=== PATIENT | male | born 1965 | race Caucasian/White ===

== ENCOUNTER 2020-01-26 19:21 | Inpatient (IN) ==
[2020-01-26] MEDS ORDERED: IOPAMIDOL 100 ML BOTTLE IV ONE (19:22)
[2020-01-26] MEDS ORDERED: 0.9 % SODIUM CHLORIDE 1,000 ML IV ONE ×2 (19:29→22:50)
[2020-01-26] MEDS ORDERED: ONDANSETRON 4 MG/2 ML VIAL IV ONE (20:06)
[2020-01-26 21:39] LABS: Basophils # (Auto) 0.06 K/mcL (0.00-0.20); Basophils % (Auto) 0.2 % (0.0-2.0); Eosinophils # (Auto) 0.01 K/mcL (0.00-0.70); Eosinophils % (Auto) 0 % (0.0-7.0); Hematocrit 55.4 % (41.0-55.0); Hemoglobin 18.8 g/dL (13.5-16.5); Lymphocytes # (Auto) 1.18 K/mcL (1.50-4.80); Lymphocytes % (Auto) 4.1 % (15.0-49.0); Mean Cell Volume 97.7 fL (80.0-100.0); Mean Corpuscular HGB Conc 33.9 g/dL (31.0-36.0); Mean Platelet Volume 11.2 fL (7.4-10.4); Monocytes # (Auto) 1.75 K/mcL (0.10-0.90); Monocytes % (Auto) 6.1 % (1.0-12.0); Neutrophils % (Auto) 89.6 % (38.0-78.0); Platelet Count 197 K/mcL (140-440); RBC 5.67 M/mcL (4.50-5.90); Red Cell Distribution Width 13.2 % (11.5-14.5); WBC 28.8 K/mcL (4.5-11.0)
[2020-01-26 21:40] LABS: ALT/SGPT 21 U/L (<40); AST/SGOT 37 U/L (<40); Albumin 4.6 gm/dL (3.2-5.2); Albumin/Globulin Ratio 1.7 (1.0-2.3); Alkaline Phosphatase 98 U/L (39-117); Bilirubin,Total 1.1 mg/dL (0.1-1.0); Blood Urea Nitrogen 22 mg/dL (6-20); Calcium 10.9 mg/dL (8.6-10.4); Carbon Dioxide 20 mmol/L (22-30); Chloride 97 mmol/L (96-108); Globulin 2.7 gm/dL (2.2-3.7); Glomerular Filtration Rate 67; Glucose 280 mg/dL (70-105)
[2020-01-26 21:44] LABS: Appearance,Urine Cloudy (Clear); Bacteria,Urine MOD /hpf (0); Bilirubin,Urine Negative (Negative); Color,Urine Brown; Culture Indicated,Urine yes; Glucose,Urine (UA) Negative (Negative); Ketones,Urine 15 mg/dL mg/dL (Negative); Leukocyte Esterase,Urine Trace /ug (Negative); Nitrate,Urine Positive (Negative); PH,Urine 6.5 (5.0-9.0); Specific Gravity,Urine >= 1.030 (1.000-1.035); Urine Blood Small ery/mcL (Negative); Urine Hyaline Cast 27 /lph (0-2); Urine RBC 32 /hpf (0-1); Urine Squamous Epithelial Cell 1 /hpf (0-4); Urine WBC 53 /hpf (0-4); Urobilinogen,Urine >=8.0 E.U./dL mg/dL
[2020-01-26] MEDS ORDERED: cefTRIAXone 1 GM VIAL IV ONE (21:57)
--- NOTE | 2020-01-26 22:05 | Emergency Department Note ---
Nausea/Vomiting/Diarrhea HPI General Chief complaint: Nausea/Vomiting/Diarrhea Stated complaint: diarrhea Time Seen by Provider: 01/26/20 19:25 Source: patient Mode of arrival: ambulatory Limitations: physical limitation (developmental delay and physical) History of Present Illness HPI Narrative: Narrative: 54-year-old male presents with diarrhea and some abdominal discomfort. He has 24-hour a day caregivers. They state that he did have a bowel movement for 5 days and they are supposed to start a bowel regimen after 3 days but they did not do it until today. Rather they started about 24 hours ago. They gave him several laxatives and's for the last couple hours he has had nonstop diarrhea that is like water. They state he is going every 20 minutes. They also was report that he is very weak and shaky. They state he never complains of pain and he is complaining of right lower quadrant abdominal pain. Also has had some nausea but no vomiting. No fever or chills. No cough or cold symptoms. They also state he has a suprapubic catheter and does get UTIs fairly frequently. No treatments prior to arrival other than the laxatives Related Data Home Medications Medication Instructions Recorded Confirmed bupropion HCl 150 mg tablet,12 hr 150 mg PO BID tab 01/05/15 01/01/20 sustained-release divalproex 500 mg tablet,delayed 1,000 mg PO QHS tab 01/05/15 01/01/20 release fluvoxamine 100 mg tablet 100 mg PO TID tab 01/05/15 01/01/20 melatonin 5 mg capsule 5 mg PO .Daily at bedtime cap 01/05/15 01/01/20 teriflunomide 14 mg tablet 14 mg PO QDAY 11/27/19 01/01/20 Previous Rx's Medication Instructions Recorded trazodone 100 mg tablet 100 mg PO QHS #90 tab 08/18/15 GAIT BELT #1 ea 08/14/18 bisacodyl 10 mg rectal suppository 10 mg IN QDAY PRN #12 supp 02/24/19 acetaminophen 500 mg tablet 1,000 mg PO TID PRN #60 tab 05/15/19 levothyroxine 75 mcg capsule 75 mcg PO QDAY #31 cap 07/28/19 multivit,Ca,min-iron 8 mg-folic See Rx Instructions .ROUTE 07/28/19 acid 200 mcg-lycopene 600 mcg .COMPLEX #30 tablet tablet magnesium citrate 118 ml PO ONCE #296 ml 09/15/19 aspirin 81 mg tablet,delayed See Rx Instructions .ROUTE 09/24/19 release .COMPLEX #30 tablet chromium picolinate 200 mcg tablet See Rx Instructions .ROUTE 10/22/19 .COMPLEX #60 tablet magnesium 250 mg tablet 250 mg PO BID 31 Days #62 tab 10/22/19 metformin 500 mg tablet,extended 500 mg PO QDAY #31 tab 11/25/19 release 24 hr fluticasone propionate 50 2 spray INTRANASAL QDAY #16 g 12/01/19 mcg/actuation nasal spray,suspension zinc oxide 13 % topical cream See Rx Instructions TOPICAL 5XD 12/24/19 #454 g [id number], wh See Rx Instructions .ROUTE 01/05/20 .COMPLEX #207 g D-Mannose 1 cap PO BID 31 Days #62 cap 01/15/20 Allergies Allergy/AdvReac Type Severity Reaction Status Date / Time No Known Intolerances Allergy Unknown N/A Verified 01/26/20 19:30 Review of Systems ROS ROS Narrative: Narrative: All systems ED: reviewed and negative except as stated. [facility] Narrative Patient History Narrative: Narrative: Medical/Surgical/Family History All Active Problems Acute URI (Acute) Suprapubic catheter dysfunction (Acute) Vasovagal syncope (Acute) Laceration of scrotum (Acute) Microalbuminuria (Chronic) Catheter (urine) change required (Chronic) History of malignant melanoma (Chronic) History of urinary incontinence (Chronic) History of tonsillectomy (Chronic) History of suprapubic catheter (Chronic) Conroy catheter in place (Chronic) History of cystoscopy (Chronic 02/04/14) Urinary tract infection (Chronic) Urinary retention (Chronic 09/09/13) Urinary incontinence (Chronic) 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) Urethral catheter mechanical complication (Chronic) Rhinitis, allergic (Chronic) Obsessive-compulsive disorder (Chronic) Obesity (Chronic) Neurogenic bladder (Chronic 09/09/13) Myocardial infarction, old (Chronic) Multiple sclerosis (Chronic) Mild cognitive impairment (Chronic) Leukocytopenia (Chronic) Insomnia (Chronic) Hypothyroidism (acquired) (Chronic) Orthostatic hypotension (Chronic) Hypoglycemia (Chronic) Hypertension, essential (Chronic) Hyperlipidemia (Chronic) Esophageal reflux (Chronic) Diabetes mellitus, type II (Chronic) Developmental delay (Chronic) Depressive disorder (Chronic) Dementia (Chronic) Degeneration of lumbar or lumbosacral intervertebral disc (Chronic) Constipation (Chronic) Chronic pain (Chronic) CAD (coronary artery disease) (Chronic) Asthma (Chronic) Anxiety disorder (Chronic) Anoxic brain damage (Chronic) Medical History Anoxic brain damage (Chronic) since child (12/26/2013 Dr Vazquez) Anxiety disorder (Chronic) Asthma (Chronic) CAD (coronary artery disease) (Chronic) 1996 Catheter (urine) change required (Chronic) Chronic pain (Chronic) Constipation (Chronic) Contusion of right leg (Resolved) Degeneration of lumbar or lumbosacral intervertebral disc (Chronic) Dementia (Chronic) provisional diagnosis of early stage Depressive disorder (Chronic) Developmental delay (Chronic) Diabetes mellitus, type II (Chronic) Esophageal reflux (Chronic) History of malignant melanoma (Chronic) melanoma, right shoulder, Dr. 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 Vazquez) History of cystoscopy (Chronic 02/04/14) History of suprapubic catheter (Chronic) 12/26/2013 Dr Vazquez //// 01/08/2014 History of tonsillectomy (Chronic) (12/26/2013 Dr Vazquez) History of urinary incontinence (Chronic) Urinary incontinence procedure December 2006 Hx of cataract surgery (Chronic) Right 04/12/17 Family History Unknown Diabetes mellitus Family history of malignant neoplasm Social History Smoking Status: Never smoker Alcohol Intake Frequency: does not drink Substance Use: does not use Exam Narrative Narrative: Narrative: General Limitations: physical limitation (developmental delay and physical) General appearance: Present alert Head Head: Present atraumatic and normocephalic Eye Eye: Present normal appearance; Absent conjunctival injection ENT ENT: Present normal exam, normal oropharynx, mucous membranes moist, TM's normal bilaterally and normal external ear exam Chest Chest: Present symmetric chest wall rise Respiratory Respiratory: Present normal lung sounds bilaterally; Absent respiratory distre ss, rales/crackles, wheezes, stridor and accessory muscle use Cardiovascular Cardiovascular: Present regular rate and normal heart sounds Adbominal Abdominal: Present tenderness (mild RLQ) and normal bowel sounds; Absent distention, guarding, rebound and rigidity Extremities Extremities: Present normal inspection Back Back: Absent CVA tenderness (R) and CVA tenderness (L) Neurological Neurological: Present alert Psychiatric Psychiatric: Present normal affect and flat affect Skin Skin: Present warm (WNL), dry and normal color; Absent rash Course Course Course Narrative: @ [address] daugherty to assume care due to shift change Vital Signs Vital signs: Vital Signs Temperature 96.1 F L 01/26/20 19:22 Pulse Rate 117 H 01/26/20 19:22 Respiratory Rate 17 01/26/20 19:22 Blood Pressure 127/84 01/26/20 19:22 Pulse Oximetry (%) 94 01/26/20 19:22 Temperature 96.1 F L 01/26/20 19:22 Pulse Rate 125 H 01/26/20 21:46 Respiratory Rate 17 01/26/20 19:22 Blood Pressure 136/97 01/26/20 21:46 Pulse Oximetry (%) 95 01/26/20 21:46 MDM MDM Narrative Medical decision making narrative: Narrative: Lab Data Lab results reviewed: Yes I reviewed the patient's lab results. Result diagrams: 01/26/20 19:45 01/26/20 19:45 Labs: Lab Results 01/26/20 01/26/20 01/26/20 Range/Units 19:45 19:45 20:14 WBC 28.8 H (4.5-11.0) K/mcL RBC 5.67 (4.50-5.90) M/mcL Hgb 18.8 H (13.5-16.5) g/dL Hct 55.4 H (41.0-55.0) % MCV 97.7 (80.0-100.0) fL MCH 33.2 (26.0-34.0) pg MCHC 33.9 (31.0-36.0) g/dL RDW 13.2 (11.5-14.5) % Plt Count 197 (140-440) K/mcL MPV 11.2 H (7.4-10.4) fL Neut % (Auto) 89.6 H (38.0-78.0) % Lymph % (Auto) 4.1 L (15.0-49.0) % [place] % (Auto) 6.1 (1.0-12.0) % Eos % (Auto) 0 (0.0-7.0) % Baso % (Auto) 0.2 (0.0-2.0) % Lymph # (Auto) 1.18 L (1.50-4.80) K/mcL [place] # (Auto) 1.75 H (0.10-0.90) K/mcL Eos # (Auto) 0.01 (0.00-0.70) K/mcL Baso # (Auto) 0.06 (0.00-0.20) K/mcL Absolute Neutrophils 25.81 H (1.80-8.00) K/mcL Sodium 136 (133-145) mmol/L Potassium 4.7 (3.3-5.1) mmol/L Chloride 97 (96-108) mmol/L Carbon Dioxide 20 L (22-30) mmol/L Anion Gap 19.0 H (8.0-16.0) BUN 22 H (6-20) mg/dL Creatinine 1.2 (0.7-1.2) mg/dL GFR Calculation 67 Glucose 280 H (70-105) mg/dL Calcium 10.9 H (8.6-10.4) mg/dL Total Bilirubin 1.1 H (0.1-1.0) mg/dL AST 37 (<40) U/L ALT 21 (<40) U/L Alkaline Phosphatase 98 (39-117) U/L Total Protein 7.3 (5.9-8.4) gm/dL Albumin 4.6 (3.2-5.2) gm/dL Globulin 2.7 (2.2-3.7) gm/dL Albumin/Globulin Ratio 1.7 (1.0-2.3) Urine Color Brown Urine Appearance Cloudy A (Clear) Urine pH 6.5 (5.0-9.0) Ur Specific [place] >= 1.030 (1.000-1.035) Urine Protein 30 mg/dl A (Negative) mg/dL Urine Glucose (UA) Negative (Negative) mg/dL Urine Ketones 15 mg/dl A (Negative) mg/dL Urine Occult Blood Small A (Negative) gilson/mcL Urine Nitrate Positive A (Negative) Urine Bilirubin Negative (Negative) mg/dL Urine Urobilinogen >=8.0 e.u./dl A mg/dL Ur Leukocyte Esterase Trace A (Negative) /ug Urine RBC 32 H (0-1) /hpf Urine WBC 53 H (0-4) /hpf Ur Squamous Epith Cells 1 (0-4) /hpf Urine Bacteria Mod A (0) /hpf Hyaline Casts 27 H (0-2) /lph Ur Culture Indicated? yes Radiology Data Radiology results reviewed: Yes I reviewed the patient's radiology results. Discharge Plan Patient/Caregiver Discharge Instructions Pt seen by ACREAGE REPORTER/PA only: No Patient Disposition: Still a Patient Follow up with: Lon Stinson PA-C [Primary Care Provider] - Prescriptions: No Action trazodone 100 mg tablet 100 mg PO QHS Qty: 90 RF: 1 bisacodyl 10 mg suppository 10 mg IN QDAY PRN (Reason: constipation) Qty: 12 RF: 11 acetaminophen 500 mg tablet 1,000 mg PO TID PRN (Reason: headache) Qty: 60 RF: 2 levothyroxine 75 mcg capsule 75 mcg PO QDAY Qty: 31 RF: 5 Centrum Men 8 mg iron- 200 mcg-600 mcg tablet See Rx Instructions .ROUTE .COMPLEX Qty: 30 RF: 5 magnesium citrate Solution 118 ml PO ONCE Qty: 296 RF: 0 aspirin 81 mg tablet,delayed release (DR/EC) See Rx Instructions .ROUTE .COMPLEX Qty: 30 RF: 5 magnesium 250 mg tablet 250 mg PO BID 31 Days Qty: 62 RF: 5 chromium picolinate 200 mcg tablet See Rx Instructions .ROUTE .COMPLEX Qty: 60 RF: 5 metformin 500 mg tablet extended release 24 hr 500 mg PO QDAY Qty: 31 RF: 11 fluticasone propionate 50 mcg/actuation spray,suspension 2 spray INTRANASAL QDAY Qty: 16 RF: 5 Desitin Rapid Relief 13 % cream See Rx Instructions TOPICAL 5XD Qty: 454 RF: 1 Cetaphil Moisturizing Cream See Rx Instructions .ROUTE .COMPLEX Qty: 207 RF: 1 D-Mannose 500 mg capsule 1 cap PO BID 31 Days Qty: 62 RF: 5 bupropion HCl 150 mg tablet extended release 150 mg PO BID RF: 0 divalproex 500 mg tablet,delayed release (DR/EC) 1,000 mg PO QHS RF: 0 fluvoxamine 100 mg tablet 100 mg PO TID RF: 0 melatonin 5 mg capsule 5 mg PO .Daily at bedtime RF: 0 (DME) GAIT BELT Qty: 1 RF: 0 Aubagio 14 mg tablet 14 mg PO QDAY RF: 0
[2020-01-26] MEDS ORDERED: cefTRIAXone 1 GM VIAL ONE (22:48)
[2020-01-26] MEDS ORDERED: cefTRIAXone 2 GM VIAL IV ONE (23:36)
[2020-01-26] MEDS ORDERED: ONDANSETRON 4 MG/2 ML VIAL IV PRN (23:37)
--- NOTE | 2020-01-26 23:50 | Emergency Department Note ---
HPI General Chief complaint: Nausea/Vomiting/Diarrhea Stated complaint: diarrhea Time Seen by Provider: 01/26/20 19:25 Source: patient Mode of arrival: ambulatory Limitations: physical limitation (developmental delay and physical) History of Present Illness HPI Narrative: Narrative: Assumed care from Radha Metcalf at time of shift change. I was to follow-up on CT scan results and dispo the patient. Patient had been noted to be tachycardic as well as with significant elevation of the white blood cell count and abnormal urinalysis. Patient has had fluid resuscitation 2 L. Patient did not have lactic acid performed to the best that I can find in the chart. This test was ordered at time of disposition. Related Data Home Medications Medication Instructions Recorded Confirmed bupropion HCl 150 mg tablet,12 hr 150 mg PO BID tab 01/05/15 01/26/20 sustained-release divalproex 500 mg tablet,delayed 1,000 mg PO QHS tab 01/05/15 01/01/20 release fluvoxamine 100 mg tablet 100 mg PO TID tab 01/05/15 01/01/20 melatonin 5 mg capsule 5 mg PO .Daily at bedtime cap 01/05/15 01/26/20 teriflunomide 14 mg tablet 14 mg PO QDAY 11/27/19 01/26/20 Previous Rx's Medication Instructions Recorded trazodone 100 mg tablet 100 mg PO QHS #90 tab 08/18/15 GAIT BELT #1 ea 08/14/18 bisacodyl 10 mg rectal suppository 10 mg MS QDAY PRN #12 supp 02/24/19 acetaminophen 500 mg tablet 1,000 mg PO TID PRN #60 tab 05/15/19 levothyroxine 75 mcg capsule 75 mcg PO QDAY #31 cap 07/28/19 multivit,Ca,min-iron 8 mg-folic See Rx Instructions .ROUTE 07/28/19 acid 200 mcg-lycopene 600 mcg .COMPLEX #30 tablet tablet magnesium citrate 118 ml PO ONCE #296 ml 09/15/19 aspirin 81 mg tablet,delayed See Rx Instructions .ROUTE 09/24/19 release .COMPLEX #30 tablet chromium picolinate 200 mcg tablet See Rx Instructions .ROUTE 10/22/19 .COMPLEX #60 tablet magnesium 250 mg tablet 250 mg PO BID 31 Days #62 tab 10/22/19 metformin 500 mg tablet,extended 500 mg PO QDAY #31 tab 11/25/19 release 24 hr fluticasone propionate 50 2 spray INTRANASAL QDAY #16 g 12/01/19 mcg/actuation nasal spray,suspension zinc oxide 13 % topical cream See Rx Instructions TOPICAL 5XD 12/24/19 #454 g fozdmusz-bmycbureqzv-npqsq, wh See Rx Instructions .ROUTE 01/05/20 .COMPLEX #207 g D-Mannose 1 cap PO BID 31 Days #62 cap 01/15/20 Allergies Allergy/AdvReac Type Severity Reaction Status Date / Time No Known Intolerances Allergy Unknown N/A Verified 01/26/20 19:30 Review of Systems ROS ROS Narrative: Narrative: All systems ED: reviewed and negative except as stated. [facility] Narrative Patient History Narrative: Narrative: Medical/Surgical/Family History All Active Problems (Updated 01/26/20 @ 23:49 by Heri Littlejohn MD) Sepsis (Acute) Acute UTI (Acute) Acute URI (Acute) Suprapubic catheter dysfunction (Acute) Vasovagal syncope (Acute) Laceration of scrotum (Acute) Microalbuminuria (Chronic) Catheter (urine) change required (Chronic) History of malignant melanoma (Chronic) History of urinary incontinence (Chronic) History of tonsillectomy (Chronic) History of suprapubic catheter (Chronic) Conroy catheter in place (Chronic) History of cystoscopy (Chronic 02/04/14) Urinary tract infection (Chronic) Urinary retention (Chronic 09/09/13) Urinary incontinence (Chronic) 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) Urethral catheter mechanical complication (Chronic) Rhinitis, allergic (Chronic) Obsessive-compulsive disorder (Chronic) Obesity (Chronic) Neurogenic bladder (Chronic 09/09/13) Myocardial infarction, old (Chronic) Multiple sclerosis (Chronic) Mild cognitive impairment (Chronic) Leukocytopenia (Chronic) Insomnia (Chronic) Hypothyroidism (acquired) (Chronic) Orthostatic hypotension (Chronic) Hypoglycemia (Chronic) Hypertension, essential (Chronic) Hyperlipidemia (Chronic) Esophageal reflux (Chronic) Diabetes mellitus, type II (Chronic) Developmental delay (Chronic) Depressive disorder (Chronic) Dementia (Chronic) Degeneration of lumbar or lumbosacral intervertebral disc (Chronic) Constipation (Chronic) Chronic pain (Chronic) CAD (coronary artery disease) (Chronic) Asthma (Chronic) Anxiety disorder (Chronic) Anoxic brain damage (Chronic) Medical History Anoxic brain damage (Chronic) since child (12/26/2013 Dr Vazquez) Anxiety disorder (Chronic) Asthma (Chronic) CAD (coronary artery disease) (Chronic) 1996 Catheter (urine) change required (Chronic) Chronic pain (Chronic) Constipation (Chronic) Contusion of right leg (Resolved) Degeneration of lumbar or lumbosacral intervertebral disc (Chronic) Dementia (Chronic) provisional diagnosis of early stage Depressive disorder (Chronic) Developmental delay (Chronic) Diabetes mellitus, type II (Chronic) Esophageal reflux (Chronic) History of malignant melanoma (Chronic) melanoma, right shoulder, Dr. 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 Vazquez) History of cystoscopy (Chronic 02/04/14) History of suprapubic catheter (Chronic) 12/26/2013 Dr Vazquez //// 01/08/2014 History of tonsillectomy (Chronic) (12/26/2013 Dr Vazquez) History of urinary incontinence (Chronic) Urinary incontinence procedure December 2006 Hx of cataract surgery (Chronic) Right 04/12/17 Family History Unknown Diabetes mellitus Family history of malignant neoplasm Social History Smoking Status: Never smoker Alcohol Intake Frequency: does not drink Substance Use: does not use Exam Narrative Narrative: Narrative: General: Alert, interactive, appropriate Head: Atraumatic, normocephalic Eyes: Extraocular movements intact, sclera anicteric, no conjunctival injection Ears: Pinnae normal, no discharge Mouth: Oral mucosa moist, no acute swelling or evidence of infection Nares: No nasal discharge, patent bilaterally Neck: Trachea midline, full range of motion Chest: Symmetrical chest wall rise, breathing normally; nonlabored respirations Cardiovascular: Patient with excellent perfusion to the extremities; with tachycardia Skin: Patient without area of erythema, patient is without rash, no ascending lymphangitis or lymphadenopathy Extremities: Full range of motion joints, no obvious deformities Neuro: Alert, oriented x3, cranial nerves II through XII grossly intact, patient without lateralizing findings such as weakness, or abnormal reflexes Psychiatric: Normal affect, normal mood General Limitations: physical limitation (developmental delay and physical) Course Vital Signs Vital signs: Vital Signs Temperature 96.1 F L 01/26/20 19:22 Pulse Rate 117 H 01/26/20 19:22 Respiratory Rate 17 01/26/20 19:22 Blood Pressure 127/84 01/26/20 19:22 Pulse Oximetry (%) 94 01/26/20 19:22 Temperature 96.1 F L 01/26/20 19:22 Pulse Rate 103 H 01/26/20 23:17 Respiratory Rate 17 01/26/20 19:22 Blood Pressure 140/84 01/26/20 23:17 Pulse Oximetry (%) 92 01/26/20 23:17 MDM MDM Narrative Medical decision making narrative: Narrative: 54-year-old male noted to have elevated white blood cell count, abnormal urinalysis, tachycardia and one blood pressure in the systolic of 98. Patient's was appropriately fluid resuscitated with normal saline 2 L also given Rocephin [address] scan did not specifically identify pathology aside from findings consistent with having recently had severe constipation and having been treated aggressively with bowel regimen. Findings in this case most consistent with sepsis and urinary source. Patient did not have lactate or blood cultures drawn at time of my assuming care and patient had already received fluid resuscitation as well as antibiotics. Discussed the case with Dr. Franco and the consensus medical opinion is to admit the patient to the hospital. Lab Data Result diagrams: 01/26/20 19:45 01/26/20 19:45 Labs: Lab Results 01/26/20 01/26/20 01/26/20 Range/Units 19:45 19:45 20:14 WBC 28.8 H (4.5-11.0) K/mcL RBC 5.67 (4.50-5.90) M/mcL Hgb 18.8 H (13.5-16.5) g/dL Hct 55.4 H (41.0-55.0) % MCV 97.7 (80.0-100.0) fL MCH 33.2 (26.0-34.0) pg MCHC 33.9 (31.0-36.0) g/dL RDW 13.2 (11.5-14.5) % Plt Count 197 (140-440) K/mcL MPV 11.2 H (7.4-10.4) fL Neut % (Auto) 89.6 H (38.0-78.0) % Lymph % (Auto) 4.1 L (15.0-49.0) % [place] % (Auto) 6.1 (1.0-12.0) % Eos % (Auto) 0 (0.0-7.0) % Baso % (Auto) 0.2 (0.0-2.0) % Lymph # (Auto) 1.18 L (1.50-4.80) K/mcL [place] # (Auto) 1.75 H (0.10-0.90) K/mcL Eos # (Auto) 0.01 (0.00-0.70) K/mcL Baso # (Auto) 0.06 (0.00-0.20) K/mcL Absolute Neutrophils 25.81 H (1.80-8.00) K/mcL Sodium 136 (133-145) mmol/L Potassium 4.7 (3.3-5.1) mmol/L Chloride 97 (96-108) mmol/L Carbon Dioxide 20 L (22-30) mmol/L Anion Gap 19.0 H (8.0-16.0) BUN 22 H (6-20) mg/dL Creatinine 1.2 (0.7-1.2) mg/dL GFR Calculation 67 Glucose 280 H (70-105) mg/dL Calcium 10.9 H (8.6-10.4) mg/dL Total Bilirubin 1.1 H (0.1-1.0) mg/dL AST 37 (<40) U/L ALT 21 (<40) U/L Alkaline Phosphatase 98 (39-117) U/L Total Protein 7.3 (5.9-8.4) gm/dL Albumin 4.6 (3.2-5.2) gm/dL Globulin 2.7 (2.2-3.7) gm/dL Albumin/Globulin Ratio 1.7 (1.0-2.3) Urine Color Brown Urine Appearance Cloudy A (Clear) Urine pH 6.5 (5.0-9.0) Ur Specific [place] >= 1.030 (1.000-1.035) Urine Protein 30 mg/dl A (Negative) mg/dL Urine Glucose (UA) Negative (Negative) mg/dL Urine Ketones 15 mg/dl A (Negative) mg/dL Urine Occult Blood Small A (Negative) gilson/mcL Urine Nitrate Positive A (Negative) Urine Bilirubin Negative (Negative) mg/dL Urine Urobilinogen >=8.0 e.u./dl A mg/dL Ur Leukocyte Esterase Trace A (Negative) /ug Urine RBC 32 H (0-1) /hpf Urine WBC 53 H (0-4) /hpf Ur Squamous Epith Cells 1 (0-4) /hpf Urine Bacteria Mod A (0) /hpf Hyaline Casts 27 H (0-2) /lph Ur Culture Indicated? yes Discharge Plan Patient/Caregiver Discharge Instructions Pt seen by PERMIT TECHNICIAN/PA only: No Clinical Impression: Acute UTI Sepsis Qualifiers: Sepsis type: sepsis due to unspecified organism Sepsis acute organ dysfunction status: without acute organ dysfunction Qualified Code(s): A41.9 - Sepsis, unspecified organism Patient Disposition: Xfer As Inpt ([facility]) Follow up with: Lon Stinson PA-C [Primary Care Provider] - Prescriptions: No Action trazodone 100 mg tablet 100 mg PO QHS Qty: 90 RF: 1 bisacodyl 10 mg suppository 10 mg MS QDAY PRN (Reason: constipation) Qty: 12 RF: 11 acetaminophen 500 mg tablet 1,000 mg PO TID PRN (Reason: headache) Qty: 60 RF: 2 levothyroxine 75 mcg capsule 75 mcg PO QDAY Qty: 31 RF: 5 Centrum Men 8 mg iron- 200 mcg-600 mcg tablet See Rx Instructions .ROUTE .COMPLEX Qty: 30 RF: 5 magnesium citrate Solution 118 ml PO ONCE Qty: 296 RF: 0 aspirin 81 mg tablet,delayed release (DR/EC) See Rx Instructions .ROUTE .COMPLEX Qty: 30 RF: 5 magnesium 250 mg tablet 250 mg PO BID 31 Days Qty: 62 RF: 5 chromium picolinate 200 mcg tablet See Rx Instructions .ROUTE .COMPLEX Qty: 60 RF: 5 metformin 500 mg tablet extended release 24 hr 500 mg PO QDAY Qty: 31 RF: 11 fluticasone propionate 50 mcg/actuation spray,suspension 2 spray INTRANASAL QDAY Qty: 16 RF: 5 Desitin Rapid Relief 13 % cream See Rx Instructions TOPICAL 5XD Qty: 454 RF: 1 Cetaphil Moisturizing Cream See Rx Instructions .ROUTE .COMPLEX Qty: 207 RF: 1 D-Mannose 500 mg capsule 1 cap PO BID 31 Days Qty: 62 RF: 5 bupropion HCl 150 mg tablet extended release 150 mg PO BID RF: 0 divalproex 500 mg tablet,delayed release (DR/EC) 1,000 mg PO QHS RF: 0 fluvoxamine 100 mg tablet 100 mg PO TID RF: 0 melatonin 5 mg capsule 5 mg PO .Daily at bedtime RF: 0 (DME) GAIT BELT Qty: 1 RF: 0 Aubagio 14 mg tablet 14 mg PO QDAY RF: 0
--- NOTE | 2020-01-27 05:09 | Cat Scan Report ---
CLINICAL INFORMATION: Abdominal pain and distention COMPARISON: Noncontrast abdomen and pelvic CT 06/05/2009 TECHNIQUE: Following enteric contrast, 80 cc of Isovue-370 were injected intravenously, and 60 seconds later, 0.625 mm helical slices were obtained from the mid heart through the subtrochanteric regions. Following reconstruction, 2.5 mm sagittal, coronal and axial reformatted images were processed and reviewed at bone, lung and soft tissue windows. Five minutes later, 0.625 mm helical slices were obtained from the mid heart through the kidneys and viewed at soft tissue windows.The exam was performed using radiation dose optimization techniques including, but not limited to, automated exposure control, adjustment of the mA and/or kV according to patient size and use of iterative reconstruction technique. FINDINGS: Lung bases show subsegmental atelectasis in both posterior lower lobes. No effusions. The visualized heart is grossly normal. Abdominal images show the gallbladder and bile ducts are normal: CBD is 5 mm. There is a 2 mm punctate nonobstructing stone inferior calyx of the right kidney. The remaining right knee, left kidney, both adrenal glands, spleen, pancreas, liver and aorta, including aortic branches, are normal in size, configuration and attenuation without focal lesion. Pelvic images show suprapubic catheter satisfactorily positioned. A decompressed urinary bladder. The prostate and seminal vesicles are grossly normal. There is no free air, free fluid or adenopathy. The visualized distal thoracic esophagus, stomach, duodenum and jejunum are moderately dilated to a transition point in the left upper quadrant (best seen on sagittal image 124). Presumably, there is a stricture or adhesion in this region. The distal small bowel and most of the colon are decompressed. The mid distal sigmoid and rectum demonstrate mild concentric wall thickening and marked dilatation excess stool. Findings are suggestive of colitis / proctitis. No definite CT evidence for volvulus. A 6.5 cm diverticulum off the small bowel seen in the right lower quadrant extends into the right prevesical space. The appendix is unremarkable. A 4 cm right inguinal hernia, containing only mesenteric fat, is stable. Bone windows show no focal osseous lesions. IMPRESSION: 1. Partial small bowel obstruction in the mid jejunum due to adhesions or stricture. Consider: standard radiographic small bowel follow-through to confirm. Delayed films of the large bowel will also concomitantly exclude or confirm sigmoid volvulus 2. Marked dilatation and mild wall thickening of the mid/ distal sigmoid colon and rectum which contains a large amount of stool. Suspect this is merely atypical ileus, but mild colitis/proctitis are also possible. Patient will likely require colonic cleansing. 3. Small right inguinal hernia containing mesenteric fat - stable 4. 6 cm diverticulum off the distal ileum in the right lower quadrant which contains two fecaliths and is located in the right perivesical space. Significance unknown. Interpreted and Authenticated by: Miguel Cade 01/27/20
--- NOTE | 2020-01-27 05:10 | XRay Report ---
CLINICAL INFORMATION: constipation, now diarrhea, abd pain COMPARISON: 08/11/2009 FINDINGS: Moderate gastric dilatation appreciated. Small bowel poorly visualized. Moderate colonic dilatation appreciated particularly the rectosigmoid region which is stool-filled. No free air soft tissue mass. IMPRESSION: Nonspecific stool gas pattern compatible either severe ileus or distal colonic obstruction. Follow-up abdomen and pelvic CT will be performed Interpreted and Authenticated by: Miguel Cade 01/27/20
[2020-01-27] MEDS ORDERED: 0.9 % SODIUM CHLORIDE 10 ML SYRINGE IV SCH (06:00)
[2020-01-27 07:19] LABS: Total Hemoglobin 17.5 gm/Dl (13.5-16.5); VBG HCO3 21.7 mmol/L (24.0-28.0); VBG Oxygen Saturation 91.7 % (40.0-70.0); VBG PCO2 34.3 mmHg (41.0-51.0); VBG PH 7.42 U (7.32-7.42); VBG Total CO2 22.8 mmol/L (25.0-29.0)
[2020-01-27] MEDS: DOCUSATE SODIUM 100 MG CAPSULE PO SCH ×2 (07:28→20:00)
[2020-01-27] MEDS ORDERED: MAGNESIUM SULFATE 2 GM/50 ML BAG IV PRN (07:37)
[2020-01-27] MEDS ORDERED: POTASSIUM CHLORIDE 20 MEQ PACKET PO PRN (07:37)
[2020-01-27] MEDS ORDERED: ACETAMINOPHEN 650 MG/65 ML BOTTLE IV PRN (07:37)
[2020-01-27] MEDS ORDERED: BISACODYL 10 MG SUPP.RECT PR PRN (07:37)
[2020-01-27] MEDS ORDERED: POLYETHYLENE GLYCOL 3350 17 GM PACKET PO PRN (07:37)
[2020-01-27] MEDS ORDERED: METOPROLOL TARTRATE 5 MG/5 ML VIAL IV PRN (07:37)
[2020-01-27] MEDS ORDERED: ONDANSETRON 4 MG/2 ML VIAL IV PRN (07:37)
[2020-01-27] MEDS ORDERED: MELATONIN 3 MG TABLET PO PRN (07:37)
[2020-01-27] MEDS ORDERED: ACETAMINOPHEN 325 MG TABLET PO PRN (07:37)
[2020-01-27] MEDS ORDERED: POTASSIUM CHLORIDE 40 MEQ in DEXTROSE 5% IN WATER 500 ML IV PRN (07:37)
[2020-01-27] MEDS ORDERED: guaiFENesin/CODEINE 10 ML UDC PO PRN (07:37)
[2020-01-27] MEDS ORDERED: ONDANSETRON 4 MG ODT TABLET SL PRN (07:37)
--- NOTE | 2020-01-27 07:43 | Internal Med History&Physical ---
HPI History of Present Illness Patient information: Note initiated : 01/26/20 at 11:53 pm Service Date, if different from initiated Date: [] Patient: Buck Diamond 54 y/o M admitted on 01/26/20 for diarrhea. Chief Complaint: [id number] a history of developmental delay who presented to the ER following multiple episodes of diarrhea. Patient suffers from abnormal bowel with alternating constipation following diarrhea at this time he has not had a bowel movement in 5 days. He was subsequently given multiple laxatives/stool softeners with resultant diarrhea. He normally receives help from caregivers. Staff expressed concern about dehydration and him not feeling his normal self. He was subsequently brought to the ER. Initial work-up was consistent with severe sepsis with white count 28,000, ileus pattern on CT abdomen. Pyuria Patient carries a suprapubic Conroy's catheter that was changed 2 weeks prior to presentation. No evidence of fever. However patient remained tachycardic. Subsequently hospitalist service was consulted for admission in light of severe sepsis likely from UTI At the time of my evaluation patient is very restless unable to provide answers to most the questions. POA/daughter Brinda available and was able to provide answers to most of the questions. Patient has been started on antibiotic coverage, Conroy's catheter will be changed. Rectal tube was placed. Continuing crystalloids Review of systems 10 point review system was attempted but could not be obtained other than patient is able to endorse that he does not feel abdominal pain PFSH PFSH All Active Problems (Updated 01/26/20 @ 23:49 by Heri Littlejohn MD) Sepsis (Acute) Acute UTI (Acute) Acute URI (Acute) Suprapubic catheter dysfunction (Acute) Vasovagal syncope (Acute) Laceration of scrotum (Acute) Microalbuminuria (Chronic) Catheter (urine) change required (Chronic) History of malignant melanoma (Chronic) History of urinary incontinence (Chronic) History of tonsillectomy (Chronic) History of suprapubic catheter (Chronic) Conroy catheter in place (Chronic) History of cystoscopy (Chronic 02/04/14) Urinary tract infection (Chronic) Urinary retention (Chronic 09/09/13) Urinary incontinence (Chronic) 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) Urethral catheter mechanical complication (Chronic) Rhinitis, allergic (Chronic) Obsessive-compulsive disorder (Chronic) Obesity (Chronic) Neurogenic bladder (Chronic 09/09/13) Myocardial infarction, old (Chronic) Multiple sclerosis (Chronic) Mild cognitive impairment (Chronic) Leukocytopenia (Chronic) Insomnia (Chronic) Hypothyroidism (acquired) (Chronic) Orthostatic hypotension (Chronic) Hypoglycemia (Chronic) Hypertension, essential (Chronic) Hyperlipidemia (Chronic) Esophageal reflux (Chronic) Diabetes mellitus, type II (Chronic) Developmental delay (Chronic) Depressive disorder (Chronic) Dementia (Chronic) Degeneration of lumbar or lumbosacral intervertebral disc (Chronic) Constipation (Chronic) Chronic pain (Chronic) CAD (coronary artery disease) (Chronic) Asthma (Chronic) Anxiety disorder (Chronic) Anoxic brain damage (Chronic) Medical History Anoxic brain damage (Chronic) since child (12/26/2013 Dr Vazquez) Anxiety disorder (Chronic) Asthma (Chronic) CAD (coronary artery disease) (Chronic) 1996 Catheter (urine) change required (Chronic) Chronic pain (Chronic) Constipation (Chronic) Contusion of right leg (Resolved) Degeneration of lumbar or lumbosacral intervertebral disc (Chronic) Dementia (Chronic) provisional diagnosis of early stage Depressive disorder (Chronic) Developmental delay (Chronic) Diabetes mellitus, type II (Chronic) Esophageal reflux (Chronic) History of malignant melanoma (Chronic) melanoma, right shoulder, Dr. 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 Vazquez) History of cystoscopy (Chronic 02/04/14) History of suprapubic catheter (Chronic) 12/26/2013 Dr Vazquez //// 01/08/2014 History of tonsillectomy (Chronic) (12/26/2013 Dr Vazquez) History of urinary incontinence (Chronic) Urinary incontinence procedure December 2006 Hx of cataract surgery (Chronic) Right 04/12/17 Family History Unknown Diabetes mellitus Family history of malignant neoplasm Social History household members: friend(s) housing: apartment lives independently: No marital status: single occupational status: disabled physical activity: walking smoking status: Never smoker alcohol intake frequency: does not drink substance use type: does not use MEDS/ALLERGIES Home Medications and Allergies Home Medications Medication Instructions Recorded Confirmed Type bupropion HCl 150 mg tablet,12 hr 300 mg PO DAILY tab 01/05/15 01/27/20 History sustained-release divalproex 500 mg tablet,delayed 1,000 mg PO DAILY tab 01/05/15 01/27/20 History release fluvoxamine 100 mg tablet 100 mg PO TID tab 01/05/15 01/27/20 History melatonin 5 mg capsule 5 mg PO HS cap 01/05/15 01/27/20 History trazodone 100 mg tablet 100 mg PO QHS #90 tab 08/18/15 01/26/20 Rx GAIT BELT #1 ea 08/14/18 01/01/20 Rx bisacodyl 10 mg rectal suppository 10 mg NH QDAY PRN #12 supp 02/24/19 01/26/20 Rx acetaminophen 500 mg tablet 1,000 mg PO TID PRN #60 tab 05/15/19 01/26/20 Rx levothyroxine 75 mcg capsule 75 mcg PO QDAY #31 cap 07/28/19 01/26/20 Rx magnesium 250 mg tablet 250 mg PO BID 31 Days #62 tab 10/22/19 01/26/20 Rx teriflunomide 14 mg tablet 14 mg PO QDAY 11/27/19 01/26/20 History fluticasone propionate 50 2 spray INTRANASAL QDAY #16 g 12/01/19 01/26/20 Rx mcg/actuation nasal spray,suspension zinc oxide 13 % topical cream See Rx Instructions TOPICAL 5XD 12/24/19 01/01/20 Rx #454 g tjhecsoh-exsdvqprapl-mzmih, wh See Rx Instructions .ROUTE 01/05/20 01/27/20 Rx .COMPLEX #207 g D-[place] 1 cap PO BID 31 Days #62 cap 01/15/20 01/26/20 Rx aspirin 81 mg PO DAILY 01/27/20 01/27/20 History bupropion HCl 150 mg PO QNOON 01/27/20 01/27/20 History cholecalciferol (vitamin D3) 5,000 unit PO DAILY 01/27/20 01/27/20 History [Vitamin D3] chromium picolinate 200 mcg PO BID 01/27/20 01/27/20 History magnesium citrate 118 ml PO PRN PRN 01/27/20 01/27/20 History metformin 500 mg PO 1700 01/27/20 01/27/20 History mv,Ca,jye-yath-LO-lycopene 1 tab PO DAILY 01/27/20 01/27/20 History [Centrum Men] potassium citrate meq PO 01/27/20 History Allergies Allergy/AdvReac Type Severity Reaction Status Date / Time No Known Intolerances Allergy Unknown N/A Verified 01/26/20 19:30 EXAM Constitutional Vitals: Temp Pulse Resp BP Pulse Ox 97.1 F 119 H 30 H 112/85 91 01/27/20 04:01 01/27/20 06:10 01/27/20 06:10 01/27/20 06:01 01/27/20 06:10 Developmentally delayed Head normocephalic Oral cavity moist No ear nose discharge Eye movement symmetrical Neck supple no lymphadenopathy S1-S2 occasionally irregular Nonlabored breathing Nondistended nontender abdomen, suprapubic catheter no surrounding erythema Rectal tube Lower extremity no cyanosis clubbing or joint swelling Skin no suspicious lesion Psych anxious but alert cooperative Neuro able to respond to commands DATA Data Completed and Pending Labs: Labs from last 24 hours 01/27/20 01/27/20 01/27/20 06:51 06:51 06:26 WBC Pending RBC Pending Hgb Pending Hct Pending MCV Pending MCH Pending MCHC Pending RDW Pending Plt Count Pending MPV Pending Neut % (Auto) Pending Lymph % (Auto) [place] % (Auto) Eos % (Auto) Baso % (Auto) Lymph # (Auto) [place] # (Auto) Eos # (Auto) Baso # (Auto) Absolute Neutrophils ABG Methemoglobin 0 L VBG pH 7.42 VBG pCO2 34.3 L VBG pO2 101 H VBG HCO3 21.7 L VBG Total CO2 22.8 L VBG O2 Saturation 91.7 H VBG Base Excess -2 VBG Lactic Acid Carboxyhemoglobin 5.4 H Total Hemoglobin 17.5 H O2 Delivery Level Pending Sodium Pending Potassium Pending Chloride Pending Carbon Dioxide Pending Anion Gap Pending BUN Pending Creatinine Pending GFR Calculation Pending Glucose Pending Uric Acid Pending Calcium Pending Phosphorus Pending Magnesium Pending Total Bilirubin Pending Direct Bilirubin Pending GGT Pending AST Pending ALT Pending Alkaline Phosphatase Pending Lactate Dehydrogenase Pending Total Protein Pending Albumin Pending Globulin Pending Albumin/Globulin Ratio Pending Triglycerides Pending Urine Color Urine Appearance Urine pH Ur Specific [place] Urine Protein Urine Glucose (UA) Urine Ketones Urine Occult Blood Urine Nitrate Urine Bilirubin Urine Urobilinogen Ur Leukocyte Esterase Urine RBC Urine WBC Ur Squamous Epith Cells Urine Bacteria Hyaline Casts Ur Culture Indicated? 01/26/20 01/26/20 01/26/20 23:45 20:14 19:45 WBC RBC Hgb Hct MCV MCH MCHC RDW Plt Count MPV Neut % (Auto) Lymph % (Auto) [place] % (Auto) Eos % (Auto) Baso % (Auto) Lymph # (Auto) [place] # (Auto) Eos # (Auto) Baso # (Auto) Absolute Neutrophils ABG Methemoglobin VBG pH VBG pCO2 VBG pO2 VBG HCO3 VBG Total CO2 VBG O2 Saturation VBG Base Excess VBG Lactic Acid 3.8 H Carboxyhemoglobin Total Hemoglobin O2 Delivery Level Sodium 136 Potassium 4.7 Chloride 97 Carbon Dioxide 20 L Anion Gap 19.0 H BUN 22 H Creatinine 1.2 GFR Calculation 67 Glucose 280 H Uric Acid Calcium 10.9 H Phosphorus Magnesium Total Bilirubin 1.1 H Direct Bilirubin GGT AST 37 ALT 21 Alkaline Phosphatase 98 Lactate Dehydrogenase Total Protein 7.3 Albumin 4.6 Globulin 2.7 Albumin/Globulin Ratio 1.7 Triglycerides Urine Color Brown Urine Appearance Cloudy A Urine pH 6.5 Ur Specific [place] >= 1.030 Urine Protein 30 mg/dl A Urine Glucose (UA) Negative Urine Ketones 15 mg/dl A Urine Occult Blood Small A Urine Nitrate Positive A Urine Bilirubin Negative Urine Urobilinogen >=8.0 e.u./dl A Ur Leukocyte Esterase Trace A Urine RBC 32 H Urine WBC 53 H Ur Squamous Epith Cells 1 Urine Bacteria Mod A Hyaline Casts 27 H Ur Culture Indicated? yes 01/26/20 19:45 WBC 28.8 H RBC 5.67 Hgb 18.8 H Hct 55.4 H MCV 97.7 MCH 33.2 MCHC 33.9 RDW 13.2 Plt Count 197 MPV 11.2 H Neut % (Auto) 89.6 H Lymph % (Auto) 4.1 L [place] % (Auto) 6.1 Eos % (Auto) 0 Baso % (Auto) 0.2 Lymph # (Auto) 1.18 L [place] # (Auto) 1.75 H Eos # (Auto) 0.01 Baso # (Auto) 0.06 Absolute Neutrophils 25.81 H ABG Methemoglobin VBG pH VBG pCO2 VBG pO2 VBG HCO3 VBG Total CO2 VBG O2 Saturation VBG Base Excess VBG Lactic Acid Carboxyhemoglobin Total Hemoglobin O2 Delivery Level Sodium Potassium Chloride Carbon Dioxide Anion Gap BUN Creatinine GFR Calculation Glucose Uric Acid Calcium Phosphorus Magnesium Total Bilirubin Direct Bilirubin GGT AST ALT Alkaline Phosphatase Lactate Dehydrogenase Total Protein Albumin Globulin Albumin/Globulin Ratio Triglycerides Urine Color Urine Appearance Urine pH Ur Specific [place] Urine Protein Urine Glucose (UA) Urine Ketones Urine Occult Blood Urine Nitrate Urine Bilirubin Urine Urobilinogen Ur Leukocyte Esterase Urine RBC Urine WBC Ur Squamous Epith Cells Urine Bacteria Hyaline Casts Ur Culture Indicated? A/P Narrative A/P Narrative: * Severe sepsis secondary to complicated UTI-white count over 28,000. Broad antibiotic coverage, lactic acid, blood cultures. * Complicated UTI-broad antibiotic coverage and de-escalate based on sensitivities * Ileus/obstipation with alternating diarrhea. Neurogenic bowels. Currently rectal tube. * Hypothermic and toxin * Intermittent agitation continue Depakote/bupropion/fluvoxamine * DM type II-prandial insulin/sitagliptin/CCD * Full code-family will discuss on goals of care and will provide an update on CODE STATUS * Prophylax Heparin Plan * Inpatient PCU admission in light of severe sepsis * Antibiotic coverage * Pre-existing medical condition management as above * Nutrition support/therapies * Discharge planning Time Spent With Patient Time: Total time spent is greater than 50% in coordination of care (as documented) at patient's floor/unit and/or counseling patient: QUALITY VTE Deep Vein Thrombosis/Pulmonary Embolism Present on Admission: No
[2020-01-27] MEDS ORDERED: 0.9 % SODIUM CHLORIDE 1,000 ML IV SCH (07:45)
[2020-01-27] MEDS ORDERED: NOREPINEPHRINE BITARTRATE 8 MG in 0.9 % SODIUM CHLORIDE 242 ML IV PRN (07:45)
[2020-01-27 08:09] LABS: Basophils # (Auto) 0.07 K/mcL (0.00-0.20); Basophils % (Auto) 0.3 % (0.0-2.0); Eosinophils # (Auto) 0.12 K/mcL (0.00-0.70); Eosinophils % (Auto) 0.4 % (0.0-7.0); Hematocrit 52.7 % (41.0-55.0); Hemoglobin 18.1 g/dL (13.5-16.5); Lymphocytes # (Auto) 0.75 K/mcL (1.50-4.80); Lymphocytes % (Auto) 2.8 % (15.0-49.0); Mean Cell Volume 95.5 fL (80.0-100.0); Mean Corpuscular HGB Conc 34.3 g/dL (31.0-36.0); Mean Platelet Volume 10.5 fL (7.4-10.4); Monocytes # (Auto) 2.72 K/mcL (0.10-0.90); Monocytes % (Auto) 10.2 % (1.0-12.0); Neutrophils % (Auto) 86.3 % (38.0-78.0); Platelet Count 173 K/mcL (140-440); RBC 5.52 M/mcL (4.50-5.90); Red Cell Distribution Width 13.4 % (11.5-14.5); WBC 26.7 K/mcL (4.5-11.0)
[2020-01-27 08:11] LABS: ALT/SGPT 14 U/L (<40); AST/SGOT 17 U/L (<40); Albumin 3.8 gm/dL (3.2-5.2); Albumin/Globulin Ratio 1.5 (1.0-2.3); Alkaline Phosphatase 76 U/L (39-117); Bilirubin,Direct < 0.2 mg/dL (<0.3); Bilirubin,Total 0.6 mg/dL (0.1-1.0); Blood Urea Nitrogen 29 mg/dL (6-20); Calcium 9.4 mg/dL (8.6-10.4); Carbon Dioxide 22 mmol/L (22-30); Chloride 96 mmol/L (96-108); Globulin 2.5 gm/dL (2.2-3.7); Glomerular Filtration Rate 84; Glucose 284 mg/dL (70-105); Lactate Dehydrogenase 192 U/L (135-225); Phosphorous 4.8 mg/dL (2.5-4.5); Triglycerides 63 mg/dL (<150); Uric Acid 3.2 mg/dL (2.5-8.0)
[2020-01-27] MEDS: PIPERACILLIN SODIUM/TAZOBACTAM 3.375 GM in DEXTROSE 5% IN WATER 50 ML IV SCH ×3 (08:37→17:56)
[2020-01-27] MEDS: LEVOTHYROXINE 75 MCG TABLET PO SCH (08:41)
[2020-01-27] MEDS: 0.9 % SODIUM CHLORIDE 250 ML IV SCH ×2 (09:09→20:00)
[2020-01-27] MEDS: buPROPion 150 MG TAB.SR.12H PO SCH ×2 (09:17→11:41)
[2020-01-27] MEDS: ASPIRIN 81 MG TAB.CHEW PO SCH (09:17)
[2020-01-27] MEDS: HEPARIN 5,000 UNIT/ML VIAL SQ SCH ×2 (09:17→19:48)
[2020-01-27] MEDS: DIVALPROEX SODIUM 250 MG TABLET PO SCH (09:17)
[2020-01-27] MEDS: MULTIVIT,THER IRON,CA,FA & MIN 1 TABLET PO SCH (09:17)
--- NOTE | 2020-01-27 10:05 | Internal Med Progress Note ---
SUBJECTIVE Subjective Patient information: Note initiated : 01/27/20 at 9:58 am Service Date, if different from initiated Date: [] Patient: Buck Diamond 54 y/o M admitted on 01/27/20 for diarrhea. Chief Complaint: [] [id number] a history of developmental delay who presented to the ER following multiple episodes of diarrhea. Patient suffers from abnormal bowel with alternating constipation following diarrhea at this time he has not had a bowel movement in 5 days. He was subsequently given multiple laxatives/stool softeners with resultant diarrhea. He normally receives help from caregivers. Staff expressed concern about dehydration and him not feeling his normal self. He was subsequently brought to the ER. Initial work-up was consistent with severe sepsis with white count 28,000, ileus pattern on CT abdomen. Pyuria Patient carries a suprapubic Conroy's catheter that was changed 2 weeks prior to presentation. No evidence of fever. However patient remained tachycardic. [facility] for [facility] in light of severe sepsis likely from UTI At the time of my evaluation patient is very restless unable to provide answers to most the questions. POA/daughter Brinda available and was able to provide answers to most of the questions. Patient has been started on antibiotic coverage, Conroy's catheter will be changed. Rectal tube was placed. Continuing crystalloids 01/26 persistent diarrhea, no abdominal distention or pain. White count down to 26.7. Continue crystalloids. Antibiotic coverage. Lactic acid down from 3.8- >3.2. K 5.4. Creatinine down from 1.2-1. Continue crystalloid bolus/oral fluids Constitutional Vitals: Vital Signs Temp Pulse Resp BP Pulse Ox 97.9 F 115 H 23 H 116/77 90 01/27/20 08:02 01/27/20 08:02 01/27/20 08:02 01/27/20 08:02 01/27/20 08:02 Period Temp Pulse Resp BP Sys/Ayala Pulse Ox Last 24 Hr 96.1 F-98.9 F 97-125 17-34 98-153/69-134 89-97 Intake and Output 01/26/20 01/27/20 01/27/20 21:59 05:59 13:59 Intake Total 1000 1000 0 Output Total 800 750 Balance 1000 200 -750 Weight 88.178 kg 89.222 kg respond to commands Nondistressed Tachycardic Rectal tube Suprapubic Conroy draining clear urine Nontender nondistended abdomen Intake & Output: Intake & Output 01/26/20 01/27/20 01/27/20 21:59 05:59 13:59 Intake Total 1000 1000 0 Output Total 800 750 Balance 1000 200 -750 Weight 88.178 kg 89.222 kg Intake: IV 1000 1000 Sodium Chloride 0.9% 1,000 ml @ 1000 1000 Wide Open IV BOLUS ONE Rx#: [id number] Tube Feeding 0 0 Output: Urine Catheter Amount 800 Stool 750 Other: Urine Color Brown Urine Odor Strong # of times incontinent of 2 Bowels OBJ DATA Labs CBC & Chem 7: 01/27/20 06:51 01/27/20 06:26 Labs: Abnormal Lab Results 01/27/20 01/27/20 01/27/20 07:51 06:51 06:51 WBC 26.7 H Hgb 18.1 H Hct MPV 10.5 H Neut % (Auto) 86.3 H Lymph % (Auto) 2.8 L Lymph # (Auto) 0.75 L [place] # (Auto) 2.72 H Absolute Neutrophils 23.06 H ABG Methemoglobin 0 L VBG pCO2 34.3 L VBG pO2 101 H VBG HCO3 21.7 L VBG Total CO2 22.8 L VBG O2 Saturation 91.7 H VBG Lactic Acid 3.2 H Carboxyhemoglobin 5.4 H Total Hemoglobin 17.5 H Sodium Potassium Carbon Dioxide Anion Gap BUN Glucose Calcium Phosphorus Magnesium Total Bilirubin Urine Appearance Urine Protein Urine Ketones Urine Occult Blood Urine Nitrate Urine Urobilinogen Ur Leukocyte Esterase Urine RBC Urine WBC Urine Bacteria Hyaline Casts 01/27/20 01/26/20 01/26/20 06:26 23:45 20:14 WBC Hgb Hct MPV Neut % (Auto) Lymph % (Auto) Lymph # (Auto) [place] # (Auto) Absolute Neutrophils ABG Methemoglobin VBG pCO2 VBG pO2 VBG HCO3 VBG Total CO2 VBG O2 Saturation VBG Lactic Acid 3.8 H Carboxyhemoglobin Total Hemoglobin Sodium 130 L Potassium 5.4 H Carbon Dioxide Anion Gap BUN 29 H Glucose 284 H Calcium Phosphorus 4.8 H Magnesium 4.0 H Total Bilirubin Urine Appearance Cloudy A Urine Protein 30 mg/dl A Urine Ketones 15 mg/dl A Urine Occult Blood Small A Urine Nitrate Positive A Urine Urobilinogen >=8.0 e.u./dl A Ur Leukocyte Esterase Trace A Urine RBC 32 H Urine WBC 53 H Urine Bacteria Mod A Hyaline Casts 27 H 01/26/20 01/26/20 19:45 19:45 WBC 28.8 H Hgb 18.8 H Hct 55.4 H MPV 11.2 H Neut % (Auto) 89.6 H Lymph % (Auto) 4.1 L Lymph # (Auto) 1.18 L [place] # (Auto) 1.75 H Absolute Neutrophils 25.81 H ABG Methemoglobin VBG pCO2 VBG pO2 VBG HCO3 VBG Total CO2 VBG O2 Saturation VBG Lactic Acid Carboxyhemoglobin Total Hemoglobin Sodium Potassium Carbon Dioxide 20 L Anion Gap 19.0 H BUN 22 H Glucose 280 H Calcium 10.9 H Phosphorus Magnesium Total Bilirubin 1.1 H Urine Appearance Urine Protein Urine Ketones Urine Occult Blood Urine Nitrate Urine Urobilinogen Ur Leukocyte Esterase Urine RBC Urine WBC Urine Bacteria Hyaline Casts Meds: Medications Acetaminophen (Tylenol) 650 mg PO Q4-6HP PRN; Protocol PRN Reason: Per Pain Protocol/Fever > 101 Aspirin (Aspirin) 81 mg PO DAILY [facility] Last Admin: 01/27/20 09:17 Dose: 81 mg Documented by: Bisacodyl (Dulcolax) 10 mg [place] Q2-3DAYS PRN PRN Reason: Constipation Bupropion HCl (Wellbutrin Sr) 300 mg PO DAILY [facility] Last Admin: 01/27/20 09:17 Dose: 300 mg Documented by: Bupropion HCl (Wellbutrin Sr) 150 mg PO QNOON [facility] Divalproex Sodium (Depakote Er) 1,000 mg PO DAILY [facility] Last Admin: 01/27/20 09:17 Dose: 1,000 mg Documented by: Docusate Sodium (Colace) 100 mg PO BID [facility] Last Admin: 01/27/20 07:28 Dose: Not Given Documented by: Fluticasone Propionate (Flonase) 2 spray NS QDAY [facility] Guaifenesin/Codeine Phosphate (Robitussin Ac) 10 ml PO Q4HP PRN PRN Reason: Cough Heparin Sodium (Porcine) (Heparin) 5,000 unit SQ Q12 [facility] Last Admin: 01/27/20 09:17 Dose: 5,000 unit Documented by: Potassium Chloride 40 meq/ (Dextrose) 520 mls @ 130 mls/hr IV UD PRN PRN Reason: K+ = or < 3.5 Acetaminophen (Ofirmev) 650 mg in 65 mls @ 130 mls/hr IV Q6HP PRN; Protocol PRN Reason: Per Pain Protocol/Fever > 101 Magnesium Sulfate (Magnesium Sulfate) 2 gm in 50 mls @ 50 mls/hr IV UD PRN PRN Reason: MG = or < 1.7 Sodium Chloride (Sodium Chloride 0.9%) 1,000 mls @ 50 mls/hr IV .Q20H [facility] Stop: 01/29/20 19:44 Last Admin: 01/27/20 08:38 Dose: 50 mls/hr Documented by: Piperacillin Sod/Tazobactam (Sod 3.375 gm/ Dextrose) 50 mls @ 100 mls/hr IV Q6H [facility]; Protocol Last Admin: 01/27/20 08:37 Dose: 100 mls/hr Documented by: Norepinephrine Bitartrate 8 mg (/ Sodium Chloride) 250 mls @ 18.75 mls/hr IV Q14H PRN; Protocol PRN Reason: MAP<70 Sodium Chloride (Sodium Chloride 0.9%) 250 mls @ 20 mls/hr IV .[id number] [facility] Last Admin: 01/27/20 09:09 Dose: Not Given Documented by: Iron Carb/Multivit/[place]/Folic Acid (Multivitamin W/Minerals) 1 tab PO DAILY [facility] Last Admin: 01/27/20 09:17 Dose: 1 tab Documented by: Levothyroxine Sodium (Synthroid) 75 mcg PO QAMAC [facility] Last Admin: 01/27/20 08:41 Dose: 75 mcg Documented by: Melatonin (Melatonin 3mg Tablet) 3 mg PO HSP PRN PRN Reason: Insomnia Metoprolol Tartrate (Lopressor) 5 mg IV Q5M PRN PRN Reason: Heart Rate > 140 bpm Ondansetron HCl (Zofran Odt) 4 mg SL Q4-6HP PRN; Protocol PRN Reason: Nausea And Vomiting Ondansetron HCl (Zofran) 4 mg IV Q4-6HP PRN; Protocol PRN Reason: Nausea And Vomiting Fluvoxamine 100 Mg (Cap) 1 dose PO TID [facility] Teriflunomide [ (Aubagio] 14 Mg Tab) 1 dose PO QDAY [facility] Polyethylene Glycol (Miralax) 17 gm PO DAILYP PRN PRN Reason: Constipation Potassium Chloride (Klor-Con) 40 meq PO DAILYP PRN PRN Reason: K+ < 3.5 Senna (Senokot) 2 tab PO HS SUSANA Sodium Chloride (Saline Flush) 10 ml IV Q8 [facility] Last Admin: 01/27/20 06:13 Dose: 10 ml Documented by: Sodium Chloride (Saline Flush) 10 ml IV Q8 [facility] Trazodone HCl (Desyrel) 100 mg PO QHS SUSANA ABG Interpretation ABG results: 01/27/20 06:51 ABG Methemoglobin 0 L VBG pH 7.42 VBG pCO2 34.3 L VBG pO2 101 H VBG HCO3 21.7 L VBG Total CO2 22.8 L VBG O2 Saturation 91.7 H VBG Base Excess -2 A/P Narrative A/P Narrative: * Severe sepsis secondary to complicated UTI-white count downtrending now at 20 6K. Continue broad antibiotic coverage, await blood cultures. Lactic acid downtrending. * Complicated UTI-on broad antibiotic coverage , de-escalate based on sensitivities * HAYDEN clinically improving. Creatinine down from 1.2-1. * Severe diarrhea, ileus/obstipation . Neurogenic bowels. Currently requiring rectal tube. * Intermittent agitation continue Depakote/bupropion/fluvoxamine * DM type II-prandial insulin/sitagliptin/CCD * Currently full code * Prophylax Heparin Plan * Sepsis management per guidelines * Crystalloid bolus * Antibiotic coverage * Pre-existing medical condition management as above * Nutrition support/therapies * Discharge planning Time Spent With Patient Time: Total time spent is greater than 50% in coordination of care (as documented) at patient's floor/unit and/or counseling patient: QUALITY VTE Deep Vein Thrombosis/Pulmonary Embolism Present on Admission: No
[2020-01-27] MEDS: 0.9 % SODIUM CHLORIDE 1,000 ML IV SCH ×3 (10:46→19:14)
[2020-01-27] MEDS: FLUVOXAMINE 100 MG PO SCH ×3 (11:24→20:00)
[2020-01-27] MEDS: TERIFLUNOMIDE 14 MG PO SCH (11:24)
[2020-01-27] MEDS: FLUTICASONE PROPIONATE SPRAY.NAS NS SCH (11:24)
[2020-01-27] MEDS: 0.9 % SODIUM CHLORIDE 10 ML SYRINGE IV SCH ×2 (14:02→20:01)
[2020-01-27] MEDS: traZODone HCL 100 MG TABLET PO SCH (19:49)
[2020-01-27] MEDS: SENNOSIDES 1 TABLET PO SCH (20:00)
[2020-01-28] MEDS: PIPERACILLIN SODIUM/TAZOBACTAM 3.375 GM in DEXTROSE 5% IN WATER 50 ML IV SCH ×5 (00:33→23:49)
[2020-01-28] MEDS: 0.9 % SODIUM CHLORIDE 1,000 ML IV SCH ×2 (03:16→11:45)
[2020-01-28] MEDS: 0.9 % SODIUM CHLORIDE 10 ML SYRINGE IV SCH ×3 (05:37→23:19)
[2020-01-28 06:49] LABS: ALT/SGPT 13 U/L (<40); AST/SGOT 17 U/L (<40); Albumin/Globulin Ratio 1.4 (1.0-2.3); Alkaline Phosphatase 59 U/L (39-117); Bilirubin,Direct < 0.2 mg/dL (<0.3); Bilirubin,Total 0.5 mg/dL (0.1-1.0); Blood Urea Nitrogen 19 mg/dL (6-20); Carbon Dioxide 25 mmol/L (22-30); Chloride 103 mmol/L (96-108); Globulin 2.2 gm/dL (2.2-3.7); Glomerular Filtration Rate 106; Glucose 210 mg/dL (70-105); Lactate Dehydrogenase 167 U/L (135-225); Phosphorous 2.3 mg/dL (2.5-4.5); Triglycerides 80 mg/dL (<150); Uric Acid 2.1 mg/dL (2.5-8.0)
[2020-01-28] MEDS: LEVOTHYROXINE 75 MCG TABLET PO SCH (08:26)
[2020-01-28 08:29] LABS: Hematocrit 46.9 % (41.0-55.0); Hemoglobin 15.7 g/dL (13.5-16.5); Lymphocytes % 10 % (15-49); Mean Cell Volume 97.5 fL (80.0-100.0); Mean Corpuscular HGB Conc 33.5 g/dL (31.0-36.0); Mean Platelet Volume 10.8 fL (7.4-10.4); Monocytes % (Manual) 13 % (1-12); Platelet Count 118 K/mcL (140-440); Platelet Estimate DECREASED (Normal); RBC 4.81 M/mcL (4.50-5.90); RBC Morphology NORMAL (Normal); Red Cell Distribution Width 13.7 % (11.5-14.5); Segmented Neutrophils % 77 % (38-78); WBC 15.1 K/mcL (4.5-11.0)
[2020-01-28] MEDS: HEPARIN 5,000 UNIT/ML VIAL SQ SCH ×2 (10:05→21:38)
[2020-01-28] MEDS: ASPIRIN 81 MG TAB.CHEW PO SCH (10:06)
[2020-01-28] MEDS: MULTIVIT,THER IRON,CA,FA & MIN 1 TABLET PO SCH (10:06)
[2020-01-28] MEDS: DIVALPROEX SODIUM 250 MG TABLET PO SCH (10:06)
[2020-01-28] MEDS: buPROPion 150 MG TAB.SR.12H PO SCH ×2 (10:06→12:18)
[2020-01-28] MEDS: DOCUSATE SODIUM 100 MG CAPSULE PO SCH ×2 (10:07→21:02)
[2020-01-28] MEDS: 0.9 % SODIUM CHLORIDE 250 ML IV SCH ×2 (10:07→23:21)
[2020-01-28] MEDS: FLUVOXAMINE 100 MG PO SCH ×3 (10:09→21:39)
[2020-01-28] MEDS: TERIFLUNOMIDE 14 MG PO SCH (10:09)
[2020-01-28] MEDS: FLUTICASONE PROPIONATE SPRAY.NAS NS SCH (10:09)
--- NOTE | 2020-01-28 10:43 | Internal Med Progress Note ---
SUBJECTIVE Subjective Patient information: Note initiated : 01/28/20 at 10:40 am Service Date, if different from initiated Date: [] Patient: Buck Diamond 54 y/o M admitted on 01/27/20 for diarrhea. Chief Complaint: [id number] a history of developmental delay who presented to the ER following multiple episodes of diarrhea. Patient suffers from abnormal bowel with alternating constipation following diarrhea at this time he has not had a bowel movement in 5 days. He was subsequently given multiple laxatives/stool softeners with resultant diarrhea. He normally receives help from caregivers. Staff expressed concern about dehydration and him not feeling his normal self. He was subsequently brought to the ER. Initial work-up was consistent with severe sepsis with white count 28,000, ileus pattern on CT abdomen. Pyuria Patient carries a suprapubic Conroy's catheter that was changed 2 weeks prior to presentation. No evidence of fever. However patient remained tachycardic. [facility] for [facility] in light of severe sepsis likely from UTI At the time of my evaluation patient is very restless unable to provide answers to most the questions. POA/daughter Brinda available and was able to provide answers to most of the questions. Patient has been started on antibiotic coverage, Conroy's catheter will be changed. Rectal tube was placed. Continuing crystalloids 01/26 persistent diarrhea, no abdominal distention or pain. White count down to 26.7. Continue crystalloids. Antibiotic coverage. Lactic acid down from 3.8- >3.2. K 5.4. Creatinine down from 1.2-1. Continue crystalloid bolus/oral fluids 01/27-patient doing remarkably well. White count down to 15,000. Creatinine improved 2.7. Stable hemodynamics except for intermittent tachycardia. Stooling much improved. C. difficile negative. on antibiotic coverage. U pdated patient's POA. No concerns expressed by nursing staff Constitutional Vitals: Vital Signs Temp Pulse Resp BP Pulse Ox 98.7 F 110 H 20 117/85 91 01/28/20 08:01 01/28/20 08:01 01/28/20 08:01 01/28/20 08:01 01/28/20 08:01 Period Temp Pulse Resp BP Sys/Ayala Pulse Ox Last 24 Hr 98.0 F-99.9 F 105-123 16-29 80-148/66-91 87-94 Intake and Output 01/27/20 01/28/20 01/28/20 21:59 05:59 13:59 Intake Total 1115 1050 50 Output Total 750 900 Balance 365 150 50 Weight 85.094 kg No telemetry events Conroy draining clear urine alert and respond to commands No anxiety agitation Intake & Output: Intake & Output 01/27/20 01/28/20 01/28/20 21:59 05:59 13:59 Intake Total 1115 1050 50 Output Total 750 900 Balance 365 150 50 Weight 85.094 kg Intake: IV 1115 1050 50 Sodium Chloride 0.9% 1,000 ml @ 1000 1000 125 mls/hr IV .Q8H SUSANA Rx#: [id number] Zosyn 3.375 gm In Dextrose 5% 50 50 50 in Water 50 ml @ 100 mls/hr IV Q6H SUSANA Rx#:[id number] Output: Urine Catheter Amount 750 900 Other: Urine Appearance Clear Suprapubic Clear Urine Color Red Brown Dark Serena Suprapubic Dark Serena Urine Odor Strong Suprapubic Strong Stool Size Moderate Large Moderate Stool Color Brown Brown Brown Stool Consistency Liquid Liquid Liquid Watery # Bowel Movements 1 # of times incontinent of 3 3 Bowels OBJ DATA Labs CBC & Chem 7: 01/28/20 05:25 01/28/20 05:25 Labs: Abnormal Lab Results 01/28/20 01/28/20 01/27/20 05:25 05:25 07:51 WBC 15.1 H Hgb Hct Plt Count 118 L MPV 10.8 H Neut % (Auto) Lymph % (Auto) Lymph # (Auto) [place] # (Auto) Lymphocytes % 10 L Monocytes % (Manual) 13 H Absolute Neutrophils Platelet Estimate Decreased A ABG Methemoglobin VBG pCO2 VBG pO2 VBG HCO3 VBG Total CO2 VBG O2 Saturation VBG Lactic Acid 3.2 H Carboxyhemoglobin Total Hemoglobin Sodium Potassium Carbon Dioxide Anion Gap BUN Glucose 210 H Uric Acid 2.1 L Calcium Phosphorus 2.3 L Magnesium Total Bilirubin Total Protein 5.2 L Albumin 3.0 L Urine Appearance Urine Protein Urine Ketones Urine Occult Blood Urine Nitrate Urine Urobilinogen Ur Leukocyte Esterase Urine RBC Urine WBC Urine Bacteria Hyaline Casts 01/27/20 01/27/20 01/27/20 06:51 06:51 06:26 WBC 26.7 H Hgb 18.1 H Hct Plt Count MPV 10.5 H Neut % (Auto) 86.3 H Lymph % (Auto) 2.8 L Lymph # (Auto) 0.75 L [place] # (Auto) 2.72 H Lymphocytes % Monocytes % (Manual) Absolute Neutrophils 23.06 H Platelet Estimate ABG Methemoglobin 0 L VBG pCO2 34.3 L VBG pO2 101 H VBG HCO3 21.7 L VBG Total CO2 22.8 L VBG O2 Saturation 91.7 H VBG Lactic Acid Carboxyhemoglobin 5.4 H Total Hemoglobin 17.5 H Sodium 130 L Potassium 5.4 H Carbon Dioxide Anion Gap BUN 29 H Glucose 284 H Uric Acid Calcium Phosphorus 4.8 H Magnesium 4.0 H Total Bilirubin Total Protein Albumin Urine Appearance Urine Protein Urine Ketones Urine Occult Blood Urine Nitrate Urine Urobilinogen Ur Leukocyte Esterase Urine RBC Urine WBC Urine Bacteria Hyaline Casts 01/26/20 01/26/20 01/26/20 23:45 20:14 19:45 WBC Hgb Hct Plt Count MPV Neut % (Auto) Lymph % (Auto) Lymph # (Auto) [place] # (Auto) Lymphocytes % Monocytes % (Manual) Absolute Neutrophils Platelet Estimate ABG Methemoglobin VBG pCO2 VBG pO2 VBG HCO3 VBG Total CO2 VBG O2 Saturation VBG Lactic Acid 3.8 H Carboxyhemoglobin Total Hemoglobin Sodium Potassium Carbon Dioxide 20 L Anion Gap 19.0 H BUN 22 H Glucose 280 H Uric Acid Calcium 10.9 H Phosphorus Magnesium Total Bilirubin 1.1 H Total Protein Albumin Urine Appearance Cloudy A Urine Protein 30 mg/dl A Urine Ketones 15 mg/dl A Urine Occult Blood Small A Urine Nitrate Positive A Urine Urobilinogen >=8.0 e.u./dl A Ur Leukocyte Esterase Trace A Urine RBC 32 H Urine WBC 53 H Urine Bacteria Mod A Hyaline Casts 27 H 01/26/20 19:45 WBC 28.8 H Hgb 18.8 H Hct 55.4 H Plt Count MPV 11.2 H Neut % (Auto) 89.6 H Lymph % (Auto) 4.1 L Lymph # (Auto) 1.18 L [place] # (Auto) 1.75 H Lymphocytes % Monocytes % (Manual) Absolute Neutrophils 25.81 H Platelet Estimate ABG Methemoglobin VBG pCO2 VBG pO2 VBG HCO3 VBG Total CO2 VBG O2 Saturation VBG Lactic Acid Carboxyhemoglobin Total Hemoglobin Sodium Potassium Carbon Dioxide Anion Gap BUN Glucose Uric Acid Calcium Phosphorus Magnesium Total Bilirubin Total Protein Albumin Urine Appearance Urine Protein Urine Ketones Urine Occult Blood Urine Nitrate Urine Urobilinogen Ur Leukocyte Esterase Urine RBC Urine WBC Urine Bacteria Hyaline Casts Meds: Medications Acetaminophen (Tylenol) 650 mg PO Q4-6HP PRN; Protocol PRN Reason: Per Pain Protocol/Fever > 101 Aspirin (Aspirin) 81 mg PO DAILY [facility] Last Admin: 01/28/20 10:06 Dose: 81 mg Documented by: Bisacodyl (Dulcolax) 10 mg [place] Q2-3DAYS PRN PRN Reason: Constipation Bupropion HCl (Wellbutrin Sr) 300 mg PO DAILY [facility] Last Admin: 01/28/20 10:06 Dose: 300 mg Documented by: Bupropion HCl (Wellbutrin Sr) 150 mg PO QNOON [facility] Last Admin: 01/27/20 11:41 Dose: 150 mg Documented by: Divalproex Sodium (Depakote Er) 1,000 mg PO DAILY [facility] Last Admin: 01/28/20 10:06 Dose: 1,000 mg Documented by: Docusate Sodium (Colace) 100 mg PO BID [facility] Last Admin: 01/28/20 10:07 Dose: Not Given Documented by: Fluticasone Propionate (Flonase) 2 spray NS QDAY [facility] Last Admin: 01/28/20 10:09 Dose: 2 spray Documented by: Guaifenesin/Codeine Phosphate (Robitussin Ac) 10 ml PO Q4HP PRN PRN Reason: Cough Heparin Sodium (Porcine) (Heparin) 5,000 unit SQ Q12 [facility] Last Admin: 01/28/20 10:05 Dose: 5,000 unit Documented by: Potassium Chloride 40 meq/ (Dextrose) 520 mls @ 130 mls/hr IV UD PRN PRN Reason: K+ = or < 3.5 Acetaminophen (Ofirmev) 650 mg in 65 mls @ 130 mls/hr IV Q6HP PRN; Protocol PRN Reason: Per Pain Protocol/Fever > 101 Last Infusion: 01/27/20 20:57 Dose: Infused Documented by: Magnesium Sulfate (Magnesium Sulfate) 2 gm in 50 mls @ 50 mls/hr IV UD PRN PRN Reason: MG = or < 1.7 Piperacillin Sod/Tazobactam (Sod 3.375 gm/ Dextrose) 50 mls @ 100 mls/hr IV Q6H [facility]; Protocol Last Infusion: 01/28/20 06:06 Dose: Infused Documented by: Norepinephrine Bitartrate 8 mg (/ Sodium Chloride) 250 mls @ 18.75 mls/hr IV Q14H PRN; Protocol PRN Reason: MAP<70 Sodium Chloride (Sodium Chloride 0.9%) 250 mls @ 20 mls/hr IV .[id number] [facility] Last Admin: 01/28/20 10:07 Dose: Not Given Documented by: Sodium Chloride (Sodium Chloride 0.9%) 1,000 mls @ 0 mls/hr IV BOLUS [facility] Last Admin: 01/27/20 10:46 Dose: 999 mls/hr Documented by: Iron Carb/Multivit/[employer]/Folic Acid (Multivitamin W/Minerals) 1 tab PO DAILY [facility] Last Admin: 01/28/20 10:06 Dose: 1 tab Documented by: Levothyroxine Sodium (Synthroid) 75 mcg PO QAMAC [facility] Last Admin: 01/28/20 08:26 Dose: 75 mcg Documented by: Melatonin (Melatonin 3mg Tablet) 3 mg PO HSP PRN PRN Reason: Insomnia Last Admin: 01/27/20 19:49 Dose: 3 mg Documented by: Metoprolol Tartrate (Lopressor) 5 mg IV Q5M PRN PRN Reason: Heart Rate > 140 bpm Ondansetron HCl (Zofran Odt) 4 mg SL Q4-6HP PRN; Protocol PRN Reason: Nausea And Vomiting Ondansetron HCl (Zofran) 4 mg IV Q4-6HP PRN; Protocol PRN Reason: Nausea And Vomiting Fluvoxamine 100 Mg (Cap) 1 dose PO TID [facility] Last Admin: 01/28/20 10:09 Dose: 1 dose Documented by: Teriflunomide [ (Aubagio] 14 Mg Tab) 1 dose PO QDAY [facility] Last Admin: 01/28/20 10:09 Dose: 1 dose Documented by: Polyethylene Glycol (Miralax) 17 gm PO DAILYP PRN PRN Reason: Constipation Potassium Chloride (Klor-Con) 40 meq PO DAILYP PRN PRN Reason: K+ < 3.5 Senna (Senokot) 2 tab PO HS [facility] Last Admin: 01/27/20 20:00 Dose: Not Given Documented by: Sodium Chloride (Saline Flush) 10 ml IV Q8 [facility] Last Admin: 01/28/20 05:37 Dose: 10 ml Documented by: Trazodone HCl (Desyrel) 100 mg PO QHS [facility] Last Admin: 01/27/20 19:49 Dose: 100 mg Documented by: ABG Interpretation ABG results: 01/27/20 06:51 ABG Methemoglobin 0 L VBG pH 7.42 VBG pCO2 34.3 L VBG pO2 101 H VBG HCO3 21.7 L VBG Total CO2 22.8 L VBG O2 Saturation 91.7 H VBG Base Excess -2 A/P Narrative A/P Narrative: * Severe sepsis with endorgan dysfunction- secondary to complicated UTI-white count downtrending now at 15 K. Continue broad antibiotic coverage, cultures negative so far. Improving endorgan dysfunction * Complicated UTI-on broad antibiotic coverage , de-escalate based on sensitivities * HAYDEN clinically improving. Creatinine down from 1.2-0.7 * Severe diarrhea, ileus/obstipation . Neurogenic bowels. Improving * History of developmental delay/intermittent agitation continue Depakote/bupropion/fluvoxamine * DM type II-prandial insulin/sitagliptin/CCD * Currently full code * Prophylax Heparin Plan * Sepsis management per guidelines * Encourage p.o. fluids as tolerated. * Continue antibiotic coverage * Pre-existing medical condition management as above * Nutrition support/therapies * Transfer to medical floor in 24 hours Time Spent With Patient Time: Total time spent is greater than 50% in coordination of care (as documented) at patient's floor/unit and/or counseling patient: QUALITY VTE Deep Vein Thrombosis/Pulmonary Embolism Present on Admission: No
[2020-01-28] MEDS ORDERED: DEXTROSE 31 GM ORAL.SUSP PO PRN (13:19)
[2020-01-28] MEDS ORDERED: DEXTROSE 50% 50 ML VIAL IV PRN (13:19)
[2020-01-28] MEDS ORDERED: MAGNESIUM CITRATE 300 ML ORAL.SOL PO PRN (13:19)
[2020-01-28] MEDS ORDERED: ACETAMINOPHEN 500 MG TABLET PO PRN (13:19)
[2020-01-28] MEDS: POTASSIUM CITRATE 10 MEQ TAB.XL.24H PO SCH (17:39)
[2020-01-28] MEDS: metFORMIN 500 MG TAB.XL.24H PO SCH (17:39)
[2020-01-28] MEDS: INSULIN LISPRO 1 UNIT/0.01 ML UNIT SQ SCH ×2 (17:50→21:38)
[2020-01-28] MEDS ORDERED: NON FORMULARY MEDICATION 1 DOSE MISCELL (Melatonin 5 MG) PO SCH (21:00)
[2020-01-28] MEDS ORDERED: CHROMIUM PICOLINATE 200 MCG PO SCH (21:00)
[2020-01-28] MEDS ORDERED: D MANNOSE PO SCH (21:00)
[2020-01-28] MEDS: SENNOSIDES 1 TABLET PO SCH (21:02)
[2020-01-28] MEDS: traZODone HCL 100 MG TABLET PO SCH (21:39)
[2020-01-28] MEDS: MAGNESIUM OXIDE 400 MG TABLET PO SCH (21:39)
[2020-01-29] MEDS: PIPERACILLIN SODIUM/TAZOBACTAM 3.375 GM in DEXTROSE 5% IN WATER 50 ML IV SCH ×4 (05:52→23:54)
[2020-01-29] MEDS: 0.9 % SODIUM CHLORIDE 10 ML SYRINGE IV SCH ×5 (05:53→23:55)
[2020-01-29] MEDS: POTASSIUM CITRATE 10 MEQ TAB.XL.24H PO SCH ×3 (07:57→18:12)
[2020-01-29] MEDS: LEVOTHYROXINE 75 MCG TABLET PO SCH (07:58)
[2020-01-29] MEDS: INSULIN LISPRO 1 UNIT/0.01 ML UNIT SQ SCH ×4 (08:02→21:09)
--- NOTE | 2020-01-29 08:41 | XRay Report ---
CLINICAL INFORMATION: Dyspnea COMPARISON: 03/02/2008 TECHNIQUE: Portable FINDINGS: The heart size, mediastinum and pulmonary vessels are unremarkable. The lungs are clear. There are no effusions. The bones and soft tissues are within normal limits. IMPRESSION: Normal chest. Note: The superior abdomen shows multiple loops moderately dilated small and large bowel which are incompletely imaged. Patient may have a persistent small bowel obstruction. Suggest standard small bowel follow-through Interpreted and Authenticated by: Miguel Cade 01/29/20
[2020-01-29] MEDS: TERIFLUNOMIDE 14 MG PO SCH (09:17)
[2020-01-29] MEDS: FLUTICASONE PROPIONATE SPRAY.NAS NS SCH (09:17)
[2020-01-29] MEDS: FLUVOXAMINE 100 MG PO SCH ×3 (09:18→21:12)
[2020-01-29] MEDS: ASPIRIN 81 MG TAB.CHEW PO SCH (09:18)
[2020-01-29] MEDS: HEPARIN 5,000 UNIT/ML VIAL SQ SCH ×2 (09:19→21:11)
[2020-01-29] MEDS: VITAMIN D3 5,000 UNIT CAPSULE PO SCH (09:19)
[2020-01-29] MEDS: DIVALPROEX SODIUM 250 MG TABLET PO SCH (09:19)
[2020-01-29] MEDS: MAGNESIUM OXIDE 400 MG TABLET PO SCH ×2 (09:20→21:11)
[2020-01-29] MEDS: DOCUSATE SODIUM 100 MG CAPSULE PO SCH ×2 (09:20→21:09)
[2020-01-29] MEDS: MULTIVIT,THER IRON,CA,FA & MIN 1 TABLET PO SCH (09:20)
[2020-01-29] MEDS: buPROPion 150 MG TAB.SR.12H PO SCH ×2 (09:21→11:33)
[2020-01-29 09:31] LABS: ALT/SGPT 12 U/L (<40); AST/SGOT 18 U/L (<40); Albumin 2.7 gm/dL (3.2-5.2); Albumin/Globulin Ratio 1.2 (1.0-2.3); Alkaline Phosphatase 55 U/L (39-117); Band Neutrophils % 6 % (0-10); Bilirubin,Direct < 0.2 mg/dL (<0.3); Bilirubin,Total 0.4 mg/dL (0.1-1.0); Blood Urea Nitrogen 18 mg/dL (6-20); Calcium 8.7 mg/dL (8.6-10.4); Carbon Dioxide 25 mmol/L (22-30); Chloride 104 mmol/L (96-108); Globulin 2.2 gm/dL (2.2-3.7); Glomerular Filtration Rate 106; Glucose 289 mg/dL (70-105); Hemoglobin 14.7 g/dL (13.5-16.5); Lactate Dehydrogenase 187 U/L (135-225); Lymphocytes % 8 % (15-49); Mean Cell Volume 97.5 fL (80.0-100.0); Mean Corpuscular HGB Conc 34.2 g/dL (31.0-36.0); Mean Platelet Volume 10.8 fL (7.4-10.4); Monocytes % (Manual) 14 % (1-12); Phosphorous 1.7 mg/dL (2.5-4.5); Platelet Count 116 K/mcL (140-440); Platelet Estimate DECREASED (Normal); RBC 4.41 M/mcL (4.50-5.90); RBC Morphology NORMAL (Normal); Red Cell Distribution Width 13.5 % (11.5-14.5); Segmented Neutrophils % 72 % (38-78); Triglycerides 98 mg/dL (<150); Uric Acid 2.1 mg/dL (2.5-8.0); WBC 12.8 K/mcL (4.5-11.0)
--- NOTE | 2020-01-29 10:43 | Internal Med Progress Note ---
SUBJECTIVE Subjective Patient information: Note initiated : 01/29/20 at 10:40 am Service Date, if different from initiated Date: [] Patient: Buck Diamond 54 y/o M admitted on 01/27/20 for diarrhea. Chief Complaint: [id number] a history of developmental delay who presented to the ER following multiple episodes of diarrhea. Patient suffers from abnormal bowel with alternating constipation following diarrhea at this time he has not had a bowel movement in 5 days. He was subsequently given multiple laxatives/stool softeners with resultant diarrhea. He normally receives help from caregivers. Staff expressed concern about dehydration and him not feeling his normal self. He was subsequently brought to the ER. Initial work-up was consistent with severe sepsis with white count 28,000, ileus pattern on CT abdomen. Pyuria Patient carries a suprapubic Conroy's catheter that was changed 2 weeks prior to presentation. No evidence of fever. However patient remained tachycardic. Subsequently hospitalist service was consulted for admission in light of severe sepsis likely from UTI At the time of my evaluation patient is very restless unable to provide answers to most the questions. POA/daughter Brinda available and was able to provide answers to most of the questions. Patient has been started on antibiotic coverage, Conroy's catheter will be changed. Rectal tube was placed. Continuing crystalloids 01/26 persistent diarrhea, no abdominal distention or pain. White count down to 26.7. Continue crystalloids. Antibiotic coverage. Lactic acid down from 3.8- >3.2. K 5.4. Creatinine down from 1.2-1. Continue crystalloid bolus/oral fluids 01/27-patient doing remarkably well. White count down to 15,000. Creatinine improved 2.7. Stable hemodynamics except for intermittent tachycardia. Stooling much improved. C. difficile negative. on antibiotic coverage. Upd ated patient's POA. No concerns expressed by nursing staff 01/28-large bowel movement this morning. Rectal tube discontinued. Chest imaging no evidence of acute process except for distended bowels. Persistent tachycardia. Continue on crystalloid. White count downtrending now at 12.8. Phosphorus 1.7 start replacement Constitutional Vitals: Vital Signs Temp Pulse Resp BP Pulse Ox 98.1 F 119 H 23 H 125/87 90 01/29/20 00:01 01/29/20 03:01 01/29/20 04:21 01/29/20 04:01 01/29/20 03:01 Period Temp Pulse Resp BP Sys/Ayala Pulse Ox Last 24 Hr 98.1 F-99.6 F 108-124 18-28 110-157/79-106 90-96 Intake and Output 01/28/20 01/29/20 01/29/20 21:59 05:59 13:59 Intake Total 50 50 50 Output Total 350 500 Balance -300 -450 50 Weight 85.865 kg Alert nonlabored breathing Persistent tachycardia No anxiety Suprapubic cath draining clear urine Intake & Output: Intake & Output 01/28/20 01/29/20 01/29/20 21:59 05:59 13:59 Intake Total 50 50 50 Output Total 350 500 Balance -300 -450 50 Weight 85.865 kg Intake: IV 50 50 50 Zosyn 3.375 gm In Dextrose 5% 50 50 50 in Water 50 ml @ 100 mls/hr IV Q6H [facility] Rx#:[id number] Output: Urine Catheter Amount 350 500 Other: Urine Appearance Clear Cloudy Suprapubic Cloudy Clear Urine Color Dark Serena Light Serena Suprapubic Light Serena Light Serena Urine Odor Suprapubic Normal OBJ DATA Labs CBC & Chem 7: 01/29/20 05:30 01/29/20 05:30 Labs: Abnormal Lab Results 01/29/20 01/29/20 01/28/20 05:30 05:30 05:25 WBC 12.8 H RBC 4.41 L Hgb Hct Plt Count 116 L MPV 10.8 H Neut % (Auto) Lymph % (Auto) Lymph # (Auto) [place] # (Auto) Lymphocytes % 8 L Monocytes % (Manual) 14 H Absolute Neutrophils Platelet Estimate Decreased A ABG Methemoglobin VBG pCO2 VBG pO2 VBG HCO3 VBG Total CO2 VBG O2 Saturation VBG Lactic Acid Carboxyhemoglobin Total Hemoglobin Sodium Potassium Carbon Dioxide Anion Gap 6.0 L BUN Glucose 289 H 210 H Uric Acid 2.1 L 2.1 L Calcium Phosphorus 1.7 L 2.3 L Magnesium Total Bilirubin GGT 7 L Total Protein 4.9 L 5.2 L Albumin 2.7 L 3.0 L Urine Appearance Urine Protein Urine Ketones Urine Occult Blood Urine Nitrate Urine Urobilinogen Ur Leukocyte Esterase Urine RBC Urine WBC Urine Bacteria Hyaline Casts 01/28/20 01/27/20 01/27/20 05:25 07:51 06:51 WBC 15.1 H 26.7 H RBC Hgb 18.1 H Hct Plt Count 118 L MPV 10.8 H 10.5 H Neut % (Auto) 86.3 H Lymph % (Auto) 2.8 L Lymph # (Auto) 0.75 L [place] # (Auto) 2.72 H Lymphocytes % 10 L Monocytes % (Manual) 13 H Absolute Neutrophils 23.06 H Platelet Estimate Decreased A ABG Methemoglobin VBG pCO2 VBG pO2 VBG HCO3 VBG Total CO2 VBG O2 Saturation VBG Lactic Acid 3.2 H Carboxyhemoglobin Total Hemoglobin Sodium Potassium Carbon Dioxide Anion Gap BUN Glucose Uric Acid Calcium Phosphorus Magnesium Total Bilirubin GGT Total Protein Albumin Urine Appearance Urine Protein Urine Ketones Urine Occult Blood Urine Nitrate Urine Urobilinogen Ur Leukocyte Esterase Urine RBC Urine WBC Urine Bacteria Hyaline Casts 01/27/20 01/27/20 01/26/20 06:51 06:26 23:45 WBC RBC Hgb Hct Plt Count MPV Neut % (Auto) Lymph % (Auto) Lymph # (Auto) [place] # (Auto) Lymphocytes % Monocytes % (Manual) Absolute Neutrophils Platelet Estimate ABG Methemoglobin 0 L VBG pCO2 34.3 L VBG pO2 101 H VBG HCO3 21.7 L VBG Total CO2 22.8 L VBG O2 Saturation 91.7 H VBG Lactic Acid 3.8 H Carboxyhemoglobin 5.4 H Total Hemoglobin 17.5 H Sodium 130 L Potassium 5.4 H Carbon Dioxide Anion Gap BUN 29 H Glucose 284 H Uric Acid Calcium Phosphorus 4.8 H Magnesium 4.0 H Total Bilirubin GGT Total Protein Albumin Urine Appearance Urine Protein Urine Ketones Urine Occult Blood Urine Nitrate Urine Urobilinogen Ur Leukocyte Esterase Urine RBC Urine WBC Urine Bacteria Hyaline Casts 01/26/20 01/26/20 01/26/20 20:14 19:45 19:45 WBC 28.8 H RBC Hgb 18.8 H Hct 55.4 H Plt Count MPV 11.2 H Neut % (Auto) 89.6 H Lymph % (Auto) 4.1 L Lymph # (Auto) 1.18 L [place] # (Auto) 1.75 H Lymphocytes % Monocytes % (Manual) Absolute Neutrophils 25.81 H Platelet Estimate ABG Methemoglobin VBG pCO2 VBG pO2 VBG HCO3 VBG Total CO2 VBG O2 Saturation VBG Lactic Acid Carboxyhemoglobin Total Hemoglobin Sodium Potassium Carbon Dioxide 20 L Anion Gap 19.0 H BUN 22 H Glucose 280 H Uric Acid Calcium 10.9 H Phosphorus Magnesium Total Bilirubin 1.1 H GGT Total Protein Albumin Urine Appearance Cloudy A Urine Protein 30 mg/dl A Urine Ketones 15 mg/dl A Urine Occult Blood Small A Urine Nitrate Positive A Urine Urobilinogen >=8.0 e.u./dl A Ur Leukocyte Esterase Trace A Urine RBC 32 H Urine WBC 53 H Urine Bacteria Mod A Hyaline Casts 27 H Meds: Medications Acetaminophen (Tylenol) 650 mg PO Q4-6HP PRN; Protocol PRN Reason: Per Pain Protocol/Fever > 101 Aspirin (Aspirin) 81 mg PO DAILY [facility] Last Admin: 01/29/20 09:18 Dose: 81 mg Documented by: Bisacodyl (Dulcolax) 10 mg NC Q2-3DAYS PRN PRN Reason: Constipation Bupropion HCl (Wellbutrin Sr) 300 mg PO DAILY [facility] Last Admin: 01/29/20 09:21 Dose: 300 mg Documented by: Bupropion HCl (Wellbutrin Sr) 150 mg PO QNOON [facility] Last Admin: 01/28/20 12:18 Dose: 150 mg Documented by: Dextrose (Dextrose 50%) 0 ml IV UD PRN PRN Reason: Hypoglycemia Diagnostic Test (Pha) (Accu-Chek) 1 each FS ACHS [facility] Last Admin: 01/29/20 07:55 Dose: 1 each Documented by: Divalproex Sodium (Depakote Er) 1,000 mg PO DAILY [facility] Last Admin: 01/29/20 09:19 Dose: 1,000 mg Documented by: Docusate Sodium (Colace) 100 mg PO BID [facility] Last Admin: 01/29/20 09:20 Dose: Not Given Documented by: Fluticasone Propionate (Flonase) 2 spray NS QDAY [facility] Last Admin: 01/29/20 09:17 Dose: 2 spray Documented by: Glucose (Insta-Glucose) 15 gm PO PRN PRN PRN Reason: Hypoglycemia Guaifenesin/Codeine Phosphate (Robitussin Ac) 10 ml PO Q4HP PRN PRN Reason: Cough Heparin Sodium (Porcine) (Heparin) 5,000 unit SQ Q12 [facility] Last Admin: 01/29/20 09:19 Dose: 5,000 unit Documented by: Potassium Chloride 40 meq/ (Dextrose) 520 mls @ 130 mls/hr IV UD PRN PRN Reason: K+ = or < 3.5 Acetaminophen (Ofirmev) 650 mg in 65 mls @ 130 mls/hr IV Q6HP PRN; Protocol PRN Reason: Per Pain Protocol/Fever > 101 Last Infusion: 01/27/20 20:57 Dose: Infused Documented by: Magnesium Sulfate (Magnesium Sulfate) 2 gm in 50 mls @ 50 mls/hr IV UD PRN PRN Reason: MG = or < 1.7 Piperacillin Sod/Tazobactam (Sod 3.375 gm/ Dextrose) 50 mls @ 100 mls/hr IV Q6H [facility]; Protocol Last Infusion: 01/29/20 06:25 Dose: Infused Documented by: Norepinephrine Bitartrate 8 mg (/ Sodium Chloride) 250 mls @ 18.75 mls/hr IV Q14H PRN; Protocol PRN Reason: MAP<70 Sodium Chloride (Sodium Chloride 0.9%) 250 mls @ 20 mls/hr IV .[id number] [facility] Last Admin: 01/28/20 23:21 Dose: Not Given Documented by: Insulin Human Lispro (Humalog) 0 unit SQ ACHS [facility]; Protocol Last Admin: 01/29/20 08:02 Dose: 3 units Documented by: Iron Carb/Multivit/Rand/Folic Acid (Multivitamin W/Minerals) 1 tab PO DAILY [facility] Last Admin: 01/29/20 09:20 Dose: 1 tab Documented by: Levothyroxine Sodium (Synthroid) 75 mcg PO QAMAC [facility] Last Admin: 01/29/20 07:58 Dose: 75 mcg Documented by: Magnesium Citrate (Citroma) 118 ml PO PRN PRN PRN Reason: Constipation Magnesium Oxide (Magnesium Oxide) 400 mg PO BID [facility] Last Admin: 01/29/20 09:20 Dose: 400 mg Documented by: Melatonin (Melatonin 3mg Tablet) 3 mg PO HSP PRN PRN Reason: Insomnia Last Admin: 01/27/20 19:49 Dose: 3 mg Documented by: Metformin HCl (Glucophage) 500 mg PO 1700 [facility] Last Admin: 01/28/20 17:39 Dose: 500 mg Documented by: Metoprolol Tartrate (Lopressor) 5 mg IV Q5M PRN PRN Reason: Heart Rate > 140 bpm Ondansetron HCl (Zofran Odt) 4 mg SL Q4-6HP PRN; Protocol PRN Reason: Nausea And Vomiting Ondansetron HCl (Zofran) 4 mg IV Q4-6HP PRN; Protocol PRN Reason: Nausea And Vomiting Fluvoxamine 100 Mg (Cap) 1 dose PO TID [facility] Last Admin: 01/29/20 09:18 Dose: 1 dose Documented by: Teriflunomide [ (Aubagio] 14 Mg Tab) 1 dose PO QDAY [facility] Last Admin: 01/29/20 09:17 Dose: 1 dose Documented by: Polyethylene Glycol (Miralax) 17 gm PO DAILYP PRN PRN Reason: Constipation Potassium Chloride (Klor-Con) 40 meq PO DAILYP PRN PRN Reason: K+ < 3.5 Potassium Citrate (Potassium Citrate) 15 meq PO TIDCC [facility] Last Admin: 01/29/20 07:57 Dose: 15 meq Documented by: Senna (Senokot) 2 tab PO HS [facility] Last Admin: 01/28/20 21:02 Dose: Not Given Documented by: Sodium Chloride (Saline Flush) 10 ml IV Q8 [facility] Last Admin: 01/29/20 09:36 Dose: 10 ml Documented by: Trazodone HCl (Desyrel) 100 mg PO QHS [facility] Last Admin: 01/28/20 21:39 Dose: 100 mg Documented by: Vitamin D (Vitamin D3) 5,000 unit PO DAILY [facility] Last Admin: 01/29/20 09:19 Dose: 5,000 unit Documented by: ABG Interpretation ABG results: 01/27/20 06:51 ABG Methemoglobin 0 L VBG pH 7.42 VBG pCO2 34.3 L VBG pO2 101 H VBG HCO3 21.7 L VBG Total CO2 22.8 L VBG O2 Saturation 91.7 H VBG Base Excess -2 A/P Narrative A/P Narrative: * Severe sepsis with endorgan dysfunction- secondary to complicated UTI-white count downtrending now at 12 K. On broad antibiotic coverage, cultures negative so far. Improving endorgan dysfunction * Complicated UTI-clinically improving on antibiotic coverage. Change suprapubic cath today * Small bowel obstruction clinically resolved * HAYDEN clinically resolved. Creatinine down from 1.2-0.7 * Severe diarrhea, ileus/obstipation . Neurogenic bowels. Improving * History of developmental delay/intermittent agitation continue Depakote/bupropion/fluvoxamine * DM type II-prandial insulin/sitagliptin/CCD * Currently full code * Prophylax Heparin Plan * Encourage p.o. fluids as tolerated. * Continue antibiotic coverage * Pre-existing medical condition management as above * Nutrition support/therapies Time Spent With Patient Time: Total time spent is greater than 50% in coordination of care (as documented) at patient's floor/unit and/or counseling patient: QUALITY VTE Deep Vein Thrombosis/Pulmonary Embolism Present on Admission: No
[2020-01-29] MEDS: 0.9 % SODIUM CHLORIDE 250 ML IV SCH (11:21)
[2020-01-29] MEDS: NEUTRA PHOS 1 PACKET PO SCH ×2 (11:33→21:11)
--- NOTE | 2020-01-29 11:36 | XRay Report ---
CLINICAL INFORMATION: ?sbo COMPARISON: 01/26/2020 FINDINGS: There is moderate dilatation of the stomach and multiple loops of small bowel and colon to the rectosigmoid junction. Moderate stool seen within the rectum. No free air or soft tissue mass. IMPRESSION: Nonspecific stool gas pattern compatible either atypical ileus or distal colonic obstruction. Suggest standard water-soluble contrast small bowel follow-through to terminating 0.0 obstruction and also the bowel transit time Interpreted and Authenticated by: Miguel Cade 01/29/20
[2020-01-29] MEDS ORDERED: DIATRIZOATE MEGLU/DIATRIZO SOD 30 ML BOTTLE PO ONE (17:27)
[2020-01-29] MEDS ORDERED: IOPAMIDOL 100 ML BOTTLE IV ONE (18:10)
[2020-01-29] MEDS: metFORMIN 500 MG TAB.XL.24H PO SCH (18:12)
--- NOTE | 2020-01-29 18:41 | Cat Scan Report ---
CLINICAL INFORMATION: Chest pain COMPARISON: None. TECHNIQUE: 80ml of Isovue-370 were injected intravenously. Using SmartPrep to maximize pulmonary artery opacification, .625mm helical slices were obtained from the lung apices through the lung bases. Following reconstruction, 2.5 mm sagittal, coronal, and axial reformations were processed. The exam was reviewed at mediastinal, lung, and bone windows. The exam was performed using radiation dose optimization techniques including, but not limited to, automated exposure control, adjustment of the mA and/or kV according to patient size and use of iterative reconstruction technique. FINDINGS: The pulmonary arteries are normal in diameter well-opacified no evidence of embolus. The thoracic aorta is normal in diameter as well. There are no abnormally enlarged lymph nodes the mediastinal hilar or axillary region. The heart is normal in size without significant plaque in the coronary arteries. Esophagus is grossly normal. Thyroid is unremarkable. Pulmonary parenchymal windows only mild subsegmental atelectasis in both posterior lower lobes. There are tiny bilateral pleural effusions. Bones and soft tissues the chest wall are normal. IMPRESSION: 1. No evidence of pulmonary embolus. 2. Subsegmental atelectasis in both posterior lower lobes and small bilateral pleural effusions.2 Interpreted and Authenticated by: Miguel Cade 01/29/20
--- NOTE | 2020-01-29 18:58 | Cat Scan Report ---
CLINICAL INFORMATION: Abdominal pain and distention COMPARISON: Abdomen and pelvic CT three days prior 01/26/2020 TECHNIQUE: Following standard radiographic small bowel follow-through fatty, 80 cc of Isovue-370 were injected intravenously, and 60 seconds later, 0.625 mm helical slices were obtained from the mid heart through the subtrochanteric regions. Following reconstruction, 2.5 mm sagittal, coronal and axial reformatted images were processed and reviewed at bone, lung and soft tissue windows. Five minutes later, 0.625 mm helical slices were obtained from the mid heart through the kidneys and viewed at soft tissue windows.The exam was performed using radiation dose optimization techniques including, but not limited to, automated exposure control, adjustment of the mA and/or kV according to patient size and use of iterative reconstruction technique. FINDINGS: The liver, gallbladder and bile ducts, both kidneys, adrenal glands, spleen, pancreas and aorta including aortic branches are normal in size configuration and attenuation without focal lesion. There is no free air, free fluid or adenopathy. Pelvic images show suprapubic catheter properly positioned and urinary bladder which is partially collapsed with mild diffuse wall thickening. A rectal tube was then placed and a retention bulb properly positioned in the rectum. The stomach small and large remains moderately dilated. There is a segment of mid jejunum, approximately 40 cm, which demonstrate moderate thickening of the wall and plicae circulares folds suggesting infiltrative pathology such as ischemia or inflammation. The sigmoid colon is asymmetrically dilated and retains a U-shaped configuration but does not appear to be volvulized. There is mild wall thickening of the mid and distal sigmoid colon which could indicate ischemia or inflammation as well. IMPRESSION: 1. Severe ileus. No evidence of small or large bowel obstruction, however. 2. 30 cm segment of mid jejunum which demonstrate moderate thickening of the wall and plicae circulares folds. This would would imply infiltrative pathology such as inflammation, infection or ischemia. Consider small endoscopic camera visualization. 3. Marked dilatation of a U-shaped segment of sigmoid colon which does not appear to represent a volvulus. There is mild wall thickening which could indicate inflammation or ischemia. Suggest colonoscopy. Interpreted and Authenticated by: Miguel Cade 01/29/20
--- NOTE | 2020-01-29 19:01 | XRay Report ---
CLINICAL INFORMATION: r/o ileus vs obstruction COMPARISON: Abdomen and pelvic CT 01/26/2020 TECHNIQUE: Following metal smelter imaging, water-soluble Gastrografin was administered orally and serial imaging was obtained over 2.5 hours. FINDINGS: The stomach, small large bowel moderate symmetric dilatation most compatible with severe ileus. No evidence of all or large bowel obstruction. IMPRESSION: Severe ileus. Follow-up abdomen and pelvic CT will be performed Interpreted and Authenticated by: Miguel Cade 01/29/20
[2020-01-29] MEDS: SENNOSIDES 1 TABLET PO SCH (21:10)
[2020-01-29] MEDS: traZODone HCL 100 MG TABLET PO SCH (21:11)
[2020-01-30] MEDS: 0.9 % SODIUM CHLORIDE 10 ML SYRINGE IV SCH ×3 (05:31→21:17)
[2020-01-30] MEDS: PIPERACILLIN SODIUM/TAZOBACTAM 3.375 GM in DEXTROSE 5% IN WATER 50 ML IV SCH ×3 (05:31→17:24)
[2020-01-30] MEDS: 0.9 % SODIUM CHLORIDE 250 ML IV SCH ×3 (06:04→11:28)
[2020-01-30] MEDS: POTASSIUM CITRATE 10 MEQ TAB.XL.24H PO SCH ×3 (07:28→17:25)
[2020-01-30] MEDS: LEVOTHYROXINE 75 MCG TABLET PO SCH (07:29)
[2020-01-30] MEDS: INSULIN LISPRO 1 UNIT/0.01 ML UNIT SQ SCH ×4 (07:37→21:15)
[2020-01-30] MEDS: MULTIVIT,THER IRON,CA,FA & MIN 1 TABLET PO SCH (08:52)
[2020-01-30] MEDS: ASPIRIN 81 MG TAB.CHEW PO SCH (08:53)
[2020-01-30] MEDS: VITAMIN D3 5,000 UNIT CAPSULE PO SCH (08:53)
[2020-01-30] MEDS: HEPARIN 5,000 UNIT/ML VIAL SQ SCH ×2 (08:53→21:16)
[2020-01-30] MEDS: NEUTRA PHOS 1 PACKET PO SCH (08:53)
[2020-01-30] MEDS: DIVALPROEX SODIUM 250 MG TABLET PO SCH (08:53)
[2020-01-30] MEDS: MAGNESIUM OXIDE 400 MG TABLET PO SCH ×2 (08:53→21:15)
[2020-01-30] MEDS: TERIFLUNOMIDE 14 MG PO SCH (08:54)
[2020-01-30] MEDS: FLUTICASONE PROPIONATE SPRAY.NAS NS SCH (08:54)
[2020-01-30] MEDS: FLUVOXAMINE 100 MG PO SCH ×3 (08:54→21:17)
[2020-01-30] MEDS: buPROPion 150 MG TAB.SR.12H PO SCH ×2 (08:54→12:12)
[2020-01-30] MEDS: DOCUSATE SODIUM 100 MG CAPSULE PO SCH ×2 (08:55→21:18)
[2020-01-30 09:27] LABS: Eosinophils % (Manual) 1 % (0-7); Hematocrit 38.5 % (41.0-55.0); Lymphocytes % 12 % (15-49); Mean Cell Volume 96.5 fL (80.0-100.0); Mean Corpuscular HGB Conc 33.8 g/dL (31.0-36.0); Mean Platelet Volume 10.4 fL (7.4-10.4); Monocytes % (Manual) 12 % (1-12); Platelet Count 116 K/mcL (140-440); Platelet Estimate DECREASED (Normal); RBC 3.99 M/mcL (4.50-5.90); RBC Morphology NORMAL (Normal); Red Cell Distribution Width 13.5 % (11.5-14.5); Segmented Neutrophils % 75 % (38-78); WBC 11.3 K/mcL (4.5-11.0)
[2020-01-30 10:29] LABS: ALT/SGPT 13 U/L (<40); AST/SGOT 20 U/L (<40); Albumin 2.5 gm/dL (3.2-5.2); Alkaline Phosphatase 58 U/L (39-117); Bilirubin,Direct < 0.2 mg/dL (<0.3); Bilirubin,Total 0.4 mg/dL (0.1-1.0); Blood Urea Nitrogen 11 mg/dL (6-20); Calcium 8.4 mg/dL (8.6-10.4); Carbon Dioxide 27 mmol/L (22-30); Chloride 102 mmol/L (96-108); Globulin 2.4 gm/dL (2.2-3.7); Glomerular Filtration Rate 112; Glucose 157 mg/dL (70-105); Lactate Dehydrogenase 214 U/L (135-225); Phosphorous 2.3 mg/dL (2.5-4.5); Triglycerides 96 mg/dL (<150); Uric Acid 2.2 mg/dL (2.5-8.0)
[2020-01-30] MEDS ORDERED: DEXTROSE 50% 50 ML VIAL IV PRN (11:24)
[2020-01-30] MEDS ORDERED: ONDANSETRON 4 MG/2 ML VIAL IV PRN (11:24)
[2020-01-30] MEDS ORDERED: guaiFENesin/CODEINE 10 ML UDC PO PRN (11:24)
[2020-01-30] MEDS ORDERED: IOPAMIDOL 100 ML BOTTLE IV ONE ×2 (11:24)
[2020-01-30] MEDS ORDERED: POTASSIUM CHLORIDE 20 MEQ PACKET PO PRN (11:24)
[2020-01-30] MEDS ORDERED: ACETAMINOPHEN 650 MG/65 ML BOTTLE IV PRN (11:24)
[2020-01-30] MEDS ORDERED: DEXTROSE 31 GM ORAL.SUSP PO PRN (11:24)
[2020-01-30] MEDS ORDERED: POTASSIUM CHLORIDE 40 MEQ in DEXTROSE 5% IN WATER 500 ML IV PRN (11:24)
[2020-01-30] MEDS ORDERED: ONDANSETRON 4 MG ODT TABLET SL PRN (11:24)
[2020-01-30] MEDS ORDERED: MAGNESIUM CITRATE 300 ML ORAL.SOL PO PRN (11:24)
[2020-01-30] MEDS ORDERED: BISACODYL 10 MG SUPP.RECT PR PRN (11:24)
[2020-01-30] MEDS ORDERED: METOPROLOL TARTRATE 5 MG/5 ML VIAL IV PRN (11:24)
[2020-01-30] MEDS ORDERED: 0.9 % SODIUM CHLORIDE 250 ML IV SCH (11:24)
[2020-01-30] MEDS ORDERED: MELATONIN 3 MG TABLET PO PRN (11:24)
[2020-01-30] MEDS ORDERED: POLYETHYLENE GLYCOL 3350 17 GM PACKET PO PRN (11:24)
[2020-01-30] MEDS ORDERED: MAGNESIUM SULFATE 2 GM/50 ML BAG IV PRN (11:24)
[2020-01-30] MEDS ORDERED: NOREPINEPHRINE BITARTRATE 8 MG in 0.9 % SODIUM CHLORIDE 242 ML IV PRN (11:24)
[2020-01-30] MEDS ORDERED: DIATRIZOATE MEGLU/DIATRIZO SOD 30 ML BOTTLE PO ONE (11:24)
[2020-01-30] MEDS ORDERED: ACETAMINOPHEN 325 MG TABLET PO PRN (11:24)
--- NOTE | 2020-01-30 11:25 | Internal Med Progress Note ---
SUBJECTIVE Subjective Patient information: Note initiated : 01/30/20 at 11:21 am Service Date, if different from initiated Date: [] Patient: Buck Diamond a 54 y/o M admitted on 01/27/20 for diarrhea. Chief Complaint: [id number] a history of developmental delay who presented to the ER following multiple episodes of diarrhea. Patient suffers from abnormal bowel with alternating constipation following diarrhea at this time he has not had a bowel movement in 5 days. He was subsequently given multiple laxatives/stool softeners with resultant diarrhea. He normally receives help from caregivers. Staff expressed concern about dehydration and him not feeling his normal self. He was subsequently brought to the ER. Initial work-up was consistent with severe sepsis with white count 28,000, ileus pattern on CT abdomen. Pyuria Patient carries a suprapubic Conroy's catheter that was changed 2 weeks prior to presentation. No evidence of fever. However patient remained tachycardic. Subsequently hospitalist service was consulted for admission in light of severe sepsis likely from UTI At the time of my evaluation patient is very restless unable to provide answers to most the questions. POA/daughter Brinda available and was able to provide answers to most of the questions. Patient has been started on antibiotic coverage, Conroy's catheter will be changed. Rectal tube was placed. Continuing crystalloids 01/26 persistent diarrhea, no abdominal distention or pain. White count down to 26.7. Continue crystalloids. Antibiotic coverage. Lactic acid down from 3.8- >3.2. K 5.4. Creatinine down from 1.2-1. Continue crystalloid bolus/oral fluids 01/27-patient doing remarkably well. White count down to 15,000. Creatinine improved 2.7. Stable hemodynamics except for intermittent tachycardia. Stooling much improved. C. difficile negative. on antibiotic coverage. Upd ated patient's POA. No concerns expressed by nursing staff 01/28-large bowel movement this morning. Rectal tube discontinued. Chest imaging no evidence of acute process except for distended bowels. Persistent tachycardia. Continue on crystalloid. White count downtrending now at 12.8. Phosphorus 1.7 start replacement 01/29-patient doing remarkably better. Stable urodynamics. White count 11.3. Creatinine 0.6. Electrolytes normalized. Phosphorus improving 2.3. Transition to medical floor. CT chest no evidence of PE or infiltrate, CT abdomen severe ileus moderate thickening wall mid jejunum/colon. Recommend outpatient upper and lower endoscopy for further evaluation. Will possibly discharge 24 hours Constitutional Vitals: Vital Signs Temp Pulse Resp BP Pulse Ox 97.5 F 104 H 17 127/82 94 01/30/20 08:01 01/30/20 10:56 01/30/20 10:56 01/30/20 10:42 01/30/20 10:56 Period Temp Pulse Resp BP Sys/Ayala Pulse Ox Last 24 Hr 97.5 F-98.7 F 88-130 13-29 99-148/49-111 91-95 Intake and Output 01/29/20 01/30/20 01/30/20 21:59 05:59 13:59 Intake Total 1650 850 650 Output Total 3275 900 700 Balance -1625 -50 -50 Weight 87.18 kg alert responding commands Rectal tube in place Suprapubic catheter draining clear urine Tachycardia resolved In good spirits Intake & Output: Intake & Output 01/29/20 01/30/20 01/30/20 21:59 05:59 13:59 Intake Total 1650 850 650 Output Total 3275 900 700 Balance -1625 -50 -50 Weight 87.18 kg Intake: Nourishment/Supplement quantity 240 (ml) IV 50 50 50 Zosyn 3.375 gm In Dextrose 5% 50 50 50 in Water 50 ml @ 100 mls/hr IV Q6H [facility] Rx#:[id number] Oral 1360 800 600 Output: Gastric Drainage 0 Rectal 0 Urine Catheter Amount 200 500 100 Void Amount 150 Stool 2925 400 600 Other: Nourishment/Supplement name Glucerna Urine Appearance Clear Clear Clear Suprapubic Clear Clear Urine Color Dark Yellow Dark Serena Bright Yellow Suprapubic Dark Yellow Dark Yellow Urine Odor Normal Normal Normal Suprapubic Normal Stool Size Copious Large Small Stool Color Brown Brown Brown Stool Consistency Watery Watery Watery # of times incontinent of 1 1 1 Bowels OBJ DATA Labs CBC & Chem 7: 01/30/20 05:15 01/30/20 05:15 Labs: Abnormal Lab Results 01/30/20 01/30/20 01/29/20 05:15 05:15 05:30 WBC 11.3 H RBC 3.99 L Hgb 13.0 L Hct 38.5 L Plt Count 116 L MPV Lymphocytes % 12 L Monocytes % (Manual) Platelet Estimate Decreased A Anion Gap 6.0 L Creatinine 0.6 L Glucose 157 H 289 H Uric Acid 2.2 L 2.1 L Calcium 8.4 L Phosphorus 2.3 L 1.7 L GGT 7 L 7 L Total Protein 4.9 L 4.9 L Albumin 2.5 L 2.7 L 01/29/20 01/28/20 01/28/20 05:30 05:25 05:25 WBC 12.8 H 15.1 H RBC 4.41 L Hgb Hct Plt Count 116 L 118 L MPV 10.8 H 10.8 H Lymphocytes % 8 L 10 L Monocytes % (Manual) 14 H 13 H Platelet Estimate Decreased A Decreased A Anion Gap Creatinine Glucose 210 H Uric Acid 2.1 L Calcium Phosphorus 2.3 L GGT Total Protein 5.2 L Albumin 3.0 L Meds: Medications Acetaminophen (Tylenol) 650 mg PO Q4-6HP PRN; Protocol PRN Reason: Per Pain Protocol/Fever > 101 Aspirin (Aspirin) 81 mg PO DAILY [facility] Last Admin: 01/30/20 08:53 Dose: 81 mg Documented by: Bisacodyl (Dulcolax) 10 mg [place] Q2-3DAYS PRN PRN Reason: Constipation Bupropion HCl (Wellbutrin Sr) 300 mg PO DAILY [facility] Last Admin: 01/30/20 08:54 Dose: 300 mg Documented by: Bupropion HCl (Wellbutrin Sr) 150 mg PO QNOON [facility] Last Admin: 01/29/20 11:33 Dose: 150 mg Documented by: Dextrose (Dextrose 50%) 0 ml IV UD PRN PRN Reason: Hypoglycemia Diagnostic Test (Pha) (Accu-Chek) 1 each FS ACHS [facility] Last Admin: 01/30/20 07:30 Dose: 1 each Documented by: Divalproex Sodium (Depakote Er) 1,000 mg PO DAILY [facility] Last Admin: 01/30/20 08:53 Dose: 1,000 mg Documented by: Docusate Sodium (Colace) 100 mg PO BID [facility] Last Admin: 01/30/20 08:55 Dose: Not Given Documented by: Fluticasone Propionate (Flonase) 2 spray NS QDAY [facility] Last Admin: 01/30/20 08:54 Dose: 2 spray Documented by: Glucose (Insta-Glucose) 15 gm PO PRN PRN PRN Reason: Hypoglycemia Guaifenesin/Codeine Phosphate (Robitussin Ac) 10 ml PO Q4HP PRN PRN Reason: Cough Heparin Sodium (Porcine) (Heparin) 5,000 unit SQ Q12 [facility] Last Admin: 01/30/20 08:53 Dose: 5,000 unit Documented by: Potassium Chloride 40 meq/ (Dextrose) 520 mls @ 130 mls/hr IV UD PRN PRN Reason: K+ = or < 3.5 Acetaminophen (Ofirmev) 650 mg in 65 mls @ 130 mls/hr IV Q6HP PRN; Protocol PRN Reason: Per Pain Protocol/Fever > 101 Last Infusion: 01/27/20 20:57 Dose: Infused Documented by: Magnesium Sulfate (Magnesium Sulfate) 2 gm in 50 mls @ 50 mls/hr IV UD PRN PRN Reason: MG = or < 1.7 Piperacillin Sod/Tazobactam (Sod 3.375 gm/ Dextrose) 50 mls @ 100 mls/hr IV Q6H [facility]; Protocol Last Infusion: 01/30/20 06:01 Dose: Infused Documented by: Norepinephrine Bitartrate 8 mg (/ Sodium Chloride) 250 mls @ 18.75 mls/hr IV Q14H PRN; Protocol PRN Reason: MAP<70 Sodium Chloride (Sodium Chloride 0.9%) 250 mls @ 20 mls/hr IV .[id number] [facility] Last Admin: 01/30/20 08:55 Dose: Not Given Documented by: Insulin Human Lispro (Humalog) 0 unit SQ ACHS [facility]; Protocol Last Admin: 01/30/20 07:37 Dose: 2 units Documented by: Iron Carb/Multivit/Carbon/Folic Acid (Multivitamin W/Minerals) 1 tab PO DAILY [facility] Last Admin: 01/30/20 08:52 Dose: 1 tab Documented by: Levothyroxine Sodium (Synthroid) 75 mcg PO QAMAC [facility] Last Admin: 01/30/20 07:29 Dose: 75 mcg Documented by: Magnesium Citrate (Citroma) 118 ml PO PRN PRN PRN Reason: Constipation Magnesium Oxide (Magnesium Oxide) 400 mg PO BID [facility] Last Admin: 01/30/20 08:53 Dose: 400 mg Documented by: Melatonin (Melatonin 3mg Tablet) 3 mg PO HSP PRN PRN Reason: Insomnia Last Admin: 01/27/20 19:49 Dose: 3 mg Documented by: Metformin HCl (Glucophage) 500 mg PO 1700 [facility] Last Admin: 01/29/20 18:12 Dose: 500 mg Documented by: Metoprolol Tartrate (Lopressor) 5 mg IV Q5M PRN PRN Reason: Heart Rate > 140 bpm Ondansetron HCl (Zofran Odt) 4 mg SL Q4-6HP PRN; Protocol PRN Reason: Nausea And Vomiting Ondansetron HCl (Zofran) 4 mg IV Q4-6HP PRN; Protocol PRN Reason: Nausea And Vomiting Fluvoxamine 100 Mg (Cap) 1 dose PO TID [facility] Last Admin: 01/30/20 08:54 Dose: 1 dose Documented by: Teriflunomide [ (Aubagio] 14 Mg Tab) 1 dose PO QDAY [facility] Last Admin: 01/30/20 08:54 Dose: 1 dose Documented by: Polyethylene Glycol (Miralax) 17 gm PO DAILYP PRN PRN Reason: Constipation Potassium Chloride (Klor-Con) 40 meq PO DAILYP PRN PRN Reason: K+ < 3.5 Potassium Citrate (Potassium Citrate) 15 meq PO TIDCC [facility] Last Admin: 01/30/20 07:28 Dose: 15 meq Documented by: Senna (Senokot) 2 tab PO HS [facility] Last Admin: 01/29/20 21:10 Dose: Not Given Documented by: Sodium Chloride (Saline Flush) 10 ml IV Q8 [facility] Last Admin: 01/30/20 05:31 Dose: 10 ml Documented by: Trazodone HCl (Desyrel) 100 mg PO QHS [facility] Last Admin: 01/29/20 21:11 Dose: 100 mg Documented by: Vitamin D (Vitamin D3) 5,000 unit PO DAILY [facility] Last Admin: 01/30/20 08:53 Dose: 5,000 unit Documented by: ABG Interpretation ABG results: 01/27/20 06:51 ABG Methemoglobin 0 L VBG pH 7.42 VBG pCO2 34.3 L VBG pO2 101 H VBG HCO3 21.7 L VBG Total CO2 22.8 L VBG O2 Saturation 91.7 H VBG Base Excess -2 A/P Narrative A/P Narrative: * Severe sepsis with endorgan dysfunction- secondary to complicated UTI-cli nically resolved with white count 11,000. On antibiotic coverage. * Hardware related complicated UTI-clinically resolved on antibiotic coverage. * Severe ileus secondary to neurogenic bowel. Patient will need routine bowel regimen to prevent alternating constipation * Mild small and large intestinal inflammation on CT. Recommend outpatient upper and lower endoscopy * HAYDEN clinically resolved. Creatinine down from 1.2-0.6 * History of developmental delay/intermittent agitation continue Depakote/bu propion/fluvoxamine * DM type II-prandial insulin/sitagliptin/CCD * Currently full code * Prophylax Heparin Plan * Transition to medical floor * De-escalate antibiotics * Recommend outpatient upper and lower endoscopy * Possible discharge in 24 hours * Pre-existing medical condition management as above * Nutrition support/therapies Time Spent With Patient Time: Total time spent is greater than 50% in coordination of care (as doc umented) at patient's floor/unit and/or counseling patient: QUALITY VTE Deep Vein Thrombosis/Pulmonary Embolism Present on Admission: No
[2020-01-30] MEDS: metFORMIN 500 MG TAB.XL.24H PO SCH (17:25)
[2020-01-30] MEDS: traZODone HCL 100 MG TABLET PO SCH (21:15)
[2020-01-30] MEDS: SENNOSIDES 1 TABLET PO SCH (21:18)
[2020-01-31] MEDS: PIPERACILLIN SODIUM/TAZOBACTAM 3.375 GM in DEXTROSE 5% IN WATER 50 ML IV SCH ×4 (00:10→17:14)
[2020-01-31] MEDS: 0.9 % SODIUM CHLORIDE 10 ML SYRINGE IV SCH ×5 (00:10→21:33)
[2020-01-31] MEDS: 0.9 % SODIUM CHLORIDE 250 ML IV SCH ×3 (00:22→23:24)
[2020-01-31] MEDS: POTASSIUM CITRATE 10 MEQ TAB.XL.24H PO SCH ×3 (07:13→17:15)
[2020-01-31] MEDS: LEVOTHYROXINE 75 MCG TABLET PO SCH (07:13)
[2020-01-31] MEDS: INSULIN LISPRO 1 UNIT/0.01 ML UNIT SQ SCH ×4 (07:21→21:34)
[2020-01-31 07:40] LABS: ALT/SGPT 11 U/L (<40); AST/SGOT 13 U/L (<40); Albumin 2.2 gm/dL (3.2-5.2); Alkaline Phosphatase 45 U/L (39-117); Bilirubin,Direct < 0.2 mg/dL (<0.3); Bilirubin,Total 0.2 mg/dL (0.1-1.0); Blood Urea Nitrogen 8 mg/dL (6-20); Calcium 8.6 mg/dL (8.6-10.4); Carbon Dioxide 30 mmol/L (22-30); Chloride 102 mmol/L (96-108); Globulin 2.1 gm/dL (2.2-3.7); Glomerular Filtration Rate 112; Glucose 265 mg/dL (70-105); Lactate Dehydrogenase 136 U/L (135-225); Phosphorous 2.3 mg/dL (2.5-4.5); Triglycerides 96 mg/dL (<150); Uric Acid 1.8 mg/dL (2.5-8.0)
[2020-01-31 08:22] LABS: Band Neutrophils % 6 % (0-10); Eosinophils % (Manual) 4 % (0-7); Hematocrit 34.3 % (41.0-55.0); Hemoglobin 11.5 g/dL (13.5-16.5); Lymphocytes % 20 % (15-49); Mean Corpuscular HGB Conc 33.5 g/dL (31.0-36.0); Mean Platelet Volume 10.2 fL (7.4-10.4); Monocytes % (Manual) 12 % (1-12); Myelocytes % 1 %; Platelet Count 113 K/mcL (140-440); Platelet Estimate DECREASED (Normal); RBC Morphology NORMAL (Normal); Reactive Lymphocytes 2 % (0-2); Red Cell Distribution Width 13.3 % (11.5-14.5); Segmented Neutrophils % 55 % (38-78); WBC 4.9 K/mcL (4.5-11.0)
[2020-01-31] MEDS: MULTIVIT,THER IRON,CA,FA & MIN 1 TABLET PO SCH (09:07)
[2020-01-31] MEDS: ASPIRIN 81 MG TAB.CHEW PO SCH (09:07)
[2020-01-31] MEDS: VITAMIN D3 5,000 UNIT CAPSULE PO SCH (09:07)
[2020-01-31] MEDS: DIVALPROEX SODIUM 250 MG TABLET PO SCH (09:07)
[2020-01-31] MEDS: DOCUSATE SODIUM 100 MG CAPSULE PO SCH ×2 (09:07→21:33)
[2020-01-31] MEDS: buPROPion 150 MG TAB.SR.12H PO SCH ×2 (09:08→12:45)
[2020-01-31] MEDS: HEPARIN 5,000 UNIT/ML VIAL SQ SCH ×2 (09:08→21:33)
[2020-01-31] MEDS: TERIFLUNOMIDE 14 MG PO SCH (09:09)
[2020-01-31] MEDS: FLUVOXAMINE 100 MG PO SCH ×3 (09:09→21:34)
[2020-01-31] MEDS: FLUTICASONE PROPIONATE SPRAY.NAS NS SCH (09:10)
[2020-01-31] MEDS: MAGNESIUM OXIDE 400 MG TABLET PO SCH ×2 (09:10→21:34)
--- NOTE | 2020-01-31 11:05 | Internal Med Progress Note ---
SUBJECTIVE Subjective Patient information: Note initiated : 01/31/20 at 11:03 am Service Date, if different from initiated Date: [] Patient: Buck Diamond 54 y/o M admitted on 01/27/20 for diarrhea. Chief Complaint: [id number] a history of developmental delay who presented to the ER following multiple episodes of diarrhea. Patient suffers from abnormal bowel with alternating constipation following diarrhea at this time he has not had a bowel movement in 5 days. He was subsequently given multiple laxatives/stool softeners with resultant diarrhea. He normally receives help from caregivers. Staff expressed concern about dehydration and him not feeling his normal self. He was subsequently brought to the ER. Initial work-up was consistent with severe sepsis with white count 28,000, ileus pattern on CT abdomen. Pyuria Patient carries a suprapubic Conroy's catheter that was changed 2 weeks prior to presentation. No evidence of fever. However patient remained tachycardic. Subsequently hospitalist service was consulted for admission in light of severe sepsis likely from UTI At the time of my evaluation patient is very restless unable to provide answers to most the questions. POA/daughter Brinda available and was able to provide answers to most of the questions. Patient has been started on antibiotic coverage, Conroy's catheter will be changed. Rectal tube was placed. Continuing crystalloids 01/26 persistent diarrhea, no abdominal distention or pain. White count down to 26.7. Continue crystalloids. Antibiotic coverage. Lactic acid down from 3.8- >3.2. K 5.4. Creatinine down from 1.2-1. Continue crystalloid bolus/oral fluids 01/27-patient doing remarkably well. White count down to 15,000. Creatinine improved 2.7. Stable hemodynamics except for intermittent tachycardia. Stooling much improved. C. difficile negative. on antibiotic coverage. Upd ated patient's POA. No concerns expressed by nursing staff 01/28-large bowel movement this morning. Rectal tube discontinued. Chest imaging no evidence of acute process except for distended bowels. Persistent tachycardia. Continue on crystalloid. White count downtrending now at 12.8. Phosphorus 1.7 start replacement 01/29-patient doing remarkably better. Stable urodynamics. White count 11.3. Creatinine 0.6. Electrolytes normalized. Phosphorus improving 2.3. Transition to medical floor. CT chest no evidence of PE or infiltrate, CT abdomen severe ileus moderate thickening wall mid jejunum/colon. Recommend outpatient upper and lower endoscopy for further evaluation. Will possibly discharge 24 hours 01/30-patient doing markedly better. White count 4.9. De-escalate antibiotics. Vitals stable. Minimal bloodstained output Flexi-Seal. Discontinue Flexi- Seal. Continue adequate oral hydration. No overnight fever chills. Family at bedside. Constitutional Vitals: Vital Signs Temp Pulse Resp BP Pulse Ox 98.4 F 77 16 113/73 92 01/31/20 08:00 01/31/20 04:45 01/31/20 08:00 01/31/20 08:00 01/31/20 08:00 Period Temp Pulse Resp BP Sys/Ayala Pulse Ox Last 24 Hr 96.8 F-98.7 F 76-91 16-18 111-126/70-79 2-96 Intake and Output 01/30/20 01/31/20 01/31/20 21:59 05:59 13:59 Intake Total 470 170 550 Output Total 1025 950 225 Balance -555 -780 325 Weight 89.448 kg In good spirits Nonlabored breathing Flexi-Seal minimal blood-tinged fluid Suprapubic cath draining clear urine Intake & Output: Intake & Output 01/30/20 01/31/20 01/31/20 21:59 05:59 13:59 Intake Total 470 170 550 Output Total 1025 950 225 Balance -555 -780 325 Weight 89.448 kg Intake: IV 50 50 50 Zosyn 3.375 gm In Dextrose 5% 50 50 50 in Water 50 ml @ 100 mls/hr IV Q6H [facility] Rx#:[id number] Oral 420 120 500 Tube Feeding 0 Output: Urine Catheter Amount 975 750 150 Stool 50 200 75 Other: Meal Dinner Breakfast Percent of Meal Consumed 100% 100% Feeding Ability Assist with Tray Set Up Assist with Tray Set Up Urine Appearance Clear Clear Clear Suprapubic Clear Urine Color Bright Yellow Bright Yellow Pale Suprapubic Bright Yellow Urine Odor Normal Normal Normal Suprapubic Normal Stool Size Moderate Stool Color Brown Brown Blood Tinged Stool Consistency Watery Liquid Liquid Watery OBJ DATA Labs CBC & Chem 7: 01/31/20 06:15 01/31/20 06:15 Labs: Abnormal Lab Results 10/01/31/20 01/30/20 06:15 06:15 05:15 WBC RBC 3.50 L Hgb 11.5 L Hct 34.3 L Plt Count 113 L MPV Lymphocytes % Monocytes % (Manual) Platelet Estimate Decreased A Anion Gap 7.0 L Creatinine 0.6 L 0.6 L Glucose 265 H 157 H Uric Acid 1.8 L 2.2 L Calcium 8.4 L Phosphorus 2.3 L 2.3 L GGT 7 L 7 L Total Protein 4.3 L 4.9 L Albumin 2.2 L 2.5 L Globulin 2.1 L 01/30/20 01/29/20 01/29/20 05:15 05:30 05:30 WBC 11.3 H 12.8 H RBC 3.99 L 4.41 L Hgb 13.0 L Hct 38.5 L Plt Count 116 L 116 L MPV 10.8 H Lymphocytes % 12 L 8 L Monocytes % (Manual) 14 H Platelet Estimate Decreased A Decreased A Anion Gap 6.0 L Creatinine Glucose 289 H Uric Acid 2.1 L Calcium Phosphorus 1.7 L GGT 7 L Total Protein 4.9 L Albumin 2.7 L Globulin Meds: Medications Acetaminophen (Tylenol) 650 mg PO Q4-6HP PRN; Protocol PRN Reason: Per Pain Protocol/Fever > 101 Aspirin (Aspirin) 81 mg PO DAILY [facility] Last Admin: 01/31/20 09:07 Dose: 81 mg Documented by: Bisacodyl (Dulcolax) 10 mg [place] Q2-3DAYS PRN PRN Reason: Constipation Bupropion HCl (Wellbutrin Sr) 150 mg PO QNOON [facility] Last Admin: 01/30/20 12:12 Dose: 150 mg Documented by: Bupropion HCl (Wellbutrin Sr) 300 mg PO DAILY [facility] Last Admin: 01/31/20 09:08 Dose: 300 mg Documented by: Dextrose (Dextrose 50%) 0 ml IV UD PRN PRN Reason: Hypoglycemia Diagnostic Test (Pha) (Accu-Chek) 1 each FS ACHS [facility] Last Admin: 01/31/20 07:14 Dose: 1 each Documented by: Divalproex Sodium (Depakote Er) 1,000 mg PO DAILY [facility] Last Admin: 01/31/20 09:07 Dose: 1,000 mg Documented by: Docusate Sodium (Colace) 100 mg PO BID [facility] Last Admin: 01/31/20 09:07 Dose: Not Given Documented by: Fluticasone Propionate (Flonase) 2 spray NS QDAY [facility] Last Admin: 01/31/20 09:10 Dose: 2 unit Documented by: Glucose (Insta-Glucose) 15 gm PO PRN PRN PRN Reason: Hypoglycemia Guaifenesin/Codeine Phosphate (Robitussin Ac) 10 ml PO Q4HP PRN PRN Reason: Cough Heparin Sodium (Porcine) (Heparin) 5,000 unit SQ Q12 [facility] Last Admin: 01/31/20 09:08 Dose: 5,000 unit Documented by: Acetaminophen (Ofirmev) 650 mg in 65 mls @ 130 mls/hr IV Q6HP PRN; Protocol PRN Reason: Per Pain Protocol/Fever > 101 Magnesium Sulfate (Magnesium Sulfate) 2 gm in 50 mls @ 50 mls/hr IV UD PRN PRN Reason: MG = or < 1.7 Piperacillin Sod/Tazobactam (Sod 3.375 gm/ Dextrose) 50 mls @ 100 mls/hr IV Q6H [facility]; Protocol Last Infusion: 01/31/20 06:07 Dose: Infused Documented by: Norepinephrine Bitartrate 8 mg (/ Sodium Chloride) 250 mls @ 18.75 mls/hr IV Q14H PRN; Protocol PRN Reason: MAP<70 Potassium Chloride 40 meq/ (Dextrose) 520 mls @ 130 mls/hr IV UD PRN PRN Reason: K+ = or < 3.5 Sodium Chloride (Sodium Chloride 0.9%) 250 mls @ 20 mls/hr IV .[id number] [facility] Last Admin: 01/31/20 00:22 Dose: Not Given Documented by: Insulin Human Lispro (Humalog) 0 unit SQ ACHS [facility]; Protocol Last Admin: 01/31/20 07:21 Dose: 3 unit Documented by: Iron Carb/Multivit/Machine Gun Mechanic/Folic Acid (Multivitamin W/Minerals) 1 tab PO DAILY [facility] Last Admin: 01/31/20 09:07 Dose: 1 tab Documented by: Levothyroxine Sodium (Synthroid) 75 mcg PO QAMAC [facility] Last Admin: 01/31/20 07:13 Dose: 75 mcg Documented by: Magnesium Citrate (Citroma) 118 ml PO PRN PRN PRN Reason: Constipation Magnesium Oxide (Magnesium Oxide) 400 mg PO BID [facility] Last Admin: 01/31/20 09:10 Dose: 400 mg Documented by: Melatonin (Melatonin 3mg Tablet) 3 mg PO HSP PRN PRN Reason: Insomnia Metformin HCl (Glucophage) 500 mg PO DAILY@1700 [facility] Last Admin: 01/30/20 17:25 Dose: 500 mg Documented by: Metoprolol Tartrate (Lopressor) 5 mg IV Q5M PRN PRN Reason: Heart Rate > 140 bpm Ondansetron HCl (Zofran Odt) 4 mg SL Q4-6HP PRN; Protocol PRN Reason: Nausea And Vomiting Ondansetron HCl (Zofran) 4 mg IV Q4-6HP PRN; Protocol PRN Reason: Nausea And Vomiting Teriflunomide [ (Aubagio] 14 Mg Tab) 1 dose PO QDAY [facility] Last Admin: 01/31/20 09:09 Dose: 1 dose Documented by: Fluvoxamine 100 Mg (Cap) 1 dose PO TID [facility] Last Admin: 01/31/20 09:09 Dose: 1 dose Documented by: Polyethylene Glycol (Miralax) 17 gm PO DAILYP PRN PRN Reason: Constipation Potassium Chloride (Klor-Con) 40 meq PO DAILYP PRN PRN Reason: K+ < 3.5 Last Admin: 01/30/20 21:14 Dose: 40 meq Documented by: Potassium Citrate (Potassium Citrate) 15 meq PO TIDCC [facility] Last Admin: 01/31/20 07:13 Dose: 15 meq Documented by: Senna (Senokot) 2 tab PO HS [facility] Last Admin: 01/30/20 21:18 Dose: Not Given Documented by: Sodium Chloride (Saline Flush) 10 ml IV Q8 [facility] Last Admin: 01/31/20 05:38 Dose: 10 ml Documented by: Trazodone HCl (Desyrel) 100 mg PO QHS [facility] Last Admin: 01/30/20 21:15 Dose: 100 mg Documented by: Vitamin D (Vitamin D3) 5,000 unit PO DAILY [facility] Last Admin: 01/31/20 09:07 Dose: 5,000 unit Documented by: ABG Interpretation ABG results: 01/27/20 06:51 ABG Methemoglobin 0 L VBG pH 7.42 VBG pCO2 34.3 L VBG pO2 101 H VBG HCO3 21.7 L VBG Total CO2 22.8 L VBG O2 Saturation 91.7 H VBG Base Excess -2 A/P Narrative A/P Narrative: * Severe sepsis with endorgan dysfunction- secondary to complicated UTI- clinically resolved , white count 4.9 * Hardware related complicated UTI-clinically resolved on antibiotic coverage. De-escalate antibiotics * Severe ileus secondary to neurogenic bowel. Patient will need routine bowel regimen to prevent alternating constipation * Mild small and large intestinal inflammation on CT. Recommend outpatient upper and lower endoscopy * HAYDEN clinically resolved. Creatinine down from 1.2-0.6 * History of developmental delay/intermittent agitation continue Depakote/bupropion/fluvoxamine * DM type II-prandial insulin/sitagliptin/CCD * Currently full code * Prophylax Heparin Plan * DC Flexi-Seal * De-escalate antibiotics to oral Augmentin * Recommend outpatient upper and lower endoscopy * Possible discharge Sunday * Pre-existing medical condition management as above * Nutrition support/therapies Time Spent With Patient Time: Total time spent is greater than 50% in coordination of care (as documented) at patient's floor/unit and/or counseling patient: QUALITY VTE Deep Vein Thrombosis/Pulmonary Embolism Present on Admission: No
[2020-01-31] MEDS: metFORMIN 500 MG TAB.XL.24H PO SCH (16:18)
[2020-01-31] MEDS: SENNOSIDES 1 TABLET PO SCH (21:33)
[2020-01-31] MEDS: traZODone HCL 100 MG TABLET PO SCH (21:34)
[2020-01-31] MEDS: metroNIDAZOLE 500 MG TABLET PO SCH (22:56)
[2020-01-31] MEDS: CIPROFLOXACIN 500 MG TABLET PO SCH (22:56)
[2020-02-01] MEDS: 0.9 % SODIUM CHLORIDE 10 ML SYRINGE IV SCH ×3 (05:46→20:35)
[2020-02-01] MEDS: metroNIDAZOLE 500 MG TABLET PO SCH ×3 (05:46→20:36)
[2020-02-01] MEDS: DOCUSATE SODIUM 100 MG CAPSULE PO SCH ×2 (07:12→20:36)
[2020-02-01] MEDS: HEPARIN 5,000 UNIT/ML VIAL SQ SCH ×2 (07:13→20:37)
[2020-02-01] MEDS: INSULIN LISPRO 1 UNIT/0.01 ML UNIT SQ SCH ×4 (08:06→20:36)
[2020-02-01 08:13] LABS: ALT/SGPT 28 U/L (<40); AST/SGOT 31 U/L (<40); Albumin 2.3 gm/dL (3.2-5.2); Alkaline Phosphatase 47 U/L (39-117); Bilirubin,Direct < 0.2 mg/dL (<0.3); Bilirubin,Total 0.3 mg/dL (0.1-1.0); Blood Urea Nitrogen 6 mg/dL (6-20); Calcium 8.4 mg/dL (8.6-10.4); Carbon Dioxide 27 mmol/L (22-30); Chloride 101 mmol/L (96-108); Globulin 2.3 gm/dL (2.2-3.7); Glomerular Filtration Rate 112; Glucose 120 mg/dL (70-105); Lactate Dehydrogenase 163 U/L (135-225); Phosphorous 2.6 mg/dL (2.5-4.5); Triglycerides 81 mg/dL (<150); Uric Acid 1.8 mg/dL (2.5-8.0)
[2020-02-01] MEDS: MULTIVIT,THER IRON,CA,FA & MIN 1 TABLET PO SCH (08:22)
[2020-02-01] MEDS: ASPIRIN 81 MG TAB.CHEW PO SCH (08:22)
[2020-02-01] MEDS: CIPROFLOXACIN 500 MG TABLET PO SCH ×2 (08:22→20:36)
[2020-02-01] MEDS: DIVALPROEX SODIUM 250 MG TABLET PO SCH (08:23)
[2020-02-01] MEDS: POTASSIUM CITRATE 10 MEQ TAB.XL.24H PO SCH ×3 (08:23→19:43)
[2020-02-01] MEDS: LEVOTHYROXINE 75 MCG TABLET PO SCH (08:23)
[2020-02-01] MEDS: MAGNESIUM OXIDE 400 MG TABLET PO SCH ×2 (08:23→20:36)
[2020-02-01] MEDS: buPROPion 150 MG TAB.SR.12H PO SCH ×2 (08:25→11:26)
[2020-02-01] MEDS: FLUTICASONE PROPIONATE SPRAY.NAS NS SCH (08:25)
[2020-02-01] MEDS: VITAMIN D3 5,000 UNIT CAPSULE PO SCH (08:25)
[2020-02-01] MEDS: TERIFLUNOMIDE 14 MG PO SCH (08:26)
[2020-02-01] MEDS: FLUVOXAMINE 100 MG PO SCH ×3 (08:26→20:35)
[2020-02-01 09:06] LABS: Band Neutrophils % 9 % (0-10); Eosinophils % (Manual) 2 % (0-7); Lymphocytes % 18 % (15-49); Mean Cell Volume 98.1 fL (80.0-100.0); Mean Corpuscular HGB Conc 33.3 g/dL (31.0-36.0); Mean Platelet Volume 9.8 fL (7.4-10.4); Monocytes % (Manual) 12 % (1-12); Platelet Count 142 K/mcL (140-440); Platelet Estimate NORMAL (Normal); RBC 3.67 M/mcL (4.50-5.90); RBC Morphology NORMAL (Normal); Reactive Lymphocytes 2 % (0-2); Segmented Neutrophils % 57 % (38-78)
--- NOTE | 2020-02-01 11:39 | Internal Med Progress Note ---
SUBJECTIVE Subjective Patient information: Note initiated : 02/01/20 at 11:34 am Service Date, if different from initiated Date: [] Patient: Buck Diamond 55 y/o M admitted on 01/27/20 for diarrhea. Chief Complaint: Chief Complaint: [id number] a history of developmental delay who presented to the ER following multiple episodes of diarrhea. Patient suffers from abnormal bowel with alternating constipation following diarrhea at this time he has not had a bowel movement in 5 days. He was subsequently given multiple laxatives/stool softeners with resultant diarrhea. He normally receives help from caregivers. Staff expressed concern about dehydration and him not feeling his normal self. He was subsequently brought to the ER. Initial work-up was consistent with severe sepsis with white count 28,000, ileus pattern on CT abdomen. Pyuria Patient carries a suprapubic Conroy's catheter that was changed 2 weeks prior to presentation. No evidence of fever. However patient remained tachycardic. Subsequently hospitalist service was consulted for admission in light of severe sepsis likely from UTI At the time of my evaluation patient is very restless unable to provide answers to most the questions. POA/daughter Brinda available and was able to provide answers to most of the questions. Patient has been started on antibiotic coverage, Conroy's catheter will be changed. Rectal tube was placed. Continuing crystalloids 01/26 persistent diarrhea, no abdominal distention or pain. White count down to 26.7. Continue crystalloids. Antibiotic coverage. Lactic acid down from 3.8- >3.2. K 5.4. Creatinine down from 1.2-1. Continue crystalloid bolus/oral fluids 01/27-patient doing remarkably well. White count down to 15,000. Creatinine improved 2.7. Stable hemodynamics except for intermittent tachycardia. Stooling much improved. C. difficile negative. on antibiotic coverage. Updated patient's POA. No concerns expressed by nursing staff 01/28-large bowel movement this morning. Rectal tube discontinued. Chest imaging no evidence of acute process except for distended bowels. Persistent tachycardia. Continue on crystalloid. White count downtrending now at 12.8. Phosphorus 1.7 start replacement 01/29-patient doing remarkably better. Stable urodynamics. White count 11.3. Creatinine 0.6. Electrolytes normalized. Phosphorus improving 2.3. Transition to medical floor. CT chest no evidence of PE or infiltrate, CT abdomen severe ileus moderate thickening wall mid jejunum/colon. Recommend outpatient upper and lower endoscopy for further evaluation. Will possibly discharge 24 hours 01/30-patient doing markedly better. White count 4.9. De-escalate antibiotics. Vitals stable. Minimal bloodstained output Flexi-Seal. Discontinue Flexi- Seal. Continue adequate oral hydration. No overnight fever chills. Family at bedside. 01/31-patient doing well. No overnight events. Minimal bloodstained stool. Minimal abdominal discomfort. But no fever white count normal. Antibiotics de- escalate to oral Cipro and Flagyl. Recommend outpatient colonoscopy for evaluation of segmental colon inflammation on abdominal imaging. Anticipate di scharge in 24 hours with outpatient GI follow-up. Continue bowel regime including stimulants to minimize risk of alternating constipation and persistent ileus Constitutional Vitals: Vital Signs Temp Pulse Resp BP Pulse Ox 98.4 F 79 16 132/82 93 02/01/20 08:00 02/01/20 08:00 02/01/20 08:00 02/01/20 08:00 02/01/20 08:00 Period Temp Pulse Resp BP Sys/Ayala Pulse Ox Last 24 Hr 98 F-98.4 F 69-94 14-17 111-132/69-84 90-94 Intake and Output 01/31/20 02/01/20 02/01/20 21:59 05:59 13:59 Intake Total 1150 1400 480 Output Total 1250 1600 Balance -100 -200 480 Weight 88.536 kg Intake & Output: Intake & Output 01/31/20 02/01/20 02/01/20 21:59 05:59 13:59 Intake Total 1150 1400 480 Output Total 1250 1600 Balance -100 -200 480 Weight 88.536 kg Intake: IV 100 Zosyn 3.375 gm In Dextrose 5% 50 in Water 50 ml @ 100 mls/hr IV Q6H [facility] Rx#:[id number] Oral 1050 1400 480 Output: Urine Catheter Amount 350 1600 Void Amount 900 Other: Meal Dinner Breakfast Percent of Meal Consumed 100% 100% Feeding Ability Independent Urine Appearance Clear Clear Clear Suprapubic Clear Clear Urine Color Bright Yellow Bright Yellow Bright Yellow Suprapubic Bright Yellow Bright Yellow Urine Odor Normal Normal Normal Stool Size Large Moderate Moderate Stool Color Blood Tinged Blood Tinged Blood Tinged Stool Consistency Liquid Liquid Watery Watery Watery # of times incontinent of 1 1 1 Bowels Alert oriented Nonlabored breathing No anxiety No lymphedema Minimally tender abdomen infraumbilical area. Suprapubic catheter draining clear urine. OBJ DATA Labs CBC & Chem 7: 02/01/20 05:42 02/01/20 05:42 Labs: Abnormal Lab Results 02/01/20 02/01/20 01/31/20 05:42 05:42 06:15 WBC RBC 3.67 L Hgb 12.0 L Hct 36.0 L Plt Count Lymphocytes % Platelet Estimate Anion Gap 7.0 L Creatinine 0.6 L 0.6 L Glucose 120 H 265 H Uric Acid 1.8 L 1.8 L Calcium 8.4 L Phosphorus 2.3 L GGT 7 L Total Protein 4.6 L 4.3 L Albumin 2.3 L 2.2 L Globulin 2.1 L 01/31/20 01/30/20 01/30/20 06:15 05:15 05:15 WBC 11.3 H RBC 3.50 L 3.99 L Hgb 11.5 L 13.0 L Hct 34.3 L 38.5 L Plt Count 113 L 116 L Lymphocytes % 12 L Platelet Estimate Decreased A Decreased A Anion Gap Creatinine 0.6 L Glucose 157 H Uric Acid 2.2 L Calcium 8.4 L Phosphorus 2.3 L GGT 7 L Total Protein 4.9 L Albumin 2.5 L Globulin Meds: Medications Acetaminophen (Tylenol) 650 mg PO Q4-6HP PRN; Protocol PRN Reason: Per Pain Protocol/Fever > 101 Aspirin (Aspirin) 81 mg PO DAILY [facility] Last Admin: 02/01/20 08:22 Dose: 81 mg Documented by: Bisacodyl (Dulcolax) 10 mg MT Q2-3DAYS PRN PRN Reason: Constipation Bupropion HCl (Wellbutrin Sr) 150 mg PO QNOON [facility] Last Admin: 02/01/20 11:26 Dose: 150 mg Documented by: Bupropion HCl (Wellbutrin Sr) 300 mg PO DAILY [facility] Last Admin: 02/01/20 08:25 Dose: 300 mg Documented by: Ciprofloxacin (Cipro) 500 mg PO BID [facility]; Protocol Last Admin: 02/01/20 08:22 Dose: 500 mg Documented by: Dextrose (Dextrose 50%) 0 ml IV UD PRN PRN Reason: Hypoglycemia Diagnostic Test (Pha) (Accu-Chek) 1 each FS ACHS [facility] Last Admin: 02/01/20 11:24 Dose: 1 each Documented by: Divalproex Sodium (Depakote Er) 1,000 mg PO DAILY [facility] Last Admin: 02/01/20 08:23 Dose: 1,000 mg Documented by: Docusate Sodium (Colace) 100 mg PO BID [facility] Last Admin: 02/01/20 07:12 Dose: Not Given Documented by: Fluticasone Propionate (Flonase) 2 spray NS QDAY [facility] Last Admin: 02/01/20 08:25 Dose: Not Given Documented by: Glucose (Insta-Glucose) 15 gm PO PRN PRN PRN Reason: Hypoglycemia Guaifenesin/Codeine Phosphate (Robitussin Ac) 10 ml PO Q4HP PRN PRN Reason: Cough Heparin Sodium (Porcine) (Heparin) 5,000 unit SQ Q12 [facility] Last Admin: 02/01/20 07:13 Dose: Not Given Documented by: Acetaminophen (Ofirmev) 650 mg in 65 mls @ 130 mls/hr IV Q6HP PRN; Protocol PRN Reason: Per Pain Protocol/Fever > 101 Magnesium Sulfate (Magnesium Sulfate) 2 gm in 50 mls @ 50 mls/hr IV UD PRN PRN Reason: MG = or < 1.7 Last Infusion: 01/31/20 14:30 Dose: Infused Documented by: Norepinephrine Bitartrate 8 mg (/ Sodium Chloride) 250 mls @ 18.75 mls/hr IV Q14H PRN; Protocol PRN Reason: MAP<70 Potassium Chloride 40 meq/ (Dextrose) 520 mls @ 130 mls/hr IV UD PRN PRN Reason: K+ = or < 3.5 Insulin Human Lispro (Humalog) 0 unit SQ ACHS [facility]; Protocol Last Admin: 02/01/20 08:06 Dose: Not Given Documented by: Iron Carb/Multivit/[place]/Folic Acid (Multivitamin W/Minerals) 1 tab PO DAILY [facility] Last Admin: 02/01/20 08:22 Dose: 1 tab Documented by: Levothyroxine Sodium (Synthroid) 75 mcg PO QAMAC [facility] Last Admin: 02/01/20 08:23 Dose: 75 mcg Documented by: Magnesium Citrate (Citroma) 118 ml PO PRN PRN PRN Reason: Constipation Magnesium Oxide (Magnesium Oxide) 400 mg PO BID [facility] Last Admin: 02/01/20 08:23 Dose: 400 mg Documented by: Melatonin (Melatonin 3mg Tablet) 3 mg PO HSP PRN PRN Reason: Insomnia Metformin HCl (Glucophage) 500 mg PO DAILY@1700 [facility] Last Admin: 01/31/20 16:18 Dose: 500 mg Documented by: Metoprolol Tartrate (Lopressor) 5 mg IV Q5M PRN PRN Reason: Heart Rate > 140 bpm Metronidazole (Flagyl) 500 mg PO Q8 [facility]; Protocol Last Admin: 02/01/20 05:46 Dose: 500 mg Documented by: Ondansetron HCl (Zofran Odt) 4 mg SL Q4-6HP PRN; Protocol PRN Reason: Nausea And Vomiting Ondansetron HCl (Zofran) 4 mg IV Q4-6HP PRN; Protocol PRN Reason: Nausea And Vomiting Teriflunomide [ (Aubagio] 14 Mg Tab) 1 dose PO QDAY [facility] Last Admin: 02/01/20 08:26 Dose: 1 dose Documented by: Fluvoxamine 100 Mg (Cap) 1 dose PO TID [facility] Last Admin: 02/01/20 08:26 Dose: 1 dose Documented by: Polyethylene Glycol (Miralax) 17 gm PO DAILYP PRN PRN Reason: Constipation Potassium Chloride (Klor-Con) 40 meq PO DAILYP PRN PRN Reason: K+ < 3.5 Last Admin: 01/30/20 21:14 Dose: 40 meq Documented by: Potassium Citrate (Potassium Citrate) 15 meq PO TIDCC [facility] Last Admin: 02/01/20 11:26 Dose: 15 meq Documented by: Senna (Senokot) 2 tab PO HS [facility] Last Admin: 01/31/20 21:33 Dose: Not Given Documented by: Sodium Chloride (Saline Flush) 10 ml IV Q8 [facility] Last Admin: 02/01/20 05:46 Dose: 10 ml Documented by: Trazodone HCl (Desyrel) 100 mg PO QHS [facility] Last Admin: 01/31/20 21:34 Dose: 100 mg Documented by: Vitamin D (Vitamin D3) 5,000 unit PO DAILY [facility] Last Admin: 02/01/20 08:25 Dose: 5,000 unit Documented by: ABG Interpretation ABG results: 01/27/20 06:51 ABG Methemoglobin 0 L VBG pH 7.42 VBG pCO2 34.3 L VBG pO2 101 H VBG HCO3 21.7 L VBG Total CO2 22.8 L VBG O2 Saturation 91.7 H VBG Base Excess -2 A/P Narrative A/P Narrative: * Severe sepsis with endorgan dysfunction- secondary to complicated UTI- clinically resolved, white count normalized * Hardware related complicated UTI-clinically resolved on antibiotic coverage. De-escalate antibiotics * Severe ileus secondary to neurogenic bowel. Patient will need routine bowel regimen to prevent alternating constipation * Mild small and large intestinal inflammation on CT. Recommend outpatient upper and lower endoscopy on discharge * HAYDEN clinically resolved. Creatinine down from 1.2-0.6 * History of developmental delay/intermittent agitation continue Depakote/bupropion/fluvoxamine * DM type II-prandial insulin/sitagliptin/CCD * Currently full code * Prophylax Heparin Plan * Continue Cipro and Flagyl for additional 5 days * Recommend outpatient upper and lower endoscopy * Anticipate discharge in 24 hours * Outpatient GI follow-up for upper and lower endoscopy on discharge * Pre-existing medical condition management as above * Nutrition support/therapies * Start senna/Colace on discharge Time Spent With Patient Time: Total time spent is greater than 50% in coordination of care (as documented) at patient's floor/unit and/or counseling patient: QUALITY VTE Deep Vein Thrombosis/Pulmonary Embolism Present on Admission: No
[2020-02-01] MEDS: metFORMIN 500 MG TAB.XL.24H PO SCH (17:00)
[2020-02-01] MEDS: traZODone HCL 100 MG TABLET PO SCH (20:36)
[2020-02-01] MEDS: SENNOSIDES 1 TABLET PO SCH (20:37)
[2020-02-02] MEDS: 0.9 % SODIUM CHLORIDE 10 ML SYRINGE IV SCH ×3 (05:59→22:09)
[2020-02-02] MEDS: metroNIDAZOLE 500 MG TABLET PO SCH ×3 (06:00→21:27)
[2020-02-02] MEDS: INSULIN LISPRO 1 UNIT/0.01 ML UNIT SQ SCH ×4 (08:17→21:26)
[2020-02-02] MEDS: CIPROFLOXACIN 500 MG TABLET PO SCH ×2 (08:18→21:26)
[2020-02-02] MEDS: MAGNESIUM OXIDE 400 MG TABLET PO SCH ×2 (08:18→21:27)
[2020-02-02] MEDS: DIVALPROEX SODIUM 250 MG TABLET PO SCH (08:18)
[2020-02-02] MEDS: VITAMIN D3 5,000 UNIT CAPSULE PO SCH (08:19)
[2020-02-02] MEDS: buPROPion 150 MG TAB.SR.12H PO SCH ×2 (08:19→13:59)
[2020-02-02] MEDS: MULTIVIT,THER IRON,CA,FA & MIN 1 TABLET PO SCH (08:19)
[2020-02-02] MEDS: ASPIRIN 81 MG TAB.CHEW PO SCH (08:19)
[2020-02-02] MEDS: FLUTICASONE PROPIONATE SPRAY.NAS NS SCH (08:20)
[2020-02-02] MEDS: DOCUSATE SODIUM 100 MG CAPSULE PO SCH ×2 (08:20→21:31)
[2020-02-02] MEDS: LEVOTHYROXINE 75 MCG TABLET PO SCH (08:20)
[2020-02-02] MEDS: FLUVOXAMINE 100 MG PO SCH ×3 (08:22→21:26)
[2020-02-02] MEDS: TERIFLUNOMIDE 14 MG PO SCH (08:22)
--- NOTE | 2020-02-02 09:19 | Internal Med Progress Note ---
SUBJECTIVE Subjective Patient information: Note initiated : 02/02/20 at 9:15 am Service Date, if different from initiated Date: [] Patient: Buck Diamond 55 y/o M admitted on 01/27/20 for diarrhea. Chief Complaint: [id number] a history of developmental delay who presented to the ER following multiple episodes of diarrhea. Patient suffers from abnormal bowel with alternating constipation following diarrhea at this time he has not had a bowel movement in 5 days. He was subsequently given multiple laxatives/stool softeners with resultant diarrhea. He normally receives help from caregivers. Staff expressed concern about dehydration and him not feeling his normal self. He was subsequently brought to the ER. Initial work-up was consistent with severe sepsis with white count 28,000, ileus pattern on CT abdomen. Pyuria Patient carries a suprapubic Conroy's catheter that was changed 2 weeks prior to presentation. No evidence of fever. However patient remained tachycardic. Subsequently hospitalist service was consulted for admission in light of severe sepsis likely from UTI At the time of my evaluation patient is very restless unable to provide answers to most the questions. POA/daughter Brinda available and was able to provide answers to most of the questions. Patient has been started on antibiotic coverage, Conroy's catheter will be changed. Rectal tube was placed. Continuing crystalloids 01/26 persistent diarrhea, no abdominal distention or pain. White count down to 26.7. Continue crystalloids. Antibiotic coverage. Lactic acid down from 3.8- >3.2. K 5.4. Creatinine down from 1.2-1. Continue crystalloid bolus/oral fluids 01/27-patient doing remarkably well. White count down to 15,000. Creatinine improved 2.7. Stable hemodynamics except for intermittent tachycardia. Stooling much improved. C. difficile negative. on antibiotic coverage. Upda alison patient's POA. No concerns expressed by nursing staff 01/28-large bowel movement this morning. Rectal tube discontinued. Chest imaging no evidence of acute process except for distended bowels. Persistent tachycardia. Continue on crystalloid. White count downtrending now at 12.8. Phosphorus 1.7 start replacement 01/29-patient doing remarkably better. Stable urodynamics. White count 11.3. Creatinine 0.6. Electrolytes normalized. Phosphorus improving 2.3. Transition to medical floor. CT chest no evidence of PE or infiltrate, CT abdomen severe ileus moderate thickening wall mid jejunum/colon. Recommend outpatient upper and lower endoscopy for further evaluation. Will possibly discharge 24 hours 01/30-patient doing markedly better. White count 4.9. De-escalate antibiotics. Vitals stable. Minimal bloodstained output Flexi-Seal. Discontinue Flexi- Seal. Continue adequate oral hydration. No overnight fever chills. Family at bedside. 01/31-patient doing well. No overnight events. Minimal bloodstained stool. Minimal abdominal discomfort. But no fever white count normal. Antibiotics de- escalate to oral Cipro and Flagyl. Recommend outpatient colonoscopy for evaluation of segmental colon inflammation on abdominal imaging. Anticipate discharge in 24 hours with outpatient GI follow-up. Continue bowel regime including stimulants to minimize risk of alternating constipation and persistent ileus 02/01-persistent liquid pain jelly stool noted by nursing staff. CT evidence of thickening inflammation of the differential. GI consulted. WBC 8K. No overn ight fever chills. Keep n.p.o. Constitutional Vitals: Vital Signs Temp Pulse Resp BP Pulse Ox 97.9 F 75 20 118/76 91 02/02/20 08:00 02/02/20 08:00 02/02/20 08:00 02/02/20 08:00 02/02/20 08:00 Period Temp Pulse Resp BP Sys/Ayala Pulse Ox Last 24 Hr 97.9 F-98.7 F 75-89 14-20 105-130/63-84 91-96 Intake and Output 02/01/20 02/02/20 02/02/20 21:59 05:59 13:59 Intake Total 620 1950 Output Total 750 2300 Balance -130 -350 Weight 90.917 kg Alert nonlabored breathing Minimal infraumbilical tenderness Sluggish bowel sounds No anxiety suprapubic cath Intake & Output: Intake & Output 02/01/20 02/02/20 02/02/20 21:59 05:59 13:59 Intake Total 620 1950 Output Total 750 2300 Balance -130 -350 Weight 90.917 kg Intake: Oral 620 1950 Output: Urine Catheter Amount 750 2300 Other: Meal Lunch Percent of Meal Consumed 100% Urine Appearance Clear Clear Suprapubic Clear Urine Color Bright Yellow Bright Yellow Suprapubic Bright Yellow Urine Odor Normal Stool Size Moderate Stool Color Blood Tinged Stool Consistency Watery # of times incontinent of 1 Bowels OBJ DATA Labs CBC & Chem 7: 02/01/20 05:42 02/01/20 05:42 Labs: Abnormal Lab Results 02/01/20 02/01/20 01/31/20 05:42 05:42 06:15 WBC RBC 3.67 L Hgb 12.0 L Hct 36.0 L Plt Count Lymphocytes % Platelet Estimate Anion Gap 7.0 L Creatinine 0.6 L 0.6 L Glucose 120 H 265 H Uric Acid 1.8 L 1.8 L Calcium 8.4 L Phosphorus 2.3 L GGT 7 L Total Protein 4.6 L 4.3 L Albumin 2.3 L 2.2 L Globulin 2.1 L 01/31/20 01/30/20 01/30/20 06:15 05:15 05:15 WBC 11.3 H RBC 3.50 L 3.99 L Hgb 11.5 L 13.0 L Hct 34.3 L 38.5 L Plt Count 113 L 116 L Lymphocytes % 12 L Platelet Estimate Decreased A Decreased A Anion Gap Creatinine 0.6 L Glucose 157 H Uric Acid 2.2 L Calcium 8.4 L Phosphorus 2.3 L GGT 7 L Total Protein 4.9 L Albumin 2.5 L Globulin Meds: Medications Acetaminophen (Tylenol) 650 mg PO Q4-6HP PRN; Protocol PRN Reason: Per Pain Protocol/Fever > 101 Aspirin (Aspirin) 81 mg PO DAILY [facility] Last Admin: 02/02/20 08:19 Dose: 81 mg Documented by: Bisacodyl (Dulcolax) 10 mg LA Q2-3DAYS PRN PRN Reason: Constipation Bupropion HCl (Wellbutrin Sr) 150 mg PO QNOON [facility] Last Admin: 02/01/20 11:26 Dose: 150 mg Documented by: Bupropion HCl (Wellbutrin Sr) 300 mg PO DAILY [facility] Last Admin: 02/02/20 08:19 Dose: 300 mg Documented by: Ciprofloxacin (Cipro) 500 mg PO BID [facility]; Protocol Last Admin: 02/02/20 08:18 Dose: 500 mg Documented by: Dextrose (Dextrose 50%) 0 ml IV UD PRN PRN Reason: Hypoglycemia Diagnostic Test (Pha) (Accu-Chek) 1 each FS ACHS [facility] Last Admin: 10/19/20 08:17 Dose: 1 each Documented by: Divalproex Sodium (Depakote Er) 1,000 mg PO DAILY [facility] Last Admin: 02/02/20 08:18 Dose: 1,000 mg Documented by: Docusate Sodium (Colace) 100 mg PO BID [facility] Last Admin: 02/02/20 08:20 Dose: Not Given Documented by: Fluticasone Propionate (Flonase) 2 spray NS QDAY [facility] Last Admin: 02/02/20 08:20 Dose: 2 spray Documented by: Glucose (Insta-Glucose) 15 gm PO PRN PRN PRN Reason: Hypoglycemia Guaifenesin/Codeine Phosphate (Robitussin Ac) 10 ml PO Q4HP PRN PRN Reason: Cough Acetaminophen (Ofirmev) 650 mg in 65 mls @ 130 mls/hr IV Q6HP PRN; Protocol PRN Reason: Per Pain Protocol/Fever > 101 Magnesium Sulfate (Magnesium Sulfate) 2 gm in 50 mls @ 50 mls/hr IV UD PRN PRN Reason: MG = or < 1.7 Last Infusion: 01/31/20 14:30 Dose: Infused Documented by: Norepinephrine Bitartrate 8 mg (/ Sodium Chloride) 250 mls @ 18.75 mls/hr IV Q14H PRN; Protocol PRN Reason: MAP<70 Potassium Chloride 40 meq/ (Dextrose) 520 mls @ 130 mls/hr IV UD PRN PRN Reason: K+ = or < 3.5 Insulin Human Lispro (Humalog) 0 unit SQ ACHS [facility]; Protocol Last Admin: 02/02/20 08:17 Dose: 1 unit Documented by: Iron Carb/Multivit/[place]/Folic Acid (Multivitamin W/Minerals) 1 tab PO DAILY [facility] Last Admin: 02/02/20 08:19 Dose: 1 tab Documented by: Levothyroxine Sodium (Synthroid) 75 mcg PO QAMAC [facility] Last Admin: 02/02/20 08:20 Dose: 75 mcg Documented by: Magnesium Citrate (Citroma) 118 ml PO PRN PRN PRN Reason: Constipation Magnesium Oxide (Magnesium Oxide) 400 mg PO BID [facility] Last Admin: 02/02/20 08:18 Dose: 400 mg Documented by: Melatonin (Melatonin 3mg Tablet) 3 mg PO HSP PRN PRN Reason: Insomnia Metformin HCl (Glucophage) 500 mg PO DAILY@1700 [facility] Last Admin: 02/01/20 17:00 Dose: 500 mg Documented by: Metoprolol Tartrate (Lopressor) 5 mg IV Q5M PRN PRN Reason: Heart Rate > 140 bpm Metronidazole (Flagyl) 500 mg PO Q8 [facility]; Protocol Last Admin: 02/02/20 06:00 Dose: 500 mg Documented by: Ondansetron HCl (Zofran Odt) 4 mg SL Q4-6HP PRN; Protocol PRN Reason: Nausea And Vomiting Ondansetron HCl (Zofran) 4 mg IV Q4-6HP PRN; Protocol PRN Reason: Nausea And Vomiting Teriflunomide [ (Aubagio] 14 Mg Tab) 1 dose PO QDAY [facility] Last Admin: 02/02/20 08:22 Dose: 1 dose Documented by: Fluvoxamine 100 Mg (Cap) 1 dose PO TID [facility] Last Admin: 02/02/20 08:22 Dose: 1 dose Documented by: Polyethylene Glycol (Miralax) 17 gm PO DAILYP PRN PRN Reason: Constipation Potassium Chloride (Klor-Con) 40 meq PO DAILYP PRN PRN Reason: K+ < 3.5 Last Admin: 01/30/20 21:14 Dose: 40 meq Documented by: Potassium Citrate (Potassium Citrate) 15 meq PO TIDCC [facility] Last Admin: 02/01/20 19:43 Dose: 15 meq Documented by: Senna (Senokot) 2 tab PO HS [facility] Last Admin: 02/01/20 20:37 Dose: Not Given Documented by: Sodium Chloride (Saline Flush) 10 ml IV Q8 [facility] Last Admin: 02/02/20 05:59 Dose: 10 ml Documented by: Trazodone HCl (Desyrel) 100 mg PO QHS [facility] Last Admin: 02/01/20 20:36 Dose: 100 mg Documented by: Vitamin D (Vitamin D3) 5,000 unit PO DAILY [facility] Last Admin: 02/02/20 08:19 Dose: 5,000 unit Documented by: ABG Interpretation ABG results: 01/27/20 06:51 ABG Methemoglobin 0 L VBG pH 7.42 VBG pCO2 34.3 L VBG pO2 101 H VBG HCO3 21.7 L VBG Total CO2 22.8 L VBG O2 Saturation 91.7 H VBG Base Excess -2 A/P Narrative A/P Narrative: * Severe sepsis with endorgan dysfunction- secondary to complicated UTI- clinically resolved, white count normalized * Hardware related complicated UTI-clinically resolved on antibiotic coverage. De-escalate antibiotics * GI bleed-CT evidence of bowel inflammation/thickening, GI consulted. Keep n.p.o. No significant drop in hematocrit over the last 24 hours. pink jelly stool * Severe ileus secondary to neurogenic bowel. Patient will need routine bowel regimen to prevent alternating constipation * Mild small and large intestinal inflammation on CT. Recommend outpatient upper and lower endoscopy on discharge * HAYDEN clinically resolved. Creatinine down from 1.2-0.6 * History of developmental delay/intermittent agitation continue Depakote/bupropion/fluvoxamine * DM type II-prandial insulin/sitagliptin/CCD * Currently full code * Prophylax Heparin Plan * Continue Cipro and Flagyl * GI consult * Pre-existing medical condition management and home meds Time Spent With Patient Time: Total time spent is greater than 50% in coordination of care (as documented) at patient's floor/unit and/or counseling patient: QUALITY VTE Deep Vein Thrombosis/Pulmonary Embolism Present on Admission: No
[2020-02-02] MEDS ORDERED: PEG 3350/NA SULF,BICARB,CL/KCL 4,000 ML ORAL.SOL PO ONE (09:24)
[2020-02-02] MEDS: POTASSIUM CITRATE 10 MEQ TAB.XL.24H PO SCH ×3 (10:06→17:56)
[2020-02-02] MEDS: metFORMIN 500 MG TAB.XL.24H PO SCH (17:56)
[2020-02-02] MEDS: traZODone HCL 100 MG TABLET PO SCH (21:27)
[2020-02-02] MEDS: SENNOSIDES 1 TABLET PO SCH (21:31)
[2020-02-03] MEDS ORDERED: PEG 3350/NA SULF,BICARB,CL/KCL 4,000 ML ORAL.SOL PO ONE (05:03)
[2020-02-03] MEDS ORDERED: PEG 3350/NA SULF,BICARB,CL/KCL 4,000 ML ORAL.SOL ONE (05:12)
[2020-02-03] MEDS: metroNIDAZOLE 500 MG TABLET PO SCH ×3 (05:37→22:30)
[2020-02-03] MEDS: 0.9 % SODIUM CHLORIDE 10 ML SYRINGE IV SCH ×3 (05:39→21:48)
[2020-02-03] MEDS: INSULIN LISPRO 1 UNIT/0.01 ML UNIT SQ SCH ×4 (07:37→21:46)
[2020-02-03] MEDS: LEVOTHYROXINE 75 MCG TABLET PO SCH (07:39)
[2020-02-03] MEDS: POTASSIUM CITRATE 10 MEQ TAB.XL.24H PO SCH ×3 (07:40→16:53)
[2020-02-03] MEDS ORDERED: KETAMINE HCL 50 MG/ML ML IV PRN (08:47)
[2020-02-03] MEDS ORDERED: MIDAZOLAM 2 MG/2 ML VIAL IV SCH (09:00)
[2020-02-03] MEDS ORDERED: PROPOFOL 200 MG/20 ML VIAL IV SCH (09:00)
[2020-02-03] MEDS: TERIFLUNOMIDE 14 MG PO SCH (09:45)
[2020-02-03] MEDS: FLUVOXAMINE 100 MG PO SCH ×3 (09:46→21:43)
[2020-02-03] MEDS: FLUTICASONE PROPIONATE SPRAY.NAS NS SCH (09:46)
[2020-02-03] MEDS: buPROPion 150 MG TAB.SR.12H PO SCH ×2 (09:47→11:46)
[2020-02-03] MEDS: DIVALPROEX SODIUM 250 MG TABLET PO SCH (09:48)
[2020-02-03] MEDS: MULTIVIT,THER IRON,CA,FA & MIN 1 TABLET PO SCH (09:49)
[2020-02-03] MEDS: VITAMIN D3 5,000 UNIT CAPSULE PO SCH (09:50)
[2020-02-03] MEDS: DOCUSATE SODIUM 100 MG CAPSULE PO SCH ×2 (09:50→21:42)
[2020-02-03] MEDS: CIPROFLOXACIN 500 MG TABLET PO SCH ×2 (09:50→21:43)
[2020-02-03] MEDS: ASPIRIN 81 MG TAB.CHEW PO SCH (09:50)
[2020-02-03] MEDS: MAGNESIUM OXIDE 400 MG TABLET PO SCH ×2 (09:50→21:43)
[2020-02-03] MEDS ORDERED: FLEETS ADULT ENEMA PR ONE (11:48)
[2020-02-03] MEDS ORDERED: MIDAZOLAM 2 MG/2 ML VIAL ONE (13:09)
[2020-02-03] MEDS: metFORMIN 500 MG TAB.XL.24H PO SCH (16:53)
[2020-02-03] MEDS: SENNOSIDES 1 TABLET PO SCH (21:42)
[2020-02-03] MEDS: traZODone HCL 100 MG TABLET PO SCH (21:42)
[2020-02-03] MEDS: SENNOSIDES/DOCUSATE SODIUM 1 TAB TABLET PO SCH (22:29)
[2020-02-04] MEDS: metroNIDAZOLE 500 MG TABLET PO SCH (06:44)
[2020-02-04] MEDS: 0.9 % SODIUM CHLORIDE 10 ML SYRINGE IV SCH (06:44)
[2020-02-04] MEDS: INSULIN LISPRO 1 UNIT/0.01 ML UNIT SQ SCH ×2 (07:41→11:51)
[2020-02-04] MEDS: POTASSIUM CITRATE 10 MEQ TAB.XL.24H PO SCH ×2 (07:41→11:59)
[2020-02-04] MEDS: LEVOTHYROXINE 75 MCG TABLET PO SCH (07:41)
--- NOTE | 2020-02-04 08:22 | Internal Med Progress Note ---
SUBJECTIVE Subjective Patient information: Note initiated : 02/03/20 at 11:19 am Service Date, if different from initiated Date: [] Patient: Buck Diamond a 55 y/o M admitted on 01/27/20 for diarrhea. Chief Complaint: [id number] a history of developmental delay who presented to the ER following multiple episodes of diarrhea. Patient suffers from abnormal bowel with alternating constipation following diarrhea at this time he has not had a bowel movement in 5 days. He was subsequently given multiple laxatives/stool softeners with resultant diarrhea. He normally receives help from caregivers. Staff expressed concern about dehydration and him not feeling his normal self. He was subsequently brought to the ER. Initial work-up was consistent with severe sepsis with white count 28,000, ileus pattern on CT abdomen. Pyuria Patient carries a suprapubic Conroy's catheter that was changed 2 weeks prior to presentation. No evidence of fever. However patient remained tachycardic. Subsequently hospitalist service was consulted for admission in light of severe sepsis likely from UTI At the time of my evaluation patient is very restless unable to provide answers to most the questions. POA/daughter Brinda available and was able to provide answers to most of the questions. Patient has been started on antibiotic coverage, Conroy's catheter will be changed. Rectal tube was placed. Continuing crystalloids 01/26 persistent diarrhea, no abdominal distention or pain. White count down to 26.7. Continue crystalloids. Antibiotic coverage. Lactic acid down from 3.8- >3.2. K 5.4. Creatinine down from 1.2-1. Continue crystalloid bolus/oral fluids 01/27-patient doing remarkably well. White count down to 15,000. Creatinine improved 2.7. Stable hemodynamics except for intermittent tachycardia. Stooling much improved. C. difficile negative. on antibiotic coverage. Upd ated patient's POA. No concerns expressed by nursing staff 01/28-large bowel movement this morning. Rectal tube discontinued. Chest imaging no evidence of acute process except for distended bowels. Persistent tachycardia. Continue on crystalloid. White count downtrending now at 12.8. Phosphorus 1.7 start replacement 01/29-patient doing remarkably better. Stable urodynamics. White count 11.3. Creatinine 0.6. Electrolytes normalized. Phosphorus improving 2.3. Transition to medical floor. CT chest no evidence of PE or infiltrate, CT abdomen severe ileus moderate thickening wall mid jejunum/colon. Recommend outpatient upper and lower endoscopy for further evaluation. Will possibly discharge 24 hours 01/30-patient doing markedly better. White count 4.9. De-escalate antibiotics. Vitals stable. Minimal bloodstained output Flexi-Seal. Discontinue Flexi- Seal. Continue adequate oral hydration. No overnight fever chills. Family at bedside. 01/31-patient doing well. No overnight events. Minimal bloodstained stool. Minimal abdominal discomfort. But no fever white count normal. Antibiotics de- escalate to oral Cipro and Flagyl. Recommend outpatient colonoscopy for evaluation of segmental colon inflammation on abdominal imaging. Anticipate discharge in 24 hours with outpatient GI follow-up. Continue bowel regime including stimulants to minimize risk of alternating constipation and persistent ileus 02/01-persistent liquid pain jelly stool noted by nursing staff. CT evidence of thickening inflammation of the differential. GI consulted. WBC 8K. No over night fever chills. Keep n.p.o. 02/02-patient underwent colonoscopy. Extensive ulceration due to impacted stool. GI recommends scheduled bowel regimen including MiraLAX/Dulcolax/senna. Patient seen postprocedure. Doing well. Will likely discharge in 24 hours. Discussed with sister plan of care Constitutional Vitals: Vital Signs Temp Pulse Resp BP Pulse Ox 97.9 F 75 20 89/59 93 02/04/20 07:08 02/04/20 07:54 02/04/20 07:54 02/04/20 07:08 02/04/20 07:54 Period Temp Pulse Resp BP Sys/Ayala Pulse Ox Last 24 Hr 97.4 F-98.5 F 70-86 85-117/56-77 92-99 Intake and Output 02/03/20 02/04/20 02/04/20 21:59 05:59 13:59 Intake Total 1520 800 Output Total 1225 2250 Balance 295 -1450 Weight 83.28 kg Doing well Nonlabored breathing No anxiety Intake & Output: Intake & Output 02/03/20 02/04/20 02/04/20 21:59 05:59 13:59 Intake Total 1520 800 Output Total 1225 2250 Balance 295 -1450 Weight 83.28 kg Intake: Nourishment/Supplement quantity 240 (ml) Oral 1280 800 Output: Urine Catheter Amount 1200 2250 Stool 25 Other: Meal Dinner Percent of Meal Consumed 100% Nourishment/Supplement name Ajay Urine Appearance Clear Clear Clear Urine Color Bright Yellow Bright Yellow Bright Yellow Urine Odor Normal Normal Normal Stool Size Small Stool Color White Blood Tinged Stool Consistency Liquid # Bowel Movements 1 OBJ DATA Labs CBC & Chem 7: 02/01/20 05:42 02/01/20 05:42 Labs: Abnormal Lab Results 02/01/20 05:42 RBC 3.67 L Hgb 12.0 L Hct 36.0 L Meds: Medications Acetaminophen (Tylenol) 650 mg PO Q4-6HP PRN; Protocol PRN Reason: Per Pain Protocol/Fever > 101 Aspirin (Aspirin) 81 mg PO DAILY [facility] Last Admin: 02/03/20 09:50 Dose: 81 mg Documented by: Bisacodyl (Dulcolax) 10 mg VT Q2-3DAYS PRN PRN Reason: Constipation Bisacodyl (Dulcolax) 5 mg PO DAILY [facility] Bupropion HCl (Wellbutrin Sr) 150 mg PO QNOON [facility] Last Admin: 02/03/20 11:46 Dose: Not Given Documented by: Bupropion HCl (Wellbutrin Sr) 300 mg PO DAILY [facility] Last Admin: 02/03/20 09:47 Dose: 300 mg Documented by: Ciprofloxacin (Cipro) 500 mg PO BID [facility]; Protocol Last Admin: 02/03/20 21:43 Dose: 500 mg Documented by: Dextrose (Dextrose 50%) 0 ml IV UD PRN PRN Reason: Hypoglycemia Diagnostic Test (Pha) (Accu-Chek) 1 each FS ACHS [facility] Last Admin: 02/04/20 07:41 Dose: 1 each Documented by: Divalproex Sodium (Depakote Er) 1,000 mg PO DAILY [facility] Last Admin: 02/03/20 09:48 Dose: 1,000 mg Documented by: Docusate Sodium (Colace) 100 mg PO BID [facility] Last Admin: 02/03/20 21:42 Dose: 100 mg Documented by: Fluticasone Propionate (Flonase) 2 spray NS QDAY [facility] Last Admin: 02/03/20 09:46 Dose: 2 spray Documented by: Glucose (Insta-Glucose) 15 gm PO PRN PRN PRN Reason: Hypoglycemia Guaifenesin/Codeine Phosphate (Robitussin Ac) 10 ml PO Q4HP PRN PRN Reason: Cough Acetaminophen (Ofirmev) 650 mg in 65 mls @ 130 mls/hr IV Q6HP PRN; Protocol PRN Reason: Per Pain Protocol/Fever > 101 Magnesium Sulfate (Magnesium Sulfate) 2 gm in 50 mls @ 50 mls/hr IV UD PRN PRN Reason: MG = or < 1.7 Last Infusion: 01/31/20 14:30 Dose: Infused Documented by: Norepinephrine Bitartrate 8 mg (/ Sodium Chloride) 250 mls @ 18.75 mls/hr IV Q14H PRN; Protocol PRN Reason: MAP<70 Potassium Chloride 40 meq/ (Dextrose) 520 mls @ 130 mls/hr IV UD PRN PRN Reason: K+ = or < 3.5 Insulin Human Lispro (Humalog) 0 unit SQ ACHS [facility]; Protocol Last Admin: 02/04/20 07:41 Dose: Not Given Documented by: Iron Carb/Multivit/Green/Folic Acid (Multivitamin W/Minerals) 1 tab PO DAILY [facility] Last Admin: 02/03/20 09:49 Dose: 1 tab Documented by: Levothyroxine Sodium (Synthroid) 75 mcg PO QAMAC [facility] Last Admin: 02/04/20 07:41 Dose: 75 mcg Documented by: Magnesium Citrate (Citroma) 118 ml PO PRN PRN PRN Reason: Constipation Magnesium Oxide (Magnesium Oxide) 400 mg PO BID [facility] Last Admin: 02/03/20 21:43 Dose: 400 mg Documented by: Melatonin (Melatonin 3mg Tablet) 3 mg PO HSP PRN PRN Reason: Insomnia Last Admin: 02/04/20 00:18 Dose: 3 mg Documented by: Metformin HCl (Glucophage) 500 mg PO DAILY@1700 [facility] Last Admin: 02/03/20 16:53 Dose: 500 mg Documented by: Metoprolol Tartrate (Lopressor) 5 mg IV Q5M PRN PRN Reason: Heart Rate > 140 bpm Metronidazole (Flagyl) 500 mg PO Q8 [facility]; Protocol Last Admin: 02/04/20 06:44 Dose: 500 mg Documented by: Ondansetron HCl (Zofran Odt) 4 mg SL Q4-6HP PRN; Protocol PRN Reason: Nausea And Vomiting Ondansetron HCl (Zofran) 4 mg IV Q4-6HP PRN; Protocol PRN Reason: Nausea And Vomiting Teriflunomide [ (Aubagio] 14 Mg Tab) 1 dose PO QDAY [facility] Last Admin: 02/03/20 09:45 Dose: 1 dose Documented by: Fluvoxamine 100 Mg (Cap) 1 dose PO TID [facility] Last Admin: 02/03/20 21:43 Dose: 1 dose Documented by: Polyethylene Glycol (Miralax) 17 gm PO DAILYP PRN PRN Reason: Constipation Polyethylene Glycol (Miralax) 17 gm PO DAILY [facility] Potassium Chloride (Klor-Con) 40 meq PO DAILYP PRN PRN Reason: K+ < 3.5 Last Admin: 01/30/20 21:14 Dose: 40 meq Documented by: Potassium Citrate (Potassium Citrate) 15 meq PO TIDCC [facility] Last Admin: 02/04/20 07:41 Dose: 15 meq Documented by: Senna (Senokot) 2 tab PO HS [facility] Last Admin: 02/03/20 21:42 Dose: 2 tab Documented by: Senna/Docusate Sodium (Senna Plus Tablet) 1 tab PO BID [facility] Last Admin: 02/03/20 22:29 Dose: Not Given Documented by: Sodium Chloride (Saline Flush) 10 ml IV Q8 [facility] Last Admin: 02/04/20 06:44 Dose: 10 ml Documented by: Trazodone HCl (Desyrel) 100 mg PO QHS [facility] Last Admin: 02/03/20 21:42 Dose: 100 mg Documented by: Vitamin D (Vitamin D3) 5,000 unit PO DAILY [facility] Last Admin: 02/03/20 09:50 Dose: 5,000 unit Documented by: ABG Interpretation ABG results: 01/27/20 06:51 ABG Methemoglobin 0 L VBG pH 7.42 VBG pCO2 34.3 L VBG pO2 101 H VBG HCO3 21.7 L VBG Total CO2 22.8 L VBG O2 Saturation 91.7 H VBG Base Excess -2 A/P Narrative A/P Narrative: * Severe sepsis with endorgan dysfunction-secondary to complicated UTI/chronic ulceration for impacted stool. Clinically improved. White count normalized * Hardware related complicated UTI-clinically resolved on antibiotic coverage. Continue ciprofloxacin * GI bleed-status post colonoscopy revealing extensive ulcerations secondary to impacted stool. Continue aggressive bowel regimen. * Severe ileus secondary to neurogenic bowel. Patient will need routine bowel regimen to prevent alternating constipation * HAYDEN clinically resolved. Creatinine down from 1.2-0.6 * History of developmental delay/intermittent agitation continue Depakote/bupropion/fluvoxamine * DM type II-prandial insulin/sitagliptin/CCD * Currently full code * Prophylax Heparin Plan * Continue Cipro and Flagyl * Diet advancement per GI * Pre-existing medical condition management and home meds * Likely discharge in 24 hours Time Spent With Patient Time: Total time spent is greater than 50% in coordination of care (as documented) at patient's floor/unit and/or counseling patient: QUALITY VTE Deep Vein Thrombosis/Pulmonary Embolism Present on Admission: No
[2020-02-04] MEDS ORDERED: BISACODYL 5 MG TABLET PO SCH (09:00)
[2020-02-04] MEDS ORDERED: POLYETHYLENE GLYCOL 3350 17 GM PACKET PO SCH (09:00)
--- NOTE | 2020-02-04 09:10 | Colonoscopy Procedure Note ---
Colonoscopy Procedure Notes Procedure Information Patient information: Note initiated : 02/04/20 at 9:08 am Service Date: 02.03.2020 Patient: Buck Diamond 55 y/o M admitted on 01/27/20 for diarrhea. Pre-op diagnosis general: Hematochezia. Post-op diagnosis general: Ischemic ulceration secondary to impaction. Procedure: Colonoscopy with Bx Procedure narrative: The procedure, alternatives and risks were discussed with the patient and the patient's questions were answered. With endoscopist- administered intravenous sedation, the Olympus colonoscope was introduced into the rectum and advanced to the cecum. The colon was long and redundant. Ileocecal valve was identified, intubated, and several centimeters of the terminal ileum were examined and appeared normal. There was extensive ulceration in the sigmoid colon, likely secondary to fecal impaction. This was biopsied. Assessment: Ischemic ulceration secondary to impaction. All attempts to avoid constipation should be made, using Miralax, Senna and Dulcolax suppository.
--- NOTE | 2020-02-04 09:23 | Discharge Summary ---
Discharge Provider Provider Patient information: Note initiated : 02/04/20 at 9:20 am Service Date, if different from initiated Date: [] Patient: Buck Diamond a 55 y/o M admitted on 01/27/20 for diarrhea. Discharge diagnosis * Hardware related complicated UTI resolved with antibiotics. Continue additional 2 days ciprofloxacin * Sepsis secondary above clinically resolved * Ischemic bowel ulceration secondary to fecal impaction. Continue aggressive bowel regimen * GI bleed secondary to bowel ulceration. Resolved * Neurogenic bowel/intermittent ileus * Acute kidney injury clinically resolved creatinine down from 1.2-0.6 * History developmental delay stable continue home dose Depakote/bupropion/clovoxamine * DM type II continue home regime/CCD- Brief hospital course [id number] a history of developmental delay who presented to the ER fol lowing multiple episodes of diarrhea. Patient suffers from abnormal bowel with alternating constipation following diarrhea at this time he has not had a bowel movement in 5 days. He was subsequently given multiple laxatives/stool softeners with resultant diarrhea. He normally receives help from caregivers. Staff expressed concern about dehydration and him not feeling his normal self. He was subsequently brought to the ER. Initial work-up was consistent with severe sepsis with white count 28,000, ileus pattern on CT abdomen. Pyuria Patient carries a suprapubic Conroy's catheter that was changed 2 weeks prior to presentation. No evidence of fever. However patient remained tachycardic. Subsequently hospitalist service was consulted for admission in light of severe sepsis likely from UTI At the time of my evaluation patient is very restless unable to provide answers to most the questions. POA/daughter Brinda available and was able to provide answers to most of the questions. Patient has been started on antibiotic coverage, Conroy's catheter will be changed. Rectal tube was placed. Continuing crystalloids 01/26 persistent diarrhea, no abdominal distention or pain. White count down to 26.7. Continue crystalloids. Antibiotic coverage. Lactic acid down from 3.8- >3.2. K 5.4. Creatinine down from 1.2-1. Continue crystalloid bolus/oral fluids 01/27-patient doing remarkably well. White count down to 15,000. Creatinine improved 2.7. Stable hemodynamics except for intermittent tachycardia. Stooling much improved. C. difficile negative. on antibiotic coverage. Updated patient's POA. No concerns expressed by nursing staff 01/28-large bowel movement this morning. Rectal tube discontinued. Chest imaging no evidence of acute process except for distended bowels. Persistent tachycardia. Continue on crystalloid. White count downtrending now at 12.8. Phosphorus 1.7 start replacement 01/29-patient doing remarkably better. Stable urodynamics. White count 11.3. Creatinine 0.6. Electrolytes normalized. Phosphorus improving 2.3. Transition to medical floor. CT chest no evidence of PE or infiltrate, CT abdomen severe ileus moderate thickening wall mid jejunum/colon. Recommend outpatient upper and lower endoscopy for further evaluation. Will possibly discharge 24 hours 01/30-patient doing markedly better. White count 4.9. De-escalate antibiotics. Vitals stable. Minimal bloodstained output Flexi-Seal. Discontinue Flexi- Seal. Continue adequate oral hydration. No overnight fever chills. Family at bedside. 01/31-patient doing well. No overnight events. Minimal bloodstained stool. Minimal abdominal discomfort. But no fever white count normal. Antibiotics de- escalate to oral Cipro and Flagyl. Recommend outpatient colonoscopy for evaluation of segmental colon inflammation on abdominal imaging. Anticipate discharge in 24 hours with outpatient GI follow-up. Continue bowel regime including stimulants to minimize risk of alternating constipation and persistent ileus 02/01-persistent liquid pain jelly stool noted by nursing staff. CT evidence of thickening inflammation of the differential. GI consulted. WBC 8K. No overnight fever chills. Keep n.p.o. 02/02-patient underwent colonoscopy. Extensive ulceration due to impacted stool. GI recommends scheduled bowel regimen including MiraLAX/Dulcolax/senna. Patient seen postprocedure. Doing well. Will likely discharge in 24 hours. Discussed with sister plan of care 02/03-patient discharging advised to continue aggressive bowel regime to avoid constipation/fecal impaction. Continue antibiotic for additional 48 hours. Date of admission: 01/27/20 00:20 Discharge date: 02/04/20 Primary care physician: Lon Stinson PA-C Consults: 01/26/20 Consult to Physician [CONS] Stat Comment: Consulting Provider: Cory Quiles Reason For Exam: Physician to Consult 02/02/20 09:15 Consult to Physician [CONS] Routine Comment: Consulting Provider: Nic Keller Reason For Exam: Physician to Consult Discharge Meds Discharge Medications Home Medications bupropion HCl 150 mg tablet,12 hr sustained-release 300 mg PO DAILY tab 01/05/15 [History Confirmed 01/27/20 Last Taken 01/26/20 08:00] divalproex 500 mg tablet,delayed release 1,000 mg PO DAILY tab 01/05/15 [Histor y Confirmed 01/27/20 Last Taken 01/25/20 20:00] fluvoxamine 100 mg tablet 100 mg PO TID tab 01/05/15 [History Confirmed 01/27/20 Last Taken 01/26/20 12:00] melatonin 5 mg capsule 5 mg PO HS cap 01/05/15 [History Confirmed 01/27/20 Last Taken 01/25/20 20:00] trazodone 100 mg tablet 100 mg PO QHS #90 tab 08/18/15 [Rx Confirmed 01/27/20 Last Taken 01/25/20 20:00] GAIT BELT #1 ea 08/14/18 [Rx Confirmed 01/27/20 Last Taken Unknown] bisacodyl 10 mg rectal suppository 10 mg [place] QDAY PRN #12 supp 02/24/19 [Rx Confirmed 01/26/20 Last Taken 01/26/20] acetaminophen 500 mg tablet 1,000 mg PO TID PRN #60 tab 05/15/19 [Rx Confirmed 01/26/20 Last Taken Unknown] magnesium 250 mg tablet 250 mg PO BID 31 Days #62 tab 10/22/19 [Rx Confirmed 01/27/20 Last Taken 01/26/20 17:00] teriflunomide 14 mg tablet 14 mg PO QDAY 11/27/19 [History Confirmed 01/26/20 Last Taken Unknown] fluticasone propionate 50 mcg/actuation nasal spray,suspension 2 spray INTRANASAL QDAY #16 g 12/01/19 [Rx Confirmed 01/27/20 Last Taken 01/26/20 08:00] zinc oxide 13 % topical cream See Rx Instructions TOPICAL 5XD #454 g 12/24/19 [Rx Confirmed 01/27/20 Last Taken Unknown] [id number], wh See Rx Instructions .ROUTE .COMPLEX #207 g 01/05/20 [Rx Confirmed 01/27/20 Last Taken Unknown] D-Mannose 1 cap PO BID 31 Days #62 cap 01/15/20 [Rx Confirmed 01/27/20 Last Taken 10/12/20 08:00] aspirin 81 mg PO DAILY 01/27/20 [History Confirmed 01/27/20 Last Taken 01/26/20 08:00] bupropion HCl 150 mg PO QNOON 01/27/20 [History Confirmed 01/27/20 Last Taken 01/26/20 12:00] cholecalciferol (vitamin D3) [Vitamin D3] 5,000 unit PO DAILY 01/27/20 [History Confirmed 01/27/20 Last Taken 01/26/20 08:00] chromium picolinate 200 mcg PO BID 01/27/20 [History Confirmed 01/27/20 Last Taken 01/26/20 17:00] magnesium citrate 118 ml PO PRN PRN 01/27/20 [History Confirmed 01/27/20 Last Taken Unknown] metformin 500 mg PO 1700 01/27/20 [History Confirmed 01/27/20 Last Taken 01/26/20 17:00] levothyroxine 75 mcg capsule 75 mcg PO QDAY #31 cap 02/02/20 [Rx Last Taken Unknown] multivit,Ca,min-iron 8 mg-folic acid 200 mcg-lycopene 600 mcg tablet 1 tab PO QDAY 31 Days #31 tab 02/02/20 [Rx Last Taken Unknown] potassium citrate 15 mEq (1,620 mg) tablet,extended release 15 meq PO TID 31 Days #93 tab 02/02/20 [Rx Last Taken Unknown] bisacodyl 5 mg PO DAILY #30 tab 02/04/20 [Rx Last Taken Unknown] bisacodyl 10 mg [place] Q2-3DAYS PRN #10 ea 02/04/20 [Rx Last Taken Unknown] ciprofloxacin HCl 500 mg PO BID #4 tab 02/04/20 [Rx Last Taken Unknown] docusate sodium 100 mg PO BID #60 cap 02/04/20 [Rx Last Taken Unknown] metronidazole 500 mg PO Q8 #6 tab 02/04/20 [Rx Last Taken Unknown] polyethylene glycol 3350 [Miralax] 17 gm PO DAILY #60 ea 02/04/20 [Rx Last Taken Unknown] sennosides-docusate sodium 1 tab PO BID #60 tab 02/04/20 [Rx Last Taken Unknown] COURSE Hospital Course Hospital course: . Discharge diagnosis: . Time Spent with Patient Time attestation: Total time spent providing and/or coordinating discharge services: EXAM Constitutional Vitals: Temp Pulse Resp BP Pulse Ox 97.9 F 75 20 89/59 93 02/04/20 07:08 02/04/20 07:54 02/04/20 07:54 02/04/20 07:08 02/04/20 07:54 Discharge Data Data Completed and Pending Labs on day of discharge: Labs from last 24 hours 02/04/20 02/04/20 02/02/20 08:32 08:32 15:43 WBC Pending RBC Pending Hgb Pending Hct Pending MCV Pending MCH Pending MCHC Pending RDW Pending Plt Count Pending MPV Pending Neut % (Auto) Pending Sodium Pending Potassium Pending Chloride Pending Carbon Dioxide Pending Anion Gap Pending BUN Pending Creatinine Pending GFR Calculation Pending Glucose Pending Uric Acid Pending Calcium Pending Phosphorus Pending Magnesium Pending Total Bilirubin Pending Direct Bilirubin Pending GGT Pending AST Pending ALT Pending Alkaline Phosphatase Pending Lactate Dehydrogenase Pending Total Protein Pending Albumin Pending Globulin Pending Albumin/Globulin Ratio Pending Triglycerides Pending SARS-CoV-2 (PCR) Negative Discharge Plan Patient/Caregiver Discharge Instructions Activity: increase activity as tolerated Diet: Consistent Carbohydrate Activity Restrictions/Additional Instructions: Continue aggressive bowel protocol follow-up PCP in 5 to 7 days Antibiotic for additional 48 hours Suprapubic catheter care Return to ER if worsening abdominal pain nausea vomiting Prescriptions: New polyethylene glycol 3350 [Miralax] 17 gram Powder In Packet 17 gm PO DAILY Qty: 60 RF: 0 sennosides-docusate sodium 8.6-50 mg Tablet 1 tab PO BID Qty: 60 RF: 0 metronidazole 500 mg Tablet 500 mg PO Q8 Qty: 6 RF: 0 ciprofloxacin HCl 500 mg Tablet 500 mg PO BID Qty: 4 RF: 0 bisacodyl 10 mg Suppository 10 mg [place] Q2-3DAYS PRN (Reason: Constipation) Qty: 10 RF: 0 docusate sodium 100 mg Capsule 100 mg PO BID Qty: 60 RF: 0 bisacodyl 5 mg Tablet,Delayed Release (Dr/Ec) 5 mg PO DAILY Qty: 30 RF: 0 Continued trazodone 100 mg tablet 100 mg PO QHS Qty: 90 RF: 1 bisacodyl 10 mg suppository 10 mg [place] QDAY PRN (Reason: constipation) Qty: 12 RF: 11 acetaminophen 500 mg tablet 1,000 mg PO TID PRN (Reason: headache) Qty: 60 RF: 2 magnesium 250 mg tablet 250 mg PO BID 31 Days Qty: 62 RF: 5 fluticasone propionate 50 mcg/actuation spray,suspension 2 spray INTRANASAL QDAY Qty: 16 RF: 5 Desitin Rapid Relief 13 % cream See Rx Instructions TOPICAL 5XD Qty: 454 RF: 1 Cetaphil Moisturizing Cream See Rx Instructions .ROUTE .COMPLEX Qty: 207 RF: 1 D-Mannose 500 mg capsule 1 cap PO BID 31 Days Qty: 62 RF: 5 levothyroxine 75 mcg capsule 75 mcg PO QDAY Qty: 31 RF: 0 potassium citrate 15 mEq tablet extended release 15 meq PO TID 31 Days Qty: 93 RF: 0 Centrum Men 8 mg iron- 200 mcg-600 mcg tablet 1 tab PO QDAY 31 Days Qty: 31 RF: 0 bupropion HCl 150 mg tablet extended release 300 mg PO DAILY RF: 0 divalproex 500 mg tablet,delayed release (DR/EC) 1,000 mg PO DAILY RF: 0 fluvoxamine 100 mg tablet 100 mg PO TID RF: 0 melatonin 5 mg capsule 5 mg PO HS RF: 0 (DME) GAIT BELT Qty: 1 RF: 0 Aubagio 14 mg tablet 14 mg PO QDAY RF: 0 aspirin 81 mg tablet,delayed release (DR/EC) 81 mg PO DAILY RF: 0 bupropion HCl 150 mg tablet sustained-release 12 hr 150 mg PO QNOON RF: 0 chromium picolinate 200 mcg tablet 200 mcg PO BID RF: 0 cholecalciferol (vitamin D3) [Vitamin D3] 125 mcg (5,000 unit) Tablet 5,000 unit PO DAILY RF: 0 magnesium citrate Solution 118 ml PO PRN PRN (Reason: Constipation) RF: 0 metformin 500 mg tablet extended release 24 hr 500 mg PO 1700 RF: 0 Follow Up Plan Follow up with: Lon Stinson PA-C [Primary Care Provider] - Patient Disposition: Home, Self-Care Rehab Potential: Fair I certify that the patient requires SNF services: No Overall status at discharge: patient is progressing back to baseline Discharge Orders: Discharge Order (Routine); Ordered 02/04/20 Ordered By: Cory Quiles QUALITY VTE Deep Vein Thrombosis/Pulmonary Embolism Present on Admission: No
[2020-02-04 09:25] LABS: Basophils # (Auto) 0.04 K/mcL (0.00-0.20); Basophils % (Auto) 0.4 % (0.0-2.0); Eosinophils # (Auto) 0.18 K/mcL (0.00-0.70); Hematocrit 36.5 % (41.0-55.0); Hemoglobin 12.3 g/dL (13.5-16.5); Lymphocytes # (Auto) 1.25 K/mcL (1.50-4.80); Lymphocytes % (Auto) 13.6 % (15.0-49.0); Mean Cell Volume 97.1 fL (80.0-100.0); Mean Corpuscular HGB Conc 33.7 g/dL (31.0-36.0); Mean Platelet Volume 9.4 fL (7.4-10.4); Monocytes # (Auto) 0.79 K/mcL (0.10-0.90); Monocytes % (Auto) 8.6 % (1.0-12.0); Neutrophils % (Auto) 75.4 % (38.0-78.0); Platelet Count 281 K/mcL (140-440); RBC 3.76 M/mcL (4.50-5.90); Red Cell Distribution Width 13.5 % (11.5-14.5); WBC 9.2 K/mcL (4.5-11.0)
[2020-02-04 09:45] LABS: ALT/SGPT 135 U/L (<40); AST/SGOT 77 U/L (<40); Albumin 2.7 gm/dL (3.2-5.2); Albumin/Globulin Ratio 1.1 (1.0-2.3); Alkaline Phosphatase 57 U/L (39-117); Bilirubin,Direct < 0.2 mg/dL (<0.3); Bilirubin,Total 0.3 mg/dL (0.1-1.0); Blood Urea Nitrogen 5 mg/dL (6-20); Calcium 8.3 mg/dL (8.6-10.4); Carbon Dioxide 24 mmol/L (22-30); Chloride 104 mmol/L (96-108); Globulin 2.4 gm/dL (2.2-3.7); Glomerular Filtration Rate 105; Glucose 190 mg/dL (70-105); Lactate Dehydrogenase 173 U/L (135-225); Triglycerides 52 mg/dL (<150); Uric Acid 2.4 mg/dL (2.5-8.0)
[2020-02-04] MEDS: DIVALPROEX SODIUM 250 MG TABLET PO SCH (10:20)
[2020-02-04] MEDS: buPROPion 150 MG TAB.SR.12H PO SCH ×3 (10:20→12:01)
[2020-02-04] MEDS: MULTIVIT,THER IRON,CA,FA & MIN 1 TABLET PO SCH (10:21)
[2020-02-04] MEDS: MAGNESIUM OXIDE 400 MG TABLET PO SCH (10:21)
[2020-02-04] MEDS: SENNOSIDES/DOCUSATE SODIUM 1 TAB TABLET PO SCH (10:21)
[2020-02-04] MEDS: VITAMIN D3 5,000 UNIT CAPSULE PO SCH (10:22)
[2020-02-04] MEDS: FLUVOXAMINE 100 MG PO SCH (10:22)
[2020-02-04] MEDS: CIPROFLOXACIN 500 MG TABLET PO SCH (10:22)
[2020-02-04] MEDS: DOCUSATE SODIUM 100 MG CAPSULE PO SCH (10:22)
[2020-02-04] MEDS: ASPIRIN 81 MG TAB.CHEW PO SCH (10:22)
[2020-02-04] MEDS: FLUTICASONE PROPIONATE SPRAY.NAS NS SCH (10:23)
[2020-02-04] MEDS: TERIFLUNOMIDE 14 MG PO SCH (10:23)
--- NOTE | 2020-02-05 15:21 | Surgical Pathology Report ---
Histology Microscopic Diagnosis Specimen A- COLON, SIGMOID, BIOPSY: -- FRAGMENTS OF FIBRINOPURULENT EXUDATE WITH MARKED ACUTE INFLAMMATION. -- NO INTACT COLONIC MUCOSA IDENTIFIED. -- NO MALIGNANCY IDENTIFIED. (DMT:sln) Clinical History Hematochezia. Procedural Impression Ischemic ulceration secondary to fecal impaction. Gross Description Received in formalin labeled sigmoid colon biopsy, are five fragments of camara-farmer tissue 0.2 to 0.4 cm. Totally submitted - one cassette. (KGW:sln) Electronically Signed John Joyner MD, FCAP Electronically Signed 02/05/2020 3:20 PM
== END 2020-02-04 13:10 | disposition home or self-care (01) | DRG 698 ==
LOC: ED 19:21 → ICU 01-27 00:20 → MEDSUR 01-30 17:38
PROVIDERS: ADMIT Internal Medicine; ATTEND Internal Medicine

== ENCOUNTER 2020-06-26 09:06 | Inpatient (IN) ==
[2020-06-26] MEDS ORDERED: IOPAMIDOL 100 ML BOTTLE IV ONE (09:07)
--- NOTE | 2020-06-26 09:32 | Emergency Department Note ---
Male Urogenital HPI General Chief complaint: Urogenital-Male Stated complaint: Purulent Substance in catheter Time Seen by Provider: 06/26/20 09:13 Source: patient, family, EMS, RN notes reviewed and old records reviewed Mode of arrival: EMS Limitations: no limitations History of Present Illness HPI Narrative: Narrative: 55-year-old male with indwelling suprapubic Conroy catheter. Family noted pustular discharge from suprapubic catheter this morning. No fevers or chills no nausea vomiting no abdominal pain. Urine output is decreased. MD Complaint: other (Family reports patient has pustular discharge from Conroy catheter.) Onset (ago): day(s) Duration: constant (Noted this morning) Location: other (Patient has indwelling suprapubic Conroy catheter) Related Data Home Medications Medication Instructions Recorded Confirmed bupropion HCl 150 mg tablet,12 hr 300 mg PO DAILY tab 01/05/15 05/31/20 sustained-release divalproex 500 mg tablet,delayed 1,000 mg PO DAILY tab 01/05/15 05/31/20 release fluvoxamine 100 mg tablet 100 mg PO TID tab 01/05/15 05/31/20 melatonin 5 mg capsule 5 mg PO HS cap 01/05/15 05/31/20 teriflunomide 14 mg tablet 14 mg PO QDAY 11/27/19 05/31/20 bupropion HCl 150 mg PO QNOON 01/27/20 05/31/20 cholecalciferol (vitamin D3) 5,000 unit PO DAILY 01/27/20 05/31/20 [Vitamin D3] metformin 500 mg PO 1700 01/27/20 05/31/20 Balance B 50 PO 04/05/20 05/31/20 Centrum for Men PO 04/05/20 05/31/20 Remedy Repair cream TOPICAL PRN 04/05/20 05/31/20 bisacodyl 10 mg rectal suppository 10 mg MT QDAY PRN supp 04/05/20 05/31/20 citric ac 1980.6 mg-glucono 59.4 30 ml IRRIGATION BID ml 04/05/20 05/31/20 mg-mag carb 980.4 mg/30 mL irrig.soln dimethicone 1 % topical cream 1 applic TOPICAL TID-QID PRN 04/05/20 05/31/20 sennosides 8.6 mg-docusate sodium 4 tab-cap PO QPM tab 04/05/20 05/31/20 50 mg tablet zinc oxide 13 % topical cream See Rx Instructions TOPICAL TID 04/05/20 05/31/20 PRN g Previous Rx's Medication Instructions Recorded trazodone 100 mg tablet 100 mg PO QHS #90 tab 08/18/15 D-Mannose 1 cap PO BID 31 Days #62 cap 01/15/20 levothyroxine 75 mcg capsule 75 mcg PO QDAY 30 Days #30 cap 02/26/20 multivit,Ca,min-iron 8 mg-folic 1 tab PO QDAY 30 Days #30 tab 02/26/20 acid 200 mcg-lycopene 600 mcg tablet potassium citrate 15 mEq (1,620 15 meq PO TID 30 Days #90 tab 02/26/20 mg) tablet,extended release bisacodyl 5 mg tablet,delayed 5 mg PO DAILY #90 tab 02/29/20 release aspirin 81 mg tablet,delayed 81 mg PO QDAY 30 Days #30 tab 03/18/20 release magnesium citrate 118 ml PO PRN PRN #296 ml 04/07/20 sennosides-docusate sodium 1 tab-cap PO QID #120 tab 04/09/20 [Senna-S] chromium picolinate 200 mcg tablet 200 mcg PO BID 31 Days #62 tab 05/07/20 magnesium 250 mg tablet 250 mg PO BID 31 Days #62 tab 05/07/20 docusate sodium 100 mg capsule 100 mg PO QDAY #180 cap 05/11/20 polyethylene glycol 3350 17 gram 8.5 g PO DAILY #60 each 05/11/20 oral powder packet banana See Rx Instructions PO .COMPLEX 05/12/20 flakes-transgalactooligosaccharide #75 each oral powder packet fluticasone propionate 50 2 spray INTRANASAL QDAY #16 g 05/18/20 mcg/actuation nasal spray,suspension citric ac 1980.6 mg-glucono 59.4 30 ml IRRIGATION BID #900 ml 06/09/20 mg-mag carb 980.4 mg/30 mL irrig.soln acetaminophen 500 mg tablet 1,000 mg PO TID PRN #60 tab 06/15/20 Allergies Allergy/AdvReac Type Severity Reaction Status Date / Time No Known Drug Allergies Allergy Verified 05/31/20 15:53 Review of Systems ROS ROS Narrative: Narrative: All systems ED: reviewed and negative except as stated. [facility] Narrative Patient History Narrative: Narrative: Medical/Surgical/Family History All Active Problems (Updated 06/26/20 @ 15:[address] MD) Colitis (Acute) Acute UTI (urinary tract infection) (Acute) Weakness (Acute) Constipation (Acute) Acute cystitis without hematuria (Acute) Medicare annual wellness visit, subsequent (Acute) Gastroenteritis (Acute) Patient dependent upon caregiver (Chronic) Impaired cognitive ability (Chronic) Decubitus ulcer of sacral region, stage 2 (Acute) Decubitus ulcer of sacral region, stage 2 (Acute) Sepsis (Acute) Acute UTI (Acute) Acute URI (Acute) Suprapubic catheter dysfunction (Acute) Vasovagal syncope (Acute) Laceration of scrotum (Acute) Microalbuminuria (Chronic) Catheter (urine) change required (Chronic) History of malignant melanoma (Chronic) History of urinary incontinence (Chronic) History of tonsillectomy (Chronic) History of suprapubic catheter (Chronic) Conroy catheter in place (Chronic) History of cystoscopy (Chronic 02/04/14) Urinary retention (Chronic 09/09/13) Urinary incontinence (Chronic) Urethral catheter mechanical complication (Chronic) Rhinitis, allergic (Chronic) Obsessive-compulsive disorder (Chronic) Neurogenic bladder (Chronic 09/09/13) Myocardial infarction, old (Chronic) Multiple sclerosis (Chronic) Mild cognitive impairment (Chronic) Leukocytopenia (Chronic) Insomnia (Chronic) Hypothyroidism (acquired) (Chronic) Orthostatic hypotension (Chronic) Hyperlipidemia (Chronic) Esophageal reflux (Chronic) Diabetes mellitus, type II (Chronic) Developmental delay (Chronic) Depressive disorder (Chronic) Dementia (Chronic) Degeneration of lumbar or lumbosacral intervertebral disc (Chronic) Constipation (Chronic) Chronic pain (Chronic) CAD (coronary artery disease) (Chronic) Anxiety disorder (Chronic) Anoxic brain damage (Chronic) Medical History (Updated 06/26/20 @ 15:[address] MD) Anoxic brain damage since child (12/26/2013 Dr Vazquez) Anxiety disorder Asthma CAD (coronary artery disease) 1996 Catheter (urine) change required Constipation Degeneration of lumbar or lumbosacral intervertebral disc Depressive disorder Developmental delay Diabetes mellitus, type II Esophageal reflux History of malignant melanoma melanoma, right shoulder, 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 Vazquez) History of cystoscopy (02/04/14) History of suprapubic catheter 12/26/2013 Dr Vazquez /// 01/08/2014 History of tonsillectomy (12/26/2013 Dr Vazquez) History of urinary incontinence Urinary incontinence procedure December 2006 Hx of cataract surgery Right 04/12/17 Family History Unknown Diabetes mellitus Family history of malignant neoplasm Social History Smoking Status: Never smoker Alcohol Intake Frequency: does not drink Substance Use: does not use Exam Narrative Narrative: Narrative: General Limitations: no limitations General appearance: Present alert and in no apparent distress Head Head: Present atraumatic and normocephalic Eye Eye: Present normal appearance, PERRL and EOMI ENT ENT: Present normal exam and mucous membranes moist Neck Neck: Present normal inspection Chest Chest: Present normal inspection; Absent tenderness Respiratory Respiratory: Present normal lung sounds bilaterally; Absent respiratory distress Cardiovascular Cardiovascular: Present regular rate and normal rhythm; Absent systolic murmur Adbominal Abdominal: Present soft and other (Suprapubic cath site without erythema pustular discharge.); Absent distention, tenderness, guarding and rebound Extremities Extremities: Present normal inspection; Absent tenderness, pedal edema and pretibial edema Back Back: Present normal inspection; Absent CVA tenderness (R) and CVA tenderness (L) Neurological Neurological: Present alert Skin Skin: Present warm (WNL); Absent rash Course Course Course Narrative: Patient's sister who is also his durable medical power of tax associate attorney and medical directive came to the emergency department and stated that she did not request evaluation for his Conroy which was just recently and was worried that he was having bloody diarrhea for the last 3days. Has a history of colitis in the past and required IV antibiotics to address this approximately 1 year ago. Patient is unable to give any additional information. Per sister has been having this bloody mucousy diarrhea and abdominal cramping. This is his presentation for colitis Vital Signs Vital signs: Vital Signs Temperature 98.4 F 06/26/20 09:09 Pulse Rate 65 06/26/20 09:09 Respiratory Rate 18 06/26/20 09:09 Blood Pressure 98/69 06/26/20 09:09 Pulse Oximetry (%) 97 06/26/20 09:09 Temperature 98.4 F 06/26/20 09:09 Pulse Rate 61 06/26/20 14:02 Respiratory Rate 18 06/26/20 09:09 Blood Pressure 149/71 06/26/20 14:02 Pulse Oximetry (%) 100 06/26/20 14:02 [facility] MDM Narrative Medical decision making narrative: Narrative: Patient with heme positive stools on rectal exam. Severe colitis on CT scan. Proctitis on CT scan. UTI on urinalysis. Discussed patient Dr. Franco with hospitalist who graciously agreed to admit patient. Patient be on a clear liqui d diet. Received IV Zosyn and vancomycin. Lab Data Lab results reviewed: Yes I reviewed the patient's lab results. Result diagrams: 06/26/20 11:40 06/26/20 13:09 Labs: Lab Results 06/26/20 06/26/20 06/26/20 Range/Units 09:43 11:39 11:40 WBC 7.5 (4.5-11.0) K/mcL RBC 4.07 L (4.50-5.90) M/mcL Hgb 12.8 L (13.5-16.5) g/dL Hct 39.3 L (41.0-55.0) % MCV 96.6 (80.0-100.0) fL MCH 31.4 (26.0-34.0) pg MCHC 32.6 (31.0-36.0) g/dL RDW 14.3 (11.5-14.5) % Plt Count 193 (140-440) K/mcL MPV 9.7 (7.4-10.4) fL Neut % (Auto) 55.6 (38.0-78.0) % Lymph % (Auto) 30.3 (15.0-49.0) % Vernon % (Auto) 11.3 (1.0-12.0) % Eos % (Auto) 2.3 (0.0-7.0) % Baso % (Auto) 0.5 (0.0-2.0) % Lymph # (Auto) 2.26 (1.50-4.80) K/mcL Vernon # (Auto) 0.84 (0.10-0.90) K/mcL Eos # (Auto) 0.17 (0.00-0.70) K/mcL Baso # (Auto) 0.04 (0.00-0.20) K/mcL Absolute Neutrophils 4.14 (1.80-8.00) K/mcL Sodium TNP Potassium TNP Chloride TNP Carbon Dioxide TNP Anion Gap TNP BUN TNP Creatinine TNP GFR Calculation TNP Glucose TNP Calcium TNP Total Bilirubin TNP AST TNP ALT TNP Alkaline Phosphatase TNP Total Protein TNP Albumin TNP Globulin TNP Albumin/Globulin Ratio TNP Urine Color Yellow Urine Appearance Clear (Clear) Urine pH 8.5 (5.0-9.0) Ur Specific [place] 1.020 (1.000-1.035) Urine Protein Negative (Negative) mg/dL Urine Glucose (UA) Negative (Negative) mg/dL Urine Ketones Negative (Negative) mg/dL Urine Occult Blood Negative (Negative) gilson/mcL Urine Nitrate Negative (Negative) Urine Bilirubin Negative (Negative) mg/dL Urine Urobilinogen Normal mg/dL Ur Leukocyte Esterase Small A (Negative) /ug Urine RBC 4 H (0-3) /hpf Urine WBC 16 H (0-4) /hpf Ur Squamous Epith Cells 0 (0-4) /hpf Urine Bacteria None (0) /hpf Urine Mucus Few A (None) /hpf Ur Culture Indicated? yes 06/26/20 Range/Units 13:09 WBC (4.5-11.0) K/mcL RBC (4.50-5.90) M/mcL Hgb (13.5-16.5) g/dL Hct (41.0-55.0) % MCV (80.0-100.0) fL MCH (26.0-34.0) pg MCHC (31.0-36.0) g/dL RDW (11.5-14.5) % Plt Count (140-440) K/mcL MPV (7.4-10.4) fL Neut % (Auto) (38.0-78.0) % Lymph % (Auto) (15.0-49.0) % Vernon % (Auto) (1.0-12.0) % Eos % (Auto) (0.0-7.0) % Baso % (Auto) (0.0-2.0) % Lymph # (Auto) (1.50-4.80) K/mcL Vernon # (Auto) (0.10-0.90) K/mcL Eos # (Auto) (0.00-0.70) K/mcL Baso # (Auto) (0.00-0.20) K/mcL Absolute Neutrophils (1.80-8.00) K/mcL Sodium 138 Potassium 3.9 Chloride 105 Carbon Dioxide 26 Anion Gap 7.0 L BUN 10 Creatinine 0.8 GFR Calculation 100 Glucose 92 Calcium 8.7 Total Bilirubin 0.4 AST 13 ALT 9 Alkaline Phosphatase 97 Total Protein 6.2 Albumin 3.4 Globulin 2.8 Albumin/Globulin Ratio 1.2 Urine Color Urine Appearance (Clear) Urine pH (5.0-9.0) Ur Specific [place] (1.000-1.035) Urine Protein (Negative) mg/dL Urine Glucose (UA) (Negative) mg/dL Urine Ketones (Negative) mg/dL Urine Occult Blood (Negative) gilson/mcL Urine Nitrate (Negative) Urine Bilirubin (Negative) mg/dL Urine Urobilinogen mg/dL Ur Leukocyte Esterase (Negative) /ug Urine RBC (0-3) /hpf Urine WBC (0-4) /hpf Ur Squamous Epith Cells (0-4) /hpf Urine Bacteria (0) /hpf Urine Mucus (None) /hpf Ur Culture Indicated? Radiology Data Radiology results reviewed: Yes I reviewed the patient's radiology results. Pulse Oximetry Data Pulse Ox %: 96 Interpretation: 96% on room air within normal limits Discharge Plan Patient/Caregiver Discharge Instructions Pt seen by [employer]IC/PA only: No Clinical Impression: Colitis, Acute UTI (urinary tract infection) Patient Disposition: Xfer As Inpt ([facility]) Follow up with: Lon Stinson PA-C [Primary Care Provider] - Prescriptions: No Action trazodone 100 mg tablet 100 mg PO QHS Qty: 90 RF: 1 D-Mannose 500 mg capsule 1 cap PO BID 31 Days Qty: 62 RF: 5 potassium citrate 15 mEq tablet extended release 15 meq PO TID 30 Days Qty: 90 RF: 11 Centrum Men 8 mg iron- 200 mcg-600 mcg tablet 1 tab PO QDAY 30 Days Qty: 30 RF: 11 levothyroxine 75 mcg capsule 75 mcg PO QDAY 30 Days Qty: 30 RF: 11 bisacodyl 5 mg tablet,delayed release (DR/EC) 5 mg PO DAILY Qty: 90 RF: 3 aspirin 81 mg tablet,delayed release (DR/EC) 81 mg PO QDAY 30 Days Qty: 30 RF: 5 magnesium citrate Solution 118 ml PO PRN PRN (Reason: Constipation) Qty: 296 RF: 1 chromium picolinate 200 mcg tablet 200 mcg PO BID 31 Days Qty: 62 RF: 5 magnesium 250 mg tablet 250 mg PO BID 31 Days Qty: 62 RF: 5 docusate sodium 100 mg capsule 100 mg PO QDAY Qty: 180 RF: 3 polyethylene glycol 3350 [Miralax] 17 gram powder in packet 8.5 g PO DAILY Qty: 60 RF: 0 Banatrol Plus Powder In Packet See Rx Instructions PO .COMPLEX Qty: 75 RF: 0 fluticasone propionate 50 mcg/actuation spray,suspension 2 spray INTRANASAL QDAY Qty: 16 RF: 5 Renacidin 1,980.6 mg-59.4 mg-980.4mg/30mL solution 30 ml irrigation BID Qty: 900 RF: 0 acetaminophen 500 mg tablet 1,000 mg PO TID PRN (Reason: Pain/Headache) Qty: 60 RF: 2 bupropion HCl 150 mg tablet extended release 300 mg PO DAILY RF: 0 divalproex 500 mg tablet,delayed release (DR/EC) 1,000 mg PO DAILY RF: 0 fluvoxamine 100 mg tablet 100 mg PO TID RF: 0 melatonin 5 mg capsule 5 mg PO HS RF: 0 Balance B 50 PO RF: 0 Centrum for Men PO RF: 0 sennosides-docusate sodium 8.6-50 mg tablet 4 tab-cap PO QPM RF: 0 bisacodyl 10 mg suppository 10 mg MT QDAY PRN (Reason: constipation) RF: 0 Remedy Repair cream topical PRNRF: 0 Renacidin 1,980.6 mg-59.4 mg-980.4mg/30mL solution 30 ml IRRIGATION BID RF: 0 Desitin Rapid Relief 13 % cream See Rx Instructions TOPICAL TID PRN (Reason: skin irritation) RF: 0 Remedy Nutrashield Skin Protec 1 % cream 1 applic TOPICAL TID-QID PRNRF: 0 Aubagio 14 mg tablet 14 mg PO QDAY RF: 0 bupropion HCl 150 mg tablet sustained-release 12 hr 150 mg PO QNOON RF: 0 cholecalciferol (vitamin D3) [Vitamin D3] 125 mcg (5,000 unit) Tablet 5,000 unit PO DAILY RF: 0 metformin 500 mg tablet extended release 24 hr 500 mg PO 1700 RF: 0 sennosides-docusate sodium [Senna-S] 8.6-50 mg tablet 1 tab-cap PO QID Qty: 120 RF: 0
[2020-06-26 10:20] LABS: Appearance,Urine Clear (Clear); Bilirubin,Urine Negative (Negative); Color,Urine Yellow; Culture Indicated,Urine yes; Glucose,Urine (UA) Negative (Negative); Ketones,Urine Negative (Negative); Leukocyte Esterase,Urine Small /ug (Negative); Mucus,Urine FEW /hpf; Nitrate,Urine Negative (Negative); PH,Urine 8.5 (5.0-9.0); Protein,Urine Negative (Negative); Urine Blood Negative ery/mcL (Negative); Urine RBC 4 /hpf (0-3); Urine Squamous Epithelial Cell 0 /hpf (0-4); Urine WBC 16 /hpf (0-4); Urobilinogen,Urine Normal
[2020-06-26] MEDS ORDERED: ONDANSETRON 4 MG/2 ML VIAL IV ONE (11:22)
[2020-06-26] MEDS ORDERED: morphine 4 MG/ML VIAL IV ONE (11:22)
[2020-06-26] MEDS ORDERED: 0.9 % SODIUM CHLORIDE 1,000 ML IV ONE (11:22)
[2020-06-26 12:15] LABS: Basophils # (Auto) 0.04 K/mcL (0.00-0.20); Basophils % (Auto) 0.5 % (0.0-2.0); Eosinophils # (Auto) 0.17 K/mcL (0.00-0.70); Eosinophils % (Auto) 2.3 % (0.0-7.0); Hematocrit 39.3 % (41.0-55.0); Hemoglobin 12.8 g/dL (13.5-16.5); Lymphocytes # (Auto) 2.26 K/mcL (1.50-4.80); Lymphocytes % (Auto) 30.3 % (15.0-49.0); Mean Cell Volume 96.6 fL (80.0-100.0); Mean Corpuscular HGB Conc 32.6 g/dL (31.0-36.0); Mean Platelet Volume 9.7 fL (7.4-10.4); Monocytes # (Auto) 0.84 K/mcL (0.10-0.90); Monocytes % (Auto) 11.3 % (1.0-12.0); Neutrophils % (Auto) 55.6 % (38.0-78.0); Platelet Count 193 K/mcL (140-440); RBC 4.07 M/mcL (4.50-5.90); Red Cell Distribution Width 14.3 % (11.5-14.5); WBC 7.5 K/mcL (4.5-11.0)
--- NOTE | 2020-06-26 13:29 | Cat Scan Report ---
CLINICAL INFORMATION: Abdominal pain and diarrhea COMPARISON: Abdomen and pelvic CT 01/26/2020 TECHNIQUE: Following enteric contrast, 80 cc of Isovue-370 were injected intravenously, and 60 seconds later, 0.625 mm helical slices were obtained from the mid heart through the subtrochanteric regions. Following reconstruction, 2.5 mm sagittal, coronal and axial reformatted images were processed and reviewed at bone, lung and soft tissue windows. Five minutes later, 0.625 mm helical slices were obtained from the mid heart through the kidneys and viewed at soft tissue windows.The exam was performed using radiation dose optimization techniques including, but not limited to, automated exposure control, adjustment of the mA and/or kV according to patient size and use of iterative reconstruction technique. FINDINGS: Lung bases show subsegmental atelectasis. 14 mm groundglass nodule in the right middle lobe is new since the comparison exam five months and is almost certainly inflammatory. No effusion. The visualized heart is grossly normal in size. There is vague submucosal low-attenuation in the left ventricular cardiac apex which is suggestive of nontransmural infarct. Please correlate with history and EKG findings. There are no effusions. Abdominal images show the gallbladder is contracted and not well-visualized. Hepatic and common bile ducts are normal caliber: CBD is 5 mm. The liver, pancreas, both adrenal glands, spleen, kidneys and aorta including aortic branches are normal in size, configuration and attenuation without focal lesion Pelvic images show suprapubic catheter properly positioned in the urinary bladder. Urinary bladder demonstrates diffuse wall thickening. Prostate is normal in size. There is marked concentric wall thickening of the distal sigmoid and rectum with inflammation in the perirectal fat suggesting infectious or inflammatory proctitis. The stomach small large bowel show symmetric dilatation with a large amount of colonic stool. Suspect is more likely related ileus than distal colonic obstruction. IMPRESSION: 1. Severe distal colitis in the sigmoid region and proctitis. There is moderate symmetric dilatation of the stomach small and large gallbladder enlargement colonic stool almost certainly related to reactive ileus rather than distal colonic obstruction. 2. Suprapubic catheter in satisfactorily urinary bladder and diffuse urinary bladder wall thickening suggesting cystitis. 3. Mild elevation left diaphragm new finding 4. Possible subendocardial infarct in the cardiac apex. Deferral to EKG and other cardiac history Interpreted and Authenticated by: Miguel Cade 06/26/20
[2020-06-26 13:52] LABS: ALT/SGPT 9 U/L (<40); AST/SGOT 13 U/L (<40); Albumin 3.4 gm/dL (3.2-5.2); Albumin/Globulin Ratio 1.2 (1.0-2.3); Alkaline Phosphatase 97 U/L (39-117); Bilirubin,Total 0.4 mg/dL (0.1-1.0); Blood Urea Nitrogen 10 mg/dL (6-20); Calcium 8.7 mg/dL (8.6-10.4); Carbon Dioxide 26 mmol/L (22-30); Chloride 105 mmol/L (96-108); Globulin 2.8 gm/dL (2.2-3.7); Glomerular Filtration Rate 100; Glucose 92 mg/dL (70-105)
[2020-06-26] MEDS ORDERED: PIPERACILLIN SODIUM/TAZOBACTAM 4.5 GM in DEXTROSE 5% IN WATER 50 ML IV ONE (15:13)
[2020-06-26] MEDS ORDERED: VANCOMYCIN 1,500 MG in 0.9 % SODIUM CHLORIDE 500 ML IV ONE (15:14)
[2020-06-26] MEDS ORDERED: POTASSIUM CHLORIDE 40 MEQ in DEXTROSE 5% IN WATER 500 ML IV PRN (16:14)
[2020-06-26] MEDS ORDERED: MAGNESIUM SULFATE 2 GM/50 ML BAG IV PRN (16:14)
[2020-06-26] MEDS ORDERED: NEUTRA PHOS 1 PACKET PO PRN (16:14)
[2020-06-26] MEDS ORDERED: VANCOMYCIN PER PHARMACY IV SCH (16:14)
[2020-06-26] MEDS ORDERED: ONDANSETRON 4 MG ODT TABLET SL PRN (16:14)
[2020-06-26] MEDS ORDERED: 0.9 % SODIUM CHLORIDE 1,000 ML IV SCH (16:14)
[2020-06-26] MEDS ORDERED: ACETAMINOPHEN 650 MG/65 ML BAG IV PRN (16:14)
[2020-06-26] MEDS ORDERED: HYDROmorphone 0.5 MG/0.5 ML SYRINGE IV PRN (16:14)
[2020-06-26] MEDS ORDERED: ACETAMINOPHEN 325 MG TABLET PO PRN (16:14)
[2020-06-26] MEDS ORDERED: ONDANSETRON 4 MG/2 ML VIAL IV PRN (16:14)
[2020-06-26] MEDS ORDERED: POLYETHYLENE GLYCOL 3350 17 GM PACKET PO PRN (16:14)
[2020-06-26] MEDS ORDERED: MELATONIN 3 MG TABLET PO PRN (16:14)
--- NOTE | 2020-06-26 16:55 | Internal Med History&Physical ---
HPI History of Present Illness Patient information: Note initiated : 06/26/20 at 4:55 pm Service Date, if different from initiated Date: [] Patient: Buck Diamond a 55 y/o M admitted on 06/26/20 for Purulent Substance in catheter. Chief Complaint: History of present illness: Mr. Diamond is a 55 year old M with a history of developmental delay who presents to the ER with concerns of diarrhea/blood smeared stool and abdominal cramps. Patient has suprapubic catheter and suffers from prior episodes of alternating bowel habits including constipation with diarrhea. He presented to the ER for evaluation. Initial work-up was consistent with severe colitis on imaging/pyuria on UA. Patient was started on antibiotic coverage/crystalloids after cultures were drawn. Hospitalist service was consulted. At the time of evaluation patient is alert. He was able to answer some of the questions. He denies fever chills, endorses to diarrhea and bloody mucus. He is very pleasant and does not seem to apparent distress. No family members present. Most of the history is obtained from review of medical records/ER physician. I discussed the case with GI and following previous hospitalization underwent colonoscopy that was consistent with ischemic colitis. He is on aggressive bowel regimen to prevent constipation and has not had a hospitalization over the last 5 months. Review of systems 10 point review system was performed and is negative except for ones discussed above PFSH PFSH All Active Problems (Updated 06/26/20 @ 15:[address] MD) Colitis (Acute) Acute UTI (urinary tract infection) (Acute) Weakness (Acute) Constipation (Acute) Acute cystitis without hematuria (Acute) Medicare annual wellness visit, subsequent (Acute) Gastroenteritis (Acute) Patient dependent upon caregiver (Chronic) Impaired cognitive ability (Chronic) Decubitus ulcer of sacral region, stage 2 (Acute) Decubitus ulcer of sacral region, stage 2 (Acute) Sepsis (Acute) Acute UTI (Acute) Acute URI (Acute) Suprapubic catheter dysfunction (Acute) Vasovagal syncope (Acute) Laceration of scrotum (Acute) Microalbuminuria (Chronic) Catheter (urine) change required (Chronic) History of malignant melanoma (Chronic) History of urinary incontinence (Chronic) History of tonsillectomy (Chronic) History of suprapubic catheter (Chronic) Conroy catheter in place (Chronic) History of cystoscopy (Chronic 02/04/14) Urinary retention (Chronic 09/09/13) Urinary incontinence (Chronic) Urethral catheter mechanical complication (Chronic) Rhinitis, allergic (Chronic) Obsessive-compulsive disorder (Chronic) Neurogenic bladder (Chronic 09/09/13) Myocardial infarction, old (Chronic) Multiple sclerosis (Chronic) Mild cognitive impairment (Chronic) Leukocytopenia (Chronic) Insomnia (Chronic) Hypothyroidism (acquired) (Chronic) Orthostatic hypotension (Chronic) Hyperlipidemia (Chronic) Esophageal reflux (Chronic) Diabetes mellitus, type II (Chronic) Developmental delay (Chronic) Depressive disorder (Chronic) Dementia (Chronic) Degeneration of lumbar or lumbosacral intervertebral disc (Chronic) Constipation (Chronic) Chronic pain (Chronic) CAD (coronary artery disease) (Chronic) Anxiety disorder (Chronic) Anoxic brain damage (Chronic) Medical History (Updated 06/26/20 @ 15:[address] MD) Anoxic brain damage since child (12/26/2013 Dr Vazquez) Anxiety disorder Asthma CAD (coronary artery disease) 1996 Catheter (urine) change required Constipation Degeneration of lumbar or lumbosacral intervertebral disc Depressive disorder Developmental delay Diabetes mellitus, type II Esophageal reflux History of malignant melanoma melanoma, right shoulder, Dr. Hodges, Cruz's level II melanoma right shoulder Hyperlipidemia Hypertension, essential Hypoglycemia Hypothyroidism (acquired) Insomnia Leukocytopenia Microalbuminuria Mild cognitive impairment Multiple sclerosis Myocardial infarction, old 1996 Neurogenic bladder (09/09/13) Obesity Obsessive-compulsive disorder Orthostatic hypotension Patient dependent upon caregiver Rhinitis, allergic Urethral erosion by catheter Urinary tract infection Surgical History Conroy catheter in place currently in (12/26/2013 Dr. Vazquez) History of cystoscopy (02/04/14) History of suprapubic catheter 12/26/2013 Dr Vazquez //// 01/08/2014 History of tonsillectomy (12/26/2013 Dr Vazquez) History of urinary incontinence Urinary incontinence procedure December 2006 Hx of cataract surgery Right 04/12/17 Family History Unknown Diabetes mellitus Family history of malignant neoplasm Social History household members: friend(s) housing: apartment lives independently: No marital status: single occupational status: disabled eating out: rarely or never physical activity: walking smoking status: Never smoker alcohol intake frequency: does not drink substance use type: does not use MEDS/ALLERGIES Home Medications and Allergies Home Medications Medication Instructions Recorded Confirmed Type bupropion HCl 150 mg tablet,12 hr 300 mg PO DAILY tab 01/05/15 06/26/20 History sustained-release divalproex 500 mg tablet,delayed 1,000 mg PO DAILY tab 01/05/15 06/26/20 History release fluvoxamine 100 mg tablet 100 mg PO TID tab 01/05/15 06/26/20 History melatonin 5 mg capsule 5 mg PO HS cap 01/05/15 06/26/20 History trazodone 100 mg tablet 100 mg PO QHS #90 tab 08/18/15 06/26/20 Rx teriflunomide 14 mg tablet 14 mg PO QDAY 11/27/19 06/26/20 History D-Mannose 1 cap PO BID 31 Days #62 cap 01/15/20 06/26/20 Rx bupropion HCl 150 mg PO QNOON 01/27/20 06/26/20 History cholecalciferol (vitamin D3) 5,000 unit PO DAILY 01/27/20 06/26/20 History [Vitamin D3] metformin 500 mg PO 1700 01/27/20 06/26/20 History levothyroxine 75 mcg capsule 75 mcg PO QDAY 30 Days #30 cap 02/26/20 06/26/20 Rx multivit,Ca,min-iron 8 mg-folic 1 tab PO QDAY 30 Days #30 tab 02/26/20 06/26/20 Rx acid 200 mcg-lycopene 600 mcg tablet potassium citrate 15 mEq (1,620 15 meq PO TID 30 Days #90 tab 02/26/20 06/26/20 Rx mg) tablet,extended release bisacodyl 5 mg tablet,delayed 5 mg PO DAILY #90 tab 02/29/20 06/26/20 Rx release aspirin 81 mg tablet,delayed 81 mg PO QDAY 30 Days #30 tab 03/18/20 06/26/20 Rx release Remedy Repair cream See Rx Instructions .ROUTE 04/05/20 06/26/20 History .COMPLEX PRN bisacodyl 10 mg rectal suppository 10 mg MO QDAY PRN supp 04/05/20 06/26/20 History citric ac 1980.6 mg-glucono 59.4 30 ml IRRIGATION BID ml 04/05/20 06/26/20 History mg-mag carb 980.4 mg/30 mL irrig.soln dimethicone 1 % topical cream 1 applic TOPICAL TID-QID PRN 04/05/20 06/26/20 History sennosides 8.6 mg-docusate sodium 4 tab-cap PO QPM tab 04/05/20 06/26/20 History 50 mg tablet zinc oxide 13 % topical cream See Rx Instructions TOPICAL TID 04/05/20 06/26/20 History PRN g magnesium citrate 118 ml PO PRN PRN #296 ml 04/07/20 06/26/20 Rx sennosides-docusate sodium 1 tab-cap PO QID #120 tab 04/09/20 06/26/20 Rx [Senna-S] chromium picolinate 200 mcg tablet 200 mcg PO BID 31 Days #62 tab 05/07/20 06/26/20 Rx magnesium 250 mg tablet 250 mg PO BID 31 Days #62 tab 05/07/20 06/26/20 Rx docusate sodium 100 mg capsule 100 mg PO QDAY #180 cap 05/11/20 06/26/20 Rx polyethylene glycol 3350 17 gram 8.5 g PO DAILY #60 each 05/11/20 06/26/20 Rx oral powder packet banana See Rx Instructions PO .COMPLEX 05/12/20 06/26/20 Rx flakes-transgalactooligosaccharide #75 each oral powder packet fluticasone propionate 50 2 spray INTRANASAL QDAY #16 g 05/18/20 06/26/20 Rx mcg/actuation nasal spray,suspension citric ac 1980.6 mg-glucono 59.4 30 ml IRRIGATION BID #900 ml 06/09/20 06/26/20 Rx mg-mag carb 980.4 mg/30 mL irrig.soln acetaminophen 500 mg tablet 1,000 mg PO TID PRN #60 tab 06/15/20 06/26/20 Rx xcgbrmud-dcu-KX-lycopen-lutein 1 tab PO QDAY 06/26/20 06/26/20 History [Centrum Silver Men] vitamin B complex [Balance B-50] 1 tab PO QDAY 06/26/20 06/26/20 History Allergies Allergy/AdvReac Type Severity Reaction Status Date / Time No Known Drug Allergies Allergy Verified 06/26/20 18:42 EXAM Constitutional Vitals: Temp Pulse Resp BP Pulse Ox 97.5 F 62 16 122/66 99 06/26/20 16:14 06/26/20 16:14 06/26/20 16:14 06/26/20 16:14 06/26/20 16:14 Nondistressed/cooperative and pleasant demeanor Head normocephalic Oral cavity moist No ear nose discharge Eye movement symmetrical Neck supple no lymphadenopathy S1-S2 occasionally irregular Nonlabored breathing Nondistended but minimally tender abdomen, suprapubic catheter cloudy urine Lower extremity no cyanosis clubbing or joint swelling Skin no suspicious lesion Psych alert cooperative Neuro at baseline with underlying developmental delay DATA Data Completed and Pending Labs: Labs from last 24 hours 06/26/20 06/26/20 06/26/20 13:09 11:40 11:39 WBC 7.5 RBC 4.07 L Hgb 12.8 L Hct 39.3 L MCV 96.6 MCH 31.4 MCHC 32.6 RDW 14.3 Plt Count 193 MPV 9.7 Neut % (Auto) 55.6 Lymph % (Auto) 30.3 Williamson % (Auto) 11.3 Eos % (Auto) 2.3 Baso % (Auto) 0.5 Lymph # (Auto) 2.26 Williamson # (Auto) 0.84 Eos # (Auto) 0.17 Baso # (Auto) 0.04 Absolute Neutrophils 4.14 Sodium 138 TNP Potassium 3.9 TNP Chloride 105 TNP Carbon Dioxide 26 TNP Anion Gap 7.0 L TNP BUN 10 TNP Creatinine 0.8 TNP GFR Calculation 100 TNP Glucose 92 TNP Calcium 8.7 TNP Total Bilirubin 0.4 TNP AST 13 TNP ALT 9 TNP Alkaline Phosphatase 97 TNP Total Protein 6.2 TNP Albumin 3.4 TNP Globulin 2.8 TNP Albumin/Globulin Ratio 1.2 TNP Urine Color Urine Appearance Urine pH Ur Specific [place] Urine Protein Urine Glucose (UA) Urine Ketones Urine Occult Blood Urine Nitrate Urine Bilirubin Urine Urobilinogen Ur Leukocyte Esterase Urine RBC Urine WBC Ur Squamous Epith Cells Urine Bacteria Urine Mucus Ur Culture Indicated? 06/26/20 09:43 WBC RBC Hgb Hct MCV MCH MCHC RDW Plt Count MPV Neut % (Auto) Lymph % (Auto) Williamson % (Auto) Eos % (Auto) Baso % (Auto) Lymph # (Auto) Williamson # (Auto) Eos # (Auto) Baso # (Auto) Absolute Neutrophils Sodium Potassium Chloride Carbon Dioxide Anion Gap BUN Creatinine GFR Calculation Glucose Calcium Total Bilirubin AST ALT Alkaline Phosphatase Total Protein Albumin Globulin Albumin/Globulin Ratio Urine Color Yellow Urine Appearance Clear Urine pH 8.5 Ur Specific [place] 1.020 Urine Protein Negative Urine Glucose (UA) Negative Urine Ketones Negative Urine Occult Blood Negative Urine Nitrate Negative Urine Bilirubin Negative Urine Urobilinogen Normal Ur Leukocyte Esterase Small A Urine RBC 4 H Urine WBC 16 H Ur Squamous Epith Cells 0 Urine Bacteria None Urine Mucus Few A Ur Culture Indicated? yes A/P Narrative A/P Narrative: * Severe colitis-likely ischemic however rule out infectious etiology, start empiric antibiotic coverage. Stool studies/C. difficile/crystalloids and suppo rtive management. * Complicated catheter related UTI antibiotic coverage * Diarrhea continue crystalloid/supportive management * Neurogenic bowel with alternating diarrhea constipation. Obtain records from outpatient GI/endoscopy studies from past * History of developmental delay/occasional intermittent agitation continue home dose Depakote/bupropion and fluvoxamine * DM type II continue CCD/prandial insulin liquid diet at this time * Prophylax Heparin Plan * Inpatient admission * Antibiotic coverage * Pancultures * Rule out C. difficile * Crystalloids and supportive management * Pre-existing medical condition management as above Time Spent With Patient Time: Total time spent is greater than 50% in coordination of care (as docu mented) at patient's floor/unit and/or counseling patient:
[2020-06-26] MEDS: 0.9 % SODIUM CHLORIDE 1,000 ML IV SCH (17:22)
[2020-06-26] MEDS: PIPERACILLIN SODIUM/TAZOBACTAM 3.375 GM in DEXTROSE 5% IN WATER 50 ML IV SCH ×2 (18:16→23:48)
[2020-06-26] MEDS: HEPARIN 5,000 UNIT/ML VIAL SQ SCH (19:03)
[2020-06-26] MEDS: VANCOMYCIN 1,500 MG in 0.9 % SODIUM CHLORIDE 500 ML IV SCH (20:06)
[2020-06-26] MEDS: 0.9 % SODIUM CHLORIDE 10 ML SYRINGE IV SCH (20:06)
[2020-06-26] MEDS ORDERED: SENNOSIDES/DOCUSATE SODIUM 1 TAB TABLET PO SCH (21:00)
[2020-06-27] MEDS: PIPERACILLIN SODIUM/TAZOBACTAM 3.375 GM in DEXTROSE 5% IN WATER 50 ML IV SCH ×2 (05:51→11:59)
[2020-06-27] MEDS: 0.9 % SODIUM CHLORIDE 10 ML SYRINGE IV SCH ×3 (05:52→20:55)
[2020-06-27 07:03] LABS: Basophils # (Auto) 0.05 K/mcL (0.00-0.20); Basophils % (Auto) 0.8 % (0.0-2.0); Eosinophils % (Auto) 4.6 % (0.0-7.0); Hematocrit 38.2 % (41.0-55.0); Hemoglobin 12.9 g/dL (13.5-16.5); Lymphocytes # (Auto) 2.35 K/mcL (1.50-4.80); Lymphocytes % (Auto) 35.9 % (15.0-49.0); Mean Cell Volume 94.1 fL (80.0-100.0); Mean Corpuscular HGB Conc 33.8 g/dL (31.0-36.0); Mean Platelet Volume 9.6 fL (7.4-10.4); Monocytes # (Auto) 0.86 K/mcL (0.10-0.90); Monocytes % (Auto) 13.1 % (1.0-12.0); Neutrophils % (Auto) 45.6 % (38.0-78.0); Platelet Count 195 K/mcL (140-440); RBC 4.06 M/mcL (4.50-5.90); Red Cell Distribution Width 13.7 % (11.5-14.5); WBC 6.5 K/mcL (4.5-11.0)
[2020-06-27 07:23] LABS: ALT/SGPT 9 U/L (<40); AST/SGOT 15 U/L (<40); Albumin 3.3 gm/dL (3.2-5.2); Albumin/Globulin Ratio 1.2 (1.0-2.3); Alkaline Phosphatase 93 U/L (39-117); Bilirubin,Direct < 0.2 mg/dL (0-0.3); Bilirubin,Total 0.5 mg/dL (0.1-1.0); Blood Urea Nitrogen 9 mg/dL (6-20); Calcium 8.6 mg/dL (8.6-10.4); Carbon Dioxide 22 mmol/L (22-30); Chloride 105 mmol/L (96-108); Globulin 2.7 gm/dL (2.2-3.7); Glomerular Filtration Rate 105; Glucose 108 mg/dL (70-105); Lactate Dehydrogenase 177 U/L (135-225); Phosphorous 3.1 mg/dL (2.5-4.5); Triglycerides 44 mg/dL (<150); Uric Acid 2.5 mg/dL (2.5-8.0)
[2020-06-27] MEDS: VANCOMYCIN 1,500 MG in 0.9 % SODIUM CHLORIDE 500 ML IV SCH (09:06)
[2020-06-27] MEDS: HEPARIN 5,000 UNIT/ML VIAL SQ SCH ×2 (10:48→20:53)
[2020-06-27] MEDS: 0.9 % SODIUM CHLORIDE 1,000 ML IV SCH ×2 (12:03→14:04)
--- NOTE | 2020-06-27 12:14 | Internal Med Progress Note ---
SUBJECTIVE Subjective Patient information: Note initiated : 06/27/20 at 12:11 pm Service Date, if different from initiated Date: [] Patient: Buck Diamond a 55 y/o M admitted on 06/26/20 for Purulent Substance in catheter. Chief Complaint: [] Interval history: Mr. Diamond is a 55 year old M with a history of developmental delay who presents to the ER with concerns of diarrhea/blood smeared stool and abdominal cramps. Patient has suprapubic catheter and suffers from prior episodes of alternating bowel habits including constipation with diarrhea. He p resented to the ER for evaluation. Initial work-up was consistent with severe colitis on imaging/pyuria on UA. Patient was started on antibiotic coverage/crystalloids after cultures were drawn. Hospitalist service was consulted. At the time of evaluation patient is alert. He was able to answer some of the questions. He denies fever chills, endorses to diarrhea and bloody mucus. He is very pleasant and does not seem to apparent distress. No family members present. Most of the history is obtained from review of medical records/ER physician. I discussed the case with GI and following previous hospitalization underwent colonoscopy that was consistent with ischemic colitis. He is on aggressive bowel regimen to prevent constipation and has not had a hospitalization over the last 5 months. 06/27 patient doing better. Improved diarrhea. No overnight bloody stools. Hemoglobin stable. Continue crystalloids and started on liquid diet. White count stable. Hemodynamically stable. No additional concerns per nursing staff. De-escalate antibiotics to Cipro Flagyl as clinical presentation more consistent with ischemic colitis. Constitutional Vitals: Vital Signs Temp Pulse Resp BP Pulse Ox 98.1 F 61 18 103/72 96 06/27/20 11:00 06/27/20 11:00 06/27/20 11:00 06/27/20 11:00 06/27/20 11:00 Period Temp Pulse Resp BP Sys/Ayala Pulse Ox Last 24 Hr 97.5 F-98.6 F 51-83 16-18 94-149/56-94 95-100 Intake and Output 06/26/20 06/27/20 06/27/20 20:59 05:59 13:59 Intake Total 1340 Output Total 202 Balance 1138 Weight alert and nondistressed Nonlabored breathing Suprapubic catheter draining clear urine. Leaking around the suprapubic cystostomy site Intake & Output: Intake & Output 06/26/20 06/27/20 06/27/20 20:59 05:59 13:59 Intake Total 1340 Output Total 202 Balance 1138 Weight Intake: IV 550 Sodium Chloride 0.9% 1,000 ml @ Wide Open IV BOLUS [facility] Rx#: [id number] Zosyn 3.375 gm In Dextrose 5% 50 in Water 50 ml @ 100 mls/hr IV Q6H [facility] Rx#:[id number] Vancomycin 1,500 mg In Sodium 500 Chloride 0.9% 500 ml @ 333.3 mls/hr IV Q12H [facility] Rx#: [id number] Oral 790 Output: Urine Catheter Amount 200 # of times incontinent of urine 2 Other: Meal Breakfast Percent of Meal Consumed 100% Feeding Ability Independent Urine Appearance Clear Suprapubic Clear Urine Color Pale Suprapubic Pale Urine Odor Normal Stool Size Moderate Stool Color Brown Stool Consistency Formed # Bowel Movements 1 # of times incontinent of Bowels OBJ DATA Labs CBC & Chem 7: 06/27/20 05:13 06/27/20 05:13 Labs: Abnormal Lab Results 06/27/20 06/27/20 06/27/20 05:13 05:13 01:09 RBC 4.06 L Hgb 12.9 L 12.5 L Hct 38.2 L [place] % (Auto) 13.1 H Anion Gap Glucose 108 H C-Reactive Protein Ur Leukocyte Esterase Urine RBC Urine WBC Urine Mucus 06/26/20 06/26/20 06/26/20 20:06 13:09 13:09 RBC Hgb 12.1 L Hct [place] % (Auto) Anion Gap 7.0 L Glucose C-Reactive Protein 1.10 H Ur Leukocyte Esterase Urine RBC Urine WBC Urine Mucus 06/26/20 06/26/20 11:40 09:43 RBC 4.07 L Hgb 12.8 L Hct 39.3 L [place] % (Auto) Anion Gap Glucose C-Reactive Protein Ur Leukocyte Esterase Small A Urine RBC 4 H Urine WBC 16 H Urine Mucus Few A Meds: Medications Acetaminophen (Acetaminophen 325 Mg Tablet) 650 mg PO Q4-6HP PRN; Protocol PRN Reason: Per Pain Protocol/Fever > 101 Heparin Sodium (Porcine) (Heparin 5,000 Unit/Ml Vial) 5,000 unit SQ Q12 [facility] Last Admin: 06/27/20 10:48 Dose: 5,000 unit Documented by: Hydromorphone HCl (Hydromorphone 0.5 Mg/0.5 Ml Syringe) 0.25 - 0.5 mg IV Q4HP PRN; Protocol PRN Reason: Per Pain Protocol Sodium Chloride (Sodium Chloride 0.9%) 1,000 mls @ 0 mls/hr IV BOLUS [facility] Last Infusion: 06/26/20 18:06 Dose: Infused Documented by: Potassium Chloride 40 meq/ (Dextrose) 520 mls @ 130 mls/hr IV UD PRN PRN Reason: K+ = or < 3.5 Acetaminophen (Ofirmev) 650 mg in 65 mls @ 130 mls/hr IV Q6HP PRN; Protocol PRN Reason: Per Pain Protocol/Fever > 101 Magnesium Sulfate (Magnesium Sulfate) 2 gm in 50 mls @ 50 mls/hr IV UD PRN PRN Reason: MG = or < 1.7 Last Admin: 06/27/20 12:00 Dose: 50 mls/hr Documented by: Piperacillin Sod/Tazobactam (Sod 3.375 gm/ Dextrose) 50 mls @ 100 mls/hr IV Q6H [facility]; Protocol Last Admin: 06/27/20 11:59 Dose: 100 mls/hr Documented by: Sodium Chloride (Sodium Chloride 0.9%) 1,000 mls @ 50 mls/hr IV .Q20H [facility] Stop: 06/29/20 04:13 Last Admin: 06/27/20 12:03 Dose: Not Given Documented by: Vancomycin HCl 1,500 mg/ (Sodium Chloride) 500 mls @ 333.3 mls/hr IV Q12H [facility] Last Infusion: 06/27/20 12:03 Dose: Infused Documented by: Melatonin (Melatonin 3 Mg Tablet) 3 mg PO HSP PRN PRN Reason: Insomnia Ondansetron HCl (Ondansetron 4 Mg Odt Tablet) 4 mg SL Q4-6HP PRN; Protocol PRN Reason: Nausea And Vomiting Ondansetron HCl (Ondansetron 4 Mg/2 Ml Vial) 4 mg IV Q4-6HP PRN; Protocol PRN Reason: Nausea And Vomiting Polyethylene Glycol (Polyethylene Glycol 3350 17 Gm Packet) 17 gm PO DAILYP PRN PRN Reason: Constipation Potassium/Phosphorus/Sodium (Neutra Phos 1 Packet) 2 packet PO DAILY PRN PRN Reason: PHOS <2.5 Senna/Docusate Sodium (Sennosides/Docusate Sodium 1 Tab Tablet) 1 tab PO HS [facility] Last Admin: 06/26/20 20:06 Dose: Not Given Documented by: Sodium Chloride (0.9 % Sodium Chloride 10 Ml Syringe) 10 ml IV Q8 [facility] Last Admin: 06/27/20 05:52 Dose: Not Given Documented by: Vancomycin HCl (Vancomycin Per Pharmacy) 1 order IV UD [facility]; Protocol A/P Narrative A/P Narrative: * Severe colitis-likely ischemic clinically improving. De-escalate antibiotics Cipro Flagyl. Negative C. difficile * Complicated catheter related UTI continue antibiotic coverage * Diarrhea continue crystalloid/supportive management * Neurogenic bowel with alternating diarrhea constipation. Obtain records from outpatient GI/endoscopy studies from past * History of developmental delay/occasional intermittent agitation continue home dose Depakote/bupropion and fluvoxamine * DM type II continue CCD/prandial insulin liquid diet at this time * Prophylax Heparin Plan * De-escalate antibiotics * Crystalloids and supportive management * Pre-existing medical condition management as above Time Spent With Patient Time: Total time spent is greater than 50% in coordination of care (as documented) at patient's floor/unit and/or counseling patient:
[2020-06-27] MEDS ORDERED: CIPROFLOXACIN 400 MG/200 ML BAG IV SCH (13:00)
[2020-06-27] MEDS ORDERED: HYDROmorphone 0.5 MG/0.5 ML SYRINGE IV PRN (13:48)
[2020-06-27] MEDS ORDERED: ONDANSETRON 4 MG ODT TABLET SL PRN (13:48)
[2020-06-27] MEDS ORDERED: POTASSIUM CHLORIDE 40 MEQ in DEXTROSE 5% IN WATER 500 ML IV PRN (13:48)
[2020-06-27] MEDS ORDERED: ACETAMINOPHEN 500 MG TABLET PO PRN (13:48)
[2020-06-27] MEDS ORDERED: ONDANSETRON 4 MG/2 ML VIAL IV PRN (13:48)
[2020-06-27] MEDS ORDERED: ACETAMINOPHEN 650 MG/65 ML BAG IV PRN (13:48)
[2020-06-27] MEDS ORDERED: POLYETHYLENE GLYCOL 3350 17 GM PACKET PO PRN (13:48)
[2020-06-27] MEDS ORDERED: MAGNESIUM SULFATE 2 GM/50 ML BAG IV PRN (13:48)
[2020-06-27] MEDS ORDERED: MELATONIN 3 MG TABLET PO PRN (13:48)
[2020-06-27] MEDS ORDERED: MAGNESIUM CITRATE 300 ML ORAL.SOL PO PRN (13:48)
[2020-06-27] MEDS ORDERED: ZINC OXIDE 13% TOPICAL PRN (13:48)
[2020-06-27] MEDS ORDERED: NEUTRA PHOS 1 PACKET PO PRN (13:48)
[2020-06-27] MEDS ORDERED: [UNRECOGNIZED DRUG - OTHER] PRN (13:48)
[2020-06-27] MEDS ORDERED: NON FORMULARY MEDICATION 1 DOSE MISCELL (Banana Flakes-T-Galactooligos. [Banatrol Plus] po PO SCH (13:48)
[2020-06-27] MEDS ORDERED: 0.9 % SODIUM CHLORIDE 1,000 ML IV SCH (13:48)
[2020-06-27] MEDS ORDERED: ACETAMINOPHEN 325 MG TABLET PO PRN (13:48)
[2020-06-27] MEDS ORDERED: BISACODYL 10 MG SUPP.RECT PR PRN (13:48)
[2020-06-27] MEDS ORDERED: metroNIDAZOLE 500 MG/100 ML BAG IV SCH (14:00)
[2020-06-27] MEDS: metroNIDAZOLE 500 MG/100 ML BAG IV SCH ×2 (14:43→22:25)
[2020-06-27] MEDS: CITRIC AC GLUCONOLACT MAG CARB TOPICAL SCH (16:23)
[2020-06-27] MEDS: MAGNESIUM OXIDE 400 MG TABLET PO SCH (16:33)
[2020-06-27] MEDS: metFORMIN 500 MG TAB.XL.24H PO SCH (16:33)
[2020-06-27] MEDS: POTASSIUM CITRATE 10 MEQ TAB.XL.24H PO SCH (16:34)
[2020-06-27] MEDS: CHROMIUM PICOLINATE 200 MCG PO SCH (16:40)
[2020-06-27] MEDS ORDERED: SENNOSIDES/DOCUSATE SODIUM 1 TAB TABLET PO SCH ×2 (17:00→21:00)
[2020-06-27] MEDS: CIPROFLOXACIN 400 MG/200 ML BAG IV SCH (20:53)
[2020-06-27] MEDS: traZODone HCL 100 MG TABLET PO SCH (20:53)
[2020-06-27] MEDS: SENNOSIDES/DOCUSATE SODIUM 1 TAB TABLET PO SCH (20:54)
[2020-06-27] MEDS ORDERED: MELATONIN 5 MG PO SCH (21:00)
[2020-06-27] MEDS ORDERED: CITRIC AC GLUCONOLACT MAG CARB IRRIGATION SCH (21:00)
[2020-06-28] MEDS: 0.9 % SODIUM CHLORIDE 1,000 ML IV SCH ×2 (03:34→10:44)
[2020-06-28] MEDS: metroNIDAZOLE 500 MG/100 ML BAG IV SCH ×3 (05:45→21:42)
[2020-06-28] MEDS: 0.9 % SODIUM CHLORIDE 10 ML SYRINGE IV SCH ×3 (06:07→21:44)
[2020-06-28 06:29] LABS: Basophils # (Auto) 0.04 K/mcL (0.00-0.20); Basophils % (Auto) 0.7 % (0.0-2.0); Eosinophils # (Auto) 0.33 K/mcL (0.00-0.70); Eosinophils % (Auto) 5.4 % (0.0-7.0); Hematocrit 39.4 % (41.0-55.0); Hemoglobin 13.1 g/dL (13.5-16.5); Lymphocytes # (Auto) 2.06 K/mcL (1.50-4.80); Lymphocytes % (Auto) 33.8 % (15.0-49.0); Mean Cell Volume 94.9 fL (80.0-100.0); Mean Corpuscular HGB Conc 33.2 g/dL (31.0-36.0); Mean Platelet Volume 9.5 fL (7.4-10.4); Monocytes # (Auto) 0.74 K/mcL (0.10-0.90); Monocytes % (Auto) 12.1 % (1.0-12.0); Platelet Count 185 K/mcL (140-440); RBC 4.15 M/mcL (4.50-5.90); Red Cell Distribution Width 13.9 % (11.5-14.5); WBC 6.1 K/mcL (4.5-11.0)
[2020-06-28 07:00] LABS: ALT/SGPT 9 U/L (<40); AST/SGOT 13 U/L (<40); Albumin 3.4 gm/dL (3.2-5.2); Albumin/Globulin Ratio 1.3 (1.0-2.3); Alkaline Phosphatase 92 U/L (39-117); Bilirubin,Direct < 0.2 mg/dL (0-0.3); Bilirubin,Total 0.3 mg/dL (0.1-1.0); Blood Urea Nitrogen 7 mg/dL (6-20); Calcium 8.6 mg/dL (8.6-10.4); Carbon Dioxide 24 mmol/L (22-30); Chloride 108 mmol/L (96-108); Globulin 2.6 gm/dL (2.2-3.7); Glomerular Filtration Rate 112; Glucose 121 mg/dL (70-105); Lactate Dehydrogenase 150 U/L (135-225); Phosphorous 2.7 mg/dL (2.5-4.5); Triglycerides 83 mg/dL (<150); Uric Acid 2.1 mg/dL (2.5-8.0)
[2020-06-28] MEDS: FLUTICASONE PROPIONATE SPRAY.NAS NS SCH (07:23)
[2020-06-28] MEDS: CHROMIUM PICOLINATE 200 MCG PO SCH ×2 (07:23→16:29)
[2020-06-28] MEDS: POTASSIUM CITRATE 10 MEQ TAB.XL.24H PO SCH ×3 (07:31→16:29)
[2020-06-28] MEDS: MAGNESIUM OXIDE 400 MG TABLET PO SCH ×2 (07:31→16:29)
[2020-06-28] MEDS: LEVOTHYROXINE 75 MCG TABLET PO SCH (07:31)
[2020-06-28] MEDS: MULTIVIT,THER IRON,CA,FA & MIN 1 TABLET PO SCH (08:05)
[2020-06-28] MEDS: VITAMIN B COMPLEX 1 CAPSULE PO SCH (08:05)
[2020-06-28] MEDS: VITAMIN D3 5,000 UNIT CAPSULE PO SCH (08:05)
[2020-06-28] MEDS: DIVALPROEX SODIUM 250 MG TABLET PO SCH (08:05)
[2020-06-28] MEDS: HEPARIN 5,000 UNIT/ML VIAL SQ SCH ×2 (08:05→20:18)
[2020-06-28] MEDS: ASPIRIN 81 MG TAB.CHEW PO SCH (08:05)
[2020-06-28] MEDS: BISACODYL 5 MG TABLET PO SCH (08:05)
--- NOTE | 2020-06-28 08:05 | XRay Report ---
HISTORY: Follow-up left basilar infiltrate, purulent substance in a catheter FINDINGS: There is a thin linear scar in the left lung base. The lungs are otherwise clear without evidence of infiltrate. There is no mass, congestive heart failure or pleural effusion. The heart size is normal. A moderate amount of gas is present in the splenic flexure. Comparison with the prior exam from 05/29/20 shows resolution of the previously seen vague left lower lobe interstitial infiltrate. IMPRESSION: Resolved left lower lobe pneumonia with a thin residual band of scar tissue Interpreted and Authenticated by: Ventura Ogden 06/28/20
[2020-06-28] MEDS: CITRIC AC GLUCONOLACT MAG CARB TOPICAL SCH ×2 (08:06→15:47)
[2020-06-28] MEDS: DOCUSATE SODIUM 100 MG CAPSULE PO SCH (08:06)
[2020-06-28] MEDS: POLYETHYLENE GLYCOL 3350 17 GM PACKET PO SCH (08:06)
[2020-06-28] MEDS: buPROPion 150 MG TAB.SR.12H PO SCH ×2 (08:06→11:24)
[2020-06-28] MEDS: CIPROFLOXACIN 400 MG/200 ML BAG IV SCH ×2 (08:06→20:16)
[2020-06-28] MEDS ORDERED: IRO PO SCH (09:00)
[2020-06-28] MEDS ORDERED: [UNRECOGNIZED DRUG - OTHER] PO SCH (09:00)
[2020-06-28] MEDS ORDERED: POTASSIUM CHLORIDE 20 MEQ PACKET PO PRN (15:27)
[2020-06-28] MEDS: metFORMIN 500 MG TAB.XL.24H PO SCH (16:29)
--- NOTE | 2020-06-28 18:07 | Internal Med Progress Note ---
SUBJECTIVE Subjective Patient information: Note initiated : 06/28/20 at 6:02 pm Service Date, if different from initiated Date: [] Patient: Buck Diamond a 55 y/o M admitted on 06/26/20 for Purulent Substance in catheter. Chief Complaint: [] Interval history: Mr. Diamond is a 55 year old M with a history of developmental delay who presents to the ER with concerns of diarrhea/blood smeared stool and abdominal cramps. Patient has suprapubic catheter and suffers from prior episodes of alternating bowel habits including constipation with diarrhea. He pr esented to the ER for evaluation. Initial work-up was consistent with severe colitis on imaging/pyuria on UA. Patient was started on antibiotic coverage/crystalloids after cultures were drawn. Hospitalist service was consulted. At the time of evaluation patient is alert. He was able to answer some of the questions. He denies fever chills, endorses to diarrhea and bloody mucus. He is very pleasant and does not seem to apparent distress. No family members present. Most of the history is obtained from review of medical records/ER physician. I discussed the case with GI and following previous hospitalization underwent colonoscopy that was consistent with ischemic colitis. He is on aggressive bowel regimen to prevent constipation and has not had a hospitalization over the last 5 months. 06/27 patient doing better. Improved diarrhea. No overnight bloody stools. Hemoglobin stable. Continue crystalloids and started on liquid diet. White count stable. Hemodynamically stable. No additional concerns per nursing staff. De-escalate antibiotics to Cipro Flagyl as clinical presentation more consistent with ischemic colitis. 06/28-patient doing well. No overnight events. More formed stool this morning. No GI bleed. Advancing diet as tolerated. Mother at bedside. Discussed clinical progress and plan of care. No fever chills nausea vomiting. Stable hemodynamics. Potassium 3.4 on replacement. Continuing antibiotic coverage. Polymicrobial culture with gram-negative bacilli and Enterococcus on urine cultures Constitutional Vitals: Vital Signs Temp Pulse Resp BP Pulse Ox 98.1 F 80 18 110/76 97 06/28/20 15:25 06/28/20 15:25 06/28/20 15:25 06/28/20 15:25 06/28/20 15:25 Period Temp Pulse Resp BP Sys/Ayala Pulse Ox Last 24 Hr 97.0 F-98.9 F 58-88 16-18 105-126/63-81 96-100 Intake and Output 06/28/20 06/28/20 06/28/20 05:59 13:59 21:59 Intake Total 1380 300 500 Output Total 1400 1350 900 Balance -20 -1050 -400 Weight 80.785 kg Patient Weight 06/29/20 05:59 Weight 80.785 kg alert Nonlabored breathing Nondistended nontender abdomen In good spirits Intake & Output: Intake & Output 06/28/20 06/28/20 06/28/20 05:59 13:59 21:59 Intake Total 1380 300 500 Output Total 1400 1350 900 Balance -20 -1050 -400 Weight 80.785 kg Intake: IV 300 300 100 Oral 1080 400 Output: Urine Catheter Amount 1400 1350 Void Amount 900 Other: Meal Dinner Percent of Meal Consumed 100% Feeding Ability Independent Urine Appearance Clear Clear Clear Suprapubic Clear Urine Color Straw Pale Bright Yellow Suprapubic Pale Urine Odor Strong Normal Strong OBJ DATA Labs CBC & Chem 7: 06/29/20 05:39 06/29/20 05:39 Labs: Abnormal Lab Results 06/28/20 06/28/20 06/27/20 05:22 05:22 05:13 RBC 4.15 L Hgb 13.1 L Hct 39.4 L [place] % (Auto) 12.1 H Anion Gap Creatinine 0.6 L Glucose 121 H 108 H Uric Acid 2.1 L C-Reactive Protein Ur Leukocyte Esterase Urine RBC Urine WBC Urine Mucus 06/27/20 06/27/20 06/26/20 05:13 01:09 20:06 RBC 4.06 L Hgb 12.9 L 12.5 L 12.1 L Hct 38.2 L [place] % (Auto) 13.1 H Anion Gap Creatinine Glucose Uric Acid C-Reactive Protein Ur Leukocyte Esterase Urine RBC Urine WBC Urine Mucus 06/26/20 06/26/20 06/26/20 13:09 13:09 11:40 RBC 4.07 L Hgb 12.8 L Hct 39.3 L [place] % (Auto) Anion Gap 7.0 L Creatinine Glucose Uric Acid C-Reactive Protein 1.10 H Ur Leukocyte Esterase Urine RBC Urine WBC Urine Mucus 06/26/20 09:43 RBC Hgb Hct [place] % (Auto) Anion Gap Creatinine Glucose Uric Acid C-Reactive Protein Ur Leukocyte Esterase Small A Urine RBC 4 H Urine WBC 16 H Urine Mucus Few A Meds: Medications Acetaminophen (Acetaminophen 325 Mg Tablet) 650 mg PO Q4-6HP PRN; Protocol PRN Reason: Per Pain Protocol/Fever > 101 Last Admin: 06/28/20 15:47 Dose: 650 mg Documented by: Acetaminophen (Acetaminophen 500 Mg Tablet) 1,000 mg PO TID PRN; Protocol PRN Reason: Pain/Headache Aspirin (Aspirin 81 Mg Tab.Chew) 81 mg PO DAILY [facility] Last Admin: 06/28/20 08:05 Dose: 81 mg Documented by: Bisacodyl (Bisacodyl 5 Mg Tablet) 5 mg PO DAILY [facility] Last Admin: 06/28/20 08:05 Dose: 5 mg Documented by: Bisacodyl (Bisacodyl 10 Mg Supp.Rect) 10 mg [place] QDAY PRN PRN Reason: constipation Bupropion HCl (Bupropion 150 Mg Tab.Sr.12h) 300 mg PO DAILY [facility] Last Admin: 06/28/20 08:06 Dose: 300 mg Documented by: Bupropion HCl (Bupropion 150 Mg Tab.Sr.12h) 150 mg PO QNOON [facility] Last Admin: 06/28/20 11:24 Dose: 150 mg Documented by: Diagnostic Test (Pha) (Accu-Chek 1 Each Strip) 1 each FS ACHS [facility] Last Admin: 06/28/20 15:52 Dose: 1 each Documented by: Divalproex Sodium (Divalproex Sodium 250 Mg Tablet) 1,000 mg PO DAILY [facility] Last Admin: 06/28/20 08:05 Dose: 1,000 mg Documented by: Docusate Sodium (Docusate Sodium 100 Mg Capsule) 100 mg PO QDAY [facility] Last Admin: 06/28/20 08:06 Dose: 100 mg Documented by: Fluticasone Propionate (Fluticasone Propionate [place]) 2 spray NS QDAY [facility] Last Admin: 06/28/20 07:23 Dose: Not Given Documented by: Heparin Sodium (Porcine) (Heparin 5,000 Unit/Ml Vial) 5,000 unit SQ Q12 [facility] Last Admin: 06/28/20 08:05 Dose: 5,000 unit Documented by: Hydromorphone HCl (Hydromorphone 0.5 Mg/0.5 Ml Syringe) 0.25 - 0.5 mg IV Q4HP PRN; Protocol PRN Reason: Per Pain Protocol Sodium Chloride (Sodium Chloride 0.9%) 1,000 mls @ 50 mls/hr IV .Q20H [facility] Stop: 06/29/20 04:13 Last Admin: 06/28/20 10:44 Dose: Not Given Documented by: Acetaminophen (Ofirmev) 650 mg in 65 mls @ 130 mls/hr IV Q6HP PRN; Protocol PRN Reason: Per Pain Protocol/Fever > 101 Ciprofloxacin (Cipro) 400 mg in 200 mls @ 200 mls/hr IV Q12H [facility]; Protocol Last Infusion: 06/28/20 12:25 Dose: Infused Documented by: Magnesium Sulfate (Magnesium Sulfate) 2 gm in 50 mls @ 50 mls/hr IV UD PRN PRN Reason: MG = or < 1.7 Metronidazole (Flagyl) 500 mg in 100 mls @ 100 mls/hr IV Q8H [facility]; Protocol Last Infusion: 06/28/20 17:40 Dose: Infused Documented by: Potassium Chloride 40 meq/ (Dextrose) 520 mls @ 130 mls/hr IV UD PRN PRN Reason: K+ = or < 3.5 Insulin Human Lispro (Insulin Lispro 1 Unit/0.01 Ml Unit) 0 unit SQ ACHS [facility]; Protocol Iron Carb/Multivit/[employer]/Folic Acid (Multivit,Ther Iron,Ca,Fa & Min 1 Tablet) 1 tab PO DAILY [facility] Last Admin: 06/28/20 08:05 Dose: 1 tab Documented by: Levothyroxine Sodium (Levothyroxine 75 Mcg Tablet) 75 mcg PO QAMAC [facility] Last Admin: 06/28/20 07:31 Dose: 75 mcg Documented by: Magnesium Citrate (Magnesium Citrate 300 Ml Oral.Rosario) 118 ml PO PRN PRN PRN Reason: Constipation Magnesium Oxide (Magnesium Oxide 400 Mg Tablet) 400 mg PO BID@0800,1700 [facility] Last Admin: 06/28/20 16:29 Dose: 400 mg Documented by: Melatonin (Melatonin 3 Mg Tablet) 3 mg PO HSP PRN PRN Reason: Insomnia Metformin HCl (Metformin 500 Mg Tab.Xl.24h) 500 mg PO 1700 [facility] Last Admin: 06/28/20 16:29 Dose: 500 mg Documented by: Ondansetron HCl (Ondansetron 4 Mg Odt Tablet) 4 mg SL Q4-6HP PRN; Protocol PRN Reason: Nausea And Vomiting Ondansetron HCl (Ondansetron 4 Mg/2 Ml Vial) 4 mg IV Q4-6HP PRN; Protocol PRN Reason: Nausea And Vomiting Chromium Picolinate (200 Mcg Tablet) 1 dose PO BID@0800,1700 [facility] Last Admin: 06/28/20 16:29 Dose: Not Given Documented by: Citric Ac- Gluconolact-Mag Carb [Renacidin] Solution 1 dose TOPICAL BID@0900,1600 [facility] Last Admin: 06/28/20 15:47 Dose: 1 dose Documented by: D-Mannose 500 Mg (Capsule) 1 dose PO BID [facility] Last Admin: 06/28/20 07:23 Dose: Not Given Documented by: Teriflunomide [ Aubagio] 14 Mg Tablet 1 dose PO QDAY [facility] Last Admin: 06/28/20 08:06 Dose: 1 dose Documented by: Fluvoxamine 100 Mg (Tablet) 1 dose PO TID@0800,1200,2000 [facility] Last Admin: 06/28/20 11:23 Dose: 1 dose Documented by: Polyethylene Glycol (Polyethylene Glycol 3350 17 Gm Packet) 17 gm PO DAILYP PRN PRN Reason: Constipation Polyethylene Glycol (Polyethylene Glycol 3350 17 Gm Packet) 17 gm PO DAILY [facility] Last Admin: 06/28/20 08:06 Dose: 17 gm Documented by: Potassium Chloride (Potassium Chloride 20 Meq Packet) 40 meq PO PRN PRN PRN Reason: K+ = <3.5 Last Admin: 06/28/20 15:48 Dose: 40 meq Documented by: Potassium Citrate (Potassium Citrate 10 Meq Tab.Xl.24h) 15 meq PO TIDCC [facility] Last Admin: 06/28/20 16:29 Dose: 15 meq Documented by: Potassium/Phosphorus/Sodium (Neutra Phos 1 Packet) 2 packet PO DAILY PRN PRN Reason: PHOS <2.5 Senna/Docusate Sodium (Sennosides/Docusate Sodium 1 Tab Tablet) 4 tab PO QPM [facility] Last Admin: 06/27/20 20:54 Dose: Not Given Documented by: Sodium Chloride (0.9 % Sodium Chloride 10 Ml Syringe) 10 ml IV Q8 [facility] Last Admin: 06/28/20 13:22 Dose: Not Given Documented by: Trazodone HCl (Trazodone Hcl 100 Mg Tablet) 100 mg PO QHS [facility] Last Admin: 06/27/20 20:53 Dose: 100 mg Documented by: Vitamin B Complex (Vitamin B Complex 1 Capsule) 1 cap PO DAILY [facility] Last Admin: 06/28/20 08:05 Dose: 1 cap Documented by: Vitamin D (Vitamin D3 5,000 Unit Capsule) 5,000 unit PO DAILY [facility] Last Admin: 06/28/20 08:05 Dose: 5,000 unit Documented by: A/P Narrative A/P Narrative: * Severe ischemic colitis-clinically improving. Advancing diet as tolerated. * Complicated catheter related UTI continue antibiotic coverage * Diarrhea continue crystalloid/supportive management * Neurogenic bowel with alternating diarrhea constipation. Prior endoscopy consistent with ischemic colitis. * History of developmental delay/occasional intermittent agitation continue home dose Depakote/bupropion and fluvoxamine * DM type II continue CCD/prandial insulin liquid diet at this time * Prophylax Heparin Plan * Continue antibiotics * Crystalloids and supportive management * Advance diet as tolerated * Pre-existing medical condition management as above Time Spent With Patient Time: Total time spent is greater than 50% in coordination of care (as documented) at patient's floor/unit and/or counseling patient:
[2020-06-28] MEDS: INSULIN LISPRO 1 UNIT/0.01 ML UNIT SQ SCH ×2 (18:09→20:25)
[2020-06-28] MEDS: traZODone HCL 100 MG TABLET PO SCH (20:17)
[2020-06-28] MEDS: SENNOSIDES/DOCUSATE SODIUM 1 TAB TABLET PO SCH (20:23)
[2020-06-29] MEDS: metroNIDAZOLE 500 MG/100 ML BAG IV SCH ×2 (05:34→15:16)
[2020-06-29] MEDS: 0.9 % SODIUM CHLORIDE 10 ML SYRINGE IV SCH ×4 (06:00→20:56)
[2020-06-29 07:04] LABS: Basophils # (Auto) 0.04 K/mcL (0.00-0.20); Basophils % (Auto) 0.8 % (0.0-2.0); Eosinophils # (Auto) 0.32 K/mcL (0.00-0.70); Eosinophils % (Auto) 6.3 % (0.0-7.0); Hematocrit 36.3 % (41.0-55.0); Hemoglobin 11.8 g/dL (13.5-16.5); Lymphocytes # (Auto) 1.99 K/mcL (1.50-4.80); Lymphocytes % (Auto) 39.3 % (15.0-49.0); Mean Cell Volume 96.5 fL (80.0-100.0); Mean Corpuscular HGB Conc 32.5 g/dL (31.0-36.0); Mean Platelet Volume 9.5 fL (7.4-10.4); Monocytes # (Auto) 0.51 K/mcL (0.10-0.90); Monocytes % (Auto) 10.1 % (1.0-12.0); Neutrophils % (Auto) 43.5 % (38.0-78.0); Platelet Count 169 K/mcL (140-440); RBC 3.76 M/mcL (4.50-5.90); WBC 5.1 K/mcL (4.5-11.0)
[2020-06-29 07:43] LABS: ALT/SGPT 8 U/L (<40); AST/SGOT 10 U/L (<40); Albumin 3.2 gm/dL (3.2-5.2); Albumin/Globulin Ratio 1.3 (1.0-2.3); Alkaline Phosphatase 85 U/L (39-117); Bilirubin,Direct < 0.2 mg/dL (0-0.3); Bilirubin,Total 0.2 mg/dL (0.1-1.0); Blood Urea Nitrogen 10 mg/dL (6-20); Calcium 8.4 mg/dL (8.6-10.4); Carbon Dioxide 27 mmol/L (22-30); Chloride 104 mmol/L (96-108); Globulin 2.5 gm/dL (2.2-3.7); Glomerular Filtration Rate 112; Glucose 136 mg/dL (70-105); Lactate Dehydrogenase 113 U/L (135-225); Phosphorous 3.5 mg/dL (2.5-4.5); Triglycerides 41 mg/dL (<150); Uric Acid 2.7 mg/dL (2.5-8.0)
[2020-06-29] MEDS ORDERED: ACETAMINOPHEN 500 MG TABLET PO PRN ×2 (07:45→18:56)
[2020-06-29] MEDS: INSULIN LISPRO 1 UNIT/0.01 ML UNIT SQ SCH ×4 (08:59→20:55)
[2020-06-29] MEDS: CITRIC AC GLUCONOLACT MAG CARB TOPICAL SCH ×2 (09:28→15:17)
[2020-06-29] MEDS: CIPROFLOXACIN 400 MG/200 ML BAG IV SCH (09:28)
[2020-06-29] MEDS: LEVOTHYROXINE 75 MCG TABLET PO SCH (09:29)
[2020-06-29] MEDS: HEPARIN 5,000 UNIT/ML VIAL SQ SCH ×2 (09:29→20:36)
[2020-06-29] MEDS: POTASSIUM CITRATE 10 MEQ TAB.XL.24H PO SCH ×3 (09:29→17:20)
[2020-06-29] MEDS: DIVALPROEX SODIUM 250 MG TABLET PO SCH (09:29)
[2020-06-29] MEDS: buPROPion 150 MG TAB.SR.12H PO SCH ×2 (09:29→11:50)
[2020-06-29] MEDS: VITAMIN D3 5,000 UNIT CAPSULE PO SCH (09:30)
[2020-06-29] MEDS: ASPIRIN 81 MG TAB.CHEW PO SCH (09:30)
[2020-06-29] MEDS: MULTIVIT,THER IRON,CA,FA & MIN 1 TABLET PO SCH (09:30)
[2020-06-29] MEDS: MAGNESIUM OXIDE 400 MG TABLET PO SCH ×2 (09:30→17:18)
[2020-06-29] MEDS: CHROMIUM PICOLINATE 200 MCG PO SCH ×2 (09:39→17:10)
[2020-06-29] MEDS: DOCUSATE SODIUM 100 MG CAPSULE PO SCH (09:40)
[2020-06-29] MEDS: FLUTICASONE PROPIONATE SPRAY.NAS NS SCH (09:40)
[2020-06-29] MEDS: BISACODYL 5 MG TABLET PO SCH (09:40)
[2020-06-29] MEDS: POLYETHYLENE GLYCOL 3350 17 GM PACKET PO SCH (09:40)
[2020-06-29] MEDS: VITAMIN B COMPLEX 1 CAPSULE PO SCH (09:41)
--- NOTE | 2020-06-29 11:29 | Internal Med Progress Note ---
SUBJECTIVE Subjective Patient information: Note initiated : 06/29/20 at 11:27 am Service Date, if different from initiated Date: [] Patient: Buck Diamond a 55 y/o M admitted on 06/26/20 for Purulent Substance in catheter. Chief Complaint: [] Interval history: Mr. Diamond is a 55 year old M with a history of developmental delay who presents to the ER with concerns of diarrhea/blood smeared stool and abdominal cramps. Patient has suprapubic catheter and suffers from prior episodes of alternating bowel habits including constipation with diarrhea. He p resented to the ER for evaluation. Initial work-up was consistent with severe colitis on imaging/pyuria on UA. Patient was started on antibiotic coverage/crystalloids after cultures were drawn. Hospitalist service was consulted. At the time of evaluation patient is alert. He was able to answer some of the questions. He denies fever chills, endorses to diarrhea and bloody mucus. He is very pleasant and does not seem to apparent distress. No family members present. Most of the history is obtained from review of medical records/ER physician. I discussed the case with GI and following previous hospitalization underwent colonoscopy that was consistent with ischemic colitis. He is on aggressive bowel regimen to prevent constipation and has not had a hospitalization over the last 5 months. 06/27 patient doing better. Improved diarrhea. No overnight bloody stools. Hemoglobin stable. Continue crystalloids and started on liquid diet. White count stable. Hemodynamically stable. No additional concerns per nursing staff. De-escalate antibiotics to Cipro Flagyl as clinical presentation more consistent with ischemic colitis. 06/28-patient doing well. No overnight events. More formed stool this morning. No GI bleed. Advancing diet as tolerated. Mother at bedside. Discussed clini iftikhar progress and plan of care. No fever chills nausea vomiting. Stable hemodynamics. Potassium 3.4 on replacement. Continuing antibiotic coverage. Polymicrobial culture with gram-negative bacilli and Enterococcus on urine cultures 06/29-patient doing well. Denies abdominal pain fever chills. Normal white count. Tolerating diet. Explosive diarrhea this morning. Creatinine 0.6. Electrolytes stable. Anticipate discharge in 24 hours with outpatient antibiotic for additional 5 days. Continue existing bowel regime Constitutional Vitals: Vital Signs Temp Pulse Resp BP Pulse Ox 98.1 F 65 16 111/64 97 06/29/20 08:00 06/29/20 08:00 06/29/20 08:00 06/29/20 08:00 06/29/20 08:00 Period Temp Pulse Resp BP Sys/Ayala Pulse Ox Last 24 Hr 97.7 F-98.5 F 65-90 16-20 106-115/64-76 92-98 Intake and Output 06/28/20 06/29/20 06/29/20 21:59 05:59 13:59 Intake Total 1300 2300 550 Output Total 1300 1300 1450 Balance 0 1000 -900 Weight 81.964 kg Alert oriented, Nontender nondistended abdomen Nonlabored breathing Intake & Output: Intake & Output 06/28/20 06/29/20 06/29/20 21:59 05:59 13:59 Intake Total 1300 2300 550 Output Total 1300 1300 1450 Balance 0 1000 -900 Weight 81.964 kg Intake: IV 300 1100 100 Sodium Chloride 0.9% 1,000 ml @ 1000 50 mls/hr IV .Q20H [facility] Rx#: [id number] Oral 1000 1200 450 Output: Urine Catheter Amount 400 1300 1450 Void Amount 900 Other: Meal Dinner Breakfast Percent of Meal Consumed 100% 75% Feeding Ability Independent Independent Urine Appearance Clear Clear Suprapubic Clear Clear Urine Color Bright Yellow Bright Yellow Suprapubic Straw Bright Yellow Urine Odor Strong Normal Stool Size Moderate Small Stool Color Brown Brown Stool Consistency Liquid Liquid Loose # Bowel Movements 1 OBJ DATA Labs CBC & Chem 7: 06/29/20 05:39 06/29/20 05:39 Labs: Abnormal Lab Results 06/29/20 06/29/20 06/28/20 05:39 05:39 05:22 RBC 3.76 L Hgb 11.8 L Hct 36.3 L [place] % (Auto) Anion Gap 7.0 L Creatinine 0.6 L 0.6 L Glucose 136 H 121 H Uric Acid 2.1 L Calcium 8.4 L Lactate Dehydrogenase 113 L C-Reactive Protein Total Protein 5.7 L 06/28/20 06/27/20 06/27/20 05:22 05:13 05:13 RBC 4.15 L 4.06 L Hgb 13.1 L 12.9 L Hct 39.4 L 38.2 L [place] % (Auto) 12.1 H 13.1 H Anion Gap Creatinine Glucose 108 H Uric Acid Calcium Lactate Dehydrogenase C-Reactive Protein Total Protein 06/27/20 06/26/20 06/26/20 01:09 20:06 13:09 RBC Hgb 12.5 L 12.1 L Hct [place] % (Auto) Anion Gap Creatinine Glucose Uric Acid Calcium Lactate Dehydrogenase C-Reactive Protein 1.10 H Total Protein 06/26/20 06/26/20 13:09 11:40 RBC 4.07 L Hgb 12.8 L Hct 39.3 L [place] % (Auto) Anion Gap 7.0 L Creatinine Glucose Uric Acid Calcium Lactate Dehydrogenase C-Reactive Protein Total Protein Meds: Medications Acetaminophen (Acetaminophen 500 Mg Tablet) 1,000 mg PO TIDP PRN; Protocol PRN Reason: Pain/Headache Aspirin (Aspirin 81 Mg Tab.Chew) 81 mg PO DAILY [facility] Last Admin: 06/29/20 09:30 Dose: 81 mg Documented by: Bisacodyl (Bisacodyl 5 Mg Tablet) 5 mg PO DAILY [facility] Last Admin: 06/29/20 09:40 Dose: Not Given Documented by: Bisacodyl (Bisacodyl 10 Mg Supp.Rect) 10 mg [place] QDAY PRN PRN Reason: constipation Bupropion HCl (Bupropion 150 Mg Tab.Sr.12h) 300 mg PO DAILY [facility] Last Admin: 06/29/20 09:29 Dose: 300 mg Documented by: Bupropion HCl (Bupropion 150 Mg Tab.Sr.12h) 150 mg PO QNOON [facility] Last Admin: 06/28/20 11:24 Dose: 150 mg Documented by: Diagnostic Test (Pha) (Accu-Chek 1 Each Strip) 1 each FS ACHS [facility] Last Admin: 06/29/20 08:59 Dose: 1 each Documented by: Divalproex Sodium (Divalproex Sodium 250 Mg Tablet) 1,000 mg PO DAILY [facility] Last Admin: 06/29/20 09:29 Dose: 1,000 mg Documented by: Docusate Sodium (Docusate Sodium 100 Mg Capsule) 100 mg PO QDAY [facility] Last Admin: 06/29/20 09:40 Dose: Not Given Documented by: Fluticasone Propionate (Fluticasone Propionate [place]) 2 spray NS QDAY [facility] Last Admin: 06/29/20 09:40 Dose: Not Given Documented by: Heparin Sodium (Porcine) (Heparin 5,000 Unit/Ml Vial) 5,000 unit SQ Q12 [facility] Last Admin: 06/29/20 09:29 Dose: 5,000 unit Documented by: Hydromorphone HCl (Hydromorphone 0.5 Mg/0.5 Ml Syringe) 0.25 - 0.5 mg IV Q4HP PRN; Protocol PRN Reason: Per Pain Protocol Acetaminophen (Ofirmev) 650 mg in 65 mls @ 130 mls/hr IV Q6HP PRN; Protocol PRN Reason: Per Pain Protocol/Fever > 101 Ciprofloxacin (Cipro) 400 mg in 200 mls @ 200 mls/hr IV Q12H [facility]; Protocol Last Admin: 06/29/20 09:28 Dose: 200 mls/hr Documented by: Magnesium Sulfate (Magnesium Sulfate) 2 gm in 50 mls @ 50 mls/hr IV UD PRN PRN Reason: MG = or < 1.7 Metronidazole (Flagyl) 500 mg in 100 mls @ 100 mls/hr IV Q8H [facility]; Protocol Last Infusion: 06/29/20 07:03 Dose: Infused Documented by: Potassium Chloride 40 meq/ (Dextrose) 520 mls @ 130 mls/hr IV UD PRN PRN Reason: K+ = or < 3.5 Insulin Human Lispro (Insulin Lispro 1 Unit/0.01 Ml Unit) 0 unit SQ ACHS [facility]; Protocol Last Admin: 06/29/20 08:59 Dose: Not Given Documented by: Iron Carb/Multivit/[place]/Folic Acid (Multivit,Ther Iron,Ca,Fa & Min 1 Tablet) 1 tab PO DAILY [facility] Last Admin: 06/29/20 09:30 Dose: 1 tab Documented by: Levothyroxine Sodium (Levothyroxine 75 Mcg Tablet) 75 mcg PO QAMAC [facility] Last Admin: 06/29/20 09:29 Dose: 75 mcg Documented by: Magnesium Citrate (Magnesium Citrate 300 Ml Oral.Rosario) 118 ml PO PRN PRN PRN Reason: Constipation Magnesium Oxide (Magnesium Oxide 400 Mg Tablet) 400 mg PO BID@0800,1700 [facility] Last Admin: 06/29/20 09:30 Dose: 400 mg Documented by: Melatonin (Melatonin 3 Mg Tablet) 3 mg PO HSP PRN PRN Reason: Insomnia Last Admin: 06/28/20 23:55 Dose: 3 mg Documented by: Metformin HCl (Metformin 500 Mg Tab.Xl.24h) 500 mg PO 1700 [facility] Last Admin: 06/28/20 16:29 Dose: 500 mg Documented by: Ondansetron HCl (Ondansetron 4 Mg Odt Tablet) 4 mg SL Q4-6HP PRN; Protocol PRN Reason: Nausea And Vomiting Ondansetron HCl (Ondansetron 4 Mg/2 Ml Vial) 4 mg IV Q4-6HP PRN; Protocol PRN Reason: Nausea And Vomiting Chromium Picolinate (200 Mcg Tablet) 1 dose PO BID@0800,1700 [facility] Last Admin: 06/29/20 09:39 Dose: Not Given Documented by: Citric Ac- Gluconolact-Mag Carb [Renacidin] Solution 1 dose TOPICAL BID@0900,1600 [facility] Last Admin: 06/29/20 09:28 Dose: 1 dose Documented by: D-Mannose 500 Mg (Capsule) 1 dose PO BID [facility] Last Admin: 06/29/20 09:41 Dose: Not Given Documented by: Teriflunomide [ Aubagio] 14 Mg Tablet 1 dose PO QDAY [facility] Last Admin: 06/29/20 09:28 Dose: 1 dose Documented by: Fluvoxamine 100 Mg (Tablet) 1 dose PO TID@0800,1200,2000 [facility] Last Admin: 06/29/20 09:28 Dose: 1 dose Documented by: Polyethylene Glycol (Polyethylene Glycol 3350 17 Gm Packet) 17 gm PO DAILYP PRN PRN Reason: Constipation Polyethylene Glycol (Polyethylene Glycol 3350 17 Gm Packet) 17 gm PO DAILY [facility] Last Admin: 06/29/20 09:40 Dose: Not Given Documented by: Potassium Chloride (Potassium Chloride 20 Meq Packet) 40 meq PO PRN PRN PRN Reason: K+ = <3.5 Last Admin: 06/28/20 15:48 Dose: 40 meq Documented by: Potassium Citrate (Potassium Citrate 10 Meq Tab.Xl.24h) 15 meq PO TIDCC [facility] Last Admin: 06/29/20 09:29 Dose: 15 meq Documented by: Potassium/Phosphorus/Sodium (Neutra Phos 1 Packet) 2 packet PO DAILY PRN PRN Reason: PHOS <2.5 Senna/Docusate Sodium (Sennosides/Docusate Sodium 1 Tab Tablet) 4 tab PO QPM [facility] Last Admin: 06/28/20 20:23 Dose: Not Given Documented by: Sodium Chloride (0.9 % Sodium Chloride 10 Ml Syringe) 10 ml IV Q8 [facility] Last Admin: 06/29/20 08:59 Dose: 10 ml Documented by: Trazodone HCl (Trazodone Hcl 100 Mg Tablet) 100 mg PO QHS [facility] Last Admin: 06/28/20 20:17 Dose: 100 mg Documented by: Vitamin B Complex (Vitamin B Complex 1 Capsule) 1 cap PO DAILY [facility] Last Admin: 06/29/20 09:41 Dose: 1 cap Documented by: Vitamin D (Vitamin D3 5,000 Unit Capsule) 5,000 unit PO DAILY [facility] Last Admin: 06/29/20 09:30 Dose: 5,000 unit Documented by: A/P Narrative A/P Narrative: * Severe ischemic colitis-clinically improved. Diet as tolerated * Complicated catheter related UTI continue ciprofloxacin coverage * Diarrhea continue crystalloid/supportive management * Neurogenic bowel with alternating diarrhea constipation. Prior endoscopy consistent with ischemic colitis. * History of developmental delay/occasional intermittent agitation continue home dose Depakote/bupropion and fluvoxamine * DM type II continue CCD/prandial insulin liquid diet at this time * Prophylax Heparin Plan * Continue ciprofloxacin * Crystalloids and supportive management * Advance diet as tolerated * Pre-existing medical condition management as above Time Spent With Patient Time: Total time spent is greater than 50% in coordination of care (as documented) at patient's floor/unit and/or counseling patient:
[2020-06-29] MEDS: metFORMIN 500 MG TAB.XL.24H PO SCH (17:09)
[2020-06-29] MEDS ORDERED: MAGNESIUM CITRATE 300 ML ORAL.SOL PO PRN (18:56)
[2020-06-29] MEDS ORDERED: HYDROmorphone 0.5 MG/0.5 ML SYRINGE IV PRN (18:56)
[2020-06-29] MEDS ORDERED: POTASSIUM CHLORIDE 20 MEQ PACKET PO PRN (18:56)
[2020-06-29] MEDS ORDERED: ONDANSETRON 4 MG/2 ML VIAL IV PRN (18:56)
[2020-06-29] MEDS ORDERED: MELATONIN 3 MG TABLET PO PRN (18:56)
[2020-06-29] MEDS ORDERED: NEUTRA PHOS 1 PACKET PO PRN (18:56)
[2020-06-29] MEDS ORDERED: ONDANSETRON 4 MG ODT TABLET SL PRN (18:56)
[2020-06-29] MEDS ORDERED: MAGNESIUM SULFATE 2 GM/50 ML BAG IV PRN (18:56)
[2020-06-29] MEDS ORDERED: ACETAMINOPHEN 650 MG/65 ML BAG IV PRN (18:56)
[2020-06-29] MEDS ORDERED: POLYETHYLENE GLYCOL 3350 17 GM PACKET PO PRN (18:56)
[2020-06-29] MEDS ORDERED: BISACODYL 10 MG SUPP.RECT PR PRN (18:56)
[2020-06-29] MEDS ORDERED: POTASSIUM CHLORIDE 40 MEQ in DEXTROSE 5% IN WATER 500 ML IV PRN (18:56)
[2020-06-29] MEDS: CIPROFLOXACIN 500 MG TABLET PO SCH (20:35)
[2020-06-29] MEDS: metroNIDAZOLE 500 MG TABLET PO SCH (20:35)
[2020-06-29] MEDS: traZODone HCL 100 MG TABLET PO SCH (20:35)
[2020-06-29] MEDS: SENNOSIDES/DOCUSATE SODIUM 1 TAB TABLET PO SCH (20:55)
[2020-06-29] MEDS ORDERED: CIPROFLOXACIN 500 MG TABLET PO SCH (21:00)
[2020-06-29] MEDS ORDERED: metroNIDAZOLE 500 MG TABLET PO SCH (21:00)
[2020-06-30] MEDS: 0.9 % SODIUM CHLORIDE 10 ML SYRINGE IV SCH ×3 (06:38→21:32)
[2020-06-30 07:17] LABS: Basophils # (Auto) 0.04 K/mcL (0.00-0.20); Basophils % (Auto) 0.6 % (0.0-2.0); Eosinophils # (Auto) 0.25 K/mcL (0.00-0.70); Eosinophils % (Auto) 3.7 % (0.0-7.0); Hematocrit 38.5 % (41.0-55.0); Hemoglobin 12.9 g/dL (13.5-16.5); Lymphocytes # (Auto) 2.29 K/mcL (1.50-4.80); Lymphocytes % (Auto) 34.1 % (15.0-49.0); Mean Cell Volume 94.6 fL (80.0-100.0); Mean Corpuscular HGB Conc 33.5 g/dL (31.0-36.0); Mean Platelet Volume 9.9 fL (7.4-10.4); Monocytes # (Auto) 0.72 K/mcL (0.10-0.90); Monocytes % (Auto) 10.7 % (1.0-12.0); Neutrophils % (Auto) 50.9 % (38.0-78.0); Platelet Count 190 K/mcL (140-440); RBC 4.07 M/mcL (4.50-5.90); Red Cell Distribution Width 13.5 % (11.5-14.5); WBC 6.7 K/mcL (4.5-11.0)
[2020-06-30 08:00] LABS: ALT/SGPT 15 U/L (<40); AST/SGOT 23 U/L (<40); Albumin 3.7 gm/dL (3.2-5.2); Albumin/Globulin Ratio 1.3 (1.0-2.3); Alkaline Phosphatase 89 U/L (39-117); Bilirubin,Direct < 0.2 mg/dL (0-0.3); Bilirubin,Total 0.4 mg/dL (0.1-1.0); Blood Urea Nitrogen 12 mg/dL (6-20); Calcium 9.4 mg/dL (8.6-10.4); Carbon Dioxide 26 mmol/L (22-30); Chloride 103 mmol/L (96-108); Globulin 2.9 gm/dL (2.2-3.7); Glomerular Filtration Rate 105; Glucose 97 mg/dL (70-105); Lactate Dehydrogenase 174 U/L (135-225); Phosphorous 2.2 mg/dL (2.5-4.5); Triglycerides 43 mg/dL (<150); Uric Acid 3.2 mg/dL (2.5-8.0)
--- NOTE | 2020-06-30 08:15 | Discharge Summary ---
Discharge Provider Provider Patient information: Note initiated : 07/01/20 at 8:11 am Service Date, if different from initiated Date: [] Patient: Buck Diamond a 55 y/o M admitted on 06/26/20 for Purulent Substance in catheter. Discharge diagnosis * Severe ischemic colitis Vs infectious Salmonella colitis-clinically improved. Continuing diet. Continue Abx for 2 weeks * Complicated catheter related UTI -on ciprofloxacin for additional 5 days * Diarrhea clinically resolved. Back on prior bowel medications * GI bleed secondary ischemic colitis resolved. * Neurogenic bowel with alternating diarrhea constipation. Prior endoscopy consistent with ischemic colitis. * History of developmental delay/occasional intermittent agitation continue home dose Depakote/bupropion and fluvoxamine * DM type II continue CCD Brief hospital course Mr. Diamond is a 55 year old M with a history of developmental delay who presents to the ER with concerns of diarrhea/blood smeared stool and abdominal cramps. Patient has suprapubic catheter and suffers from prior episodes of alternating bowel habits including constipation with diarrhea. He presented to the ER for evaluation. Initial work-up was consistent with severe colitis on imaging/pyuria on UA. Patient was started on antibiotic coverage/crystalloids after cultures were drawn. Hospitalist service was consulted. At the time of evaluation patient is alert. He was able to answer some of the questions. He denies fever chills, endorses to diarrhea and bloody mucus. He is very pleasant and does not seem to apparent distress. No family members present. Most of the history is obtained from review of medical records/ER physician. I discussed the case with GI and following previous hospitalization underwent colonoscopy that was consistent with ischemic colitis. He is on aggressive bowel regimen to prevent constipation and has not had a hospitalization over the last 5 months. 06/27 patient doing better. Improved diarrhea. No overnight bloody stools. Hemoglobin stable. Continue crystalloids and started on liquid diet. White count stable. Hemodynamically stable. No additional concerns per nursing staff. De-escalate antibiotics to Cipro Flagyl as clinical presentation more consistent with ischemic colitis. 06/28-patient doing well. No overnight events. More formed stool this morning. No GI bleed. Advancing diet as tolerated. Mother at bedside. Discussed clinical progress and plan of care. No fever chills nausea vomiting. Stable hemodynamics. Potassium 3.4 on replacement. Continuing antibiotic coverage. Polymicrobial culture with gram-negative bacilli and Enterococcus on urine cultures 06/29-patient doing well. Denies abdominal pain fever chills. Normal white count. Tolerating diet. Explosive diarrhea this morning. Creatinine 0.6. Electrolytes stable. Anticipate discharge in 24 hours with outpatient antibiotic for additional 5 days. Continue existing bowel regimeBrief hospital course 06/30-patient doing better. Diarrhea improving. Stool cultures Salmonella suggestive of Salmonella colitis. Continuing ciprofloxacin based on culture sensitivities. Recommend additional 14 days oral ciprofloxacin. Diarrhea improved. Tolerating diet. Possible discharge in 24 hours. Await placement to assisted living. Family at bedside. Discussed treatment plan. Will require 14 days of Flagyl/ciprofloxacin and follow-up with GI as outpatient. 07/01 -patient clinically better. Discharging to assisted living advised to continue aggressive bowel regimen/antibiotic coverage for 2 weeks for slamonella enetritis. Recommend follow-up with primary care physician in 5 to 7 days. Date of admission: 06/26/20 16:13 Discharge date: 06/30/20 Primary care physician: Lon Stinson PA-C Consults: 06/27/20 07:51 Consult to Physician [CONS] Routine Comment: Consulting Provider: Cory Quiles Reason For Exam: Physician to Consult Discharge Meds Discharge Medications Home Medications bupropion HCl 150 mg tablet,12 hr sustained-release 300 mg PO DAILY tab 01/05/15 [History Confirmed 06/26/20 Last Taken 06/25/20] divalproex 500 mg tablet,delayed release 1,000 mg PO DAILY tab 01/05/15 [History Confirmed 06/26/20 Last Taken 06/25/20 20:00] fluvoxamine 100 mg tablet 100 mg PO TID tab 01/05/15 [History Confirmed 06/26/20 Last Taken 06/25/20] melatonin 5 mg capsule 5 mg PO HS cap 01/05/15 [History Confirmed 06/26/20 Last Taken 06/25/20] trazodone 100 mg tablet 100 mg PO QHS #90 tab 08/18/15 [Rx Confirmed 06/26/20 Last Taken 06/25/20] teriflunomide 14 mg tablet 14 mg PO QDAY 11/27/19 [History Confirmed 06/26/20 Last Taken 06/26/20] D-Mannose 1 cap PO BID 31 Days #62 cap 10/01/20 [Rx Confirmed 06/26/20 Last Taken 06/25/20 17:00] bupropion HCl 150 mg PO QNOON 01/27/20 [History Confirmed 06/26/20 Last Taken 06/25/20 12:00] cholecalciferol (vitamin D3) [Vitamin D3] 5,000 unit PO DAILY 01/27/20 [History Confirmed 06/26/20 Last Taken 06/25/20] metformin 500 mg PO 1700 01/27/20 [History Confirmed 06/26/20 Last Taken 06/25/20 17:00] levothyroxine 75 mcg capsule 75 mcg PO QDAY 30 Days #30 cap 02/26/20 [Rx Confirmed 06/26/20 Last Taken 06/25/20] multivit,Ca,min-iron 8 mg-folic acid 200 mcg-lycopene 600 mcg tablet 1 tab PO QDAY 30 Days #30 tab 02/26/20 [Rx Confirmed 06/26/20 Last Taken Unknown] potassium citrate 15 mEq (1,620 mg) tablet,extended release 15 meq PO TID 30 Days #90 tab 02/26/20 [Rx Confirmed 06/26/20 Last Taken 06/25/20] bisacodyl 5 mg tablet,delayed release 5 mg PO DAILY #90 tab 02/29/20 [Rx Confirmed 06/26/20 Last Taken 06/14/20] aspirin 81 mg tablet,delayed release 81 mg PO QDAY 30 Days #30 tab 03/18/20 [Rx Confirmed 06/26/20 Last Taken 06/14/20] Remedy Repair cream See Rx Instructions .ROUTE .COMPLEX PRN 04/05/20 [History Confirmed 06/26/20 Last Taken 06/25/20] bisacodyl 10 mg rectal suppository 10 mg VA QDAY PRN supp 04/05/20 [History Confirmed 06/26/20 Last Taken 06/25/20] citric ac 1980.6 mg-glucono 59.4 mg-mag carb 980.4 mg/30 mL irrig.soln 30 ml IRRIGATION BID ml 04/05/20 [History Confirmed 06/26/20 Last Taken 06/25/20] dimethicone 1 % topical cream 1 applic TOPICAL TID-QID PRN 04/05/20 [History Confirmed 06/26/20 Last Taken 06/25/20] sennosides 8.6 mg-docusate sodium 50 mg tablet 4 tab-cap PO QPM tab 04/05/20 [History Confirmed 06/26/20 Last Taken 06/25/20 20:00] zinc oxide 13 % topical cream See Rx Instructions TOPICAL TID PRN g 04/05/20 [History Confirmed 06/26/20 Last Taken 06/25/20] magnesium citrate 118 ml PO PRN PRN #296 ml 04/07/20 [Rx Confirmed 06/26/20 Last Taken 06/17/20] sennosides-docusate sodium [Senna-S] 1 tab-cap PO QID #120 tab 04/09/20 [Rx Confirmed 06/26/20 Last Taken Unknown] chromium picolinate 200 mcg tablet 200 mcg PO BID 31 Days #62 tab 05/07/20 [Rx Confirmed 06/26/20 Last Taken 06/25/20 17:00] magnesium 250 mg tablet 250 mg PO BID 31 Days #62 tab 05/07/20 [Rx Confirmed 06/26/20 Last Taken 06/25/20 17:00] docusate sodium 100 mg capsule 100 mg PO QDAY #180 cap 05/11/20 [Rx Confirmed Last Taken 06/12/20] polyethylene glycol 3350 17 gram oral powder packet 8.5 g PO DAILY #60 each 05/11/20 [Rx Confirmed 06/26/20 Last Taken 06/25/20] banana flakes-transgalactooligosaccharide oral powder packet See Rx Instructions PO .COMPLEX #75 each 05/12/20 [Rx Confirmed 06/26/20 Last Taken 06/25/20] fluticasone propionate 50 mcg/actuation nasal spray,suspension 2 spray INTRANASAL QDAY #16 g 05/18/20 [Rx Confirmed 06/26/20 Last Taken 06/25/20] citric ac 1980.6 mg-glucono 59.4 mg-mag carb 980.4 mg/30 mL irrig.soln 30 ml IRRIGATION BID #900 ml 06/09/20 [Rx Confirmed 06/26/20 Last Taken 06/25/20] acetaminophen 500 mg tablet 1,000 mg PO TID PRN #60 tab 06/15/20 [Rx Confirmed 06/26/20 Last Taken Unknown] Centrum Silver Men 1 tab PO QDAY 06/26/20 [History Confirmed 06/26/20 Last Taken 06/25/20] vitamin B complex 1 tab PO QDAY 06/26/20 [History Confirmed 06/26/20 Last Taken 06/25/20] ciprofloxacin HCl [Cipro] 500 mg PO Q12H #30 tab 06/30/20 [Rx Last Taken Unknown] metronidazole 500 mg PO TID #42 tab 06/30/20 [Rx Last Taken Unknown] COURSE Hospital Course Hospital course: . Discharge diagnosis: Colitis likely infectious/ischemic Time Spent with Patient Time attestation: Total time spent providing and/or coordinating discharge services: EXAM Constitutional Vitals: Temp Pulse Resp BP Pulse Ox 98.6 F 76 16 112/56 97 06/30/20 07:37 06/30/20 07:37 06/30/20 07:37 06/30/20 07:37 06/30/20 07:37 Discharge Data Data Completed and Pending Labs on day of discharge: Labs from last 24 hours 06/30/20 06/30/20 05:43 05:43 WBC 6.7 RBC 4.07 L Hgb 12.9 L Hct 38.5 L MCV 94.6 MCH 31.7 MCHC 33.5 RDW 13.5 Plt Count 190 MPV 9.9 Neut % (Auto) 50.9 Lymph % (Auto) 34.1 [place] % (Auto) 10.7 Eos % (Auto) 3.7 Baso % (Auto) 0.6 Lymph # (Auto) 2.29 [place] # (Auto) 0.72 Eos # (Auto) 0.25 Baso # (Auto) 0.04 Absolute Neutrophils 3.42 Sodium 139 Potassium 3.9 Chloride 103 Carbon Dioxide 26 Anion Gap 10.0 BUN 12 Creatinine 0.7 GFR Calculation 105 Glucose 97 Uric Acid 3.2 Calcium 9.4 Phosphorus 2.2 L Magnesium 1.8 Total Bilirubin 0.4 Direct Bilirubin < 0.2 GGT 12 AST 23 ALT 15 Alkaline Phosphatase 89 Lactate Dehydrogenase 174 Total Protein 6.6 Albumin 3.7 Globulin 2.9 Albumin/Globulin Ratio 1.3 Triglycerides 43 Preliminary micro results at discharge 06/26/20 09:43 Urine Culture - Preliminary Urine - Suprapubic Gram negative bacillus Salmonella species Enterococcus species#2 Discharge Plan Patient/Caregiver Discharge Instructions Activity: increase activity as tolerated Diet: Consistent Carbohydrate Instructions: Ciprofloxacin (By mouth), Metronidazole (By mouth), Gastrointestinal Bleeding (DC), Catheter-associated Urinary Tract Infection (DC), Ischemic Colitis (DC) Activity Restrictions/Additional Instructions: Resume consistent carbohydrate diet as tolerated. Increase activity as tolerated. Ambulate using a walker for safety. Continue to monitor skin for any breakdown. Apply Nutrashield as needed for dry skin, redness/rash on buttocks/groin area. Follow-up PCP in 5 to 7 days. Follow-up with DOLORES Vargas in 1 week. Continue Ciprofloxacin antibiotic for an additional 15 days. Continue Flagyl antibiotic for an additional 14 days. Return to ER if worsening abdominal pain, fever, chills, bleeding, or any other questions/concerns. This discharge packet is provided to you to help keep you informed about your care. We want to ensure you get everything you need when you go home. You will also be receiving a call from us in a few days to follow up with you and see how you are doing since your discharge. This gives us a chance to listen to any concerns you maybe experiencing since you were discharged or any additional needs you may have, as well as providing us feedback on your care experience. We strive to always provide excellent care and thank you for your feedback and for choosing [facility]. Prescriptions: New ciprofloxacin HCl [Cipro] 500 mg tablet 500 mg PO Q12H Qty: 30 RF: 0 metronidazole 500 mg Tablet 500 mg PO TID Qty: 42 RF: 0 Continued trazodone 100 mg tablet 100 mg PO QHS Qty: 90 RF: 1 D-Mannose 500 mg capsule 1 cap PO BID 31 Days Qty: 62 RF: 5 potassium citrate 15 mEq tablet extended release 15 meq PO TID 30 Days Qty: 90 RF: 11 Centrum Men 8 mg iron- 200 mcg-600 mcg tablet 1 tab PO QDAY 30 Days Qty: 30 RF: 11 levothyroxine 75 mcg capsule 75 mcg PO QDAY 30 Days Qty: 30 RF: 11 bisacodyl 5 mg tablet,delayed release (DR/EC) 5 mg PO DAILY Qty: 90 RF: 3 aspirin 81 mg tablet,delayed release (DR/EC) 81 mg PO QDAY 30 Days Qty: 30 RF: 5 magnesium citrate Solution 118 ml PO PRN PRN (Reason: Constipation) Qty: 296 RF: 1 chromium picolinate 200 mcg tablet 200 mcg PO BID 31 Days Qty: 62 RF: 5 magnesium 250 mg tablet 250 mg PO BID 31 Days Qty: 62 RF: 5 docusate sodium 100 mg capsule 100 mg PO QDAY Qty: 180 RF: 3 polyethylene glycol 3350 [Miralax] 17 gram powder in packet 8.5 g PO DAILY Qty: 60 RF: 0 Banatrol Plus Powder In Packet See Rx Instructions PO .COMPLEX Qty: 75 RF: 0 fluticasone propionate 50 mcg/actuation spray,suspension 2 spray INTRANASAL QDAY Qty: 16 RF: 5 Renacidin 1,980.6 mg-59.4 mg-980.4mg/30mL solution 30 ml irrigation BID Qty: 900 RF: 0 acetaminophen 500 mg tablet 1,000 mg PO TID PRN (Reason: Pain/Headache) Qty: 60 RF: 2 bupropion HCl 150 mg tablet extended release 300 mg PO DAILY RF: 0 divalproex 500 mg tablet,delayed release (DR/EC) 1,000 mg PO DAILY RF: 0 fluvoxamine 100 mg tablet 100 mg PO TID RF: 0 melatonin 5 mg capsule 5 mg PO HS RF: 0 sennosides-docusate sodium 8.6-50 mg tablet 4 tab-cap PO QPM RF: 0 bisacodyl 10 mg suppository 10 mg VA QDAY PRN (Reason: constipation) RF: 0 Remedy Repair cream See Rx Instructions .ROUTE .COMPLEX PRN (Reason: Dry Skin) RF: 0 Renacidin 1,980.6 mg-59.4 mg-980.4mg/30mL solution 30 ml IRRIGATION BID RF: 0 Desitin Rapid Relief 13 % cream See Rx Instructions TOPICAL TID PRN (Reason: skin irritation) RF: 0 Remedy Nutrashield Skin Protec 1 % cream 1 applic TOPICAL TID-QID PRN (Reason: Dry Skin) RF: 0 Aubagio 14 mg tablet 14 mg PO QDAY RF: 0 bupropion HCl 150 mg tablet sustained-release 12 hr 150 mg PO QNOON RF: 0 cholecalciferol (vitamin D3) [Vitamin D3] 125 mcg (5,000 unit) Tablet 5,000 unit PO DAILY RF: 0 metformin 500 mg tablet extended release 24 hr 500 mg PO 1700 RF: 0 sennosides-docusate sodium [Senna-S] 8.6-50 mg tablet 1 tab-cap PO QID Qty: 120 RF: 0 vitamin B complex Tablet 1 tab PO QDAY RF: 0 Centrum Silver Men 300-600-300 mcg Tablet 1 tab PO QDAY RF: 0 Follow Up Plan Follow up with: Lon Stinson PA-C [Primary Care Provider] - 07/07/20 1:15 pm Magali Vargas ARNP [Nurse Practitioner] - (Please call and schedule a follow-up in one week.) Patient Disposition: Xfer Assisted Living Facility Prognosis: Good Rehab Potential: Fair I certify that the patient requires SNF services: No Overall status at discharge: patient is progressing back to baseline Discharge Orders: Discharge Order (Routine); Ordered 07/01/20 Ordered By: Cory Quiles
[2020-06-30] MEDS ORDERED: POLYETHYLENE GLYCOL 3350 17 GM PACKET PO SCH (09:00)
[2020-06-30] MEDS: INSULIN LISPRO 1 UNIT/0.01 ML UNIT SQ SCH ×4 (10:09→21:31)
[2020-06-30] MEDS: POTASSIUM CITRATE 10 MEQ TAB.XL.24H PO SCH ×3 (10:12→16:30)
[2020-06-30] MEDS: DIVALPROEX SODIUM 250 MG TABLET PO SCH (10:12)
[2020-06-30] MEDS: LEVOTHYROXINE 75 MCG TABLET PO SCH (10:12)
[2020-06-30] MEDS: CHROMIUM PICOLINATE 200 MCG PO SCH ×2 (10:14→16:29)
[2020-06-30] MEDS: buPROPion 150 MG TAB.SR.12H PO SCH ×2 (10:14→16:31)
[2020-06-30] MEDS: VITAMIN D3 5,000 UNIT CAPSULE PO SCH (10:14)
[2020-06-30] MEDS: ASPIRIN 81 MG TAB.CHEW PO SCH (10:14)
[2020-06-30] MEDS: CIPROFLOXACIN 500 MG TABLET PO SCH ×2 (10:15→21:12)
[2020-06-30] MEDS: MULTIVIT,THER IRON,CA,FA & MIN 1 TABLET PO SCH (10:15)
[2020-06-30] MEDS: MAGNESIUM OXIDE 400 MG TABLET PO SCH ×2 (10:15→16:30)
[2020-06-30] MEDS: VITAMIN B COMPLEX 1 CAPSULE PO SCH (10:15)
[2020-06-30] MEDS: BISACODYL 5 MG TABLET PO SCH (10:17)
[2020-06-30] MEDS: DOCUSATE SODIUM 100 MG CAPSULE PO SCH (10:17)
[2020-06-30] MEDS: metroNIDAZOLE 500 MG TABLET PO SCH ×2 (10:18→21:12)
[2020-06-30] MEDS: FLUTICASONE PROPIONATE SPRAY.NAS NS SCH (10:18)
[2020-06-30] MEDS: HEPARIN 5,000 UNIT/ML VIAL SQ SCH ×2 (10:18→21:14)
[2020-06-30] MEDS: CITRIC AC GLUCONOLACT MAG CARB TOPICAL SCH ×2 (10:19→16:36)
[2020-06-30] MEDS: PATIENTS OWN MEDICATION 1 DOSE MISCELL PO SCH (10:20)
--- NOTE | 2020-06-30 14:36 | Internal Med Progress Note ---
SUBJECTIVE Subjective Patient information: Note initiated : 06/30/20 at 2:33 pm Service Date, if different from initiated Date: [] Patient: Buck Diamond a 55 y/o M admitted on 06/26/20 for Purulent Substance in catheter. Chief Complaint: [] Interval history: Mr. Diamond is a 55 year old M with a history of developmental delay who presents to the ER with concerns of diarrhea/blood smeared stool and abdominal cramps. Patient has suprapubic catheter and suffers from prior episodes of alternating bowel habits including constipation with diarrhea. He pr esented to the ER for evaluation. Initial work-up was consistent with severe colitis on imaging/pyuria on UA. Patient was started on antibiotic coverage/crystalloids after cultures were drawn. Hospitalist service was consulted. At the time of evaluation patient is alert. He was able to answer some of the questions. He denies fever chills, endorses to diarrhea and bloody mucus. He is very pleasant and does not seem to apparent distress. No family members present. Most of the history is obtained from review of medical records/ER physician. I discussed the case with GI and following previous hospitalization underwent colonoscopy that was consistent with ischemic colitis. He is on aggressive bowel regimen to prevent constipation and has not had a hospitalization over the last 5 months. 06/27 patient doing better. Improved diarrhea. No overnight bloody stools. Hemoglobin stable. Continue crystalloids and started on liquid diet. White count stable. Hemodynamically stable. No additional concerns per nursing staff. De-escalate antibiotics to Cipro Flagyl as clinical presentation more consistent with ischemic colitis. 06/28-patient doing well. No overnight events. More formed stool this morning. No GI bleed. Advancing diet as tolerated. Mother at bedside. Discussed clinical progress and plan of care. No fever chills nausea vomiting. Stable hemodynamics. Potassium 3.4 on replacement. Continuing antibiotic coverage. Polymicrobial culture with gram-negative bacilli and Enterococcus on urine cultures 06/29-patient doing well. Denies abdominal pain fever chills. Normal white count. Tolerating diet. Explosive diarrhea this morning. Creatinine 0.6. Electrolytes stable. Anticipate discharge in 24 hours with outpatient antibiotic for additional 5 days. Continue existing bowel regime 06/30-patient doing better. Diarrhea improving. Stool cultures Salmonella suggestive of Salmonella colitis. Continuing ciprofloxacin based on culture sensitivities. Recommend additional 14 days oral ciprofloxacin. Diarrhea improved. Tolerating diet. Possible discharge in 24 hours. Await placement to assisted living. Family at bedside. Discussed treatment plan. Will require 14 days of Flagyl/ciprofloxacin and follow-up with GI as outpatient. Constitutional Vitals: Vital Signs Temp Pulse Resp BP Pulse Ox 98.4 F 85 16 135/79 97 06/30/20 12:00 06/30/20 12:00 06/30/20 12:00 06/30/20 12:00 06/30/20 12:00 Period Temp Pulse Resp BP Sys/Ayala Pulse Ox Last 24 Hr 97.2 F-99.0 F 66-86 14-18 98-135/56-79 92-97 Intake and Output 06/30/20 06/30/20 06/30/20 05:59 13:59 21:59 Intake Total 0 180 Output Total 475 575 Balance -475 -395 Alert, ambulating nonlabored breathing, Nondistended nontender abdomen No lymphedema No anxiety Intake & Output: Intake & Output 06/30/20 06/30/20 06/30/20 05:59 13:59 21:59 Intake Total 0 180 Output Total 475 575 Balance -475 -395 Intake: Oral 0 180 Output: Urine Catheter Amount 475 575 Other: Meal Lunch Percent of Meal Consumed 100% Feeding Ability Independent Urine Color Dark Yellow Urine Odor Normal OBJ DATA Labs CBC & Chem 7: 06/30/20 05:43 06/30/20 05:43 Labs: Abnormal Lab Results 06/30/20 06/30/20 06/29/20 05:43 05:43 05:39 RBC 4.07 L Hgb 12.9 L Hct 38.5 L [place] % (Auto) Anion Gap 7.0 L Creatinine 0.6 L Glucose 136 H Uric Acid Calcium 8.4 L Phosphorus 2.2 L Lactate Dehydrogenase 113 L Total Protein 5.7 L 06/29/20 06/28/20 06/28/20 05:39 05:22 05:22 RBC 3.76 L 4.15 L Hgb 11.8 L 13.1 L Hct 36.3 L 39.4 L [place] % (Auto) 12.1 H Anion Gap Creatinine 0.6 L Glucose 121 H Uric Acid 2.1 L Calcium Phosphorus Lactate Dehydrogenase Total Protein Meds: Medications Acetaminophen (Acetaminophen 500 Mg Tablet) 1,000 mg PO TIDP PRN; Protocol PRN Reason: Pain/Headache Aspirin (Aspirin 81 Mg Tab.Chew) 81 mg PO DAILY [facility] Last Admin: 06/30/20 10:14 Dose: 81 mg Documented by: Bisacodyl (Bisacodyl 5 Mg Tablet) 5 mg PO DAILY [facility] Last Admin: 06/30/20 10:17 Dose: Not Given Documented by: Bisacodyl (Bisacodyl 10 Mg Supp.Rect) 10 mg RI QDAY PRN PRN Reason: constipation Bupropion HCl (Bupropion 150 Mg Tab.Sr.12h) 150 mg PO QNOON [facility] Bupropion HCl (Bupropion 150 Mg Tab.Sr.12h) 300 mg PO DAILY [facility] Last Admin: 06/30/20 10:14 Dose: 300 mg Documented by: Ciprofloxacin (Ciprofloxacin 500 Mg Tablet) 500 mg PO BID [facility]; Protocol Last Admin: 06/30/20 10:15 Dose: 500 mg Documented by: Diagnostic Test (Pha) (Accu-Chek 1 Each Strip) 1 each FS ACHS [facility] Last Admin: 06/30/20 11:45 Dose: 1 each Documented by: Divalproex Sodium (Divalproex Sodium 250 Mg Tablet) 1,000 mg PO DAILY [facility] Last Admin: 06/30/20 10:12 Dose: 1,000 mg Documented by: Docusate Sodium (Docusate Sodium 100 Mg Capsule) 100 mg PO QDAY [facility] Last Admin: 06/30/20 10:17 Dose: Not Given Documented by: Fluticasone Propionate (Fluticasone Propionate [place]) 2 spray NS QDAY [facility] Last Admin: 06/30/20 10:18 Dose: Not Given Documented by: Heparin Sodium (Porcine) (Heparin 5,000 Unit/Ml Vial) 5,000 unit SQ Q12 [facility] Last Admin: 06/30/20 10:18 Dose: 5,000 unit Documented by: Hydromorphone HCl (Hydromorphone 0.5 Mg/0.5 Ml Syringe) 0.25 - 0.5 mg IV Q4HP PRN; Protocol PRN Reason: Per Pain Protocol Potassium Chloride 40 meq/ (Dextrose) 520 mls @ 130 mls/hr IV UD PRN PRN Reason: K+ = or < 3.5 Acetaminophen (Ofirmev) 650 mg in 65 mls @ 130 mls/hr IV Q6HP PRN; Protocol PRN Reason: Per Pain Protocol/Fever > 101 Magnesium Sulfate (Magnesium Sulfate) 2 gm in 50 mls @ 50 mls/hr IV UD PRN PRN Reason: MG = or < 1.7 Insulin Human Lispro (Insulin Lispro 1 Unit/0.01 Ml Unit) 0 unit SQ ACHS [facility]; Protocol Last Admin: 06/30/20 13:55 Dose: Not Given Documented by: Iron Carb/Multivit/[place]/Folic Acid (Multivit,Ther Iron,Ca,Fa & Min 1 Tablet) 1 tab PO DAILY [facility] Last Admin: 06/30/20 10:15 Dose: 1 tab Documented by: Levothyroxine Sodium (Levothyroxine 75 Mcg Tablet) 75 mcg PO QAMAC [facility] Last Admin: 06/30/20 10:12 Dose: 75 mcg Documented by: Magnesium Citrate (Magnesium Citrate 300 Ml Oral.Rosario) 118 ml PO PRN PRN PRN Reason: Constipation Magnesium Oxide (Magnesium Oxide 400 Mg Tablet) 400 mg PO BID@0800,1700 [facility] Last Admin: 06/30/20 10:15 Dose: 400 mg Documented by: Melatonin (Melatonin 3 Mg Tablet) 3 mg PO HSP PRN PRN Reason: Insomnia Metformin HCl (Metformin 500 Mg Tab.Xl.24h) 500 mg PO 1700 [facility] Metronidazole (Metronidazole 500 Mg Tablet) 500 mg PO Q12H [facility]; Protocol Last Admin: 06/30/20 10:18 Dose: 500 mg Documented by: Ondansetron HCl (Ondansetron 4 Mg Odt Tablet) 4 mg SL Q4-6HP PRN; Protocol PRN Reason: Nausea And Vomiting Ondansetron HCl (Ondansetron 4 Mg/2 Ml Vial) 4 mg IV Q4-6HP PRN; Protocol PRN Reason: Nausea And Vomiting D-Mannose 500 Mg (Capsule) 1 dose PO BID [facility] Last Admin: 06/30/20 10:19 Dose: Not Given Documented by: Chromium Picolinate (200 Mcg Tablet) 1 dose PO BID@0800,1700 [facility] Last Admin: 06/30/20 10:14 Dose: Not Given Documented by: Patient Own Medication (Patients Own Medication 1 Dose Miscell) 1 dose PO QDAY [facility] Last Admin: 06/30/20 10:20 Dose: 1 dose Documented by: Fluvoxamine 100 Mg (Tablet) 1 dose PO TID@0800,1200,2000 [facility] Last Admin: 06/30/20 10:17 Dose: 1 dose Documented by: Citric Ac- Gluconolact-Mag Carb [Renacidin] Solution 1 dose TOPICAL BID@0900,1600 [facility] Last Admin: 06/30/20 10:19 Dose: 1 dose Documented by: Potassium Chloride (Potassium Chloride 20 Meq Packet) 40 meq PO PRN PRN PRN Reason: K+ = <3.5 Potassium Citrate (Potassium Citrate 10 Meq Tab.Xl.24h) 15 meq PO TIDCC [facility] Last Admin: 06/30/20 10:13 Dose: 15 meq Documented by: Potassium/Phosphorus/Sodium (Neutra Phos 1 Packet) 2 packet PO DAILYP PRN PRN Reason: PHOS <2.5 Senna/Docusate Sodium (Sennosides/Docusate Sodium 1 Tab Tablet) 4 tab PO QPM [facility] Last Admin: 06/29/20 20:55 Dose: Not Given Documented by: Sodium Chloride (0.9 % Sodium Chloride 10 Ml Syringe) 10 ml IV Q8 [facility] Last Admin: 06/30/20 06:38 Dose: Not Given Documented by: Trazodone HCl (Trazodone Hcl 100 Mg Tablet) 100 mg PO QHS [facility] Last Admin: 06/29/20 20:35 Dose: 100 mg Documented by: Vitamin B Complex (Vitamin B Complex 1 Capsule) 1 cap PO DAILY [facility] Last Admin: 06/30/20 10:15 Dose: 1 cap Documented by: Vitamin D (Vitamin D3 5,000 Unit Capsule) 5,000 unit PO DAILY [facility] Last Admin: 06/30/20 10:14 Dose: 5,000 unit Documented by: A/P Narrative A/P Narrative: * Severe infectious colitis secondary to Salmonella atop ischemic colitis. Clinically improved on antibiotic coverage based on culture sensitivity. Continue additional 14 days Cipro Flagyl * Complicated catheter related UTI -enterococci/Salmonella on cultures. Co ntinue ciprofloxacin * Diarrhea secondary to Salmonella gastroenteritis. Clinically improved. * Neurogenic bowel with alternating diarrhea constipation. Prior endoscopy consistent with ischemic colitis. * History of developmental delay/occasional intermittent agitation continue home dose Depakote/bupropion and fluvoxamine * DM type II continue CCD/prandial insulin liquid diet at this time * Prophylax Heparin Plan * Continue antibiotics for 14 days * Crystalloids and supportive management * Advance diet as tolerated * Pre-existing medical condition management as above * Possible discharge in 24 hours Time Spent With Patient Time: Total time spent is greater than 50% in coordination of care (as documented) at patient's floor/unit and/or counseling patient:
[2020-06-30] MEDS ORDERED: metFORMIN 500 MG TAB.XL.24H PO SCH (17:00)
[2020-06-30] MEDS: traZODone HCL 100 MG TABLET PO SCH (21:12)
[2020-06-30] MEDS: SENNOSIDES/DOCUSATE SODIUM 1 TAB TABLET PO SCH (21:32)
[2020-07-01] MEDS: 0.9 % SODIUM CHLORIDE 10 ML SYRINGE IV SCH ×2 (06:22→14:07)
[2020-07-01 07:08] LABS: Basophils # (Auto) 0.04 K/mcL (0.00-0.20); Eosinophils # (Auto) 0.22 K/mcL (0.00-0.70); Eosinophils % (Auto) 5.6 % (0.0-7.0); Hematocrit 38.1 % (41.0-55.0); Hemoglobin 12.3 g/dL (13.5-16.5); Lymphocytes # (Auto) 1.67 K/mcL (1.50-4.80); Lymphocytes % (Auto) 42.7 % (15.0-49.0); Mean Cell Volume 99.2 fL (80.0-100.0); Mean Corpuscular HGB Conc 32.3 g/dL (31.0-36.0); Mean Platelet Volume 9.6 fL (7.4-10.4); Monocytes # (Auto) 0.44 K/mcL (0.10-0.90); Monocytes % (Auto) 11.3 % (1.0-12.0); Neutrophils % (Auto) 39.4 % (38.0-78.0); Platelet Count 179 K/mcL (140-440); RBC 3.84 M/mcL (4.50-5.90); Red Cell Distribution Width 14.2 % (11.5-14.5); WBC 3.9 K/mcL (4.5-11.0)
[2020-07-01 08:19] LABS: ALT/SGPT 19 U/L (<40); AST/SGOT 28 U/L (<40); Albumin 3.3 gm/dL (3.2-5.2); Albumin/Globulin Ratio 1.2 (1.0-2.3); Alkaline Phosphatase 84 U/L (39-117); Bilirubin,Direct < 0.2 mg/dL (0-0.3); Bilirubin,Total 0.3 mg/dL (0.1-1.0); Blood Urea Nitrogen 15 mg/dL (6-20); Carbon Dioxide 24 mmol/L (22-30); Chloride 103 mmol/L (96-108); Globulin 2.7 gm/dL (2.2-3.7); Glomerular Filtration Rate 84; Glucose 168 mg/dL (70-105); Lactate Dehydrogenase 155 U/L (135-225); Phosphorous 8.2 mg/dL (2.5-4.5); Triglycerides 83 mg/dL (<150); Uric Acid 3.9 mg/dL (2.5-8.0)
[2020-07-01] MEDS: INSULIN LISPRO 1 UNIT/0.01 ML UNIT SQ SCH ×2 (08:57→12:03)
[2020-07-01] MEDS: VITAMIN B COMPLEX 1 CAPSULE PO SCH (08:58)
[2020-07-01] MEDS: CIPROFLOXACIN 500 MG TABLET PO SCH (08:59)
[2020-07-01] MEDS: DOCUSATE SODIUM 100 MG CAPSULE PO SCH (08:59)
[2020-07-01] MEDS: MAGNESIUM OXIDE 400 MG TABLET PO SCH (09:00)
[2020-07-01] MEDS: VITAMIN D3 5,000 UNIT CAPSULE PO SCH (09:00)
[2020-07-01] MEDS: ASPIRIN 81 MG TAB.CHEW PO SCH (09:00)
[2020-07-01] MEDS: BISACODYL 5 MG TABLET PO SCH (09:00)
[2020-07-01] MEDS: buPROPion 150 MG TAB.SR.12H PO SCH ×2 (09:01→12:02)
[2020-07-01] MEDS: DIVALPROEX SODIUM 250 MG TABLET PO SCH (09:02)
[2020-07-01] MEDS: HEPARIN 5,000 UNIT/ML VIAL SQ SCH (09:03)
[2020-07-01] MEDS: MULTIVIT,THER IRON,CA,FA & MIN 1 TABLET PO SCH (09:04)
[2020-07-01] MEDS: PATIENTS OWN MEDICATION 1 DOSE MISCELL PO SCH (09:05)
[2020-07-01] MEDS: CHROMIUM PICOLINATE 200 MCG PO SCH (09:06)
[2020-07-01] MEDS: POTASSIUM CITRATE 10 MEQ TAB.XL.24H PO SCH ×2 (09:06→12:01)
[2020-07-01] MEDS: FLUTICASONE PROPIONATE SPRAY.NAS NS SCH (09:07)
[2020-07-01] MEDS: CITRIC AC GLUCONOLACT MAG CARB TOPICAL SCH ×2 (09:07→14:08)
[2020-07-01] MEDS: metroNIDAZOLE 500 MG TABLET PO SCH (09:22)
[2020-07-01] MEDS: LEVOTHYROXINE 75 MCG TABLET PO SCH (09:22)
[2020-07-01 10:43] LABS: ALT/SGPT 20 U/L (<40); AST/SGOT 23 U/L (<40); Albumin 3.3 gm/dL (3.2-5.2); Albumin/Globulin Ratio 1.2 (1.0-2.3); Alkaline Phosphatase 82 U/L (39-117); Bilirubin,Direct < 0.2 mg/dL (0-0.3); Bilirubin,Total 0.3 mg/dL (0.1-1.0); Blood Urea Nitrogen 13 mg/dL (6-20); Calcium 8.6 mg/dL (8.6-10.4); Carbon Dioxide 27 mmol/L (22-30); Chloride 106 mmol/L (96-108); Globulin 2.7 gm/dL (2.2-3.7); Glomerular Filtration Rate 100; Glucose 123 mg/dL (70-105); Lactate Dehydrogenase 137 U/L (135-225); Triglycerides 62 mg/dL (<150); Uric Acid 4.1 mg/dL (2.5-8.0)
== END 2020-07-01 15:53 | DRG 371 ==
LOC: ED 09:06 → MEDSUR 16:04
PROVIDERS: ADMIT Internal Medicine; ATTEND Internal Medicine

== ENCOUNTER 2022-02-26 09:38 | Inpatient (IN) ==
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
[2022-02-26 11:30] LABS: POC Calcium, Ionized 1.13 (1.16-1.32); POC Creatinine 0.6 (0.6-1.2); POC Potassium 4.6 (3.3-5.1)
--- NOTE | 2022-02-26 12:19 | Cat Scan Report ---
History: Abdominal pain, tenderness, constipation, sepsis, suprapubic catheter, melanoma TECHNIQUE: following injection of intravenous nonionic contrast the patient was imaged from above the diaphragm through the symphysis pubis. There is dependent atelectasis in both lower lobes and a linear band of scar tissue laterally in the left lower lobe. No pleural effusion is present and there is no hiatus hernia. The liver is normal in size and homogeneous. The gallbladder is relatively small but there are no calcified stones in the esteban not thickened or inflamed. The bile ducts are nondilated. The spleen is normal in size and homogeneous. No abnormality is seen within the pancreas. The adrenals are normal and symmetric. Two small nonobstructing calyceal stones are present in the middle third of the right kidney. The larger measures 2 mm. The kidneys are otherwise normal there is no hydronephrosis, mass or cyst in either kidney. The aorta and inferior vena cava are normal. There is minimal atherosclerotic disease. Patient has an abnormally elongated, dilated and tortuous sigmoid colon. It extends upward to the diaphragm. It measures up to 14 cm in transverse dimension. The wall is not abnormally thickened or inflamed and there are no diverticula. There is no volvulus at this time. The sigmoid has become more distended since prior CT done on 06/26/20. Moderate amount of stool is present in normal caliber ascending, transverse and ascending colon. The rectum contains some liquefied stool and there is mild, asymmetric thickening of the wall of the rectum. It measures up to 12 mm. There is a suprapubic catheter within the partially decompressed urinary bladder. Prostate is small. Bone windows reveal moderate disc degeneration at L5-S1 and arthritis in the facets at L4-5 and L5-S1. IMPRESSION: Abnormally distended and elongated sigmoid colon. The patient is at high risk of sigmoid volvulus. Thickened wall of the rectum which may be due to inflammation. A discrete tumor is not seen. Tiny nonobstructing right-sided kidney stones Dr. Cramer was called with the report Interpreted and Authenticated by: Ventura Ogden 02/26/22
[2022-02-26 13:02] LABS: Basophils # (Auto) 0.05 K/mcL (0.00-0.30); Basophils % (Auto) 0.7 % (0.0-2.0); Eosinophils # (Auto) 0.16 K/mcL (0.00-0.70); Eosinophils % (Auto) 2.2 % (0.0-7.0); Hematocrit 41.9 % (40.1-51.0); Hemoglobin 14.3 g/dL (13.7-17.5); Lymphocytes # (Auto) 1.58 K/mcL (1.50-4.80); Lymphocytes % (Auto) 21.3 % (15.5-49.0); Mean Cell Volume 94.6 fL (80.0-100.0); Mean Corpuscular HGB Conc 34.1 g/dL (31.0-36.0); Mean Platelet Volume 10.6 fL (8.8-12.5); Monocytes # (Auto) 0.65 K/mcL (0.10-0.90); Monocytes % (Auto) 8.8 % (1.0-12.0); Neutrophils % (Auto) 66.7 % (38.0-78.0); Platelet Count 169 K/mcL (140-440); RBC 4.43 M/mcL (4.63-6.08); WBC 7.4 K/mcL (4.5-11.0)
[2022-02-26 13:10] LABS: Appearance,Urine CLOUDY (Clear); Bacteria,Urine FEW /hpf (0); Bilirubin,Urine Negative (Negative); Color,Urine AMBER; Culture Indicated,Urine yes; Glucose,Urine (UA) >=500 mg/dL (Negative); Ketones,Urine Negative (Negative); Leukocyte Esterase,Urine 250 /uL (Negative); Mucus,Urine FEW /hpf; Nitrate,Urine POS (Negative); Protein,Urine Negative (Negative); Specific Gravity,Urine 1.036 (1.000-1.035); Urine Blood Negative (Negative); Urine RBC 6 /hpf (0-3); Urine Squamous Epithelial Cell < 1 /hpf (0-4); Urine WBC 99 /hpf (0-4); Urobilinogen,Urine Negative
[2022-02-26 13:20] LABS: ALT/SGPT 14 U/L (<40); AST/SGOT 13 U/L (<40); Albumin 3.8 gm/dL (3.2-5.2); Alkaline Phosphatase 95 U/L (39-117); Bilirubin,Direct < 0.2 mg/dL (0-0.3); Bilirubin,Total 0.2 mg/dL (0.1-1.0); Globulin 2.2 gm/dL (2.2-3.7)
[2022-02-26] MEDS ORDERED: PIPERACILLIN SODIUM/TAZOBACTAM 3.375 GM in DEXTROSE 5% IN WATER 50 ML IV ONE (13:26)
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
[2022-02-26] MEDS ORDERED: ROCURONIUM 10 MG/ML ML IV ONE (15:17)
[2022-02-26] MEDS ORDERED: fentaNYL 100 MCG/2 ML VIAL IV ONE (15:17)
[2022-02-26] MEDS ORDERED: ONDANSETRON 4 MG/2 ML VIAL ONE (15:17)
[2022-02-26] MEDS ORDERED: DEXAMETHASONE 10 MG/ML VIAL ONE (15:17)
[2022-02-26] MEDS ORDERED: SUGAMMADEX SODIUM 200 MG/2 ML VIAL IV ONE (15:17)
[2022-02-26] MEDS ORDERED: PROPOFOL 200 MG/20 ML VIAL IV ONE (15:17)
[2022-02-26] MEDS ORDERED: KETAMINE 50 MG/ML Syringe (ANEST) IV ONE (15:17)
[2022-02-26] MEDS ORDERED: LIDOCAINE HCL/PF 100 MG/5 ML SYRINGE IV ONE (15:17)
[2022-02-26] MEDS ORDERED: MAGNESIUM SULFATE 2 GM/50 ML BAG IV ONE (15:17)
[2022-02-26] MEDS ORDERED: MEPERIDINE 25 MG/ML VIAL IV PRN (15:50)
[2022-02-26] MEDS ORDERED: NALOXONE HCL 0.4 MG/ML VIAL IV PRN (15:50)
[2022-02-26] MEDS ORDERED: fentaNYL 100 MCG/2 ML VIAL IV PRN (15:50)
[2022-02-26] MEDS ORDERED: KETOROLAC 30 MG/ML VIAL IV PRN ×2 (15:50→17:00)
[2022-02-26] MEDS ORDERED: ACETAMINOPHEN 1,000 MG/100 ML BAG IV ONE (15:50)
[2022-02-26] MEDS ORDERED: ONDANSETRON 4 MG/2 ML VIAL IV PRN ×2 (15:50→16:50)
[2022-02-26] MEDS ORDERED: LACTATED RINGERS 250 ML IV PRN (15:50)
[2022-02-26] MEDS ORDERED: diphenhydrAMINE 50 MG/ML VIAL IV PRN (15:50)
[2022-02-26] MEDS ORDERED: HYDROmorphone 0.5 MG/0.5 ML SYRINGE IV PRN ×2 (15:50→16:50)
[2022-02-26] MEDS ORDERED: METHOCARBAMOL 1,000 MG/10 ML VIAL IV PRN (15:50)
[2022-02-26] MEDS ORDERED: IPRATROPIUM/ALBUTEROL 3 ML AMPUL.NEB NEB PRN (15:50)
[2022-02-26] MEDS ORDERED: PROMETHAZINE 25 MG/ML VIAL IV PRN (15:50)
[2022-02-26] MEDS ORDERED: LACTATED RINGERS 1,000 ML IV SCH (16:00)
[2022-02-26] MEDS ORDERED: ACETAMINOPHEN 325 MG TABLET PO PRN (16:50)
--- NOTE | 2022-02-26 16:50 | Operative Note ---
Brief Operative Note Date of procedure: 02/26/22 Pre-op diagnosis: Large bowel obstruction Post-op diagnosis: same Procedure: Exploratory laparotomy, sigmoid colectomy and end ostomy Grafts/Implants: No Anesthesia: GETA Findings: Large sigmoid colon with evidence of chronic volvulus Complications: none Surgeon: Zachery Guzman Estimated blood loss (cc): 50 Specimens Removed/Pathology: other (Sigmoid colon) Condition: stable Disposition: floor Operative Note Operative Note: This is a pleasant 57-year-old gentleman who presents with a partial large bowel obstruction. Risk, benefits, alternatives to the procedure were discussed with the patient and his family, his sister being his power of compliance attorney. They verbalized understanding, all questions were answered and they desire to continue with the procedure. Patient was taken main operating placed supine operative table. General anesthesia was induced endotracheal tube. Patient's prepped and draped in the standard sterile surgical fashion. Surgical timeout was taken to verify patient and procedure being performed. Midline incision was made carried down through skin and subcutaneous tissue upon entry into the abdominal cavity exploration showed a diffusely distended sigmoid colon there was evidence of chronic volvulus. The colon was brought out into the field of operation, the colon was decompressed at both the sigmoid rectal junction and at the descending colon sigmoid junction. The sigmoid colon was transected at the rectosigmoid junction using a CHEVY blue load staple. The colon was then transected proximally at the descending colon sigmoid junction where the colon was decompressed. This was also done with a CHEVY stapler. The mesentery was taken down with the LigaSure device and the colon was passed off the field for surgical pathology. The colon was diffusely distended up to approximately 15 cm at its greatest area, there was no evidence of perforation at this time. Once this was done the abdominal cavity was copiously irrigated and further exploration found no further pathology. Due to the size differential decision was made to do an end ostomy therefore a left lower quadrant ostomy site was made the skin and subcutaneous tissue were scored out, the fascia was opened in a cruciate fashion and the abdominal cavity was entered and dilated to allow approximately 2 fingertips. At the end of the descending colon was brought out to the skin and it laid without tension and was ensured to be straight and not twisted. The midline fascial defect was then reapproximated with a running looped 0 PDS suture. Skin edges were closed with surgical claudia. Once this was done the ostomy was matured in standard fashion using interrupted 3-0 Vicryl sutures. The ostomy was widely patent. A Prevena wound management system was placed on the midline incision and a ostomy appliance was placed over the ostomy. Patient was then transferred postanesthesia care unit awake alert in good condition.
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
[2022-02-26] MEDS ORDERED: BISACODYL 10 MG SUPP.RECT PR PRN (19:44)
[2022-02-26] MEDS ORDERED: DEXTROSE 31 GM ORAL.SUSP PO PRN (19:46)
[2022-02-26] MEDS ORDERED: MAGNESIUM SULFATE 2 GM/50 ML BAG IV PRN (19:46)
[2022-02-26] MEDS ORDERED: POTASSIUM CHLORIDE 20 MEQ TABLET PO PRN ×2 (19:46)
[2022-02-26] MEDS ORDERED: DEXTROSE 50% 50 ML VIAL IV PRN (19:46)
[2022-02-26] MEDS ORDERED: POTASSIUM CHLORIDE 40 MEQ in DEXTROSE 5% IN WATER 500 ML IV PRN (19:46)
[2022-02-26] MEDS ORDERED: HYDROCORTISONE 2.5% PR PRN (20:00)
[2022-02-26] MEDS: LACTATED RINGERS 1,000 ML IV SCH (20:25)
[2022-02-26] MEDS: traZODone HCL 50 MG TABLET PO SCH (20:25)
[2022-02-26] MEDS: INSULIN LISPRO 1 UNIT/0.01 ML UNIT SQ SCH (20:25)
[2022-02-26] MEDS: 0.9 % SODIUM CHLORIDE 10 ML SYRINGE IV SCH (20:26)
[2022-02-26] MEDS: PIPERACILLIN SODIUM/TAZOBACTAM 3.375 GM in DEXTROSE 5% IN WATER 50 ML IV SCH (21:22)
[2022-02-27] MEDS: oxyCODONE HCL 5 MG TABLET PO PRN (00:45)
[2022-02-27] MEDS: PIPERACILLIN SODIUM/TAZOBACTAM 3.375 GM in DEXTROSE 5% IN WATER 50 ML IV SCH ×4 (03:21→20:37)
[2022-02-27] MEDS: LACTATED RINGERS 1,000 ML IV SCH ×3 (03:27→18:18)
[2022-02-27] MEDS: 0.9 % SODIUM CHLORIDE 10 ML SYRINGE IV SCH ×3 (06:33→20:38)
--- NOTE | 2022-02-27 07:01 | General Surgery Progress Note ---
SUBJECTIVE Subjective Patient information: Note initiated : 02/27/22 at 6:57 am Service Date, if different from initiated Date: [] Patient: Buck Diamond 57 y/o M admitted on 02/26/22 for constipation. Chief Complaint: [] Principal diagnosis: Postop day #1 status post ex lap, sigmoid colectomy for partial small bowel Interval history: Overnight patient did well, small amount of nausea this morning. Some oozing through the dressing overnight, I changed the dressing several times overnight, consistent with small skin bleeder. Constitutional Vitals: Vital Signs Temp Pulse Resp BP Pulse Ox O2 Del Method O2 Flow Rate 99.5 F H 100 H 20 130/79 98 0 02/27/22 04:05 02/27/22 04:05 02/27/22 04:05 02/27/22 04:05 02/27/22 04:05 02/27/22 04:05 02/26/22 17:48 Period Temp Pulse Resp BP Sys/Ayala Pulse Ox O2 Del Method O2 Flow Rate Last 24 Hr 97.0 F-99.5 F 64-100 0-22 104-130/71-97 94-100 Room Air-Room Air 0-6 Intake and Output 02/26/22 02/27/22 02/27/22 19:59 03:59 11:59 Intake Total 0993 744 2311 Output Total 200 300 425 Balance 1450 -130 625 Weight 203 lb 1.6 oz Intake & Output: Intake & Output 02/26/22 02/27/22 02/27/22 19:59 03:59 11:59 Intake Total 8718 779 4691 Output Total 200 300 425 Balance 1450 -130 625 Weight 203 lb 1.6 oz Intake: IV 061 18 0428 Lactated Ringers 1,000 ml @ 100 1000 mls/hr IV .Q10H SUSANA Rx#: [id number] Zosyn 3.375 gm In Dextrose 5% 50 50 50 in Water 50 ml @ 100 mls/hr IV Q6H SUSANA Rx#:[id number] Oral 120 IV - Manual Only 1500 Output: Urine Catheter Amount 200 300 425 Other: Urine Appearance Clear Clear Clear Suprapubic Clear Urine Color Dark Yellow Yellow Dark Yellow Suprapubic Yellow Urine Odor Normal Normal General appearance: cooperative and no acute distress GI/Abdominal GI/Abdominal exam: Present normal bowel sounds and soft; Absent distended or tenderness Additional comments: Incision is clean dry and intact, dressing taken down after being saturated in a pproximately 5 hours. No evidence of further bleed at this time. Redressed with gauze and Tegaderm. A/P Assessment and plan (1) Large bowel obstruction: Plan: Postop day #1. Midline incision with some skin bleeding, appears to be controlled at this time. Continue clear liquid diet until patient is tolerating and has ostomy output. Appreciate hospitalist assistance with diabetes and outpatient medications. Can resume outpatient medications starting today. Status: Acute Time Spent With Patient Time: Total time spent is greater than 50% in coordination of care (as documented) at patient's floor/unit and/or counseling patient:
[2022-02-27] MEDS: INSULIN LISPRO 1 UNIT/0.01 ML UNIT SQ SCH ×4 (07:30→20:37)
--- NOTE | 2022-02-27 07:41 | EKG ---
[facility] Test Date: 2022-02-26 Pat Name: Buck Diamond Department: ED Room: Gender: Male [employer]: HERMAN : 1965 Requested By: Sung Cramer Order Number: [id number] Reading MD: John Lambert Measurements Intervals [place] Rate: 77 P: 46 DC: 158 QRS: 8 QRSD: 97 T: 72 QT: 395 QTc: 448 Interpretive Statements Sinus rhythm Low voltage, extremity leads Abnormal R-wave progression, early transition Electronically Signed On 02-27-2022 7:41:18 PST by John Lambert /store/[email or web address]/[id number]
--- NOTE | 2022-02-27 07:56 | Internal Med Progress Note ---
SUBJECTIVE Subjective Patient information: Note initiated : 02/27/22 at 7:52 am Service Date, if different from initiated Date: [] Patient: Buck Diamond 57 y/o M admitted on 02/26/22 for constipation. 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 Also has a history of depression anxiety diabetes hypothyroidism. On work-up in the ED is found to have a large bowel obstruction. Dr. Guzman was contacted who examined the patient and with family after discussion family has decided to treat surgically. Hospitalist consulted for comorbidities. Patient taken back to the OR for ex lap sigmoid colectomy and end ostomy. 02/27 Patient sitting up in bed and breakfast. Seems to be feeling well. Review of Systems: denies headache/fever/chills/nausea/vomiting/chest or abdominal pain/cough/dyspnea/diarrhea. Otherwise see above. Constitutional Vitals: Vital Signs Temp Pulse Resp BP Pulse Ox O2 Del Method O2 Flow Rate 99.5 F H 100 H 20 130/79 98 0 02/27/22 04:05 02/27/22 04:05 02/27/22 04:05 02/27/22 04:05 02/27/22 04:05 02/27/22 04:05 02/26/22 17:48 Period Temp Pulse Resp BP Sys/Ayala Pulse Ox O2 Del Method O2 Flow Rate Last 24 Hr 97.0 F-99.5 F 64-100 0-22 104-130/71-97 94-100 Room Air-Room Air 0-6 Intake and Output 02/26/22 02/27/22 02/27/22 19:59 03:59 11:59 Intake Total 5368 202 9860 Output Total 200 300 425 Balance 1450 -130 625 Weight 92.125 kg Intake & Output: Intake & Output 02/26/22 02/27/22 02/27/22 19:59 03:59 11:59 Intake Total 1130 874 6133 Output Total 200 300 425 Balance 1450 -130 625 Weight 92.125 kg Intake: IV 920 56 4257 Lactated Ringers 1,000 ml @ 100 1000 mls/hr IV .Q10H SUSANA Rx#: [id number] Zosyn 3.375 gm In Dextrose 5% 50 50 50 in Water 50 ml @ 100 mls/hr IV Q6H [facility] Rx#:[id number] Oral 120 IV - Manual Only 1500 Output: Urine Catheter Amount 200 300 425 Other: Urine Appearance Clear Clear Clear Suprapubic Clear Clear Urine Color Dark Yellow Yellow Dark Yellow Suprapubic Yellow Yellow Urine Odor Normal Normal Suprapubic Normal Exam: General: Alert, Awake, No acute Distress Eyes/N/T: EOMI,, Head/Neck: neck supple, CV: RRR, No murmurs, Pulm: Clear b/l, no wheezing/rhonchi/rales Abd: soft, surgical dressing in place, wound VAC Ext: no clubbing/cyanosis/edema Neuro: Alert, no focal deficits, moves all extremities, Skin: warm/dry OBJ DATA Labs CBC & Chem 7: 02/26/22 12:13 02/27/22 05:13 Labs: Abnormal Lab Results 02/26/22 02/26/22 02/26/22 12:22 12:13 11:24 RBC 4.43 L POC Glucose 307 H POC WB Ioniz Calcium 1.13 L Urine Appearance Cloudy A Urine Glucose (UA) >=500 A Urine Nitrate Pos A Ur Leukocyte Esterase 250 A Urine RBC 6 H Urine WBC 99 H Urine Bacteria Few A Urine Mucus Few A Meds: Medications Acetaminophen (Acetaminophen 325 Mg Tablet) 650 mg PO Q6HP PRN; Protocol PRN Reason: Per Pain Protocol/Fever > 101 Bisacodyl (Bisacodyl 10 Mg Supp.Rect) 10 mg SD QDAY PRN PRN Reason: constipation Bupropion HCl (Bupropion 150 Mg Tab.Sr.12h) 150 mg PO QNOON SUSANA Bupropion HCl (Bupropion 150 Mg Tab.Sr.12h) 300 mg PO QAM SUSANA Dextrose (Dextrose 50% 50 Ml Vial) 0 ml IV UD PRN PRN Reason: Per Sliding Scale Diagnostic Test (Pha) (Accu-Chek 1 Each Strip) 1 each FS ACHS [facility] Last Admin: 02/27/22 07:30 Dose: 1 each Divalproex Sodium (Divalproex Sodium 250 Mg Tablet) 1,000 mg PO QAM SUSANA Glucose (Dextrose 31 Gm Oral.Susp) 15 gm PO PRN PRN PRN Reason: Hypoglycemia Hydromorphone HCl (Hydromorphone 0.5 Mg/0.5 Ml Syringe) 0.5 mg IV Q2HP PRN; Protocol PRN Reason: Per Pain Protocol Last Admin: 02/26/22 23:12 Dose: 0.5 mg Lactated Ringer's (Lactated Ringers) 1,000 mls @ 100 mls/hr IV .Q10H [facility] Last Infusion: 02/27/22 06:36 Dose: Infused Potassium Chloride 40 meq/ (Dextrose) 520 mls @ 130 mls/hr IV UD PRN PRN Reason: Potassium < 3 Magnesium Sulfate (Magnesium Sulfate) 2 gm in 50 mls @ 50 mls/hr IV UD PRN PRN Reason: Magnesium </= 1.6 Piperacillin Sod/Tazobactam (Sod 3.375 gm/ Dextrose) 50 mls @ 100 mls/hr IV Q6H [facility]; Protocol Last Infusion: 02/27/22 06:33 Dose: Infused Insulin Human Lispro (Insulin Lispro 1 Unit/0.01 Ml Unit) 0 unit SQ ACHS [facility]; Protocol Last Admin: 02/27/22 07:30 Dose: 8 units Ketorolac Tromethamine (Ketorolac 30 Mg/Ml Vial) 15 mg IV Q6HP PRN; Protocol PRN Reason: Pain Stop: 02/28/22 16:56 Levothyroxine Sodium (Levothyroxine 75 Mcg Tablet) 75 mcg PO QAM [facility] Ondansetron HCl (Ondansetron 4 Mg/2 Ml Vial) 4 mg IV Q6HP PRN PRN Reason: Nausea And Vomiting Oxycodone HCl (Oxycodone Hcl 5 Mg Tablet) 5 mg PO Q4HP PRN; Protocol PRN Reason: Per Pain Protocol Last Admin: 02/27/22 00:45 Dose: 5 mg Fluvoxamine 100 Mg (Tablet) 1 dose PO TID [facility] Last Admin: 02/26/22 20:26 Dose: Not Given Hydrocortisone [ Anusol-Hc] 2.5 % Cream 1 dose SD QIDP PRN PRN Reason: hemorrhoids Teriflunomide [ Aubagio] 14 Mg Tablet 1 dose PO QDAY [facility] Potassium Chloride (Potassium Chloride 20 Meq Tablet) 40 meq PO UD PRN PRN Reason: Potssium is 3-3.5 Potassium Chloride (Potassium Chloride 20 Meq Tablet) 40 meq PO UD PRN PRN Reason: Potassium < 3 Sodium Chloride (0.9 % Sodium Chloride 10 Ml Syringe) 10 ml IV Q8 [facility] Last Admin: 02/27/22 06:33 Dose: Not Given Trazodone HCl (Trazodone Hcl 50 Mg Tablet) 50 mg PO QHS [facility] Last Admin: 02/26/22 20:25 Dose: 50 mg A/P Narrative A/P Narrative: A: *Large bowel obstruction and volvulus: s/p Ex-lap sig colectomy end ostomy (02/26) *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 *Multiple sclerosis *Neurogenic bladder with suprapubic catheter: *Possible complicated UTI: UA likely always dirty given suprapubic cath, but given acute illness and hospitalization will err on the side of caution *DM2: *Depression/anxiety *Hypothyroidism: P: -Bowel/diet/IVFper surgery -Abx pending UC -cont home psych meds -ssi, hold metformin -ppx: SCD, heparin post-op if ok with surgery Time Spent With Patient Time: Total time spent is greater than 50% in coordination of care (as documented) at patient's floor/unit and/or counseling patient: Total time spent with greater than 50% in coordination of care (as documented) at patient's floor/unit and/or counseling patient:: 25 - 35 minutes QUALITY VTE Deep Vein Thrombosis/Pulmonary Embolism Present on Admission: No
[2022-02-27 08:19] LABS: ALT/SGPT 16 U/L (<40); AST/SGOT 31 U/L (<40); Albumin 4.1 gm/dL (3.2-5.2); Albumin/Globulin Ratio 1.8 (1.0-2.3); Alkaline Phosphatase 96 U/L (39-117); Bilirubin,Direct < 0.2 mg/dL (0-0.3); Bilirubin,Total 0.5 mg/dL (0.1-1.0); Blood Urea Nitrogen 14 mg/dL (6-20); Carbon Dioxide 20 mmol/L (22-30); Chloride 98 mmol/L (96-108); Globulin 2.3 gm/dL (2.2-3.7); Glomerular Filtration Rate 104; Glucose 253 mg/dL (70-105); Lactate Dehydrogenase 287 U/L (135-225); Phosphorous 2.7 mg/dL (2.5-4.5); Triglycerides 47 mg/dL (<150); Uric Acid 1.9 mg/dL (2.5-8.0)
[2022-02-27] MEDS: DIVALPROEX SODIUM 250 MG TABLET PO SCH (08:43)
[2022-02-27] MEDS: buPROPion 150 MG TAB.SR.12H PO SCH ×2 (08:44→11:27)
[2022-02-27] MEDS: LEVOTHYROXINE 75 MCG TABLET PO SCH (08:45)
[2022-02-27] MEDS: RENACIDIN UR SCH ×2 (10:45→20:38)
[2022-02-27] MEDS: traZODone HCL 50 MG TABLET PO SCH (20:37)
[2022-02-28] MEDS: PIPERACILLIN SODIUM/TAZOBACTAM 3.375 GM in DEXTROSE 5% IN WATER 50 ML IV SCH ×4 (02:10→20:23)
[2022-02-28] MEDS: LACTATED RINGERS 1,000 ML IV SCH (05:13)
[2022-02-28] MEDS: 0.9 % SODIUM CHLORIDE 10 ML SYRINGE IV SCH ×3 (05:14→20:23)
[2022-02-28] MEDS: INSULIN LISPRO 1 UNIT/0.01 ML UNIT SQ SCH ×4 (07:16→20:23)
--- NOTE | 2022-02-28 07:18 | General Surgery Progress Note ---
SUBJECTIVE Subjective Patient information: Note initiated : 02/28/22 at 7:16 am Service Date, if different from initiated Date: [] Patient: Buck Diamond 57 y/o M admitted on 02/26/22 for constipation. Chief Complaint: [] Principal diagnosis: Postop day #2 status post ex lap, sigmoid colectomy for partial small bowel Interval history: Doing well overnight, skin bleeding stopped overnight. Patient is tolerating clear liquid diet without difficulty, ostomy is functioning. Constitutional Vitals: Vital Signs Temp Pulse Resp BP Pulse Ox O2 Del Method O2 Flow Rate 97.7 F 95 H 18 153/82 97 0 02/28/22 03:04 02/28/22 03:04 02/28/22 03:04 02/28/22 03:04 02/28/22 03:04 02/28/22 03:04 02/26/22 17:48 Period Temp Pulse Resp BP Sys/Ayala Pulse Ox O2 Del Method O2 Flow Rate Last 24 Hr 97.7 F-99.5 F 91-99 - 120-153/71-90 97-98 Room Air-Room Air Intake and Output 02/27/22 02/28/22 02/28/22 19:59 03:59 11:59 Intake Total 2423 100 120 Output Total 2500 1600 Balance -77 -1500 120 Weight 197 lb 1.6 oz Intake & Output: Intake & Output 02/27/22 02/28/22 02/28/22 19:59 03:59 11:59 Intake Total 2423 100 120 Output Total 2500 1600 Balance -77 -1500 120 Weight 197 lb 1.6 oz Intake: IV 733 100 Lactated Ringers 1,000 ml @ 100 683 mls/hr IV .Q10H [facility] Rx#: [id number] Zosyn 3.375 gm In Dextrose 5% 50 100 in Water 50 ml @ 100 mls/hr IV Q6H [facility] Rx#:[id number] Oral 1690 120 Output: Urine Catheter Amount 2500 1600 Other: Meal broth Urine Appearance Clear Clear Suprapubic Clear Urine Color Pale Pale Suprapubic Pale Urine Odor Normal Normal Suprapubic Normal General appearance: cooperative and no acute distress GI/Abdominal GI/Abdominal exam: Present soft; Absent distended, guarding or tenderness Additional comments: Incision is dressed, minimal serosanguineous discharge on dressing. A/P Assessment and plan (1) Large bowel obstruction: Plan: Postop day #2. Will saline lock fluids, advance diet as tolerated. Continue with ambulation. Status: Acute Time Spent With Patient Time: Total time spent is greater than 50% in coordination of care (as documented) at patient's floor/unit and/or counseling patient:
[2022-02-28] MEDS ORDERED: INSULIN GLARGINE, HUMAN 1 UNIT/0.01 ML SQ ONE (07:32)
--- NOTE | 2022-02-28 07:34 | Internal Med Progress Note ---
SUBJECTIVE Subjective Patient information: Note initiated : 02/28/22 at 7:30 am Service Date, if different from initiated Date: [] Patient: Buck Diamond 57 y/o M admitted on 02/26/22 for constipation. Chief Complaint: [] Principal diagnosis: Postop day #2 status post ex lap, sigmoid colectomy for partial small bowel Interval history: Presents ED via his manager heavy duty for constipation. 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 Also has a history of depression anxiety diabetes hypothyroidism. On work-up in the ED is found to have a large bowel obstruction. Dr. Guzman was contacted who examined the patient and with family after discussion family has decided to treat surgically. Hospitalist consulted for comorbidities. Patient taken back to the OR for ex lap sigmoid colectomy and end ostomy. 02/27 Patient sitting up in bed and breakfast. Seems to be feeling well. 02/28 Patient in good spirits sitting up in bed eating breakfast. Diet advanced. Urine culture with E. coli and strep agalactiae. Review of Systems: denies headache/fever/chills/nausea/vomiting/chest or abdominal pain/cough/dys pnea/diarrhea. Otherwise see above. Constitutional Vitals: Vital Signs Temp Pulse Resp BP Pulse Ox O2 Del Method O2 Flow Rate 98.6 F 111 H 20 114/76 94 0 02/28/22 07:28 02/28/22 07:28 02/28/22 07:28 02/28/22 07:28 02/28/22 07:28 02/28/22 07:28 02/26/22 17:48 Period Temp Pulse Resp BP Sys/Ayala Pulse Ox O2 Del Method O2 Flow Rate Last 24 Hr 97.7 F-99.5 F 91-111 114-153/71-90 94-98 Room Air-Room Air Intake and Output 02/27/22 02/28/22 02/28/22 19:59 03:59 11:59 Intake Total 2423 100 120 Output Total 2500 1600 Balance -77 -1500 120 Weight 89.403 kg Intake & Output: Intake & Output 02/27/22 02/28/22 02/28/22 19:59 03:59 11:59 Intake Total 2423 100 120 Output Total 2500 1600 Balance -77 -1500 120 Weight 89.403 kg Intake: IV 733 100 Lactated Ringers 1,000 ml @ 100 683 mls/hr IV .Q10H [facility] Rx#: [id number] Zosyn 3.375 gm In Dextrose 5% 50 100 in Water 50 ml @ 100 mls/hr IV Q6H [facility] Rx#:[id number] Oral 1690 120 Output: Urine Catheter Amount 2500 1600 Other: Meal broth Urine Appearance Clear Clear Suprapubic Clear Urine Color Pale Pale Suprapubic Pale Urine Odor Normal Normal Suprapubic Normal Exam: General: Alert, Awake, No acute Distress Eyes/N/T: EOMI,, Head/Neck: neck supple, CV: RRR, No murmurs, Pulm: Clear b/l, no wheezing/rhonchi/rales Abd: soft, surgical dressing in place, wound VAC Ext: no clubbing/cyanosis/edema Neuro: Alert, no focal deficits, moves all extremities, Skin: warm/dry OBJ DATA Labs CBC & Chem 7: 02/26/22 12:13 02/27/22 05:13 Labs: Abnormal Lab Results 02/27/22 02/26/22 02/26/22 05:13 12:22 12:13 RBC 4.43 L Carbon Dioxide 20 L Glucose 253 H POC Glucose Uric Acid 1.9 L POC WB Ioniz Calcium Lactate Dehydrogenase 287 H Urine Appearance Cloudy A Urine Glucose (UA) >=500 A Urine Nitrate Pos A Ur Leukocyte Esterase 250 A Urine RBC 6 H Urine WBC 99 H Urine Bacteria Few A Urine Mucus Few A 02/26/22 11:24 RBC Carbon Dioxide Glucose POC Glucose 307 H Uric Acid POC WB Ioniz Calcium 1.13 L Lactate Dehydrogenase Urine Appearance Urine Glucose (UA) Urine Nitrate Ur Leukocyte Esterase Urine RBC Urine WBC Urine Bacteria Urine Mucus Meds: Medications Acetaminophen (Acetaminophen 325 Mg Tablet) 650 mg PO Q6HP PRN; Protocol PRN Reason: Per Pain Protocol/Fever > 101 Bupropion HCl (Bupropion 150 Mg Tab.Sr.12h) 150 mg PO QNOON [facility] Last Admin: 02/27/22 11:27 Dose: 150 mg Bupropion HCl (Bupropion 150 Mg Tab.Sr.12h) 300 mg PO QAM [facility] Last Admin: 02/27/22 08:44 Dose: 300 mg Dextrose (Dextrose 50% 50 Ml Vial) 0 ml IV UD PRN PRN Reason: Per Sliding Scale Diagnostic Test (Pha) (Accu-Chek 1 Each Strip) 1 each FS ACHS [facility] Last Admin: 02/28/22 07:14 Dose: 1 each Divalproex Sodium (Divalproex Sodium 250 Mg Tablet) 1,000 mg PO QAM [facility] Last Admin: 02/27/22 08:43 Dose: 1,000 mg Glucose (Dextrose 31 Gm Oral.Susp) 15 gm PO PRN PRN PRN Reason: Hypoglycemia Hydromorphone HCl (Hydromorphone 0.5 Mg/0.5 Ml Syringe) 0.5 mg IV Q2HP PRN; Protocol PRN Reason: Per Pain Protocol Last Admin: 02/26/22 23:12 Dose: 0.5 mg Potassium Chloride 40 meq/ (Dextrose) 520 mls @ 130 mls/hr IV UD PRN PRN Reason: Potassium < 3 Magnesium Sulfate (Magnesium Sulfate) 2 gm in 50 mls @ 50 mls/hr IV UD PRN PRN Reason: Magnesium </= 1.6 Piperacillin Sod/Tazobactam (Sod 3.375 gm/ Dextrose) 50 mls @ 100 mls/hr IV Q6H [facility]; Protocol Last Infusion: 02/28/22 02:45 Dose: Infused Insulin Human Lispro (Insulin Lispro 1 Unit/0.01 Ml Unit) 0 unit SQ [facility]; Protocol Last Admin: 02/28/22 07:16 Dose: 6 units Levothyroxine Sodium (Levothyroxine 75 Mcg Tablet) [facility] [place] Last Admin: 02/27/22 08:45 Dose: 75 mcg Ondansetron HCl (Ondansetron 4 Mg/2 Ml Vial) 4 mg IV Q6HP PRN PRN Reason: Nausea And Vomiting Oxycodone HCl (Oxycodone Hcl 5 Mg Tablet) 5 mg PO Q4HP PRN; Protocol PRN Reason: Per Pain Protocol Last Admin: 02/27/22 00:45 Dose: 5 mg Fluvoxamine 100 Mg (Tablet) 1 dose PO TID [facility] Last Admin: 02/27/22 20:38 Dose: Not Given Hydrocortisone [ Anusol-Hc] 2.5 % Cream 1 dose [place] QIDP PRN PRN Reason: hemorrhoids Teriflunomide [ Aubagio] 14 Mg Tablet 1 dose PO QDAY [facility] Last Admin: 02/27/22 10:18 Dose: 1 dose Renacidin 1 dose UR Q12 [facility] Last Admin: 02/27/22 20:38 Dose: 1 dose Potassium Chloride (Potassium Chloride 20 Meq Tablet) 40 meq PO UD PRN PRN Reason: Potssium is 3-3.5 Potassium Chloride (Potassium Chloride 20 Meq Tablet) 40 meq PO UD PRN PRN Reason: Potassium < 3 Sodium Chloride (0.9 % Sodium Chloride 10 Ml Syringe) 10 ml IV Q8 [facility] Last Admin: 02/28/22 05:14 Dose: Not Given Trazodone HCl (Trazodone Hcl 50 Mg Tablet) 50 mg PO QHS [facility] Last Admin: 02/27/22 20:37 Dose: 50 mg A/P Narrative A/P Narrative: A: *Large bowel obstruction and volvulus: s/p Ex-lap sig colectomy end ostomy (02/26) *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 *Multiple sclerosis *Neurogenic bladder with suprapubic catheter: *complicated UTI (e.coli & Strep agal): -past e.coli ESBL *DM2: *Depression/anxiety *Hypothyroidism: P: -Bowel/diet per surgery -Abx pending UC -cont home psych meds -ssi, hold metformin -ppx: SCD/ambulation per surgery Time Spent With Patient Time: Total time spent is greater than 50% in coordination of care (as documented) at patient's floor/unit and/or counseling patient: Total time spent with greater than 50% in coordination of care (as documented) at patient's floor/unit and/or counseling patient:: 25 - 35 minutes QUALITY VTE Deep Vein Thrombosis/Pulmonary Embolism Present on Admission: No
[2022-02-28] MEDS: LEVOTHYROXINE 75 MCG TABLET PO SCH (08:28)
[2022-02-28] MEDS: DIVALPROEX SODIUM 250 MG TABLET PO SCH (08:28)
[2022-02-28] MEDS: buPROPion 150 MG TAB.SR.12H PO SCH ×2 (08:28→11:35)
[2022-02-28] MEDS: RENACIDIN UR SCH ×2 (08:29→20:23)
[2022-02-28] MEDS: BANANA FLAKES PO SCH (09:21)
[2022-02-28] MEDS: SENNOSIDES 1 TABLET PO SCH (20:23)
[2022-02-28] MEDS: traZODone HCL 50 MG TABLET PO SCH (20:23)
[2022-03-01] MEDS: PIPERACILLIN SODIUM/TAZOBACTAM 3.375 GM in DEXTROSE 5% IN WATER 50 ML IV SCH ×4 (01:56→20:36)
[2022-03-01] MEDS: 0.9 % SODIUM CHLORIDE 10 ML SYRINGE IV SCH ×3 (05:17→20:36)
[2022-03-01] MEDS: INSULIN LISPRO 1 UNIT/0.01 ML UNIT SQ SCH ×4 (06:56→20:35)
--- NOTE | 2022-03-01 07:01 | Internal Med Progress Note ---
SUBJECTIVE Subjective Patient information: Note initiated : 03/01/22 at 6:56 am Service Date, if different from initiated Date: [] Patient: Buck Diamond 57 y/o M admitted on 02/26/22 for constipation. Chief Complaint: [] Principal diagnosis: Postop day #2 status post ex lap, sigmoid colectomy for partial small bowel Interval history: Presents ED via his synthetic cloth binding cutter for constipation. 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 Also has a history of depression anxiety diabetes hypothyroidism. On work-up in the ED is found to have a large bowel obstruction. Dr. Guzman was contacted who examined the patient and with family after discussion family has decided to treat surgically. Hospitalist consulted for comorbidities. Patient taken back to the OR for ex lap sigmoid colectomy and end ostomy. 02/27 Patient sitting up in bed and breakfast. Seems to be feeling well. 02/28 Patient in good spirits sitting up in bed eating breakfast. Diet advanced. Urine culture with E. coli and strep agalactiae. 03/01 awaiting bowel function, no outpt. Urine with resistant microorganisms. Blood glucose elevated will start basal insulin for now. Monitor Review of Systems: denies headache/fever/chills/nausea/vomiting/chest or abdominal pain/cough/dyspnea/diarrhea. Otherwise see above. Constitutional Vitals: Vital Signs Temp Pulse Resp BP Pulse Ox O2 Del Method O2 Flow Rate 97.2 F 81 16 102/68 93 0 03/01/22 02:30 03/01/22 02:30 03/01/22 02:30 03/01/22 02:30 03/01/22 02:30 03/01/22 02:30 02/26/22 17:48 Period Temp Pulse Resp BP Sys/Ayala Pulse Ox O2 Del Method O2 Flow Rate Last 24 Hr 97.2 F-99.0 F 81-111 14-20 102-122/68-89 93-98 Room Air-Room Air Intake and Output 02/28/22 03/01/22 03/01/22 19:59 03:59 11:59 Intake Total 2390 500 Output Total 3175 900 Balance -785 -400 Weight 88.587 kg Intake & Output: Intake & Output 02/28/22 03/01/22 03/01/22 19:59 03:59 11:59 Intake Total 2390 500 Output Total 3175 900 Balance -785 -400 Weight 88.587 kg Intake: IV 50 100 Zosyn 3.375 gm In Dextrose 5% 50 100 in Water 50 ml @ 100 mls/hr IV Q6H [facility] Rx#:[id number] Oral 2340 400 Output: Urine Catheter Amount 3179 900 Stool 0 Other: Meal Dinner Percent of Meal Consumed 100% Feeding Ability Assist with Tray Set Up Urine Appearance Clear Clear Suprapubic Clear Urine Color Yellow Yellow Pale Suprapubic Yellow Pale Urine Odor Normal Suprapubic Normal Exam: General: Alert, Awake, No acute Distress Eyes/N/T: EOMI,, Head/Neck: neck supple, CV: RRR, No murmurs, Pulm: Clear b/l, no wheezing/rhonchi/rales Abd: soft, surgical dressing in place, wound VAC Ext: no clubbing/cyanosis/edema Neuro: Alert, no focal deficits, moves all extremities, Skin: warm/dry OBJ DATA Labs CBC & Chem 7: 02/26/22 12:13 02/27/22 05:13 Labs: Abnormal Lab Results 02/27/22 02/26/22 02/26/22 05:13 12:22 12:13 RBC 4.43 L Carbon Dioxide 20 L Glucose 253 H POC Glucose Uric Acid 1.9 L POC WB Ioniz Calcium Lactate Dehydrogenase 287 H Urine Appearance Cloudy A Urine Glucose (UA) >=500 A Urine Nitrate Pos A Ur Leukocyte Esterase 250 A Urine RBC 6 H Urine WBC 99 H Urine Bacteria Few A Urine Mucus Few A 02/26/22 11:24 RBC Carbon Dioxide Glucose POC Glucose 307 H Uric Acid POC WB Ioniz Calcium 1.13 L Lactate Dehydrogenase Urine Appearance Urine Glucose (UA) Urine Nitrate Ur Leukocyte Esterase Urine RBC Urine WBC Urine Bacteria Urine Mucus Meds: Medications Acetaminophen (Acetaminophen 325 Mg Tablet) 650 mg PO Q6HP PRN; Protocol PRN Reason: Per Pain Protocol/Fever > 101 Bupropion HCl (Bupropion 150 Mg Tab.Sr.12h) 150 mg PO QNOON [facility] Last Admin: 02/28/22 11:35 Dose: 150 mg Bupropion HCl (Bupropion 150 Mg Tab.Sr.12h) 300 mg PO QAM [facility] Last Admin: 02/28/22 08:28 Dose: 300 mg Dextrose (Dextrose 50% 50 Ml Vial) 0 ml IV UD PRN PRN Reason: Per Sliding Scale Diagnostic Test (Pha) (Accu-Chek 1 Each Strip) 1 each FS ACHS [facility] Last Admin: 02/28/22 20:54 Dose: 1 each Divalproex Sodium (Divalproex Sodium 250 Mg Tablet) 1,000 mg PO QAM [facility] Last Admin: 02/28/22 08:28 Dose: 1,000 mg Glucose (Dextrose 31 Gm Oral.Susp) 15 gm PO PRN PRN PRN Reason: Hypoglycemia Hydromorphone HCl (Hydromorphone 0.5 Mg/0.5 Ml Syringe) 0.5 mg IV Q2HP PRN; P rotocol PRN Reason: Per Pain Protocol Last Admin: 02/26/22 23:12 Dose: 0.5 mg Potassium Chloride 40 meq/ (Dextrose) 520 mls @ 130 mls/hr IV UD PRN PRN Reason: Potassium < 3 Magnesium Sulfate (Magnesium Sulfate) 2 gm in 50 mls @ 50 mls/hr IV UD PRN PRN Reason: Magnesium </= 1.6 Piperacillin Sod/Tazobactam (Sod 3.375 gm/ Dextrose) 50 mls @ 100 mls/hr IV Q6H [facility]; Protocol Last Infusion: 03/01/22 02:30 Dose: Infused Insulin Human Lispro (Insulin Lispro 1 Unit/0.01 Ml Unit) 0 unit SQ [facility]; Protocol Last Admin: 02/28/22 20:23 Dose: 8 units Levothyroxine Sodium (Levothyroxine 75 Mcg Tablet) [facility] [place] Last Admin: 02/28/22 08:28 Dose: 75 mcg Ondansetron HCl (Ondansetron 4 Mg/2 Ml Vial) 4 mg IV Q6HP PRN PRN Reason: Nausea And Vomiting Oxycodone HCl (Oxycodone Hcl 5 Mg Tablet) 5 mg PO Q4HP PRN; Protocol PRN Reason: Per Pain Protocol Last Admin: 02/27/22 00:45 Dose: 5 mg Fluvoxamine 100 Mg (Tablet) 1 dose PO TID [facility] Last Admin: 02/28/22 20:44 Dose: Not Given Hydrocortisone [ Anusol-Hc] 2.5 % Cream 1 dose [place] QIDP PRN PRN Reason: hemorrhoids Teriflunomide [ Aubagio] 14 Mg Tablet 1 dose PO QDAY [facility] Last Admin: 02/28/22 08:29 Dose: 1 dose Renacidin 1 dose UR Q12 [facility] Last Admin: 02/28/22 20:23 Dose: 1 dose Banana Flakes 1 dose PO 0800 [facility] Last Admin: 02/28/22 09:21 Dose: Not Given Potassium Chloride (Potassium Chloride 20 Meq Tablet) 40 meq PO UD PRN PRN Reason: Potssium is 3-3.5 Potassium Chloride (Potassium Chloride 20 Meq Tablet) 40 meq PO UD PRN PRN Reason: Potassium < 3 Senna (Sennosides 1 Tablet) 1 tab PO QHS [facility] Last Admin: 02/28/22 20:23 Dose: 1 tab Sodium Chloride (0.9 % Sodium Chloride 10 Ml Syringe) 10 ml IV Q8 [facility] Last Admin: 03/01/22 05:17 Dose: 10 ml Trazodone HCl (Trazodone Hcl 50 Mg Tablet) 50 mg PO QHS [facility] Last Admin: 02/28/22 20:23 Dose: 50 mg A/P Narrative A/P Narrative: A: *Large bowel obstruction and volvulus: s/p Ex-lap sig colectomy end ostomy (02/26) *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 elevated *Depression/anxiety *Hypothyroidism: P: -awaiting bowel function -Bowel/diet per surgery -currently on zosyn pending final UC -cont home psych meds -ssi, hold metformin. add basal for now -ppx: SCD/ambulation per surgery Time Spent With Patient Time: Total time spent is greater than 50% in coordination of care (as documented) at patient's floor/unit and/or counseling patient: Total time spent with greater than 50% in coordination of care (as documented) at patient's floor/unit and/or counseling patient:: 35 - 50 minutes QUALITY VTE Deep Vein Thrombosis/Pulmonary Embolism Present on Admission: No
[2022-03-01] MEDS: BANANA FLAKES PO SCH (07:56)
[2022-03-01] MEDS: INSULIN GLARGINE, HUMAN 1 UNIT/0.01 ML SQ SCH (08:57)
[2022-03-01] MEDS: buPROPion 150 MG TAB.SR.12H PO SCH ×2 (08:58→12:08)
[2022-03-01] MEDS: DIVALPROEX SODIUM 250 MG TABLET PO SCH (08:59)
[2022-03-01] MEDS: LEVOTHYROXINE 75 MCG TABLET PO SCH (08:59)
[2022-03-01] MEDS: RENACIDIN UR SCH ×2 (08:59→20:37)
[2022-03-01] MEDS: SENNOSIDES 1 TABLET PO SCH (20:36)
[2022-03-01] MEDS: traZODone HCL 50 MG TABLET PO SCH (20:36)
[2022-03-02] MEDS: PIPERACILLIN SODIUM/TAZOBACTAM 3.375 GM in DEXTROSE 5% IN WATER 50 ML IV SCH ×4 (02:10→20:07)
[2022-03-02] MEDS: 0.9 % SODIUM CHLORIDE 10 ML SYRINGE IV SCH ×3 (03:00→20:07)
[2022-03-02] MEDS: oxyCODONE HCL 5 MG TABLET PO PRN ×2 (06:18→13:51)
[2022-03-02] MEDS: INSULIN LISPRO 1 UNIT/0.01 ML UNIT SQ SCH ×4 (07:50→20:23)
[2022-03-02] MEDS ORDERED: MAGNESIUM HYDROXIDE 30 ML ORAL.SUSP PO PRN (08:34)
--- NOTE | 2022-03-02 08:34 | General Surgery Progress Note ---
SUBJECTIVE Subjective Patient information: Note initiated : 03/02/22 at 8:33 am Service Date, if different from initiated Date: [] Patient: Buck Diamond 57 y/o M admitted on 02/26/22 for constipation. Chief Complaint: [] Principal diagnosis: Postop day #4 status post ex lap, sigmoid colectomy for partial small bowel Interval history: Doing well overnight, ambulatory, tolerating a regular diet. Continues to have flatus in ostomy, no stool at this time. Constitutional Vitals: Vital Signs Temp Pulse Resp BP Pulse Ox O2 Del Method O2 Flow Rate 98.6 F 94 H 16 136/88 99 0 03/02/22 07:16 03/02/22 07:16 03/02/22 07:16 03/02/22 07:16 03/02/22 07:16 03/02/22 07:16 02/26/22 17:48 Period Temp Pulse Resp BP Sys/Ayala Pulse Ox O2 Del Method O2 Flow Rate Last 24 Hr 97.6 F-99.7 F 94-103 16-16 112-136/78-88 95-100 Room Air-Room Air Intake and Output 03/01/22 03/02/22 03/02/22 19:59 03:59 11:59 Intake Total 770 550 Output Total 950 1150 Balance -180 -600 Weight 191 lb 11.2 oz Intake & Output: Intake & Output 03/01/22 03/02/22 03/02/22 19:59 03:59 11:59 Intake Total 770 550 Output Total 950 1150 Balance -180 -600 Weight 191 lb 11.2 oz Intake: IV 50 100 Zosyn 3.375 gm In Dextrose 5% 50 100 in Water 50 ml @ 100 mls/hr IV Q6H [facility] Rx#:[id number] Oral 720 450 Output: Urine Catheter Amount 950 1150 Other: Meal Dinner Percent of Meal Consumed 100% Urine Appearance Clear Suprapubic Clear Clear Urine Color Bright Yellow Suprapubic Bright Yellow Yellow General appearance: cooperative and no acute distress GI/Abdominal GI/Abdominal exam: Present soft; Absent distended, guarding or tenderness Additional comments: Incision is dressed, minimal serosanguineous discharge on dressing. A/P Assessment and plan (1) Large bowel obstruction: Plan: Doing as expected. Awaiting stool in ostomy bag. Continue to ambulate, regular diet. Status: Acute Time Spent With Patient Time: Total time spent is greater than 50% in coordination of care (as documented) at patient's floor/unit and/or counseling patient:
[2022-03-02] MEDS: INSULIN GLARGINE, HUMAN 1 UNIT/0.01 ML SQ SCH (08:51)
[2022-03-02] MEDS: BANANA FLAKES PO SCH (08:51)
[2022-03-02] MEDS: DIVALPROEX SODIUM 250 MG TABLET PO SCH (08:51)
[2022-03-02] MEDS: LEVOTHYROXINE 75 MCG TABLET PO SCH (08:52)
[2022-03-02] MEDS: buPROPion 150 MG TAB.SR.12H PO SCH ×2 (08:52→11:42)
[2022-03-02] MEDS: RENACIDIN UR SCH ×2 (08:53→20:09)
--- NOTE | 2022-03-02 18:14 | Internal Med Progress Note ---
SUBJECTIVE Subjective Patient information: Note initiated : 03/02/22 at 6:10 pm Service Date, if different from initiated Date: [] Patient: Buck Diamond 57 y/o M admitted on 02/26/22 for constipation. Chief Complaint: [] Principal diagnosis: Postop day #4 status post ex lap, sigmoid colectomy for partial small bowel Interval history: 03/02 Patient had a high-grade temperature overnight, otherwise doing well and tolerating a regular diet. Passing gas in the ostomy, no bowel movement stool yet. Continues on Zosyn. Physical exam Head: Atraumatic, normal inspection. Eyes: normal appearance, no scleral icterus. Neck: full ROM Respiratory: no respiratory distress. Cardiovascular: normal rate and rhythm, S1, S2. GI/Abdominal: Ostomy with healthy appearing mucosa, soft, nontender, no guarding. : Suprapubic catheter. Extremities: full range of motion, nontender. Neurological: CN II-XII intact, intact motor, intact sensation. Psychiatric: normal mood. Skin: warm, normal color Constitutional Vitals: Vital Signs Temp Pulse Resp BP Pulse Ox O2 Del Method O2 Flow Rate 98.2 F 107 H 16 143/87 97 0 03/02/22 16:00 03/02/22 16:00 03/02/22 12:00 03/02/22 16:00 03/02/22 16:00 03/02/22 16:00 02/26/22 17:48 Period Temp Pulse Resp BP Sys/Ayala Pulse Ox O2 Del Method O2 Flow Rate Last 24 Hr 97.6 F-99.7 F 90-107 16-16 112-143/64-88 95-100 Room Air-Room Air Intake and Output 03/02/22 03/02/22 03/02/22 03:59 11:59 19:59 Intake Total 550 290 650 Output Total 1150 600 Balance -600 290 50 Weight 86.954 kg Intake & Output: Intake & Output 03/02/22 03/02/22 03/02/22 03:59 11:59 19:59 Intake Total 550 290 650 Output Total 1150 600 Balance -600 290 50 Weight 86.954 kg Intake: IV 100 50 50 Zosyn 3.375 gm In Dextrose 5% 100 50 50 in Water 50 ml @ 100 mls/hr IV Q6H [facility] Rx#:[id number] Oral 450 240 600 Output: Urine Catheter Amount 1150 600 Other: Meal Breakfast Dinner Percent of Meal Consumed 100% 100% Feeding Ability Assist with Tray Set Up Assist with Tray Set Up Urine Appearance Clear Clear Suprapubic Clear Urine Color Bright Yellow Dark Yellow Suprapubic Yellow OBJ DATA Labs CBC & Chem 7: 02/26/22 12:13 02/27/22 05:13 Meds: Medications Acetaminophen (Acetaminophen 325 Mg Tablet) 650 mg PO Q6HP PRN; Protocol PRN Reason: Per Pain Protocol/Fever > 101 Bupropion HCl (Bupropion 150 Mg Tab.Sr.12h) 150 mg PO QNOON [facility] Last Admin: 03/02/22 11:42 Dose: 150 mg Bupropion HCl (Bupropion 150 Mg Tab.Sr.12h) 300 mg PO QAM [facility] Last Admin: 03/02/22 08:52 Dose: 300 mg Dextrose (Dextrose 50% 50 Ml Vial) 0 ml IV UD PRN PRN Reason: Per Sliding Scale Diagnostic Test (Pha) (Accu-Chek 1 Each Strip) 1 each FS ACHS [facility] Last Admin: 03/02/22 16:18 Dose: 1 each Divalproex Sodium (Divalproex Sodium 250 Mg Tablet) 1,000 mg PO QAM [facility] Last Admin: 03/02/22 08:51 Dose: 1,000 mg Glucose (Dextrose 31 Gm Oral.Susp) 15 gm PO PRN PRN PRN Reason: Hypoglycemia Hydromorphone HCl (Hydromorphone 0.5 Mg/0.5 Ml Syringe) 0.5 mg IV Q2HP PRN; Protocol PRN Reason: Per Pain Protocol Last Admin: 02/26/22 23:12 Dose: 0.5 mg Potassium Chloride 40 meq/ (Dextrose) 520 mls @ 130 mls/hr IV UD PRN PRN Reason: Potassium < 3 Magnesium Sulfate (Magnesium Sulfate) 2 gm in 50 mls @ 50 mls/hr IV UD PRN PRN Reason: Magnesium </= 1.6 Piperacillin Sod/Tazobactam (Sod 3.375 gm/ Dextrose) 50 mls @ 100 mls/hr IV Q6H [facility]; Protocol Last Infusion: 03/02/22 14:41 Dose: Infused Insulin Glargine (Insulin Glargine, Human 1 Unit/0.01 Ml) 20 unit SQ DAILY [facility] Last Admin: 03/02/22 08:51 Dose: 20 units Insulin Human Lispro (Insulin Lispro 1 Unit/0.01 Ml Unit) 0 unit SQ [facility]; Protocol Last Admin: 03/02/22 17:01 Dose: 6 units Levothyroxine Sodium (Levothyroxine 75 Mcg Tablet) 75 mcg PO QAM [facility] Last Admin: 03/02/22 08:52 Dose: 75 mcg Magnesium Hydroxide (Magnesium Hydroxide 30 Ml Oral.Susp) 30 ml PO DAILYP PRN PRN Reason: Constipation Ondansetron HCl (Ondansetron 4 Mg/2 Ml Vial) 4 mg IV Q6HP PRN PRN Reason: Nausea And Vomiting Oxycodone HCl (Oxycodone Hcl 5 Mg Tablet) 5 mg PO Q4HP PRN; Protocol PRN Reason: Per Pain Protocol Last Admin: 03/02/22 13:51 Dose: 5 mg Fluvoxamine 100 Mg (Tablet) 1 dose PO TID [facility] Last Admin: 03/02/22 14:42 Dose: Not Given Hydrocortisone [ Anusol-Hc] 2.5 % Cream 1 dose [place] QIDP PRN PRN Reason: hemorrhoids Teriflunomide [ Aubagio] 14 Mg Tablet 1 dose PO QDAY [facility] Last Admin: 03/02/22 08:52 Dose: 1 dose Renacidin 1 dose UR Q12 [facility] Last Admin: 03/02/22 08:53 Dose: 1 dose Banana Flakes 1 dose PO 0800 [facility] Last Admin: 03/02/22 08:51 Dose: Not Given Potassium Chloride (Potassium Chloride 20 Meq Tablet) 40 meq PO UD PRN PRN Reason: Potssium is 3-3.5 Potassium Chloride (Potassium Chloride 20 Meq Tablet) 40 meq PO UD PRN PRN Reason: Potassium < 3 Senna (Sennosides 1 Tablet) 1 tab PO QHS [facility] Last Admin: 03/01/22 20:36 Dose: 1 tab Sodium Chloride (0.9 % Sodium Chloride 10 Ml Syringe) 10 ml IV Q8 [facility] Last Admin: 03/02/22 14:41 Dose: 10 ml Trazodone HCl (Trazodone Hcl 50 Mg Tablet) 50 mg PO QHS [facility] Last Admin: 03/01/22 20:36 Dose: 50 mg A/P Narrative A/P Narrative: A: *Large bowel obstruction and volvulus: s/p Ex-lap sig colectomy end ostomy (02/26) *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 elevated *Depression/anxiety *Hypothyroidism: P: -awaiting bowel function -Bowel/diet per surgery -currently on zosyn -cont home psych meds -ssi, hold metformin. add basal for now -ppx: SCD/ambulation per surgery Time Spent With Patient Time: Total time spent is greater than 50% in coordination of care (as documented) at patient's floor/unit and/or counseling patient: QUALITY VTE Deep Vein Thrombosis/Pulmonary Embolism Present on Admission: No
[2022-03-02] MEDS: traZODone HCL 50 MG TABLET PO SCH (20:23)
[2022-03-02] MEDS: SENNOSIDES 1 TABLET PO SCH (20:24)
[2022-03-03] MEDS: PIPERACILLIN SODIUM/TAZOBACTAM 3.375 GM in DEXTROSE 5% IN WATER 50 ML IV SCH ×2 (01:27→10:59)
[2022-03-03] MEDS: 0.9 % SODIUM CHLORIDE 10 ML SYRINGE IV SCH (05:25)
[2022-03-03] MEDS: BANANA FLAKES PO SCH (08:54)
[2022-03-03 09:52] LABS: Basophils # (Auto) 0.05 K/mcL (0.00-0.30); Basophils % (Auto) 0.5 % (0.0-2.0); Eosinophils # (Auto) 0.54 K/mcL (0.00-0.70); Eosinophils % (Auto) 5.7 % (0.0-7.0); Hematocrit 37.4 % (40.1-51.0); Hemoglobin 12.4 g/dL (13.7-17.5); Lymphocytes # (Auto) 1.64 K/mcL (1.50-4.80); Lymphocytes % (Auto) 17.4 % (15.5-49.0); Mean Cell Volume 95.4 fL (80.0-100.0); Mean Corpuscular HGB Conc 33.2 g/dL (31.0-36.0); Monocytes % (Auto) 12.7 % (1.0-12.0); Neutrophils % (Auto) 63.2 % (38.0-78.0); Platelet Count 233 K/mcL (140-440); RBC 3.92 M/mcL (4.63-6.08); Red Cell Distribution Width 12.5 % (11.5-14.5); WBC 9.5 K/mcL (4.5-11.0)
[2022-03-03 09:59] LABS: ALT/SGPT 13 U/L (<40); AST/SGOT 13 U/L (<40); Albumin 3.7 gm/dL (3.2-5.2); Albumin/Globulin Ratio 1.4 (1.0-2.3); Alkaline Phosphatase 84 U/L (39-117); Bilirubin,Direct < 0.2 mg/dL (0-0.3); Bilirubin,Total 0.7 mg/dL (0.1-1.0); Blood Urea Nitrogen 11 mg/dL (6-20); Calcium 9.5 mg/dL (8.6-10.4); Carbon Dioxide 29 mmol/L (22-30); Chloride 99 mmol/L (96-108); Globulin 2.6 gm/dL (2.2-3.7); Glomerular Filtration Rate 111; Glucose 202 mg/dL (70-105); Lactate Dehydrogenase 276 U/L (135-225); Triglycerides 76 mg/dL (<150); Uric Acid 1.5 mg/dL (2.5-8.0)
[2022-03-03] MEDS: INSULIN LISPRO 1 UNIT/0.01 ML UNIT SQ SCH (10:58)
[2022-03-03] MEDS: DIVALPROEX SODIUM 250 MG TABLET PO SCH (10:59)
[2022-03-03] MEDS: LEVOTHYROXINE 75 MCG TABLET PO SCH (11:00)
[2022-03-03] MEDS: buPROPion 150 MG TAB.SR.12H PO SCH ×2 (11:00→11:02)
[2022-03-03] MEDS: INSULIN GLARGINE, HUMAN 1 UNIT/0.01 ML SQ SCH (11:00)
[2022-03-03] MEDS: RENACIDIN UR SCH (11:01)
--- NOTE | 2022-03-03 11:23 | Discharge Summary ---
Discharge Provider Provider IMPORTANT FOLLOW-UP INFORMATION FOR PCP: Patient information: Note initiated : 03/03/22 at 11:17 am Service Date, if different from initiated Date: [] Patient: Buck Diamond 57 y/o M admitted on 02/26/22 for constipation. Chief Complaint: [] Date of admission: 02/26/22 17:50 Discharge date: 03/03/22 Primary care physician: Lon Stinson PA-C Consults: 02/26/22 13:14 Consult to Physician [CONS] Stat Comment: Consulting Provider: Zachery Guzman Reason For Exam: Physician to Consult 02/26/22 16:56 Consult to Physician [CONS] Routine Comment: Assist with medical configuration management advisor Provider: Jossue Gastelum Reason For Exam: Physician to Consult COURSE Hospital Course Hospital course: Patient was admitted for intermittent sigmoid volvulus, underwent exploratory laparotomy with sigmoid colectomy and end ostomy. Patient is progressed well and is ready for discharge however his care services are not ready for him at home. We will transfer him to a swing bed until home health is set up Discharge diagnosis: Status post sigmoid colectomy Time Spent with Patient Time attestation: Total time spent providing and/or coordinating discharge services: Time spent: Less than 30 minutes Physical Examination Vital Signs Vital signs: Temp Pulse Resp BP Pulse Ox O2 Del Method O2 Flow Rate 98.6 F 98 H 20 132/88 98 0 03/03/22 07:36 03/03/22 03:25 03/03/22 07:36 03/03/22 07:36 03/03/22 07:36 03/03/22 07:36 02/26/22 17:48 Discharge Plan Patient/Caregiver Discharge Instructions Prescriptions: No Action Banatrol Plus Powder In Packet See Rx Instructions PO .COMPLEX Qty: 75 0RF Rx Instructions: 1 scoop once daily at 8 AM with breakfast to help regulate bowels aspirin 81 mg tablet,delayed release (DR/EC) 81 mg PO QDAY 30 Days Qty: 30 11RF trazodone 50 mg tablet 50 mg PO QHS Qty: 31 5RF Rx Instructions: take 1 hour before bedtime Remedy Repair cream See Rx Instructions .ROUTE .COMPLEX PRN (Reason: Dry Skin) Qty: 1 3RF Rx Instructions: daily application and PRN magnesium 250 mg tablet 250 mg PO BID 31 Days Qty: 62 5RF Rx Instructions: TAKE 1 TABLET BY MOUTH TWICE A DAY (8AM & 5PM) chromium picolinate 200 mcg tablet 200 mcg PO BID 31 Days Qty: 62 5RF Rx Instructions: TAKE 1 CAPSULE (200 MCG) BY MOUTH TWICE A DAY (8AM & 5PM) potassium citrate 15 mEq tablet extended release 15 meq PO TID 30 Days Qty: 90 11RF D-Mannose 500 mg capsule 1 cap PO BID 31 Days Qty: 62 5RF fluticasone propionate 50 mcg/actuation spray,suspension 2 spray INTRANASAL QDAY Qty: 16 5RF Centrum Men 8 mg iron- 200 mcg-600 mcg tablet 1 tab PO QDAY 30 Days Qty: 30 11RF nitrofurantoin monohyd/m-cryst 100 mg capsule 100 mg PO BID 10 Days Qty: 20 0RF Rx Instructions: must administer with a meal/food divalproex 500 mg tablet,delayed release (DR/EC) 1,000 mg PO HS fluvoxamine 100 mg tablet 100 mg PO TID bupropion HCl 150 mg tablet sustained-release 12 hr 300 mg PO QAM Rx Instructions: 300 mg in the a.m. Aubagio 14 mg tablet 14 mg PO QDAY acetaminophen 500 mg tablet 1,000 mg PO TID PRN (Reason: Pain/Headache) Qty: 60 2RF Label Comments: as needed for pain or temperature >100.4*F Rx Instructions: (Max 3,000mg APAP/24HRS from all sources) metformin 500 mg tablet extended release 24 hr 500 mg PO QPM Qty: 90 3RF Rx Instructions: with dinner meal @5pm cholecalciferol (vitamin D3) [Vitamin D3] 125 mcg (5,000 unit) Tablet 5,000 unit PO QAM vitamin B complex Tablet 1 tab PO QDAY Remedy Skin Repair 1.5 % cream See Rx Instructions .ROUTE .COMPLEX PRN (Reason: Dry Skin) Rx Instructions: Apply topically daily as needed to dry skin; levothyroxine 75 mcg capsule 75 mcg PO QAM ibuprofen 600 mg tablet 600 mg PO Q6H PRN (Reason: pain) Qty: 90 0RF Renacidin 1,980.6 mg-59.4 mg-980.4mg/30mL solution 30 ml irrigation BID Qty: 900 11RF Rx Instructions: Instill 30mLs into sp tube and let it sit in tube for 15 mintues twice daily (9am and 4pm.) Follow Up Plan Follow up with: Lon Stinson PA-C [Primary Care Provider] - Patient Disposition: Xfer As Swing Bed ([facility]) Discharge Comment: Pt. d/c from inpatient account to swingbed account Pending Pending Pending: Resuscitation Status Resuscitate (Full Code) Diet Consistent Carbohydrate Diet Start SunFeb 28 731 Bupropion HCl (Bupropion 150 Mg Tab.Sr.12h) 150 mg PO QNOON [facility] Admin: 03/03/22 11:00 Dose: 150 mg Documented By: Admin: 03/02/22 11:42 Dose: 150 mg Documented By: Admin: 03/01/22 12:08 Dose: 150 mg Documented By: Admin: 02/28/22 11:35 Dose: 150 mg Documented By: Admin: 02/27/22 11:27 Dose: 150 mg Documented By: CLEMENTE Bupropion HCl ([facility] 150 [facility].12h) [facility] 03/03/22 11:02 Dose: 300 mg Documented By: Admin: 03/02/22 08:52 Dose: 300 mg Documented By: Admin: 03/01/22 08:58 Dose: 300 mg Documented By: Admin: 02/28/22 08:28 Dose: 300 mg Documented By: Admin: 02/27/22 08:44 Dose: 300 mg Documented By: CLEMENTE Diagnostic Test (Pha) (Accu-Chek 1 Each Strip) 1 each FS ACHS [facility] Admin: 03/03/22 09:18 Dose: 1 each Documented By: Admin: 03/02/22 20:18 Dose: 1 each Documented By: Admin: 03/02/22 16:18 Dose: 1 each Documented By: Admin: 03/02/22 11:20 Dose: 1 each Documented By: Admin: 03/02/22 07:03 Dose: 1 each Documented By: Admin: 03/01/22 20:29 Dose: 1 each Documented By: Admin: 03/01/22 17:13 Dose: 1 each Documented By: Admin: 03/01/22 11:30 Dose: 1 each Documented By: Admin: 03/01/22 06:53 Dose: 1 each Documented By: Admin: 02/28/22 20:54 Dose: 1 each Documented By: Admin: 02/28/22 16:57 Dose: 1 each Documented By: Admin: 02/28/22 11:30 Dose: 1 each Documented By: Nasim Admin: 02/28/22 07:14 Dose: 1 each Documented By: Admin: 02/27/22 20:30 Dose: 1 each Documented By: Admin: 02/27/22 17:29 Dose: 1 each Documented By: Admin: 02/27/22 11:26 Dose: 1 each Documented By: Admin: 02/27/22 07:30 Dose: 1 each Documented By: Admin: 02/26/22 20:15 Dose: 1 each Documented By: MARYSOL Divalproex Sodium (Divalproex Sodium 250 Mg Tablet) 1,000 mg PO QAM [facility] Last Admin: 03/03/22 10:59 Dose: 1,000 mg Documented By: Admin: 03/02/22 08:51 Dose: 1,000 mg Documented By: Admin: 03/01/22 08:59 Dose: 1,000 mg Documented By: Admin: 02/28/22 08:28 Dose: 1,000 mg Documented By: Admin: 02/27/22 08:43 Dose: 1,000 mg Documented By: CLEMENTE Hydromorphone HCl (Hydromorphone 0.5 Mg/0.5 Ml Syringe) 0.5 mg IV Q2HP PRN; Protocol PRN Reason: Per Pain Protocol Last Admin: 02/26/22 23:12 Dose: 0.5 mg Documented By: MARYSOL Piperacillin Sod/Tazobactam (Sod 3.375 gm/ Dextrose) 50 mls @ 100 mls/hr IV Q6H SUSANA; Protocol Last Admin: 03/03/22 10:59 Dose: 100 mls/hr Documented By: Infusion: 03/03/22 02:00 Dose: 0 mls/hr Documented By: Admin: 03/03/22 01:27 Dose: 100 mls/hr Documented By: Infusion: 03/02/22 20:45 Dose: 0 mls/hr Documented By: Admin: 03/02/22 20:07 Dose: 100 mls/hr Documented By: Infusion: 03/02/22 14:41 Dose: 0 mls/hr Documented By: Admin: 03/02/22 13:52 Dose: 100 mls/hr Documented By: Infusion: 03/02/22 09:00 Dose: 0 mls/hr Documented By: Admin: 03/02/22 07:50 Dose: 100 mls/hr Documented By: Infusion: 03/02/22 02:50 Dose: 0 mls/hr Documented By: Admin: 03/02/22 02:10 Dose: 100 mls/hr Documented By: Infusion: 03/01/22 21:20 Dose: 0 mls/hr Documented By: Admin: 03/01/22 20:36 Dose: 100 mls/hr Documented By: Infusion: 03/01/22 14:55 Dose: 0 mls/hr Documented By: Admin: 03/01/22 14:21 Dose: 100 mls/hr Documented By: Infusion: 03/01/22 08:15 Dose: 0 mls/hr Documented By: Admin: 03/01/22 07:45 Dose: 100 mls/hr Documented By: Infusion: 03/01/22 02:30 Dose: 0 mls/hr Documented By: Admin: 03/01/22 01:56 Dose: 100 mls/hr Documented By: Infusion: 02/28/22 20:55 Dose: 0 mls/hr Documented By: Admin: 02/28/22 20:23 Dose: 100 mls/hr Documented By: Infusion: 02/28/22 14:48 Dose: 100 mls/hr Documented By: Admin: 02/28/22 14:18 Dose: 100 mls/hr Documented By: Infusion: 02/28/22 08:20 Dose: 0 mls/hr Documented By: Admin: 02/28/22 07:47 Dose: 100 mls/hr Documented By: Infusion: 02/28/22 02:45 Dose: 0 mls/hr Documented By: Admin: 02/28/22 02:10 Dose: 100 mls/hr Documented By: Infusion: 02/27/22 21:40 Dose: 0 mls/hr Documented By: Admin: 02/27/22 20:37 Dose: 100 mls/hr Documented By: Infusion: 02/27/22 15:31 Dose: 0 mls/hr Documented By: Admin: 02/27/22 14:23 Dose: 100 mls/hr Documented By: Infusion: 02/27/22 09:02 Dose: 0 mls/hr Documented By: Admin: 02/27/22 08:30 Dose: 100 mls/hr Documented By: Infusion: 02/27/22 06:33 Dose: 0 mls/hr Documented By: Admin: 02/27/22 03:21 Dose: 100 mls/hr Documented By: Infusion: 02/26/22 21:52 Dose: 0 mls/hr Documented By: Infusion: 02/26/22 21:50 Dose: 0 mls/hr Documented By: Admin: 02/26/22 21:22 Dose: 100 mls/hr Documented By: MARYSOL Insulin Glargine (Insulin Glargine, Human 1 Unit/0.01 Ml) 20 unit SQ DAILY SUSANA Last Admin: 03/03/22 11:00 Dose: 20 units Documented By: Admin: 03/02/22 08:51 Dose: 20 units Documented By: Admin: 03/01/22 08:57 Dose: 20 units Documented By: ADRIANA Insulin Human Lispro (Insulin Lispro 1 Unit/0.01 Ml Unit) 0 unit SQ ACHS SUSANA; Protocol Last Admin: 03/03/22 10:58 Dose: 4 units Documented By: Admin: 03/02/22 20:23 Dose: 6 units Documented By: Admin: 03/02/22 17:01 Dose: 6 units Documented By: Admin: 03/02/22 11:41 Dose: 8 units Documented By: Admin: 03/02/22 07:50 Dose: 4 units Documented By: Admin: 03/01/22 20:35 Dose: 8 units Documented By: Admin: 03/01/22 17:13 Dose: 6 units Documented By: Admin: 03/01/22 11:32 Dose: 10 units Documented By: [facility] Admin: 03/01/22 06:56 Dose: 6 units Documented By: Admin: 02/28/22 20:23 Dose: 8 units Documented By: Admin: 02/28/22 16:57 Dose: 8 units Documented By: [facility] Admin: 02/28/22 11:31 Dose: 6 units Documented By: [facility] Admin: 02/28/22 07:16 Dose: 6 units Documented By: Admin: 02/27/22 20:37 Dose: 6 units Documented By: Admin: 02/27/22 17:28 Dose: 6 units Documented By: Admin: 02/27/22 11:26 Dose: 6 units Documented By: Admin: 02/27/22 07:30 Dose: 8 units Documented By: Admin: 02/26/22 20:25 Dose: 8 units Documented By: MARYSOL Levothyroxine Sodium (Levothyroxine 75 Mcg Tablet) 75 mcg PO [facility] Admin: 03/03/22 11:00 Dose: 75 mcg Documented By: Admin: 03/02/22 08:52 Dose: 75 mcg Documented By: Admin: 03/01/22 08:59 Dose: 75 mcg Documented By: Admin: 02/28/22 08:28 Dose: 75 mcg Documented By: Admin: 02/27/22 08:45 Dose: 75 mcg Documented By: CLEMENTE Oxycodone HCl (Oxycodone Hcl 5 Mg Tablet) 5 mg PO Q4HP PRN; Protocol PRN Reason: Per Pain Protocol Last Admin: 03/02/22 13:51 Dose: 5 mg Documented By: Admin: 03/02/22 06:18 Dose: 5 mg Documented By: Admin: 02/27/22 00:45 Dose: 5 mg Documented By: MARYSOL Fluvoxamine 100 Mg (Tablet) 1 dose PO TID [facility] Admin: 03/03/22 10:12 Dose: Not Given Documented By: Admin: 03/02/22 20:20 Dose: Not Given Documented By: Admin: 03/02/22 14:42 Dose: Not Given Documented By: Admin: 03/02/22 09:10 Dose: Not Given Documented By: Admin: 03/01/22 20:37 Dose: Not Given Documented By: Admin: 03/01/22 14:52 Dose: Not Given Documented By: [facility] Admin: 03/01/22 10:37 Dose: Not Given Documented By: Admin: 02/28/22 20:44 Dose: Not Given Documented By: Admin: 02/28/22 14:35 Dose: Not Given Documented By: [facility] Admin: 02/28/22 09:21 Dose: Not Given Documented By: [facility] Admin: 02/27/22 20:38 Dose: Not Given Documented By: Admin: 02/27/22 14:23 Dose: Not Given Documented By: Admin: 02/27/22 10:19 Dose: Not Given Documented By: Admin: 02/26/22 20:26 Dose: Not Given Documented By: MARYSOL Teriflunomide [ Aubagio] 14 Mg Tablet 1 dose PO QDAY [facility] Admin: 03/03/22 11:01 Dose: 1 dose Documented By: Admin: 03/02/22 08:52 Dose: 1 dose Documented By: Admin: 03/01/22 08:59 Dose: 1 dose Documented By: [facility] Admin: 02/28/22 08:29 Dose: 1 dose Documented By: [facility] Admin: 02/27/22 10:18 Dose: 1 dose Documented By: CLEMENTE Renacidin 1 dose UR Q12 [facility] Admin: 03/03/22 11:01 Dose: 1 dose Documented By: Admin: 03/02/22 20:09 Dose: 1 dose Documented By: Admin: 03/02/22 08:53 Dose: 1 dose Documented By: Admin: 03/01/22 20:37 Dose: 1 dose Documented By: Admin: 03/01/22 08:59 Dose: 1 dose Documented By: Admin: 02/28/22 20:23 Dose: 1 dose Documented By: Admin: 02/28/22 08:29 Dose: 1 dose Documented By: Admin: 02/27/22 20:38 Dose: 1 dose Documented By: Admin: 02/27/22 10:45 Dose: Not Given Documented By: CLEMENTE Rea 1 dose PO 0800 [facility] Last Admin: 03/03/22 08:54 Dose: Not Given Documented By: Admin: 03/02/22 08:51 Dose: Not Given Documented By: Admin: 03/01/22 07:56 Dose: Not Given Documented By: Admin: 02/28/22 09:21 Dose: Not Given Documented By: [facility] Senna (Sennosides 1 Tablet) 1 tab PO QHS [facility] Last Admin: 03/02/22 20:24 Dose: 1 tab Documented By: Admin: 03/01/22 20:36 Dose: 1 tab Documented By: Admin: 02/28/22 20:23 Dose: 1 tab Documented By: MARYSOL Sodium Chloride (0.9 % Sodium Chloride 10 Ml Syringe) 10 ml IV Q8 [facility] Last Admin: 03/03/22 05:25 Dose: 10 ml Documented By: Admin: 03/02/22 20:07 Dose: 10 ml Documented By: Admin: 03/02/22 14:41 Dose: 10 ml Documented By: Admin: 03/02/22 03:00 Dose: 10 ml Documented By: Admin: 03/01/22 20:36 Dose: 10 ml Documented By: Admin: 03/01/22 14:21 Dose: 10 ml Documented By: Admin: 03/01/22 05:17 Dose: 10 ml Documented By: Admin: 02/28/22 20:23 Dose: 10 ml Documented By: Admin: 02/28/22 14:19 Dose: 10 ml Documented By: Admin: 02/28/22 05:14 Dose: Not Given Documented By: Admin: 02/27/22 20:38 Dose: 10 ml Documented By: Admin: 02/27/22 14:23 Dose: Not Given Documented By: Admin: 02/27/22 06:33 Dose: Not Given Documented By: Admin: 02/26/22 20:26 Dose: Not Given Documented By: MARYSOL Trazodone HCl (Trazodone Hcl 50 Mg Tablet) 50 mg PO QHS [facility] Admin: 03/02/22 20:23 Dose: 50 mg Documented By: Admin: 03/01/22 20:36 Dose: 50 mg Documented By: Admin: 02/28/22 20:23 Dose: 50 mg Documented By: Admin: 02/27/22 20:37 Dose: 50 mg Documented By: Admin: 02/26/22 20:25 Dose: 50 mg Documented By: MARYSOL Shift Summary 03/03/22 01:38 Shift Summary by Kevon Winter Addendum entered by Kevon Winter 03/03/22 03:56: ABD pain 3-4/10 - no PRN pain meds given. No N/V. No sleep. Original Note: Pt has not slept as yet tonight - scheduled HS Trazodone given. He has denied need for PRN pain med. ABD pain 45/10 "OK". No N/V. Ostomy LLQ - flatus only - no stool. Midline ABD surgical incision - gauze & tape - Dsng C,D,I.. S.P. cath - draining clear yellow urine. S.P. cath irrigated @ HS per MD order. Saline lock to his LT A/C - flushed & patent. He has been up AMB to ICU door & back to - gait mostly stable w/ 4ww & SBA. (I) in bed mobility. VS - low grade temp, & heart rate sl tachy - aall else WNL on R.A.. He is A&O x2 (person & place) 2nd to Hx of brain injury, calm,pleasant, & cooperative. Initialized on 03/03/22 01:38 - END OF NOTE
== END 2022-03-03 11:17 | disposition swing bed (61) | DRG 330 ==
LOC: ED 09:38 → SUR 14:26 → MEDSUR 17:50
PROVIDERS: ADMIT Surgery; ATTEND Surgery

== ENCOUNTER 2022-03-08 08:47 | Inpatient (IN) ==
[2022-03-08] MEDS ORDERED: IOPAMIDOL 100 ML BOTTLE IV ONE (08:48)
[2022-03-08] MEDS ORDERED: LACTATED RINGERS 1,000 ML IV ONE (08:59)
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
[2022-03-08 09:13] LABS: POC Calcium, Ionized 1.06 (1.16-1.32); POC Creatinine 0.6 (0.6-1.2); POC Potassium 3.9 (3.3-5.1)
--- NOTE | 2022-03-08 10:24 | Cat Scan Report ---
History: Recent sigmoid colectomy with a colostomy in the left side of the abdomen. Patient now presents with intestinal bleeding, fever and diaphoresis TECHNIQUE: Abdomen was first imaged without contrast in axial plane from above the diaphragm through the symphysis pubis. Intravenous nonionic contrast was injected. Images were acquired during the arterial and portal venous phase. Sagittal and coronal reformats were created along with coronal and MIPS images. FINDINGS: There is minor atelectasis in the posterior basal segments of both lower lobes. No pleural effusion is present. There is small to moderate amount of free intraperitoneal air. Largest collection is in the right upper quadrant. This is a nonspecific finding following the recent colectomy. The liver and spleen are normal in size and homogeneous. Gallbladder appears normal. There is no mass or inflammation in the pancreas. The adrenals are normal. There are two tiny nonobstructing stones in the right kidney. The kidneys are otherwise normal and there is no hydronephrosis. Sigmoid colon has been resected. There is a colostomy in the left mid abdominal wall. There is abnormal thickening and inflammation of the wall of the descending colon from the level of the splenic flexure to the ostomy site. The wall measures up to 2.5 cm in thickness. There is inflammation of the adjacent fat and small amount of fluid in the left paracolic gutter. This is new compared with the preoperative CT. The ascending and transverse colon contain a moderate amount stool. The wall is not thickened or inflamed. The thickening of the wall of the rectum seen on the preoperative CT scan is less conspicuous today. There is no abscess. There is very little ascites Patient does have a significant amount of subcutaneous edema or inflammation in the midline of the abdomen above and below the umbilicus. This may be related to the prior surgery. The arterial phase images show normal aorta. There is normal blood flow in the celiac, superior mesenteric and renal and inferior mesenteric arteries. The inferior mesenteric artery provides blood flow to the descending colon and is not thrombosed. Inferior vena cava is normal. There is normal venous drainage from the descending colon. There is no active bleeding. IMPRESSION: Severe colitis in the descending colon from the splenic flexure to the ostomy. Free intraperitoneal air. This may be delayed reabsorption of air following the recent colectomy or perforation. Dr. Cramer was called with the report Interpreted and Authenticated by: Ventura Ogden 03/08/22
[2022-03-08] MEDS ORDERED: PIPERACILLIN SODIUM/TAZOBACTAM 4.5 GM in DEXTROSE 5% IN WATER 50 ML IV ONE (10:30)
[2022-03-08 10:31] LABS: Basophils % (Auto) 0.6 % (0.0-2.0); Eosinophils # (Auto) 0.49 K/mcL (0.00-0.70); Eosinophils % (Auto) 3.2 % (0.0-7.0); Hematocrit 44.2 % (40.1-51.0); Hemoglobin 14.9 g/dL (13.7-17.5); Lymphocytes # (Auto) 2.35 K/mcL (1.50-4.80); Lymphocytes % (Auto) 15.2 % (15.5-49.0); Mean Cell Volume 96.5 fL (80.0-100.0); Mean Corpuscular HGB Conc 33.7 g/dL (31.0-36.0); Mean Platelet Volume 9.7 fL (8.8-12.5); Neutrophils % (Auto) 69.2 % (38.0-78.0); Platelet Count 368 K/mcL (140-440); RBC 4.58 M/mcL (4.63-6.08); Red Cell Distribution Width 13.7 % (11.5-14.5); WBC 15.5 K/mcL (4.5-11.0)
[2022-03-08 10:53] LABS: ALT/SGPT 9 U/L (<40); AST/SGOT 14 U/L (<40); Albumin 3.5 gm/dL (3.2-5.2); Alkaline Phosphatase 88 U/L (39-117); Bilirubin,Direct < 0.2 mg/dL (0-0.3); Bilirubin,Total 0.6 mg/dL (0.1-1.0)
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
[2022-03-08] MEDS ORDERED: IBUPROFEN 600 MG TABLET PO PRN (11:52)
[2022-03-08] MEDS ORDERED: ACETAMINOPHEN 500 MG TABLET PO PRN (11:52)
[2022-03-08] MEDS: Fluvoxamine 50 mg tablet PO SCH ×2 (15:26→21:28)
[2022-03-08] MEDS: CITRIC AC GLUCONOLACT MAG CARB UR SCH (16:00)
[2022-03-08] MEDS: POTASSIUM CITRATE 10 MEQ TAB.XL.24H PO SCH (16:54)
[2022-03-08] MEDS ORDERED: DEXTROSE 31 GM ORAL.SUSP PO PRN (18:02)
[2022-03-08] MEDS ORDERED: DEXTROSE 50% 50 ML VIAL IV PRN (18:02)
[2022-03-08] MEDS ORDERED: morphine 2 MG/ML VIAL IV PRN (18:20)
[2022-03-08] MEDS ORDERED: oxyCODONE HCL 5 MG TABLET PO PRN (18:20)
[2022-03-08] MEDS ORDERED: ONDANSETRON 4 MG/2 ML VIAL IV PRN (18:21)
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
[2022-03-08] MEDS: PIPERACILLIN SODIUM/TAZOBACTAM 3.375 GM in DEXTROSE 5% IN WATER 50 ML IV SCH (19:50)
[2022-03-08] MEDS ORDERED: metFORMIN 500 MG TAB.XL.24H PO SCH (21:00)
[2022-03-08] MEDS ORDERED: NITROFURANTOIN SR 100 MG CAPSULE PO SCH (21:00)
[2022-03-08] MEDS: MAGNESIUM OXIDE 400 MG TABLET PO SCH (21:27)
[2022-03-08] MEDS: DIVALPROEX SODIUM 250 MG TABLET PO SCH (21:28)
[2022-03-08] MEDS: traZODone HCL 50 MG TABLET PO SCH (21:28)
[2022-03-08] MEDS: INSULIN LISPRO 1 UNIT/0.01 ML UNIT SQ SCH (21:36)
[2022-03-08] MEDS: CHROMIUM PICOLINATE 200 MCG PO SCH (22:16)
[2022-03-09] MEDS: PIPERACILLIN SODIUM/TAZOBACTAM 3.375 GM in DEXTROSE 5% IN WATER 50 ML IV SCH ×3 (03:30→18:47)
[2022-03-09 07:05] LABS: Basophils # (Auto) 0.05 K/mcL (0.00-0.30); Basophils % (Auto) 0.4 % (0.0-2.0); Eosinophils # (Auto) 0.48 K/mcL (0.00-0.70); Eosinophils % (Auto) 3.9 % (0.0-7.0); Hematocrit 38.1 % (40.1-51.0); Hemoglobin 12.6 g/dL (13.7-17.5); Lymphocytes # (Auto) 1.71 K/mcL (1.50-4.80); Lymphocytes % (Auto) 13.8 % (15.5-49.0); Mean Cell Volume 96.5 fL (80.0-100.0); Mean Corpuscular HGB Conc 33.1 g/dL (31.0-36.0); Mean Platelet Volume 9.5 fL (8.8-12.5); Monocytes # (Auto) 1.53 K/mcL (0.10-0.90); Monocytes % (Auto) 12.4 % (1.0-12.0); Neutrophils % (Auto) 68.8 % (38.0-78.0); Platelet Count 317 K/mcL (140-440); RBC 3.95 M/mcL (4.63-6.08); Red Cell Distribution Width 13.4 % (11.5-14.5); WBC 12.4 K/mcL (4.5-11.0)
[2022-03-09] MEDS: INSULIN LISPRO 1 UNIT/0.01 ML UNIT SQ SCH ×4 (07:29→21:28)
[2022-03-09 07:43] LABS: Blood Urea Nitrogen 12 mg/dL (6-20); Calcium 8.5 mg/dL (8.6-10.4); Carbon Dioxide 28 mmol/L (22-30); Chloride 101 mmol/L (96-108); Glomerular Filtration Rate 111; Glucose 143 mg/dL (70-105)
--- NOTE | 2022-03-09 09:03 | General Surgery Progress Note ---
SUBJECTIVE Subjective Patient information: Note initiated : 03/09/22 at 9:01 am Service Date, if different from initiated Date: [] Patient: Buck Diamond 57 y/o M admitted on 03/08/22 for pale, diaphoretic, poss infection. Chief Complaint: [] Principal diagnosis: Status post colectomy, colitis Interval history: Patient reports he feels better overnight, no further episodes of sweats, tolerating regular diet. Patient reports his abdomen feels better. White blood cell count decreased. Constitutional Vitals: Vital Signs Temp Pulse Resp BP Pulse Ox O2 Del Method 98.0 F 107 H 16 121/92 92 03/09/22 08:00 03/09/22 08:00 03/09/22 08:00 03/09/22 08:00 03/09/22 08:00 03/09/22 08:00 Period Temp Pulse Resp BP Sys/Ayala Pulse Ox O2 Del Method O2 Flow Rate Last 24 Hr 97.7 F-99.0 F 96-112 15-22 113-157/79-146 91-100 Room Air-Room Air Intake and Output 03/08/22 03/09/22 03/09/22 19:59 03:59 11:59 Intake Total 2370 450 50 Output Total 975 925 Balance 1395 -475 50 Weight 193 lb 9.6 oz Intake & Output: Intake & Output 03/08/22 03/09/22 03/09/22 19:59 03:59 11:59 Intake Total 2370 450 50 Output Total 975 925 Balance 1395 -475 50 Weight 193 lb 9.6 oz Intake: IV 50 50 50 Zosyn 3.375 gm In Dextrose 5% 50 50 in Water 50 ml @ 100 mls/hr IV Q8H [facility] Rx#:[id number] Zosyn 4.5 gm In Dextrose 5% in 50 Water 50 ml @ 100 mls/hr IV ONCE ONE Rx#:[id number] Oral 2320 400 Output: Urine Catheter Amount 250 725 Stool 725 200 Other: Meal Dinner Percent of Meal Consumed 100% Feeding Ability Independent Stool Color Brown Brown Stool Consistency Soft Loose # Bowel Movements 1 1 General appearance: cooperative and no acute distress GI/Abdominal GI/Abdominal exam: Present normal bowel sounds and soft; Absent distended, guarding or tenderness Additional comments: Midline incision intact, diffuse abdominal wall ecchymosis A/P Assessment and plan (1) Colitis: Plan: Hospital day #1. Advance diet as tolerated. Continue with Flagyl. Status: Acute Time Spent With Patient Time: Total time spent is greater than 50% in coordination of care (as documented) at patient's floor/unit and/or counseling patient:
[2022-03-09] MEDS: POTASSIUM CITRATE 10 MEQ TAB.XL.24H PO SCH ×3 (09:06→17:44)
[2022-03-09] MEDS: VITAMIN B COMPLEX 1 CAPSULE PO SCH (09:07)
[2022-03-09] MEDS: MULTIVIT,THER IRON,CA,FA & MIN 1 TABLET PO SCH (09:07)
[2022-03-09] MEDS: MAGNESIUM OXIDE 400 MG TABLET PO SCH ×2 (09:07→21:27)
[2022-03-09] MEDS: ASPIRIN 81 MG TAB.CHEW PO SCH (09:07)
[2022-03-09] MEDS: buPROPion 150 MG TAB.SR.12H PO SCH (09:08)
[2022-03-09] MEDS: VITAMIN D3 125 MCG TABLET PO SCH (09:09)
[2022-03-09] MEDS: LEVOTHYROXINE 75 MCG TABLET PO SCH (09:09)
[2022-03-09] MEDS: Fluvoxamine 50 mg tablet PO SCH (10:32)
[2022-03-09] MEDS: CHROMIUM PICOLINATE 200 MCG PO SCH ×2 (10:38→21:20)
--- NOTE | 2022-03-09 14:29 | Internal Med Progress Note ---
SUBJECTIVE Subjective Patient information: Note initiated : 03/09/22 at 2:27 pm Service Date, if different from initiated Date: [] Patient: Buck Diamond 57 y/o M admitted on 03/08/22 for pale, diaphoretic, poss infection. Chief Complaint: [] Principal diagnosis: Status post colectomy, colitis Interval history: Patient is a 57 years old gentleman history of traumatic brain injury, anxiety, depression, hypothyroidism, type 2 diabetes mellitus, status post ex lap, sigmoid colectomy, and ostomy dated back on February [address] Guzman, discharged home on March 07, we admitted today for worsening of his symptoms including abdominal pain. He was discharged home on March 07 with oral antibiotics nitrofurantoin for urinary tract infections. He returned back to the ED today due to worsening of his abdominal pain, currently graded 8 out of 10, sharp, constant, in the right lower quadrant. Ostomy in place with brown stool output. He denies any nausea or vomiting. He is tolerating oral intake well. He denies any systemic complaint such as general weakness, fever, chills, or diaphoresis. Labs today showing leukocytosis WBC 15.5, up from 9.5 dated back on March 03. Blood glucose level 232. CT angiogram performed today showing severe colitis in the descending colon from the splenic flexure to the ostomy. Free intraperitoneal air. This may be related to reabsorption of air following the recent colectomy or perforations. Medical consult was requested for medical management including for his diabetes and psych medications. 03/09: Blood culture grew strep involve bottles. Afebrile overnight. Fasting glucose 140 this morning. Patient denies any abdominal pain at moment. Mild periumbilical abdominal tenderness. Will keep holding metformin while doing medium scale sliding scale insulin li spro AC HS and Accu-Chek AC HS. Continue regular diet. Continue Zosyn. Repeat blood culture x2 on March 10, 2022. Rest of the surgical management as per primary team. Constitutional Vitals: Vital Signs Temp Pulse Resp BP Pulse Ox O2 Del Method 36.7 C 107 H 16 121/92 92 03/09/22 08:00 03/09/22 08:00 03/09/22 08:00 03/09/22 08:00 03/09/22 08:00 03/09/22 08:00 Period Temp Pulse Resp BP Sys/Ayala Pulse Ox O2 Del Method O2 Flow Rate Last 24 Hr 36.5 C-37.2 C 96-109 16-16 121-139/84-94 92-98 Room Air-Room Air Intake and Output 03/09/22 03/09/22 03/09/22 03:59 11:59 19:59 Intake Total 450 850 290 Output Total 925 Balance -475 850 290 Intake & Output: Intake & Output 03/09/22 03/09/22 03/09/22 03:59 11:59 19:59 Intake Total 450 850 290 Output Total 925 Balance -475 850 290 Intake: IV 50 50 50 Zosyn 3.375 gm In Dextrose 5% 50 50 50 in Water 50 ml @ 100 mls/hr IV Q8H [facility] Rx#:[id number] Oral 400 800 240 Output: Urine Catheter Amount 725 Stool 200 Other: Meal Breakfast Lunch Percent of Meal Consumed 100% 100% Feeding Ability Independent Independent Stool Color Brown Stool Consistency Loose # Bowel Movements 1 Head Head exam: Present atraumatic and normal inspection Eye Eye exam: Present normal appearance ENT ENT exam: Present mucous membranes moist, normal exam and normal external ear exam Neck Neck exam: Present normal inspection Respiratory Respiratory exam: Present normal respiratory exam Cardiovascular Cardiovascular exam: Present normal rate and rhythm GI/Abdominal GI/Abdominal exam: Present normal bowel sounds Additional comments: Ventral abdominal incision with claudia in place Ostomy bag in LUQ Back Exam Back exam: Present normal inspection Neurological Exam Neurological exam: Present alert and oriented X3 Skin Skin exam: Present intact and warm OBJ DATA Labs CBC & Chem 7: 03/09/22 05:12 03/09/22 05:12 Labs: Abnormal Lab Results 03/09/22 03/09/22 03/08/22 05:12 05:12 10:49 WBC 12.4 H RBC 3.95 L Hgb 12.6 L Hct 38.1 L Immature Gran % (Auto) 0.7 H Lymph % (Auto) 13.8 L [place] % (Auto) 12.4 H [place] # (Auto) 1.53 H Immature Gran # 0.09 H Absolute Neutrophils 8.52 H POC VBG pO2 21 L POC VBG HCO3 29.9 H POC VBG Total CO2 31.0 H POC Venous O2 Sat 34.0 L POC VBG Base Excess 5.0 H* Anion Gap 7.0 L Creatinine 0.6 L Glucose 143 H POC Glucose Calcium 8.5 L POC WB Ioniz Calcium 03/08/22 03/08/22 09:21 09:08 WBC 15.5 H RBC 4.58 L Hgb Hct Immature Gran % (Auto) 0.8 H Lymph % (Auto) 15.2 L [place] % (Auto) [place] # (Auto) 1.70 H Immature Gran # 0.13 H Absolute Neutrophils 10.70 H POC VBG pO2 POC VBG HCO3 POC VBG Total CO2 POC Venous O2 Sat POC VBG Base Excess Anion Gap Creatinine Glucose POC Glucose 232 H Calcium POC WB Ioniz Calcium 1.06 L Meds: Medications Acetaminophen (Acetaminophen 500 Mg Tablet) 1,000 mg PO TIDP PRN; Protocol PRN Reason: Pain/Headache Aspirin (Aspirin 81 Mg Tab.Chew) 81 mg PO QDAY [facility] Last Admin: 03/09/22 09:07 Dose: 81 mg Bupropion HCl (Bupropion 150 Mg Tab.Sr.12h) 300 mg PO QAM [facility] Last Admin: 03/09/22 09:08 Dose: 300 mg Dextrose (Dextrose 50% 50 Ml Vial) 0 ml IV UD PRN PRN Reason: Per Sliding Scale Diagnostic Test (Pha) (Accu-Chek 1 Each Strip) 1 each FS [facility] Last Admin: 03/09/22 11:38 Dose: 1 each Divalproex Sodium (Divalproex Sodium 250 Mg Tablet) 1,000 mg PO HS [facility] Last Admin: 03/08/22 21:28 Dose: 1,000 mg Glucose (Dextrose 31 Gm Oral.Susp) 15 gm PO PRN PRN PRN Reason: Hypoglycemia Piperacillin Sod/Tazobactam (Sod 3.375 gm/ Dextrose) 50 mls @ 100 mls/hr IV Q8H [facility]; Protocol Last Infusion: 03/09/22 12:03 Dose: Infused Ibuprofen (Ibuprofen 600 Mg Tablet) 600 mg PO Q6HP PRN; Protocol PRN Reason: pain Insulin Human Lispro (Insulin Lispro 1 Unit/0.01 Ml Unit) 0 unit SQ [facility]; Protocol Last Admin: 03/09/22 11:41 Dose: 4 units Iron Carb/Multivit/Golva/Folic Acid (Multivit,Ther Iron,Ca,Fa & Min 1 Tablet) 1 tab PO QDAY [facility] Last Admin: 03/09/22 09:07 Dose: 1 tab Levothyroxine Sodium (Levothyroxine 75 Mcg Tablet) 75 mcg PO QAM [facility] Last Admin: 03/09/22 09:09 Dose: 75 mcg Magnesium Oxide (Magnesium Oxide 400 Mg Tablet) 200 mg PO BID [facility] Last Admin: 03/09/22 09:07 Dose: 200 mg Morphine Sulfate (Morphine 2 Mg/Ml Vial) 2 mg IV Q4HP PRN; Protocol PRN Reason: Per Pain Protocol Fluvoxamine 100 Mg (Tablet) 1 dose PO TID [facility] Ondansetron HCl (Ondansetron 4 Mg/2 Ml Vial) 4 mg IV Q6HP PRN PRN Reason: Nausea And Vomiting Oxycodone HCl (Oxycodone Hcl 5 Mg Tablet) 5 mg PO Q4HP PRN; Protocol PRN Reason: Per Pain Protocol Last Admin: 03/08/22 20:07 Dose: 5 mg Chromium Picolinate (200 Mcg Tablet) 1 dose PO BID [facility] Last Admin: 03/09/22 10:38 Dose: Not Given Citric Ac- Gluconolact-Mag Carb [Renacidin] 1980.6 30 dose UR 0900,1600 [facility] Last Admin: 03/08/22 16:00 Dose: 30 dose D-Mannose 500 Mg (Capsule) 1 dose PO BID [facility] Last Admin: 03/09/22 10:38 Dose: Not Given Teriflunomide [ Aubagio] 14 Mg Tablet 1 dose PO QDAY [facility] Last Admin: 03/09/22 10:33 Dose: 1 dose Potassium Citrate (Potassium Citrate 10 Meq Tab.Xl.24h) 15 meq PO TIDCC [facility] Last Admin: 03/09/22 12:00 Dose: 15 meq Trazodone HCl (Trazodone Hcl 50 Mg Tablet) 50 mg PO QHS [facility] Last Admin: 03/08/22 21:28 Dose: 50 mg Vitamin B Complex (Vitamin B Complex 1 Capsule) 1 cap PO QDAY [facility] Last Admin: 03/09/22 09:07 Dose: 1 cap Vitamin D (Vitamin D3 125 Mcg Tablet) 125 mcg PO QAM [facility] Last Admin: 03/09/22 09:09 Dose: 125 mcg A/P Assessment and plan (1) Large bowel obstruction: Status: Acute (2) Anxiety disorder: Status: Chronic (3) Diabetes mellitus, type II: Status: Chronic Qualifiers: Diabetes mellitus complication status: with unspecified complications Diabetes mellitus intermodal truck driver insulin use: without intermodal truck driver use Qualified Code(s): E11.8 - Type 2 diabetes mellitus with unspecified complications (4) Hypothyroidism (acquired): Status: Chronic (5) Depressive disorder: Status: Chronic (6) UTI (urinary tract infection): Status: Acute (7) Colitis: Status: Acute (8) Streptococcal bacteremia: Status: Acute Narrative A/P Narrative: Assessment and Plans: 1. Large bowel obstruction, s/p ex lap, sigmoid colectomy, and ostomy dated back on February [address] Guzman, now concerning for colitis as seen by CTA abdomen: Switch antibiotics from Nitrofurantoin to Zosyn for broader coverage Dr. Guzman will decide whether repeat surgery is indicated or not later Oxycodone Morphine cbc w/ auto diff in the morning to trend WBC Blood culture X2, strep in both bottles 2. T2DM: HgA1c 8.9 d/c Metformin, patient had CT angiogram Insulin Lispro SSI AC HS Accu Check AC HS Hypoglycemia protocol Regular diet 3. h/o brain injury, anxiety with depressive disorder, OCD: Wellbutrin Depakote Fluvoxamine 4. Hypothyroidism: Continue oral thyroid replacement therapy for now 5. Streptococcal bacteremia: Repeat blood cultures X2 on 03/10 cbc w/ auto diff in the morning to trend WBC Continue Zosyn Thank you for the consultation, will continue to follow patient Time Spent With Patient Time: Total time spent is greater than 50% in coordination of care (as documented) at patient's floor/unit and/or counseling patient: Total time spent with greater than 50% in coordination of care (as documented) at patient's floor/unit and/or counseling patient:: 25 - 35 minutes QUALITY VTE Deep Vein Thrombosis/Pulmonary Embolism Present on Admission: No
[2022-03-09] MEDS: CITRIC AC GLUCONOLACT MAG CARB UR SCH ×2 (14:57→18:47)
[2022-03-09] MEDS: DIVALPROEX SODIUM 250 MG TABLET PO SCH (21:27)
[2022-03-09] MEDS: traZODone HCL 50 MG TABLET PO SCH (21:27)
[2022-03-10] MEDS: PIPERACILLIN SODIUM/TAZOBACTAM 3.375 GM in DEXTROSE 5% IN WATER 50 ML IV SCH ×3 (03:22→20:02)
[2022-03-10 06:32] LABS: Basophils # (Auto) 0.07 K/mcL (0.00-0.30); Basophils % (Auto) 0.8 % (0.0-2.0); Eosinophils # (Auto) 0.51 K/mcL (0.00-0.70); Eosinophils % (Auto) 5.6 % (0.0-7.0); Hematocrit 34.9 % (40.1-51.0); Hemoglobin 11.5 g/dL (13.7-17.5); Lymphocytes # (Auto) 1.85 K/mcL (1.50-4.80); Lymphocytes % (Auto) 20.2 % (15.5-49.0); Mean Cell Volume 96.7 fL (80.0-100.0); Mean Platelet Volume 9.4 fL (8.8-12.5); Monocytes # (Auto) 0.84 K/mcL (0.10-0.90); Monocytes % (Auto) 9.2 % (1.0-12.0); Neutrophils % (Auto) 63.7 % (38.0-78.0); Platelet Count 300 K/mcL (140-440); RBC 3.61 M/mcL (4.63-6.08); Red Cell Distribution Width 13.6 % (11.5-14.5); WBC 9.2 K/mcL (4.5-11.0)
[2022-03-10 07:06] LABS: ALT/SGPT 6 U/L (<40); AST/SGOT 12 U/L (<40); Albumin 3.3 gm/dL (3.2-5.2); Albumin/Globulin Ratio 1.5 (1.0-2.3); Alkaline Phosphatase 75 U/L (39-117); Bilirubin,Total 0.5 mg/dL (0.1-1.0); Blood Urea Nitrogen 9 mg/dL (6-20); Calcium 8.9 mg/dL (8.6-10.4); Carbon Dioxide 31 mmol/L (22-30); Chloride 99 mmol/L (96-108); Globulin 2.2 gm/dL (2.2-3.7); Glomerular Filtration Rate 111; Glucose 147 mg/dL (70-105)
[2022-03-10] MEDS: INSULIN LISPRO 1 UNIT/0.01 ML UNIT SQ SCH ×4 (07:37→20:21)
[2022-03-10] MEDS: VITAMIN D3 125 MCG TABLET PO SCH (08:14)
[2022-03-10] MEDS: ASPIRIN 81 MG TAB.CHEW PO SCH (08:14)
[2022-03-10] MEDS: MAGNESIUM OXIDE 400 MG TABLET PO SCH ×2 (08:15→20:22)
[2022-03-10] MEDS: MULTIVIT,THER IRON,CA,FA & MIN 1 TABLET PO SCH (08:15)
[2022-03-10] MEDS: VITAMIN B COMPLEX 1 CAPSULE PO SCH (08:15)
[2022-03-10] MEDS: POTASSIUM CITRATE 10 MEQ TAB.XL.24H PO SCH ×3 (08:16→16:55)
[2022-03-10] MEDS: buPROPion 150 MG TAB.SR.12H PO SCH (08:17)
[2022-03-10] MEDS: LEVOTHYROXINE 75 MCG TABLET PO SCH (08:18)
[2022-03-10] MEDS: CITRIC AC GLUCONOLACT MAG CARB UR SCH ×2 (08:20→15:27)
[2022-03-10] MEDS: CHROMIUM PICOLINATE 200 MCG PO SCH (08:20)
--- NOTE | 2022-03-10 11:44 | Internal Med Progress Note ---
SUBJECTIVE Subjective Patient information: Note initiated : 03/10/22 at 11:38 am Service Date, if different from initiated Date: [] Patient: Buck Diamond 57 y/o M admitted on 03/08/22 for pale, diaphoretic, poss infection-Colitis. Chief Complaint: [] Principal diagnosis: Status post colectomy, colitis Interval history: Patient is a 57 years old gentleman history of traumatic brain injury, anxiety, depression, hypothyroidism, type 2 diabetes mellitus, status post ex lap, sigmoid colectomy, and ostomy dated back on February [address] Guzman, discharged home on March 07, we admitted today for worsening of his symptoms including abdominal pain. He was discharged home on March 07 with oral antibiotics nitrofurantoin for urinary tract infections. He returned back to the ED today due to worsening of his abdominal pain, currently graded 8 out of 10, sharp, constant, in the right lower quadrant. Ostomy in place with brown stool output. He denies any nausea or vomiting. He is tolerating oral intake well. He denies any systemic complaint such as general weakness, fever, chills, or diaphoresis. Labs today showing leukocytosis WBC 15.5, up from 9.5 dated back on March 03. Blood glucose level 232. CT angiogram performed today showing severe colitis in the descending colon from the splenic flexure to the ostomy. Free intraperitoneal air. This may be related to reabsorption of air following the recent colectomy or perforations. Medical consult was requested for medical management including for his diabetes and psych medications. 03/09: Blood culture grew strep involve bottles. Afebrile overnight. Fasting glucose 140 this morning. Patient denies any abdominal pain at moment. Mild periu mbilical abdominal tenderness. Will keep holding metformin while doing medium scale sliding scale insulin lispro AC HS and Accu-Chek AC HS. Continue regular diet. Continue Zosyn. Repeat blood culture x2 on March 10, 2022. Rest of the surgical management as per primary team. 03/10: Afebrile overnight. WBC down trended from 12.4-->9.2. Initial blood culture growing strep species in both bottle. Patient is tolerating regular diet fine, fasting glucose 129 this morning. Patient is committing of mild abdominal pain in all quadrants. Denies any nausea or vomiting. Surgical team has no current plan for any additional surgery at the moment. Will change diet from regular diet to CC diet. Will keep holding metformin while doing medium scale sliding scale insulin lispro AC HS and Accu-Chek AC HS. Repeat blood culture x2 this morning. Continue Zosyn while waiting for final blood culture results. Rest of the surgical management as per primary team. Constitutional Vitals: Vital Signs Temp Pulse Resp BP Pulse Ox O2 Del Method 36.4 C 88 20 152/71 98 03/10/22 08:00 03/10/22 08:00 03/10/22 08:00 03/10/22 08:00 03/10/22 08:00 03/10/22 08:00 Period Temp Pulse Resp BP Sys/Ayala Pulse Ox O2 Del Method O2 Flow Rate Last 24 Hr 36.4 C-37.0 C 88-108 16-20 110-152/71-97 94-98 Room Air-Room Air Intake and Output 03/09/22 03/10/22 03/10/22 19:59 03:59 11:59 Intake Total 1420 800 50 Output Total 1575 300 Balance -155 500 50 Weight 86.5 kg Intake & Output: Intake & Output 03/09/22 03/10/22 03/10/22 19:59 03:59 11:59 Intake Total 1420 800 50 Output Total 1575 300 Balance -155 500 50 Weight 86.5 kg Intake: IV 100 50 Zosyn 3.375 gm In Dextrose 5% 100 50 in Water 50 ml @ 100 mls/hr IV Q8H [facility] Rx#:[id number] Oral 1320 800 Output: Urine Catheter Amount 650 300 Stool 925 Other: Meal Dinner Percent of Meal Consumed 100% Feeding Ability Independent Urine Appearance Clear Clear Uretheral ([place]) Clear Urine Color Dark Yellow Dark Yellow Uretheral ([place]) Dark Yellow Urine Odor Uretheral ([place]) Normal Stool Color Brown Stool Consistency Soft Head Head exam: Present atraumatic and normal inspection Eye Eye exam: Present normal appearance ENT ENT exam: Present mucous membranes moist, normal exam and normal external ear exam Neck Neck exam: Present normal inspection Respiratory Respiratory exam: Present normal respiratory exam Cardiovascular Cardiovascular exam: Present normal rate and rhythm GI/Abdominal GI/Abdominal exam: Present normal bowel sounds Additional comments: Ventral abdominal incision with claudia in place Ostomy bag in LUQ Back Exam Back exam: Present normal inspection Neurological Exam Neurological exam: Present alert and oriented X3 Skin Skin exam: Present intact and warm OBJ DATA Labs CBC & Chem 7: 03/10/22 05:18 03/10/22 05:18 Labs: Abnormal Lab Results 03/10/22 03/10/22 03/09/22 05:18 05:18 05:12 WBC RBC 3.61 L Hgb 11.5 L Hct 34.9 L Immature Gran % (Auto) Lymph % (Auto) [place] % (Auto) [place] # (Auto) Immature Gran # Absolute Neutrophils POC VBG pO2 POC VBG HCO3 POC VBG Total CO2 POC Venous O2 Sat POC VBG Base Excess Carbon Dioxide 31 H Anion Gap 7.0 L 7.0 L Creatinine 0.6 L 0.6 L Glucose 147 H 143 H POC Glucose Calcium 8.5 L POC WB Ioniz Calcium Total Protein 5.5 L 03/09/22 03/08/22 03/08/22 05:12 10:49 09:21 WBC 12.4 H 15.5 H RBC 3.95 L 4.58 L Hgb 12.6 L Hct 38.1 L Immature Gran % (Auto) 0.7 H 0.8 H Lymph % (Auto) 13.8 L 15.2 L [place] % (Auto) 12.4 H [place] # (Auto) 1.53 H 1.70 H Immature Gran # 0.09 H 0.13 H Absolute Neutrophils 8.52 H 10.70 H POC VBG pO2 21 L POC VBG HCO3 29.9 H POC VBG Total CO2 31.0 H POC Venous O2 Sat 34.0 L POC VBG Base Excess 5.0 H* Carbon Dioxide Anion Gap Creatinine Glucose POC Glucose Calcium POC WB Ioniz Calcium Total Protein 03/08/22 09:08 WBC RBC Hgb Hct Immature Gran % (Auto) Lymph % (Auto) [place] % (Auto) [place] # (Auto) Immature Gran # Absolute Neutrophils POC VBG pO2 POC VBG HCO3 POC VBG Total CO2 POC Venous O2 Sat POC VBG Base Excess Carbon Dioxide Anion Gap Creatinine Glucose POC Glucose 232 H Calcium POC WB Ioniz Calcium 1.06 L Total Protein Meds: Medications Acetaminophen (Acetaminophen 500 Mg Tablet) 1,000 mg PO TIDP PRN; Protocol PRN Reason: Pain/Headache Aspirin (Aspirin 81 Mg Tab.Chew) 81 mg PO QDAY [facility] Last Admin: 03/10/22 08:14 Dose: 81 mg Bupropion HCl (Bupropion 150 Mg Tab.Sr.12h) 300 mg PO QAM [facility] Last Admin: 03/10/22 08:17 Dose: 300 mg Dextrose (Dextrose 50% 50 Ml Vial) 0 ml IV UD PRN PRN Reason: Per Sliding Scale Diagnostic Test (Pha) (Accu-Chek 1 Each Strip) 1 each FS ACHS [facility] Last Admin: 03/10/22 11:36 Dose: 1 each Divalproex Sodium (Divalproex Sodium 250 Mg Tablet) 1,000 mg PO HS [facility] Last Admin: 03/09/22 21:27 Dose: 1,000 mg Glucose (Dextrose 31 Gm Oral.Susp) 15 gm PO PRN PRN PRN Reason: Hypoglycemia Piperacillin Sod/Tazobactam (Sod 3.375 gm/ Dextrose) 50 mls @ 100 mls/hr IV Q8H [facility]; Protocol Last Admin: 03/10/22 11:35 Dose: 100 mls/hr Ibuprofen (Ibuprofen 600 Mg Tablet) 600 mg PO Q6HP PRN; Protocol PRN Reason: pain Insulin Human Lispro (Insulin Lispro 1 Unit/0.01 Ml Unit) 0 unit SQ [facility]; Protocol Last Admin: 03/10/22 11:36 Dose: 6 units Iron Carb/Multivit/[place]/Folic Acid (Multivit,Ther Iron,Ca,Fa & Min 1 Tablet) 1 tab PO QDAY [facility] Last Admin: 03/10/22 08:15 Dose: 1 tab Levothyroxine Sodium (Levothyroxine 75 Mcg Tablet) 75 mcg PO QAM [facility] Last Admin: 03/10/22 08:18 Dose: 75 mcg Magnesium Oxide (Magnesium Oxide 400 Mg Tablet) 200 mg PO BID [facility] Last Admin: 03/10/22 08:15 Dose: 200 mg Morphine Sulfate (Morphine 2 Mg/Ml Vial) 2 mg IV Q4HP PRN; Protocol PRN Reason: Per Pain Protocol Fluvoxamine 100 Mg (Tablet) 1 dose PO TID [facility] Last Admin: 03/10/22 08:18 Dose: 1 dose Ondansetron HCl (Ondansetron 4 Mg/2 Ml Vial) 4 mg IV Q6HP PRN PRN Reason: Nausea And Vomiting Oxycodone HCl (Oxycodone Hcl 5 Mg Tablet) 5 mg PO Q4HP PRN; Protocol PRN Reason: Per Pain Protocol Last Admin: 03/08/22 20:07 Dose: 5 mg Chromium Picolinate (200 Mcg Tablet) 1 dose PO BID [facility] Last Admin: 03/10/22 08:20 Dose: Not Given Citric Ac- Gluconolact-Mag Carb [Renacidin] 1980.6 30 dose UR 0900,1600 [facility] Last Admin: 03/10/22 08:20 Dose: 30 dose D-Mannose 500 Mg (Capsule) 1 dose PO BID [facility] Last Admin: 03/10/22 08:19 Dose: Not Given Teriflunomide [ Aubagio] 14 Mg Tablet 1 dose PO QDAY [facility] Last Admin: 03/10/22 08:19 Dose: 1 dose Potassium Citrate (Potassium Citrate 10 Meq Tab.Xl.24h) 15 meq PO TIDCC [facility] Last Admin: 03/10/22 11:35 Dose: 15 meq Trazodone HCl (Trazodone Hcl 50 Mg Tablet) 50 mg PO QHS [facility] Last Admin: 03/09/22 21:27 Dose: 50 mg Vitamin B Complex (Vitamin B Complex 1 Capsule) 1 cap PO QDAY [facility] Last Admin: 03/10/22 08:15 Dose: 1 cap Vitamin D (Vitamin D3 125 Mcg Tablet) 125 mcg PO QAM [facility] Last Admin: 03/10/22 08:14 Dose: 125 mcg A/P Assessment and plan (1) Large bowel obstruction: Status: Acute (2) Anxiety disorder: Status: Chronic (3) Diabetes mellitus, type II: Status: Chronic Qualifiers: Diabetes mellitus complication status: with unspecified complications Diabetes mellitus exterminator helper termite insulin use: without exterminator helper termite use Qualified Code(s): E11.8 - Type 2 diabetes mellitus with unspecified complications (4) Hypothyroidism (acquired): Status: Chronic (5) Depressive disorder: Status: Chronic (6) UTI (urinary tract infection): Status: Acute (7) Colitis: Status: Acute (8) Streptococcal bacteremia: Status: Acute Narrative A/P Narrative: Assessment and Plans: 1. Large bowel obstruction, s/p ex lap, sigmoid colectomy, and ostomy dated back on February [address] Guzman, now concerning for colitis as seen by CTA abdomen: Continue Zosyn for now while monitoring final blood culture results Dr. Means has no plans for additional surgeries for now Oxycodone Morphine cbc w/ auto diff in the morning to trend WBC Blood culture X2, strep in both bottles, see below 2. T2DM: HgA1c 8.9 d/c Metformin, patient had CT angiogram Insulin Lispro SSI AC HS Accu Check AC HS Hypoglycemia protocol CC diet 3. h/o brain injury, anxiety with depressive disorder, OCD: Wellbutrin Depakote Fluvoxamine 4. Hypothyroidism: Continue oral thyroid replacement therapy for now 5. Streptococcal bacteremia: Repeat blood cultures X2 on 03/10 cbc w/ auto diff in the morning to trend WBC Continue Zosyn for now while monitoring final blood culture results Thank you for the consultation, will continue to follow patient Time Spent With Patient Time: Total time spent is greater than 50% in coordination of care (as documented) at patient's floor/unit and/or counseling patient: Total time spent with greater than 50% in coordination of care (as documented) at patient's floor/unit and/or counseling patient:: 25 - 35 minutes QUALITY VTE Deep Vein Thrombosis/Pulmonary Embolism Present on Admission: No
--- NOTE | 2022-03-10 14:21 | General Surgery Progress Note ---
SUBJECTIVE Subjective Patient information: Note initiated : 03/10/22 at 2:15 pm Service Date, if different from initiated Date: [] Patient: Buck Diamond 57 y/o M admitted on 03/08/22 for pale, diaphoretic, poss infection-Colitis. Chief Complaint: [] Principal diagnosis: Status post colectomy, colitis Interval history: Patient is continuing to improve. He denies any discomfort. He has been afebrile. His white blood count is 9.2, hemoglobin 11.5, hematocrit 34.9, potassium 3.6, BUN 9, creatinine 0.6. Constitutional Vitals: Vital Signs Temp Pulse Resp BP Pulse Ox O2 Del Method 98.2 F 92 H 18 115/71 93 03/10/22 11:45 03/10/22 11:45 03/10/22 11:45 03/10/22 11:45 03/10/22 11:45 03/10/22 11:45 Period Temp Pulse Resp BP Sys/Ayala Pulse Ox O2 Del Method O2 Flow Rate Last 24 Hr 97.6 F-98.6 F 88-108 16-20 110-152/71-97 93-98 Room Air-Room Air Intake and Output 03/10/22 03/10/22 03/10/22 03:59 11:59 19:59 Intake Total 800 290 50 Output Total 300 Balance 500 290 50 Weight 190 lb 11.2 oz Intake & Output: Intake & Output 03/10/22 03/10/22 03/10/22 03:59 11:59 19:59 Intake Total 800 290 50 Output Total 300 Balance 500 290 50 Weight 190 lb 11.2 oz Intake: IV 50 50 Zosyn 3.375 gm In Dextrose 5% 50 50 in Water 50 ml @ 100 mls/hr IV Q8H [facility] Rx#:[id number] Oral 800 240 Output: Urine Catheter Amount 300 Other: Meal Breakfast Percent of Meal Consumed 100% Urine Appearance Clear Uretheral ([place]) Clear Urine Color Dark Yellow Uretheral ([place]) Dark Yellow Urine Odor Uretheral ([place]) Normal Head Head exam: Present atraumatic, normal inspection and normocephalic Neck Neck exam: Present full ROM and normal inspection; Absent lymphadenopathy or tenderness Respiratory Respiratory exam: Present normal respiratory exam and CTAB; Absent wheezes Cardiovascular Cardiovascular exam: Present normal rate and rhythm, RRR, +S1 and +S2; Absent JVD GI/Abdominal GI/Abdominal exam: Present normal bowel sounds and soft; Absent distended Additional comments: Abdomen is soft and nontender; his incision looks good good active bowel sounds who has 6 he needs a stoma bag changed and dressing changed stoma is healthy Extremities Exam Extremities exam: Present full ROM, normal inspection and neurovascular intact Neurological Exam Neurological exam: Present alert and oriented X3; Absent motor sensory deficit Psychiatric Psychiatric exam: Present normal affect and normal mood A/P Assessment and plan (1) Colitis: Status: Acute (2) Large bowel obstruction: Status: Acute (3) Diabetes mellitus, type II: Status: Chronic Qualifiers: Diabetes mellitus complication status: with unspecified complications Diabetes mellitus mcc insulin use: without terminologist use Qualified Code(s): E11.8 - Type 2 diabetes mellitus with unspecified complications Plan Patient is clinically stable and improved Dressing and stoma appliance will be changed Sepsis Sepsis Identified: No Time Spent With Patient Time: Total time spent is greater than 50% in coordination of care (as documented) at patient's floor/unit and/or counseling patient:
[2022-03-10] MEDS: DIVALPROEX SODIUM 250 MG TABLET PO SCH (20:21)
[2022-03-10] MEDS: traZODone HCL 50 MG TABLET PO SCH (20:21)
[2022-03-11] MEDS: PIPERACILLIN SODIUM/TAZOBACTAM 3.375 GM in DEXTROSE 5% IN WATER 50 ML IV SCH ×3 (03:36→19:18)
[2022-03-11 06:49] LABS: Basophils # (Auto) 0.07 K/mcL (0.00-0.30); Eosinophils # (Auto) 0.48 K/mcL (0.00-0.70); Eosinophils % (Auto) 6.9 % (0.0-7.0); Hemoglobin 11.1 g/dL (13.7-17.5); Lymphocytes # (Auto) 1.49 K/mcL (1.50-4.80); Lymphocytes % (Auto) 21.4 % (15.5-49.0); Mean Cell Volume 97.4 fL (80.0-100.0); Mean Corpuscular HGB Conc 32.6 g/dL (31.0-36.0); Mean Platelet Volume 9.4 fL (8.8-12.5); Monocytes # (Auto) 0.71 K/mcL (0.10-0.90); Monocytes % (Auto) 10.2 % (1.0-12.0); Neutrophils % (Auto) 60.2 % (38.0-78.0); Platelet Count 299 K/mcL (140-440); RBC 3.49 M/mcL (4.63-6.08); Red Cell Distribution Width 13.5 % (11.5-14.5)
[2022-03-11 07:13] LABS: ALT/SGPT 8 U/L (<40); AST/SGOT 12 U/L (<40); Albumin 3.1 gm/dL (3.2-5.2); Albumin/Globulin Ratio 1.3 (1.0-2.3); Alkaline Phosphatase 79 U/L (39-117); Bilirubin,Total 0.4 mg/dL (0.1-1.0); Blood Urea Nitrogen 9 mg/dL (6-20); Calcium 8.6 mg/dL (8.6-10.4); Carbon Dioxide 29 mmol/L (22-30); Chloride 101 mmol/L (96-108); Globulin 2.3 gm/dL (2.2-3.7); Glomerular Filtration Rate 111; Glucose 177 mg/dL (70-105)
[2022-03-11] MEDS: INSULIN LISPRO 1 UNIT/0.01 ML UNIT SQ SCH ×4 (07:51→20:17)
[2022-03-11] MEDS: VITAMIN B COMPLEX 1 CAPSULE PO SCH (08:34)
[2022-03-11] MEDS: ASPIRIN 81 MG TAB.CHEW PO SCH (08:34)
[2022-03-11] MEDS: MULTIVIT,THER IRON,CA,FA & MIN 1 TABLET PO SCH (08:34)
[2022-03-11] MEDS: buPROPion 150 MG TAB.SR.12H PO SCH (08:34)
[2022-03-11] MEDS: MAGNESIUM OXIDE 400 MG TABLET PO SCH ×2 (08:35→20:18)
[2022-03-11] MEDS: VITAMIN D3 125 MCG TABLET PO SCH (08:35)
[2022-03-11] MEDS: POTASSIUM CITRATE 10 MEQ TAB.XL.24H PO SCH ×3 (08:36→17:02)
[2022-03-11] MEDS: LEVOTHYROXINE 75 MCG TABLET PO SCH (08:36)
[2022-03-11] MEDS: CITRIC AC GLUCONOLACT MAG CARB UR SCH ×2 (08:38→15:43)
--- NOTE | 2022-03-11 13:41 | Internal Med Progress Note ---
SUBJECTIVE Subjective Patient information: Note initiated : 03/11/22 at 1:36 pm Service Date, if different from initiated Date: [] Patient: Buck Diamond 57 y/o M admitted on 03/08/22 for pale, diaphoretic, poss infection-Colitis. Chief Complaint: [] Principal diagnosis: Status post colectomy, colitis Interval history: Patient is a 57 years old gentleman history of traumatic brain injury, anxiety, depression, hypothyroidism, type 2 diabetes mellitus, status post ex lap, sigmoid colectomy, and ostomy dated back on February [address] Guzman, discharged home on March 07, we admitted today for worsening of his symptoms including abdominal pain. He was discharged home on March 07 with oral antibiotics nitrofurantoin for urinary tract infections. He returned back to the ED today due to worsening of his abdominal pain, currently graded 8 out of 10, sharp, constant, in the right lower quadrant. Ostomy in place with brown stool output. He denies any nausea or vomiting. He is tolerating oral intake well. He denies any systemic complaint such as general weakness, fever, chills, or diaphoresis. Labs today showing leukocytosis WBC 15.5, up from 9.5 dated back on March 03. Blood glucose level 232. CT angiogram performed today showing severe colitis in the descending colon from the splenic flexure to the ostomy. Free intraperitoneal air. This may be related to reabsorption of air following the recent colectomy or perforations. Medical consult was requested for medical management including for his diabetes and psych medications. 03/09: Blood culture grew strep involve bottles. Afebrile overnight. Fasting glucose 140 this morning. Patient denies any abdominal pain at moment. Mild perium bilical abdominal tenderness. Will keep holding metformin while doing medium scale sliding scale insulin lispro AC HS and Accu-Chek AC HS. Continue regular diet. Continue Zosyn. Repeat blood culture x2 on March 10, 2022. Rest of the surgical management as per primary team. 03/10: Afebrile overnight. WBC down trended from 12.4-->9.2. Initial blood culture growing strep species in both bottle. Patient is tolerating regular diet fine, fasting glucose 129 this morning. Patient is committing of mild abdominal pain in all quadrants. Denies any nausea or vomiting. Surgical team has no current plan for any additional surgery at the moment. Will change diet from regular diet to CC diet. Will keep holding metformin while doing medium scale sliding scale insulin lispro AC HS and Accu-Chek AC HS. Repeat blood culture x2 this morning. Continue Zosyn while waiting for final blood culture results. Rest of the surgical management as per primary team. 03/11: Afebrile overnight. Initial blood culture: S. sanguinis and S. salivarius; Repeat blood culture no growth to date. Fasting glucose 222 this morning. Tolerating CC diet very well. c/o mild periumbilical abdominal pain. Clear muc ous output from ostomy bag. Denies any nausea or vomiting. Patient and family would want to go back to his original facility and declined SNF placement. Surgical team has no current plan for any additional surgery at the moment. Continue Zosyn while waiting for repeat blood culture results. Will keep holding metformin while doing medium scale sliding scale insulin lispro AC HS and Accu- Chek AC HS. Rest of the surgical management as per primary team. Constitutional Vitals: Vital Signs Temp Pulse Resp BP Pulse Ox O2 Del Method 36.5 C 89 14 93/69 97 03/11/22 12:00 03/11/22 12:00 03/11/22 12:00 03/11/22 12:00 03/11/22 12:00 03/11/22 12:00 Period Temp Pulse Resp BP Sys/Ayala Pulse Ox O2 Del Method O2 Flow Rate Last 24 Hr 36.5 C-37.0 C 73-94 14-18 93-135/61-85 93-98 Room Air-Room Air Intake and Output 03/11/22 03/11/22 03/11/22 03:59 11:59 19:59 Intake Total 50 290 530 Output Total 1225 Balance -1175 290 530 Weight 87.543 kg Intake & Output: Intake & Output 03/11/22 03/11/22 03/11/22 03:59 11:59 19:59 Intake Total 50 290 530 Output Total 1225 Balance -1175 290 530 Weight 87.543 kg Intake: IV 50 50 50 Zosyn 3.375 gm In Dextrose 5% 50 50 50 in Water 50 ml @ 100 mls/hr IV Q8H [facility] Rx#:[id number] Oral 0 240 480 Output: Urine Catheter Amount 1100 Stool 125 Other: Meal Breakfast Lunch Percent of Meal Consumed 75% 100% Feeding Ability Assist with Tray Set Up Assist with Tray Set Up Urine Appearance Clear Uretheral (Conroy) Clear Clear Urine Color Bright Yellow Uretheral (Conroy) Yellow Yellow Urine Odor Uretheral (Conroy) Normal Head Head exam: Present atraumatic and normal inspection Eye Eye exam: Present normal appearance ENT ENT exam: Present mucous membranes moist, normal exam and normal external ear exam Neck Neck exam: Present normal inspection Respiratory Respiratory exam: Present normal respiratory exam Cardiovascular Cardiovascular exam: Present normal rate and rhythm GI/Abdominal GI/Abdominal exam: Present normal bowel sounds, soft and tenderness Additional comments: Ostomy bag in place Ventral abdominal surgical incision covered by surgical wound dressing Back Exam Back exam: Present normal inspection Neurological Exam Neurological exam: Present alert and oriented X3 Skin Skin exam: Present intact and warm OBJ DATA Labs CBC & Chem 7: 03/11/22 05:20 03/11/22 05:20 Labs: Abnormal Lab Results 03/11/22 03/11/22 03/10/22 05:20 05:20 05:18 WBC RBC 3.49 L Hgb 11.1 L Hct 34.0 L Immature Gran % (Auto) Lymph % (Auto) [place] % (Auto) Lymph # (Auto) 1.49 L [place] # (Auto) Immature Gran # Absolute Neutrophils Carbon Dioxide 31 H Anion Gap 7.0 L Creatinine 0.6 L 0.6 L Glucose 177 H 147 H Calcium Total Protein 5.4 L 5.5 L Albumin 3.1 L 03/10/22 03/09/22 03/09/22 05:18 05:12 05:12 WBC 12.4 H RBC 3.61 L 3.95 L Hgb 11.5 L 12.6 L Hct 34.9 L 38.1 L Immature Gran % (Auto) 0.7 H Lymph % (Auto) 13.8 L [place] % (Auto) 12.4 H Lymph # (Auto) [place] # (Auto) 1.53 H Immature Gran # 0.09 H Absolute Neutrophils 8.52 H Carbon Dioxide Anion Gap 7.0 L Creatinine 0.6 L Glucose 143 H Calcium 8.5 L Total Protein Albumin Meds: Medications Acetaminophen (Acetaminophen 500 Mg Tablet) 1,000 mg PO TIDP PRN; Protocol PRN Reason: Pain/Headache Aspirin (Aspirin 81 Mg Tab.Chew) 81 mg PO QDAY SUSANA Last Admin: 03/11/22 08:34 Dose: 81 mg Bupropion HCl (Bupropion 150 Mg Tab.Sr.12h) 300 mg PO QAM [facility] Last Admin: 03/11/22 08:34 Dose: 300 mg Dextrose (Dextrose 50% 50 Ml Vial) 0 ml IV UD PRN PRN Reason: Per Sliding Scale Diagnostic Test (Pha) (Accu-Chek 1 Each Strip) 1 each FS ACHS [facility] Last Admin: 03/11/22 11:34 Dose: 1 each Divalproex Sodium (Divalproex Sodium 250 Mg Tablet) 1,000 mg PO HS [facility] Last Admin: 03/10/22 20:21 Dose: 1,000 mg Glucose (Dextrose 31 Gm Oral.Susp) 15 gm PO PRN PRN PRN Reason: Hypoglycemia Piperacillin Sod/Tazobactam (Sod 3.375 gm/ Dextrose) 50 mls @ 100 mls/hr IV Q8H [facility]; Protocol Last Infusion: 03/11/22 12:35 Dose: Infused Ibuprofen (Ibuprofen 600 Mg Tablet) 600 mg PO Q6HP PRN; Protocol PRN Reason: pain Insulin Human Lispro (Insulin Lispro 1 Unit/0.01 Ml Unit) 0 unit SQ [facility]; Protocol Last Admin: 03/11/22 11:34 Dose: 6 units Iron Carb/Multivit/Yates/Folic Acid (Multivit,Ther Iron,Ca,Fa & Min 1 Tablet) 1 tab PO QDAY [facility] Last Admin: 03/11/22 08:34 Dose: 1 tab Levothyroxine Sodium (Levothyroxine 75 Mcg Tablet) 75 mcg PO QAM [facility] Last Admin: 03/11/22 08:36 Dose: 75 mcg Magnesium Oxide (Magnesium Oxide 400 Mg Tablet) 200 mg PO BID [facility] Last Admin: 03/11/22 08:35 Dose: 200 mg Morphine Sulfate (Morphine 2 Mg/Ml Vial) 2 mg IV Q4HP PRN; Protocol PRN Reason: Per Pain Protocol Fluvoxamine 100 Mg (Tablet) 1 dose PO TID [facility] Last Admin: 03/11/22 08:36 Dose: 1 dose Ondansetron HCl (Ondansetron 4 Mg/2 Ml Vial) 4 mg IV Q6HP PRN PRN Reason: Nausea And Vomiting Oxycodone HCl (Oxycodone Hcl 5 Mg Tablet) 5 mg PO Q4HP PRN; Protocol PRN Reason: Per Pain Protocol Last Admin: 03/08/22 20:07 Dose: 5 mg Citric Ac- Gluconolact-Mag Carb [Renacidin] 1980.6 30 dose UR 0900,1600 [facility] Last Admin: 03/11/22 08:38 Dose: 30 dose Teriflunomide [ Aubagio] 14 Mg Tablet 1 dose PO QDAY [facility] Last Admin: 03/11/22 08:38 Dose: 1 dose Potassium Citrate (Potassium Citrate 10 Meq Tab.Xl.24h) 15 meq PO TIDCC [facility] Last Admin: 03/11/22 11:34 Dose: 15 meq Trazodone HCl (Trazodone Hcl 50 Mg Tablet) 50 mg PO QHS [facility] Last Admin: 03/10/22 20:21 Dose: 50 mg Vitamin B Complex (Vitamin B Complex 1 Capsule) 1 cap PO QDAY [facility] Last Admin: 03/11/22 08:34 Dose: 1 cap Vitamin D (Vitamin D3 125 Mcg Tablet) 125 mcg PO QAM [facility] Last Admin: 03/11/22 08:35 Dose: 125 mcg A/P Assessment and plan (1) Large bowel obstruction: Status: Acute (2) Anxiety disorder: Status: Chronic (3) Diabetes mellitus, type II: Status: Chronic Qualifiers: Diabetes mellitus complication status: with unspecified complications Diabetes mellitus smokehouse worker insulin use: without smokehouse worker use Qualified Code(s): E11.8 - Type 2 diabetes mellitus with unspecified complications (4) Hypothyroidism (acquired): Status: Chronic (5) Depressive disorder: Status: Chronic (6) UTI (urinary tract infection): Status: Acute (7) Colitis: Status: Acute (8) Streptococcal bacteremia: Status: Acute Narrative A/P Narrative: Assessment and Plans: 1. Large bowel obstruction, s/p ex lap, sigmoid colectomy, and ostomy dated back on February [address] Guzman, now concerning for colitis as seen by CTA abdomen: Continue Zosyn for now while monitoring final blood culture results Dr. Means has no plans for additional surgeries for now Oxycodone Morphine cbc w/ auto diff in the morning to trend WBC Blood culture X2, strep in both bottles, see below 2. T2DM: HgA1c 8.9 d/c Metformin, patient had CT angiogram Insulin Lispro SSI AC HS Accu Check AC HS Hypoglycemia protocol CC diet 3. h/o brain injury, anxiety with depressive disorder, OCD: Wellbutrin Depakote Fluvoxamine 4. Hypothyroidism: Continue oral thyroid replacement therapy for now 5. Streptococcal bacteremia: Initial blood culture: S. sanguinis and S. salivarius Repeat blood cultures X2 on 03/10, no growth to date cbc w/ auto diff in the morning to trend WBC Continue Zosyn for now while monitoring final blood culture results Thank you for the consultation, will continue to follow patient. Time Spent With Patient Time: Total time spent is greater than 50% in coordination of care (as documented) at patient's floor/unit and/or counseling patient: Total time spent with greater than 50% in coordination of care (as documented) at patient's floor/unit and/or counseling patient:: 25 - 35 minutes QUALITY VTE Deep Vein Thrombosis/Pulmonary Embolism Present on Admission: No
--- NOTE | 2022-03-11 15:19 | General Surgery Progress Note ---
SUBJECTIVE Subjective Patient information: Note initiated : 03/11/22 at 3:15 pm Service Date, if different from initiated Date: [] Patient: Buck Diamond 57 y/o M admitted on 03/08/22 for pale, diaphoretic, poss infection-Colitis. Chief Complaint: [] Principal diagnosis: Status post colectomy, colitis Interval history: Patient continues to improve. She remains afebrile and his white blood count normal. He denies having any abdominal pain. His stoma looks healthy and is working nicely. White blood count 7, hemoglobin 11.1, hematocrit 34, potassium 3.8, BUN 9 and creatinine 0.6. Constitutional Vitals: Vital Signs Temp Pulse Resp BP Pulse Ox O2 Del Method 97.7 F 89 14 93/69 97 03/11/22 12:00 03/11/22 12:00 03/11/22 12:00 03/11/22 12:00 03/11/22 12:00 03/11/22 12:00 Period Temp Pulse Resp BP Sys/Ayala Pulse Ox O2 Del Method O2 Flow Rate Last 24 Hr 97.7 F-98.6 F 73-94 14-18 93-135/61-85 93-98 Room Air-Room Air Intake and Output 03/11/22 03/11/22 03/11/22 03:59 11:59 19:59 Intake Total 50 290 530 Output Total 1225 Balance -1175 290 530 Weight 193 lb Intake & Output: Intake & Output 03/11/22 03/11/22 03/11/22 03:59 11:59 19:59 Intake Total 50 290 530 Output Total 1225 Balance -1175 290 530 Weight 193 lb Intake: IV 50 50 50 Zosyn 3.375 gm In Dextrose 5% 50 50 50 in Water 50 ml @ 100 mls/hr IV Q8H [facility] Rx#:[id number] Oral 0 240 480 Output: Urine Catheter Amount 1100 Stool 125 Other: Meal Breakfast Lunch Percent of Meal Consumed 75% 100% Feeding Ability Assist with Tray Set Up Assist with Tray Set Up Urine Appearance Clear Uretheral ([place]) Clear Clear Urine Color Bright Yellow Uretheral ([place]roy) Yellow Yellow Urine Odor Uretheral ([place]roy) Normal Neck Neck exam: Present full ROM and normal inspection; Absent tenderness Respiratory Respiratory exam: Present normal respiratory exam and CTAB Cardiovascular Cardiovascular exam: Present normal rate and rhythm, RRR, +S1 and +S2; Absent bradycardia GI/Abdominal GI/Abdominal exam: Present normal bowel sounds, soft and tenderness (Minimal i ncisional tenderness); Absent distended Extremities Exam Extremities exam: Present normal inspection and neurovascular intact; Absent tenderness Neurological Exam Neurological exam: Present alert; Absent motor sensory deficit Psychiatric Psychiatric exam: Present flat affect A/P Assessment and plan (1) Colitis: Status: Acute (2) Large bowel obstruction: Status: Acute (3) Diabetes mellitus, type II: Status: Chronic Qualifiers: Diabetes mellitus complication status: with unspecified complications Diabetes mellitus custodial insulin use: without rat exterminator use Qualified Code(s): E11.8 - Type 2 diabetes mellitus with unspecified complications Sepsis Sepsis Identified: No Narrative A/P Narrative: Continue present treatment possible discharge in 1 to 2 days Time Spent With Patient Time: Total time spent is greater than 50% in coordination of care (as documented) at patient's floor/unit and/or counseling patient:
[2022-03-11] MEDS: DIVALPROEX SODIUM 250 MG TABLET PO SCH (20:18)
[2022-03-11] MEDS: traZODone HCL 50 MG TABLET PO SCH (20:18)
[2022-03-12] MEDS: PIPERACILLIN SODIUM/TAZOBACTAM 3.375 GM in DEXTROSE 5% IN WATER 50 ML IV SCH ×3 (03:40→19:40)
[2022-03-12 06:41] LABS: Basophils # (Auto) 0.08 K/mcL (0.00-0.30); Basophils % (Auto) 1.1 % (0.0-2.0); Eosinophils # (Auto) 0.73 K/mcL (0.00-0.70); Eosinophils % (Auto) 9.8 % (0.0-7.0); Hematocrit 33.9 % (40.1-51.0); Hemoglobin 11.3 g/dL (13.7-17.5); Lymphocytes # (Auto) 1.58 K/mcL (1.50-4.80); Lymphocytes % (Auto) 21.3 % (15.5-49.0); Mean Cell Volume 96.9 fL (80.0-100.0); Mean Corpuscular HGB Conc 33.3 g/dL (31.0-36.0); Mean Platelet Volume 9.2 fL (8.8-12.5); Monocytes # (Auto) 0.81 K/mcL (0.10-0.90); Monocytes % (Auto) 10.9 % (1.0-12.0); Neutrophils % (Auto) 56.6 % (38.0-78.0); Platelet Count 314 K/mcL (140-440); Red Cell Distribution Width 13.7 % (11.5-14.5); WBC 7.4 K/mcL (4.5-11.0)
[2022-03-12] MEDS: INSULIN LISPRO 1 UNIT/0.01 ML UNIT SQ SCH ×4 (07:09→20:22)
[2022-03-12 07:32] LABS: ALT/SGPT 11 U/L (<40); AST/SGOT 14 U/L (<40); Albumin 3.5 gm/dL (3.2-5.2); Albumin/Globulin Ratio 1.8 (1.0-2.3); Alkaline Phosphatase 70 U/L (39-117); Bilirubin,Total 0.4 mg/dL (0.1-1.0); Blood Urea Nitrogen 7 mg/dL (6-20); Carbon Dioxide 29 mmol/L (22-30); Chloride 102 mmol/L (96-108); Glomerular Filtration Rate 119; Glucose 139 mg/dL (70-105)
[2022-03-12] MEDS: MAGNESIUM OXIDE 400 MG TABLET PO SCH ×2 (08:05→20:23)
[2022-03-12] MEDS: VITAMIN D3 125 MCG TABLET PO SCH (08:05)
[2022-03-12] MEDS: LEVOTHYROXINE 75 MCG TABLET PO SCH (08:06)
[2022-03-12] MEDS: buPROPion 150 MG TAB.SR.12H PO SCH (08:06)
[2022-03-12] MEDS: VITAMIN B COMPLEX 1 CAPSULE PO SCH (08:06)
[2022-03-12] MEDS: POTASSIUM CITRATE 10 MEQ TAB.XL.24H PO SCH ×3 (08:07→16:24)
[2022-03-12] MEDS: MULTIVIT,THER IRON,CA,FA & MIN 1 TABLET PO SCH (08:07)
[2022-03-12] MEDS: ASPIRIN 81 MG TAB.CHEW PO SCH (08:07)
[2022-03-12] MEDS: CITRIC AC GLUCONOLACT MAG CARB UR SCH ×2 (08:08→15:53)
--- NOTE | 2022-03-12 12:14 | General Surgery Progress Note ---
SUBJECTIVE Subjective Patient information: Note initiated : 03/12/22 at 12:09 pm Service Date, if different from initiated Date: [] Patient: Buck Diamond 57 y/o M admitted on 03/08/22 for pale, diaphoretic, poss infection-Colitis. Chief Complaint: [] Principal diagnosis: Status post colectomy, colitis Interval history: Patient is doing well. He has no complaints. He is tolerating diet Without difficulty. Stoma is functioning appropriately. Family members state that he will go back to his [facility] care facility [facility]. I have asked the watch case polisher to discuss This with the family. White blood count remains normal.: Electrolytes are also normal. Constitutional Vitals: Vital Signs Temp Pulse Resp BP Pulse Ox O2 Del Method 97.9 F 84 16 116/77 97 03/12/22 11:56 03/12/22 11:56 03/12/22 11:56 03/12/22 11:56 03/12/22 11:56 03/12/22 11:56 Period Temp Pulse Resp BP Sys/Ayala Pulse Ox O2 Del Method O2 Flow Rate Last 24 Hr 97.9 F-98.8 F 83-100 14-16 103-146/71-83 93-99 Room Air-Room Air Intake and Output 03/12/22 03/12/22 03/12/22 03:59 11:59 19:59 Intake Total 900 50 Output Total 1900 Balance -1000 50 Weight 193 lb 1.6 oz Intake & Output: Intake & Output 03/12/22 03/12/22 03/12/22 03:59 11:59 19:59 Intake Total 900 50 Output Total 1900 Balance -1000 50 Weight 193 lb 1.6 oz Intake: IV 50 Zosyn 3.375 gm In Dextrose 5% 50 in Water 50 ml @ 100 mls/hr IV Q8H COUNTS INCLUDE 234 BEDS AT [facility] Rx#:[id number] Oral 900 Output: Urine Catheter Amount 1800 Stool 100 Other: Urine Appearance Clear Uretheral ([place]roy) Clear Urine Color Yellow Uretheral (Conroy) Dark Yellow ENT ENT exam: Present mucous membranes moist and normal oropharynx Neck Neck exam: Present full ROM and normal inspection Respiratory Respiratory exam: Present normal respiratory exam and CTAB Cardiovascular Cardiovascular exam: Present normal rate and rhythm, RRR, +S1 and +S2; Absent JVD GI/Abdominal GI/Abdominal exam: Present normal bowel sounds and soft; Absent distended Additional comments: Abdominal wall ecchymosis is improved; stoma is functioning well Extremities Exam Extremities exam: Present normal inspection and neurovascular intact Psychiatric Psychiatric exam: Present normal mood A/P Assessment and plan (1) Colitis: Status: Acute (2) Large bowel obstruction: Status: Acute (3) Diabetes mellitus, type II: Status: Chronic Qualifiers: Diabetes mellitus complication status: with unspecified complications Diabetes mellitus adjunct faculty for medical terminology insulin use: without adjunct faculty for medical terminology use Qualified Code(s): E11.8 - Type 2 diabetes mellitus with unspecified complications (4) Developmental delay: Status: Chronic Plan Patient is clinically recovered and is ready for transfer to care facility whenever this has been arranged by gearcase assembler service. Sepsis Sepsis Identified: No Time Spent With Patient Time: Total time spent is greater than 50% in coordination of care (as documented) at patient's floor/unit and/or counseling patient:
--- NOTE | 2022-03-12 13:01 | Internal Med Progress Note ---
SUBJECTIVE Subjective Patient information: Note initiated : 03/12/22 at 12:57 pm Service Date, if different from initiated Date: [] Patient: Buck Diamond 57 y/o M admitted on 03/08/22 for pale, diaphoretic, poss infection-Colitis. Chief Complaint: [] Principal diagnosis: Status post colectomy, colitis Interval history: Patient is a 57 years old gentleman history of traumatic brain injury, anxiety, depression, hypothyroidism, type 2 diabetes mellitus, status post ex lap, sigmoid colectomy, and ostomy dated back on February [address] Guzman, discharged home on March 07, we admitted today for worsening of his symptoms including abdominal pain. He was discharged home on March 07 with oral antibiotics nitrofurantoin for urinary tract infections. He returned back to the ED today due to worsening of his abdominal pain, currently graded 8 out of 10, sharp, constant, in the right lower quadrant. Ostomy in place with brown stool output. He denies any nausea or vomiting. He is tolerating oral intake well. He denies any systemic complaint such as general weakness, fever, chills, or diaphoresis. Labs today showing leukocytosis WBC 15.5, up from 9.5 dated back on March 03. Blood glucose level 232. CT angiogram performed today showing severe colitis in the descending colon from the splenic flexure to the ostomy. Free intraperitoneal air. This may be related to reabsorption of air following the recent colectomy or perforations. Medical consult was requested for medical management including for his diabetes and psych medications. 03/09: Blood culture grew strep involve bottles. Afebrile overnight. Fasting glucose 140 this morning. Patient denies any abdominal pain at moment. Mild periu mbilical abdominal tenderness. Will keep holding metformin while doing medium scale sliding scale insulin lispro AC HS and Accu-Chek AC HS. Continue regular diet. Continue Zosyn. Repeat blood culture x2 on March 10, 2022. Rest of the surgical management as per primary team. 03/10: Afebrile overnight. WBC down trended from 12.4-->9.2. Initial blood culture growing strep species in both bottle. Patient is tolerating regular diet fine, fasting glucose 129 this morning. Patient is committing of mild abdominal pain in all quadrants. Denies any nausea or vomiting. Surgical team has no current plan for any additional surgery at the moment. Will change diet from regular diet to CC diet. Will keep holding metformin while doing medium scale sliding scale insulin lispro AC HS and Accu-Chek AC HS. Repeat blood culture x2 this morning. Continue Zosyn while waiting for final blood culture results. Rest of the surgical management as per primary team. 03/11: Afebrile overnight. Initial blood culture: S. sanguinis and S. salivarius; Repeat blood culture no growth to date. Fasting glucose 222 this morning. Tolerating CC diet very well. c/o mild periumbilical abdominal pain. Clear mu cous output from ostomy bag. Denies any nausea or vomiting. Patient and family would want to go back to his original facility and declined SNF placement. Surgical team has no current plan for any additional surgery at the moment. Continue Zosyn while waiting for repeat blood culture results. Will keep holding metformin while doing medium scale sliding scale insulin lispro AC HS and Accu- Chek AC HS. Rest of the surgical management as per primary team. 03/12: Afebrile overnight. Initial blood culture: S. sanguinis and S. salivarius; Repeat blood culture no growth to date. Fasting glucose 130 this morning. Tolerating CC diet very well. c/o mild periumbilical abdominal pain. Well-formed stool in the ostomy bag. Denies any nausea or vomiting. Surgical team has no current plan for any additional surgery at the moment. Continue Zosyn while waiting for repeat blood culture results. Will keep holding metformin while doing medium scale sliding scale insulin lispro AC HS and Accu- Chek AC HS. Rest of the surgical management as per primary team. Constitutional Vitals: Vital Signs Temp Pulse Resp BP Pulse Ox O2 Del Method 36.6 C 84 16 116/77 97 03/12/22 11:56 03/12/22 11:56 03/12/22 11:56 03/12/22 11:56 03/12/22 11:56 03/12/22 11:56 Period Temp Pulse Resp BP Sys/Ayala Pulse Ox O2 Del Method O2 Flow Rate Last 24 Hr 36.6 C-37.1 C 83-100 14-16 103-146/71-83 93-99 Room Air-Room Air Intake and Output 11/27/22 11/27/22 11/27/22 03:59 11:59 19:59 Intake Total 900 50 530 Output Total 1900 Balance -1000 50 530 Weight 87.589 kg Intake & Output: Intake & Output 03/12/22 03/12/22 03/12/22 03:59 11:59 19:59 Intake Total 900 50 530 Output Total 1900 Balance -1000 50 530 Weight 87.589 kg Intake: IV 50 50 Zosyn 3.375 gm In Dextrose 5% 50 50 in Water 50 ml @ 100 mls/hr IV Q8H [facility] Rx#:[id number] Oral 900 480 Output: Urine Catheter Amount 1800 Stool 100 Other: Meal Breakfast Percent of Meal Consumed 100% Feeding Ability Independent Urine Appearance Clear Uretheral ([place]roy) Clear Urine Color Yellow Uretheral ([place]) Dark Yellow Head Head exam: Present atraumatic and normal inspection Eye Eye exam: Present normal appearance ENT ENT exam: Present mucous membranes moist, normal exam and normal external ear exam Neck Neck exam: Present normal inspection Respiratory Respiratory exam: Present normal respiratory exam Cardiovascular Cardiovascular exam: Present normal rate and rhythm GI/Abdominal GI/Abdominal exam: Present normal bowel sounds Additional comments: Ostomy bag in place Ventral abdominal surgical incision covered by surgical wound dressing Back Exam Back exam: Present normal inspection Neurological Exam Neurological exam: Present alert and oriented X3 Skin Skin exam: Present intact and warm OBJ DATA Labs CBC & Chem 7: 03/12/22 05:22 03/12/22 05:22 Labs: Abnormal Lab Results 03/12/22 03/12/22 03/11/22 05:22 05:22 05:20 RBC 3.50 L Hgb 11.3 L Hct 33.9 L Eos % (Auto) 9.8 H Lymph # (Auto) Eos # (Auto) 0.73 H Carbon Dioxide Anion Gap 7.0 L Creatinine 0.5 L 0.6 L Glucose 139 H 177 H Total Protein 5.5 L 5.4 L Albumin 3.1 L Globulin 2.0 L 03/11/22 03/10/22 03/10/22 05:20 05:18 05:18 RBC 3.49 L 3.61 L Hgb 11.1 L 11.5 L Hct 34.0 L 34.9 L Eos % (Auto) Lymph # (Auto) 1.49 L Eos # (Auto) Carbon Dioxide 31 H Anion Gap 7.0 L Creatinine 0.6 L Glucose 147 H Total Protein 5.5 L Albumin Globulin Meds: Medications Acetaminophen (Acetaminophen 500 Mg Tablet) 1,000 mg PO TIDP PRN; Protocol PRN Reason: Pain/Headache Aspirin (Aspirin 81 Mg Tab.Chew) 81 mg PO QDAY [facility] Last Admin: 03/12/22 08:07 Dose: 81 mg Bupropion HCl (Bupropion 150 Mg Tab.Sr.12h) 300 mg PO QAM [facility] Last Admin: 03/12/22 08:06 Dose: 300 mg Dextrose (Dextrose 50% 50 Ml Vial) 0 ml IV UD PRN PRN Reason: Per Sliding Scale Diagnostic Test (Pha) (Accu-Chek 1 Each Strip) 1 each FS [facility] Last Admin: 03/12/22 11:54 Dose: 1 each Divalproex Sodium (Divalproex Sodium 250 Mg Tablet) 1,000 mg PO HS [facility] Last Admin: 03/11/22 20:18 Dose: 1,000 mg Glucose (Dextrose 31 Gm Oral.Susp) 15 gm PO PRN PRN PRN Reason: Hypoglycemia Piperacillin Sod/Tazobactam (Sod 3.375 gm/ Dextrose) 50 mls @ 100 mls/hr IV Q8H [facility]; Protocol Last Infusion: 03/12/22 12:33 Dose: Infused Ibuprofen (Ibuprofen 600 Mg Tablet) 600 mg PO Q6HP PRN; Protocol PRN Reason: pain Insulin Human Lispro (Insulin Lispro 1 Unit/0.01 Ml Unit) 0 unit SQ [facility]; Protocol Last Admin: 03/12/22 11:54 Dose: 8 units Iron Carb/Multivit/[place]/Folic Acid (Multivit,Ther Iron,Ca,Fa & Min 1 Tablet) 1 tab PO QDAY [facility] Last Admin: 03/12/22 08:07 Dose: 1 tab Levothyroxine Sodium (Levothyroxine 75 Mcg Tablet) [facility] [place] [facility] [place] Admin: 03/12/22 08:06 Dose: 75 mcg Magnesium Oxide (Magnesium Oxide 400 Mg Tablet) 200 mg PO BID [facility] Last Admin: 03/12/22 08:05 Dose: 200 mg Morphine Sulfate (Morphine 2 Mg/Ml Vial) 2 mg IV Q4HP PRN; Protocol PRN Reason: Per Pain Protocol Fluvoxamine 100 Mg (Tablet) 1 dose PO TID [facility] Last Admin: 03/12/22 08:05 Dose: 1 dose Ondansetron HCl (Ondansetron 4 Mg/2 Ml Vial) 4 mg IV Q6HP PRN PRN Reason: Nausea And Vomiting Oxycodone HCl (Oxycodone Hcl 5 Mg Tablet) 5 mg PO Q4HP PRN; Protocol PRN Reason: Per Pain Protocol Last Admin: 03/08/22 20:07 Dose: 5 mg Citric Ac- Gluconolact-Mag Carb [Renacidin] 1980.6 30 dose UR 0900,1600 [facility] Last Admin: 03/12/22 08:08 Dose: 30 dose Teriflunomide [ Aubagio] 14 Mg Tablet 1 dose PO QDAY [facility] Last Admin: 03/12/22 08:08 Dose: 1 dose Potassium Citrate (Potassium Citrate 10 Meq Tab.Xl.24h) 15 meq PO TIDCC [facility] Last Admin: 03/12/22 12:33 Dose: 15 meq Trazodone HCl (Trazodone Hcl 50 Mg Tablet) 50 mg PO QHS [facility] Last Admin: 03/11/22 20:18 Dose: 50 mg Vitamin B Complex (Vitamin B Complex 1 Capsule) 1 cap PO QDAY [facility] Last Admin: 03/12/22 08:06 Dose: 1 cap Vitamin D (Vitamin D3 125 Mcg Tablet) 125 mcg PO QAM [facility] Last Admin: 03/12/22 08:05 Dose: 125 mcg A/P Assessment and plan (1) Large bowel obstruction: Status: Acute (2) Anxiety disorder: Status: Chronic (3) Diabetes mellitus, type II: Status: Chronic Qualifiers: Diabetes mellitus complication status: with unspecified complications Diabetes mellitus exterminator insulin use: without exterminator use Qualified Code(s): E11.8 - Type 2 diabetes mellitus with unspecified complications (4) Hypothyroidism (acquired): Status: Chronic (5) Depressive disorder: Status: Chronic (6) UTI (urinary tract infection): Status: Acute (7) Colitis: Status: Acute (8) Streptococcal bacteremia: Status: Acute Narrative A/P Narrative: Assessment and Plans: 1. Large bowel obstruction, s/p ex lap, sigmoid colectomy, and ostomy dated back on February [address] Guzman, now concerning for colitis as seen by CTA abdomen: Continue Zosyn for now while monitoring final blood culture results Dr. Means has no plans for additional surgeries for now Oxycodone Morphine cbc w/ auto diff in the morning to trend WBC Blood culture X2, strep in both bottles, see below 2. T2DM: HgA1c 8.9 d/c Metformin, patient had CT angiogram Insulin Lispro SSI AC HS Accu Check AC HS Hypoglycemia protocol CC diet 3. h/o brain injury, anxiety with depressive disorder, OCD: Wellbutrin Depakote Fluvoxamine 4. Hypothyroidism: Continue oral thyroid replacement therapy for now 5. Streptococcal bacteremia: Initial blood culture: S. sanguinis and S. salivarius Repeat blood cultures X2 on 03/10, no growth to date cbc w/ auto diff in the morning to trend WBC Continue Zosyn for now while monitoring final blood culture results Thank you for the consultation, will continue to follow patient. Time Spent With Patient Time: Total time spent is greater than 50% in coordination of care (as documented) at patient's floor/unit and/or counseling patient: Total time spent with greater than 50% in coordination of care (as documented) at patient's floor/unit and/or counseling patient:: 25 - 35 minutes QUALITY VTE Deep Vein Thrombosis/Pulmonary Embolism Present on Admission: No
[2022-03-12] MEDS: traZODone HCL 50 MG TABLET PO SCH (20:23)
[2022-03-12] MEDS: DIVALPROEX SODIUM 250 MG TABLET PO SCH (20:23)
[2022-03-13] MEDS: PIPERACILLIN SODIUM/TAZOBACTAM 3.375 GM in DEXTROSE 5% IN WATER 50 ML IV SCH ×3 (03:23→19:09)
[2022-03-13 07:04] LABS: Basophils % (Auto) 1.3 % (0.0-2.0); Eosinophils # (Auto) 0.82 K/mcL (0.00-0.70); Eosinophils % (Auto) 10.7 % (0.0-7.0); Hemoglobin 11.6 g/dL (13.7-17.5); Lymphocytes # (Auto) 1.79 K/mcL (1.50-4.80); Lymphocytes % (Auto) 23.4 % (15.5-49.0); Mean Cell Volume 97.2 fL (80.0-100.0); Mean Corpuscular HGB Conc 33.1 g/dL (31.0-36.0); Mean Platelet Volume 9.3 fL (8.8-12.5); Monocytes # (Auto) 0.81 K/mcL (0.10-0.90); Monocytes % (Auto) 10.6 % (1.0-12.0); Neutrophils % (Auto) 53.7 % (38.0-78.0); Platelet Count 334 K/mcL (140-440); Red Cell Distribution Width 13.5 % (11.5-14.5); WBC 7.6 K/mcL (4.5-11.0)
[2022-03-13 07:27] LABS: ALT/SGPT 14 U/L (<40); AST/SGOT 16 U/L (<40); Albumin 3.4 gm/dL (3.2-5.2); Albumin/Globulin Ratio 1.5 (1.0-2.3); Alkaline Phosphatase 70 U/L (39-117); Bilirubin,Total 0.4 mg/dL (0.1-1.0); Blood Urea Nitrogen 8 mg/dL (6-20); Calcium 8.9 mg/dL (8.6-10.4); Carbon Dioxide 29 mmol/L (22-30); Chloride 102 mmol/L (96-108); Globulin 2.2 gm/dL (2.2-3.7); Glomerular Filtration Rate 111; Glucose 144 mg/dL (70-105)
[2022-03-13] MEDS: MAGNESIUM OXIDE 400 MG TABLET PO SCH ×2 (08:13→21:28)
[2022-03-13] MEDS: ASPIRIN 81 MG TAB.CHEW PO SCH (08:13)
[2022-03-13] MEDS: LEVOTHYROXINE 75 MCG TABLET PO SCH (08:15)
[2022-03-13] MEDS: MULTIVIT,THER IRON,CA,FA & MIN 1 TABLET PO SCH (08:15)
[2022-03-13] MEDS: VITAMIN B COMPLEX 1 CAPSULE PO SCH (08:15)
[2022-03-13] MEDS: buPROPion 150 MG TAB.SR.12H PO SCH (08:16)
[2022-03-13] MEDS: POTASSIUM CITRATE 10 MEQ TAB.XL.24H PO SCH ×3 (08:16→17:00)
[2022-03-13] MEDS: VITAMIN D3 125 MCG TABLET PO SCH (08:16)
[2022-03-13] MEDS: INSULIN LISPRO 1 UNIT/0.01 ML UNIT SQ SCH ×4 (08:16→21:41)
[2022-03-13] MEDS: CITRIC AC GLUCONOLACT MAG CARB UR SCH ×2 (09:02→15:22)
--- NOTE | 2022-03-13 14:43 | Internal Med Progress Note ---
SUBJECTIVE Subjective Patient information: Note initiated : 03/13/22 at 2:40 pm Service Date, if different from initiated Date: [] Patient: Buck Diamond 57 y/o M admitted on 03/08/22 for pale, diaphoretic, poss infection-Colitis. Chief Complaint: [] Principal diagnosis: Status post colectomy, colitis Interval history: Patient is a 57 years old gentleman history of traumatic brain injury, anxiety, depression, hypothyroidism, type 2 diabetes mellitus, status post ex lap, sigmoid colectomy, and ostomy dated back on February [address] Guzman, discharged home on March 07, we admitted today for worsening of his symptoms including abdominal pain. He was discharged home on March 07 with oral antibiotics nitrofurantoin for urinary tract infections. He returned back to the ED today due to worsening of his abdominal pain, currently graded 8 out of 10, sharp, constant, in the right lower quadrant. Ostomy in place with brown stool output. He denies any nausea or vomiting. He is tolerating oral intake well. He denies any systemic complaint such as general weakness, fever, chills, or diaphoresis. Labs today showing leukocytosis WBC 15.5, up from 9.5 dated back on March 03. Blood glucose level 232. CT angiogram performed today showing severe colitis in the descending colon from the splenic flexure to the ostomy. Free intraperitoneal air. This may be related to reabsorption of air following the recent colectomy or perforations. Medical consult was requested for medical management including for his diabetes and psych medications. 03/09: Blood culture grew strep involve bottles. Afebrile overnight. Fasting glucose 140 this morning. Patient denies any abdominal pain at moment. Mild perium bilical abdominal tenderness. Will keep holding metformin while doing medium scale sliding scale insulin lispro AC HS and Accu-Chek AC HS. Continue regular diet. Continue Zosyn. Repeat blood culture x2 on March 10, 2022. Rest of the surgical management as per primary team. 03/10: Afebrile overnight. WBC down trended from 12.4-->9.2. Initial blood culture growing strep species in both bottle. Patient is tolerating regular diet fine, fasting glucose 129 this morning. Patient is committing of mild abdominal pain in all quadrants. Denies any nausea or vomiting. Surgical team has no current plan for any additional surgery at the moment. Will change diet from regular diet to CC diet. Will keep holding metformin while doing medium scale sliding scale insulin lispro AC HS and Accu-Chek AC HS. Repeat blood culture x2 this morning. Continue Zosyn while waiting for final blood culture results. Rest of the surgical management as per primary team. 03/11: Afebrile overnight. Initial blood culture: S. sanguinis and S. salivarius; Repeat blood culture no growth to date. Fasting glucose 222 this morning. Tolerating CC diet very well. c/o mild periumbilical abdominal pain. Clear muc ous output from ostomy bag. Denies any nausea or vomiting. Patient and family would want to go back to his original facility and declined SNF placement. Surgical team has no current plan for any additional surgery at the moment. Continue Zosyn while waiting for repeat blood culture results. Will keep holding metformin while doing medium scale sliding scale insulin lispro AC HS and Accu- Chek AC HS. Rest of the surgical management as per primary team. 03/12: Afebrile overnight. Initial blood culture: S. sanguinis and S. salivarius; Repeat blood culture no growth to date. Fasting glucose 130 this morning. Tolerating CC diet very well. c/o mild periumbilical abdominal pain. Well-formed stool in the ostomy bag. Denies any nausea or vomiting. Surgical team has no current plan for any additional surgery at the moment. Continue Zosyn while waiting for repeat blood culture results. Will keep holding metformin while doing medium scale sliding scale insulin lispro AC HS and Accu- Chek AC HS. Rest of the surgical management as per primary team. 03/13: Afebrile overnight. Initial blood culture: S. sanguinis and S. salivarius; Repeat blood culture no growth to date. Fasting glucose 142 this morning. Tolerating CC diet very well. Patient denies any nausea vomiting or abdominal pain. Well-formed stool in the ostomy bag. Surgical team has no current plan for any additional surgery at the moment. Continue Zosyn while waiting for repeat blood culture results. Will keep holding metformin while doing medium scale sliding scale insulin lispro AC HS and Accu- Chek AC HS. Rest of the surgical management as per primary team. Constitutional Vitals: Vital Signs Temp Pulse Resp BP Pulse Ox O2 Del Method 36.2 C 88 16 120/82 97 11/28/22 12:00 03/13/22 12:00 03/13/22 12:00 03/13/22 12:00 03/13/22 12:00 03/13/22 12:00 Period Temp Pulse Resp BP Sys/Ayala Pulse Ox O2 Del Method O2 Flow Rate Last 24 Hr 36.2 C-37.1 C 84-90 16-18 110-125/70-86 96-97 Room Air-Room Air Intake and Output 03/13/22 03/13/22 03/13/22 03:59 11:59 19:59 Intake Total 200 50 Output Total 1150 Balance -950 50 Weight 85.275 kg Intake & Output: Intake & Output 03/13/22 03/13/22 03/13/22 03:59 11:59 19:59 Intake Total 200 50 Output Total 1150 Balance -950 50 Weight 85.275 kg Intake: IV 50 50 Zosyn 3.375 gm In Dextrose 5% 50 50 in Water 50 ml @ 100 mls/hr IV Q8H [facility] Rx#:[id number] Oral 150 Output: Urine Catheter Amount 1050 Stool 100 Other: Meal Lunch Percent of Meal Consumed 100% Feeding Ability Assist with Tray Set Up Urine Appearance Clear Suprapubic Clear Urine Color Yellow Suprapubic Yellow Stool Size Moderate Stool Color Green Stool Consistency Liquid Head Head exam: Present atraumatic and normal inspection Eye Eye exam: Present normal appearance ENT ENT exam: Present mucous membranes moist, normal exam and normal external ear exam Neck Neck exam: Present normal inspection Respiratory Respiratory exam: Present normal respiratory exam Cardiovascular Cardiovascular exam: Present normal rate and rhythm GI/Abdominal GI/Abdominal exam: Present normal bowel sounds Additional comments: Ostomy bag in place with well-formed stool inside a bag Healing ventral abdominal surgical incisions Additional comments: Suprapubic urinary catheter in place. Back Exam Back exam: Present normal inspection Neurological Exam Neurological exam: Present alert and oriented X3 Skin Skin exam: Present intact and warm OBJ DATA Labs CBC & Chem 7: 03/13/22 05:33 03/13/22 05:33 Labs: Abnormal Lab Results 03/13/22 03/13/22 03/12/22 05:33 05:33 05:22 RBC 3.60 L Hgb 11.6 L Hct 35.0 L Eos % (Auto) 10.7 H Lymph # (Auto) Eos # (Auto) 0.82 H Anion Gap 7.0 L 7.0 L Creatinine 0.6 L 0.5 L Glucose 144 H 139 H Total Protein 5.6 L 5.5 L Albumin Globulin 2.0 L 03/12/22 03/11/22 03/11/22 05:22 05:20 05:20 RBC 3.50 L 3.49 L Hgb 11.3 L 11.1 L Hct 33.9 L 34.0 L Eos % (Auto) 9.8 H Lymph # (Auto) 1.49 L Eos # (Auto) 0.73 H Anion Gap Creatinine 0.6 L Glucose 177 H Total Protein 5.4 L Albumin 3.1 L Globulin Meds: Medications Acetaminophen (Acetaminophen 500 Mg Tablet) 1,000 mg PO TIDP PRN; Protocol PRN Reason: Pain/Headache Aspirin (Aspirin 81 Mg Tab.Chew) 81 mg PO QDAY [facility] Last Admin: 03/13/22 08:13 Dose: 81 mg Bupropion HCl (Bupropion 150 Mg Tab.Sr.12h) [facility] [place] Last Admin: 03/13/22 08:16 Dose: 300 mg Dextrose (Dextrose 50% 50 Ml Vial) 0 ml IV UD PRN PRN Reason: Per Sliding Scale Diagnostic Test (Pha) (Accu-Chek 1 Each Strip) 1 each FS [facility] Last Admin: 03/13/22 13:28 Dose: 1 each Divalproex Sodium (Divalproex Sodium 250 Mg Tablet) 1,000 mg PO HS [facility] Last Admin: 03/12/22 20:23 Dose: 1,000 mg Glucose (Dextrose 31 Gm Oral.Susp) 15 gm PO PRN PRN PRN Reason: Hypoglycemia Piperacillin Sod/Tazobactam (Sod 3.375 gm/ Dextrose) 50 mls @ 100 mls/hr IV Q8H [facility]; Protocol Last Admin: 03/13/22 11:15 Dose: 100 mls/hr Ibuprofen (Ibuprofen 600 Mg Tablet) 600 mg PO Q6HP PRN; Protocol PRN Reason: pain Insulin Human Lispro (Insulin Lispro 1 Unit/0.01 Ml Unit) 0 unit SQ [facility]; Protocol Last Admin: 03/13/22 11:45 Dose: 8 units Iron Carb/Multivit/[place]/Folic Acid (Multivit,Ther Iron,Ca,Fa & Min 1 Tablet) 1 tab PO QDAY [facility] Last Admin: 03/13/22 08:15 Dose: 1 tab Levothyroxine Sodium (Levothyroxine 75 Mcg Tablet) 75 mcg PO QAM [facility] Last Admin: 03/13/22 08:15 Dose: 75 mcg Magnesium Oxide (Magnesium Oxide 400 Mg Tablet) 200 mg PO BID [facility] Last Admin: 03/13/22 08:13 Dose: 200 mg Morphine Sulfate (Morphine 2 Mg/Ml Vial) 2 mg IV Q4HP PRN; Protocol PRN Reason: Per Pain Protocol Fluvoxamine 100 Mg (Tablet) 1 dose PO TID [facility] Last Admin: 03/13/22 09:02 Dose: 1 dose Ondansetron HCl (Ondansetron 4 Mg/2 Ml Vial) 4 mg IV Q6HP PRN PRN Reason: Nausea And Vomiting Oxycodone HCl (Oxycodone Hcl 5 Mg Tablet) 5 mg PO Q4HP PRN; Protocol PRN Reason: Per Pain Protocol Last Admin: 03/08/22 20:07 Dose: 5 mg Citric Ac- Gluconolact-Mag Carb [Renacidin] 1980.6 30 dose UR 0900,1600 [facility] Last Admin: 03/13/22 09:02 Dose: 30 dose Teriflunomide [ Aubagio] 14 Mg Tablet 1 dose PO QDAY [facility] Last Admin: 03/13/22 09:02 Dose: 1 dose Potassium Citrate (Potassium Citrate 10 Meq Tab.Xl.24h) 15 meq PO TIDCC [facility] Last Admin: 03/13/22 13:28 Dose: 15 meq Trazodone HCl (Trazodone Hcl 50 Mg Tablet) 50 mg PO QHS [facility] Last Admin: 03/12/22 20:23 Dose: 50 mg Vitamin B Complex (Vitamin B Complex 1 Capsule) 1 cap PO QDAY [facility] Last Admin: 03/13/22 08:15 Dose: 1 cap Vitamin D (Vitamin D3 125 Mcg Tablet) 125 mcg PO QAM [facility] Last Admin: 03/13/22 08:16 Dose: 125 mcg A/P Assessment and plan (1) Large bowel obstruction: Status: Acute (2) Anxiety disorder: Status: Chronic (3) Diabetes mellitus, type II: Status: Chronic Qualifiers: Diabetes mellitus complication status: with unspecified complications Diabetes mellitus retirement insulin use: without retirement use Qualified Code(s): E11.8 - Type 2 diabetes mellitus with unspecified complications (4) Hypothyroidism (acquired): Status: Chronic (5) Depressive disorder: Status: Chronic (6) UTI (urinary tract infection): Status: Acute (7) Colitis: Status: Acute (8) Streptococcal bacteremia: Status: Acute Narrative A/P Narrative: Assessment and Plans: 1. Large bowel obstruction, s/p ex lap, sigmoid colectomy, and ostomy dated back on February [address] Guzman, now concerning for colitis as seen by CTA abdomen: Continue Zosyn for now while monitoring final blood culture results Dr. Means/Dr. Guzman has no plans for additional surgeries for now Oxycodone Morphine cbc w/ auto diff in the morning to trend WBC Blood culture X2, strep in both bottles, see below 2. T2DM: HgA1c 8.9 d/c Metformin, patient had CT angiogram Insulin Lispro SSI AC HS Accu Check AC HS Hypoglycemia protocol CC diet 3. h/o brain injury, anxiety with depressive disorder, OCD: Wellbutrin Depakote Fluvoxamine 4. Hypothyroidism: Continue oral thyroid replacement therapy for now 5. Streptococcal bacteremia: Initial blood culture: S. sanguinis and S. salivarius Repeat blood cultures X2 on 03/10, no growth to date cbc w/ auto diff in the morning to trend WBC Continue Zosyn for now while monitoring final blood culture results Thank you for the consultation, will continue to follow patient. Time Spent With Patient Time: Total time spent is greater than 50% in coordination of care (as documented) at patient's floor/unit and/or counseling patient: Total time spent with greater than 50% in coordination of care (as documented) at patient's floor/unit and/or counseling patient:: 25 - 35 minutes QUALITY VTE Deep Vein Thrombosis/Pulmonary Embolism Present on Admission: No
[2022-03-13] MEDS: DIVALPROEX SODIUM 250 MG TABLET PO SCH (21:27)
[2022-03-13] MEDS: traZODone HCL 50 MG TABLET PO SCH (21:28)
[2022-03-14] MEDS: PIPERACILLIN SODIUM/TAZOBACTAM 3.375 GM in DEXTROSE 5% IN WATER 50 ML IV SCH ×3 (03:01→18:56)
[2022-03-14 07:37] LABS: Basophils # (Auto) 0.09 K/mcL (0.00-0.30); Basophils % (Auto) 1.3 % (0.0-2.0); Eosinophils % (Auto) 13.4 % (0.0-7.0); Hematocrit 35.1 % (40.1-51.0); Hemoglobin 11.7 g/dL (13.7-17.5); Lymphocytes # (Auto) 1.88 K/mcL (1.50-4.80); Mean Cell Volume 96.7 fL (80.0-100.0); Mean Corpuscular HGB Conc 33.3 g/dL (31.0-36.0); Mean Platelet Volume 9.2 fL (8.8-12.5); Monocytes # (Auto) 0.73 K/mcL (0.10-0.90); Monocytes % (Auto) 10.9 % (1.0-12.0); Platelet Count 351 K/mcL (140-440); RBC 3.63 M/mcL (4.63-6.08); Red Cell Distribution Width 13.8 % (11.5-14.5); WBC 6.7 K/mcL (4.5-11.0)
[2022-03-14] MEDS: INSULIN LISPRO 1 UNIT/0.01 ML UNIT SQ SCH ×4 (07:52→21:15)
[2022-03-14 08:01] LABS: ALT/SGPT 13 U/L (<40); AST/SGOT 11 U/L (<40); Albumin 3.5 gm/dL (3.2-5.2); Albumin/Globulin Ratio 1.6 (1.0-2.3); Alkaline Phosphatase 80 U/L (39-117); Bilirubin,Total 0.4 mg/dL (0.1-1.0); Blood Urea Nitrogen 9 mg/dL (6-20); Calcium 8.7 mg/dL (8.6-10.4); Carbon Dioxide 29 mmol/L (22-30); Chloride 100 mmol/L (96-108); Globulin 2.2 gm/dL (2.2-3.7); Glomerular Filtration Rate 104; Glucose 131 mg/dL (70-105)
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
[2022-03-14] MEDS: POTASSIUM CITRATE 10 MEQ TAB.XL.24H PO SCH ×3 (10:17→17:29)
[2022-03-14] MEDS: buPROPion 150 MG TAB.SR.12H PO SCH (10:17)
[2022-03-14] MEDS: ASPIRIN 81 MG TAB.CHEW PO SCH (10:17)
[2022-03-14] MEDS: CITRIC AC GLUCONOLACT MAG CARB UR SCH ×2 (10:18→16:38)
[2022-03-14] MEDS: VITAMIN D3 125 MCG TABLET PO SCH (10:18)
[2022-03-14] MEDS: VITAMIN B COMPLEX 1 CAPSULE PO SCH (10:18)
[2022-03-14] MEDS: MAGNESIUM OXIDE 400 MG TABLET PO SCH ×2 (10:18→21:07)
[2022-03-14] MEDS: LEVOTHYROXINE 75 MCG TABLET PO SCH (10:18)
[2022-03-14] MEDS: MULTIVIT,THER IRON,CA,FA & MIN 1 TABLET PO SCH (10:18)
--- NOTE | 2022-03-14 13:59 | Internal Med Progress Note ---
SUBJECTIVE Subjective Patient information: Note initiated : 03/14/22 at 1:55 pm Service Date, if different from initiated Date: [] Patient: Buck Diamond 57 y/o M admitted on 03/08/22 for pale, diaphoretic, poss infection-Colitis. Chief Complaint: [] Principal diagnosis: Status post colectomy, colitis Interval history: Patient is a 57 years old gentleman history of traumatic brain injury, anxiety, depression, hypothyroidism, type 2 diabetes mellitus, status post ex lap, sigmoid colectomy, and ostomy dated back on February [address] Guzman, discharged home on March 07, we admitted today for worsening of his symptoms including abdominal pain. He was discharged home on March 07 with oral antibiotics nitrofurantoin for urinary tract infections. He returned back to the ED today due to worsening of his abdominal pain, currently graded 8 out of 10, sharp, constant, in the right lower quadrant. Ostomy in place with brown stool output. He denies any nausea or vomiting. He is tolerating oral intake well. He denies any systemic complaint such as general weakness, fever, chills, or diaphoresis. Labs today showing leukocytosis WBC 15.5, up from 9.5 dated back on March 03. Blood glucose level 232. CT angiogram performed today showing severe colitis in the descending colon from the splenic flexure to the ostomy. Free intraperitoneal air. This may be related to reabsorption of air following the recent colectomy or perforations. Medical consult was requested for medical management including for his diabetes and psych medications. 03/09: Blood culture grew strep involve bottles. Afebrile overnight. Fasting glucose 140 this morning. Patient denies any abdominal pain at moment. Mild perium bilical abdominal tenderness. Will keep holding metformin while doing medium scale sliding scale insulin lispro AC HS and Accu-Chek AC HS. Continue regular diet. Continue Zosyn. Repeat blood culture x2 on March 10, 2022. Rest of the surgical management as per primary team. 03/10: Afebrile overnight. WBC down trended from 12.4-->9.2. Initial blood culture growing strep species in both bottle. Patient is tolerating regular diet fine, fasting glucose 129 this morning. Patient is committing of mild abdominal pain in all quadrants. Denies any nausea or vomiting. Surgical team has no current plan for any additional surgery at the moment. Will change diet from regular diet to CC diet. Will keep holding metformin while doing medium scale sliding scale insulin lispro AC HS and Accu-Chek AC HS. Repeat blood culture x2 this morning. Continue Zosyn while waiting for final blood culture results. Rest of the surgical management as per primary team. 03/11: Afebrile overnight. Initial blood culture: S. sanguinis and S. salivarius; Repeat blood culture no growth to date. Fasting glucose 222 this morning. Tolerating CC diet very well. c/o mild periumbilical abdominal pain. Clear muc ous output from ostomy bag. Denies any nausea or vomiting. Patient and family would want to go back to his original facility and declined SNF placement. Surgical team has no current plan for any additional surgery at the moment. Continue Zosyn while waiting for repeat blood culture results. Will keep holding metformin while doing medium scale sliding scale insulin lispro AC HS and Accu- Chek AC HS. Rest of the surgical management as per primary team. 03/12: Afebrile overnight. Initial blood culture: S. sanguinis and S. salivarius; Repeat blood culture no growth to date. Fasting glucose 130 this morning. Tolerating CC diet very well. c/o mild periumbilical abdominal pain. Well-formed stool in the ostomy bag. Denies any nausea or vomiting. Surgical team has no current plan for any additional surgery at the moment. Continue Zosyn while waiting for repeat blood culture results. Will keep holding metformin while doing medium scale sliding scale insulin lispro AC HS and Accu- Chek AC HS. Rest of the surgical management as per primary team. 03/13: Afebrile overnight. Initial blood culture: S. sanguinis and S. salivarius; Repeat blood culture no growth to date. Fasting glucose 142 this morning. Tolerating CC diet very well. Patient denies any nausea vomiting or abdominal pain. Well-formed stool in the ostomy bag. Surgical team has no current plan for any additional surgery at the moment. Continue Zosyn while waiting for repeat blood culture results. Will keep holding metformin while doing medium scale sliding scale insulin lispro AC HS and Accu- Chek AC HS. Rest of the surgical management as per primary team. 03/14: Afebrile overnight. Initial blood culture: S. sanguinis and S. salivarius; Repeat blood culture no growth to date. Fasting glucose 137 this morning. Tolera ting CC diet very well. Patient denies any nausea vomiting or abdominal pain. Well-formed stool in the ostomy bag. Surgical team has no current plan for any additional surgery at the moment. Continue Zosyn while waiting for repeat blood culture results. Will keep holding metformin while doing medium scale sliding scale insulin lispro AC HS and Accu- Chek AC HS. Rest of the surgical management as per primary team. Tentative discharge date: Sunday03/15/22. Constitutional Vitals: Vital Signs Temp Pulse Resp BP Pulse Ox O2 Del Method 36.4 C 57 L 12 127/78 96 03/14/22 07:31 03/14/22 07:31 03/14/22 07:31 03/14/22 07:31 03/14/22 07:31 03/14/22 07:31 Period Temp Pulse Resp BP Sys/Ayala Pulse Ox O2 Del Method O2 Flow Rate Last 24 Hr 36.4 C-36.7 C 57-90 12-14 106-128/71-84 94-97 Room Air-Room Air Intake and Output 03/14/22 03/14/22 03/14/22 03:59 11:59 19:59 Intake Total 740 Output Total 2075 400 Balance -1335 -400 Intake & Output: Intake & Output 03/14/22 03/14/22 03/14/22 03:59 11:59 19:59 Intake Total 740 Output Total 2075 400 Balance -1335 -400 Intake: IV 50 Zosyn 3.375 gm In Dextrose 5% 50 in Water 50 ml @ 100 mls/hr IV Q8H [facility] Rx#:[id number] Oral 690 Output: Urine Catheter Amount 2075 400 Suprapubic 400 Stool 0 Other: Urine Appearance Clear Suprapubic Clear Sediment Urine Color Yellow Suprapubic Yellow Urine Odor Suprapubic Normal Stool Size Small Stool Color Brown Stool Consistency Soft # Bowel Movements 1 Head Head exam: Present atraumatic and normal inspection Eye Eye exam: Present normal appearance ENT ENT exam: Present mucous membranes moist, normal exam and normal external ear exam Neck Neck exam: Present normal inspection Respiratory Respiratory exam: Present normal respiratory exam Cardiovascular Cardiovascular exam: Present normal rate and rhythm GI/Abdominal GI/Abdominal exam: Present normal bowel sounds Additional comments: Ostomy bag in place with well-formed stool inside a bag Healing ventral abdominal surgical incisions Additional comments: Suprapubic catheter in place Back Exam Back exam: Present normal inspection Neurological Exam Neurological exam: Present alert and oriented X3 Skin Skin exam: Present intact and warm OBJ DATA Labs CBC & Chem 7: 03/14/22 05:40 03/14/22 05:40 Labs: Abnormal Lab Results 03/14/22 03/14/22 03/13/22 05:40 05:40 05:33 RBC 3.63 L Hgb 11.7 L Hct 35.1 L Eos % (Auto) 13.4 H Eos # (Auto) 0.90 H Anion Gap 7.0 L Creatinine 0.6 L Glucose 131 H 144 H Total Protein 5.7 L 5.6 L Globulin 03/13/22 03/12/22 03/12/22 05:33 05:22 05:22 RBC 3.60 L 3.50 L Hgb 11.6 L 11.3 L Hct 35.0 L 33.9 L Eos % (Auto) 10.7 H 9.8 H Eos # (Auto) 0.82 H 0.73 H Anion Gap 7.0 L Creatinine 0.5 L Glucose 139 H Total Protein 5.5 L Globulin 2.0 L Meds: Medications Acetaminophen (Acetaminophen 500 Mg Tablet) 1,000 mg PO TIDP PRN; Protocol PRN Reason: Pain/Headache Aspirin (Aspirin 81 Mg Tab.Chew) 81 mg PO QDAY [facility] Last Admin: 03/14/22 10:17 Dose: 81 mg Bupropion HCl (Bupropion 150 Mg Tab.Sr.12h) 300 mg PO QAM [facility] Last Admin: 03/14/22 10:17 Dose: 300 mg Dextrose (Dextrose 50% 50 Ml Vial) 0 ml IV UD PRN PRN Reason: Per Sliding Scale Diagnostic Test (Pha) (Accu-Chek 1 Each Strip) 1 each FS ACHS [facility] Last Admin: 03/14/22 11:27 Dose: 1 each Divalproex Sodium (Divalproex Sodium 250 Mg Tablet) 1,000 mg PO HS [facility] Last Admin: 03/13/22 21:27 Dose: 1,000 mg Glucose (Dextrose 31 Gm Oral.Susp) 15 gm PO PRN PRN PRN Reason: Hypoglycemia Piperacillin Sod/Tazobactam (Sod 3.375 gm/ Dextrose) 50 mls @ 100 mls/hr IV Q8H [facility]; Protocol Last Admin: 03/14/22 10:19 Dose: 100 mls/hr Ibuprofen (Ibuprofen 600 Mg Tablet) 600 mg PO Q6HP PRN; Protocol PRN Reason: pain Insulin Human Lispro (Insulin Lispro 1 Unit/0.01 Ml Unit) 0 unit SQ ACHS [facility]; Protocol Last Admin: 03/14/22 12:45 Dose: 8 units Iron Carb/Multivit/[place]/Folic Acid (Multivit,Ther Iron,Ca,Fa & Min 1 Tablet) 1 tab PO QDAY [facility] Last Admin: 03/14/22 10:18 Dose: 1 tab Levothyroxine Sodium (Levothyroxine 75 Mcg Tablet) 75 mcg PO QAM [facility] Last Admin: 03/14/22 10:18 Dose: 75 mcg Magnesium Oxide (Magnesium Oxide 400 Mg Tablet) 200 mg PO BID [facility] Last Admin: 03/14/22 10:18 Dose: 200 mg Morphine Sulfate (Morphine 2 Mg/Ml Vial) 2 mg IV Q4HP PRN; Protocol PRN Reason: Per Pain Protocol Fluvoxamine 100 Mg (Tablet) 1 dose PO TID [facility] Last Admin: 03/14/22 10:18 Dose: 1 dose Ondansetron HCl (Ondansetron 4 Mg/2 Ml Vial) 4 mg IV Q6HP PRN PRN Reason: Nausea And Vomiting Oxycodone HCl (Oxycodone Hcl 5 Mg Tablet) 5 mg PO Q4HP PRN; Protocol PRN Reason: Per Pain Protocol Last Admin: 03/08/22 20:07 Dose: 5 mg Citric Ac- Gluconolact-Mag Carb [Renacidin] 1980.6 30 dose UR 0900,1600 [facility] Last Admin: 03/14/22 10:18 Dose: 30 dose Teriflunomide [ Aubagio] 14 Mg Tablet 1 dose PO QDAY [facility] Last Admin: 03/14/22 10:18 Dose: 1 dose Potassium Citrate (Potassium Citrate 10 Meq Tab.Xl.24h) 15 meq PO TIDCC [facility] Last Admin: 03/14/22 12:45 Dose: 15 meq Trazodone HCl (Trazodone Hcl 50 Mg Tablet) 50 mg PO QHS [facility] Last Admin: 03/13/22 21:28 Dose: 50 mg Vitamin B Complex (Vitamin B Complex 1 Capsule) 1 cap PO QDAY [facility] Last Admin: 03/14/22 10:18 Dose: 1 cap Vitamin D (Vitamin D3 125 Mcg Tablet) 125 mcg PO QAM [facility] Last Admin: 03/14/22 10:18 Dose: 125 mcg A/P Assessment and plan (1) Large bowel obstruction: Status: Acute (2) Anxiety disorder: Status: Chronic (3) Diabetes mellitus, type II: Status: Chronic Qualifiers: Diabetes mellitus complication status: with unspecified complications Diabetes mellitus senior care insulin use: without senior care use Qualified Code(s): E11.8 - Type 2 diabetes mellitus with unspecified complications (4) Hypothyroidism (acquired): Status: Chronic (5) Depressive disorder: Status: Chronic (6) UTI (urinary tract infection): Status: Acute (7) Colitis: Status: Acute (8) Streptococcal bacteremia: Status: Acute Narrative A/P Narrative: Assessment and Plans: 1. Large bowel obstruction, s/p ex lap, sigmoid colectomy, and ostomy dated back on February [address] Guzman, now concerning for colitis as seen by CTA abdomen: Continue Zosyn for now while monitoring final blood culture results Dr. Means/Dr. Guzman has no plans for additional surgeries for now Oxycodone Morphine cbc w/ auto diff in the morning to trend WBC Blood culture X2, strep in both bottles, see below 2. T2DM: HgA1c 8.9 d/c Metformin, patient had CT angiogram Insulin Lispro SSI AC HS Accu Check AC HS Hypoglycemia protocol CC diet 3. h/o brain injury, anxiety with depressive disorder, OCD: Wellbutrin Depakote Fluvoxamine 4. Hypothyroidism: Continue oral thyroid replacement therapy for now 5. Streptococcal bacteremia: Initial blood culture: S. sanguinis and S. salivarius Repeat blood cultures X2 on 03/10, no growth to date cbc w/ auto diff in the morning to trend WBC Continue Zosyn for now while monitoring final blood culture results Thank you for the consultation, will continue to follow patient. Time Spent With Patient Time: Total time spent is greater than 50% in coordination of care (as documented) at patient's floor/unit and/or counseling patient: Total time spent with greater than 50% in coordination of care (as documented) at patient's floor/unit and/or counseling patient:: 25 - 35 minutes QUALITY VTE Deep Vein Thrombosis/Pulmonary Embolism Present on Admission: No
[2022-03-14] MEDS: DIVALPROEX SODIUM 250 MG TABLET PO SCH (21:07)
[2022-03-14] MEDS: traZODone HCL 50 MG TABLET PO SCH (21:07)
[2022-03-15] MEDS: PIPERACILLIN SODIUM/TAZOBACTAM 3.375 GM in DEXTROSE 5% IN WATER 50 ML IV SCH ×2 (02:54→12:11)
[2022-03-15 06:54] LABS: Basophils # (Auto) 0.08 K/mcL (0.00-0.30); Basophils % (Auto) 1.2 % (0.0-2.0); Eosinophils # (Auto) 1.02 K/mcL (0.00-0.70); Eosinophils % (Auto) 14.9 % (0.0-7.0); Hematocrit 35.5 % (40.1-51.0); Hemoglobin 11.4 g/dL (13.7-17.5); Lymphocytes # (Auto) 1.77 K/mcL (1.50-4.80); Lymphocytes % (Auto) 25.9 % (15.5-49.0); Mean Cell Volume 97.5 fL (80.0-100.0); Mean Corpuscular HGB Conc 32.1 g/dL (31.0-36.0); Mean Platelet Volume 9.3 fL (8.8-12.5); Monocytes # (Auto) 0.69 K/mcL (0.10-0.90); Monocytes % (Auto) 10.1 % (1.0-12.0); Neutrophils % (Auto) 47.6 % (38.0-78.0); Platelet Count 352 K/mcL (140-440); RBC 3.64 M/mcL (4.63-6.08); Red Cell Distribution Width 13.6 % (11.5-14.5); WBC 6.8 K/mcL (4.5-11.0)
[2022-03-15 07:40] LABS: ALT/SGPT 12 U/L (<40); AST/SGOT 12 U/L (<40); Albumin 3.3 gm/dL (3.2-5.2); Albumin/Globulin Ratio 1.4 (1.0-2.3); Alkaline Phosphatase 79 U/L (39-117); Bilirubin,Total 0.4 mg/dL (0.1-1.0); Blood Urea Nitrogen 7 mg/dL (6-20); Calcium 8.8 mg/dL (8.6-10.4); Carbon Dioxide 27 mmol/L (22-30); Chloride 102 mmol/L (96-108); Globulin 2.4 gm/dL (2.2-3.7); Glomerular Filtration Rate 104; Glucose 138 mg/dL (70-105)
[2022-03-15] MEDS: INSULIN LISPRO 1 UNIT/0.01 ML UNIT SQ SCH ×2 (07:56→12:34)
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
[2022-03-15] MEDS: POTASSIUM CITRATE 10 MEQ TAB.XL.24H PO SCH ×2 (09:00→12:13)
[2022-03-15] MEDS: VITAMIN B COMPLEX 1 CAPSULE PO SCH (09:00)
[2022-03-15] MEDS: MAGNESIUM OXIDE 400 MG TABLET PO SCH (09:00)
[2022-03-15] MEDS: buPROPion 150 MG TAB.SR.12H PO SCH (09:00)
[2022-03-15] MEDS: LEVOTHYROXINE 75 MCG TABLET PO SCH (09:01)
[2022-03-15] MEDS: VITAMIN D3 125 MCG TABLET PO SCH (09:01)
[2022-03-15] MEDS: MULTIVIT,THER IRON,CA,FA & MIN 1 TABLET PO SCH (09:01)
[2022-03-15] MEDS: ASPIRIN 81 MG TAB.CHEW PO SCH (09:01)
[2022-03-15] MEDS: CITRIC AC GLUCONOLACT MAG CARB UR SCH ×2 (12:19→12:35)
== END 2022-03-15 13:30 | disposition other institution (70) | DRG 386 ==
LOC: ED 08:47 → MEDSUR 12:36
PROVIDERS: ADMIT Surgery; ATTEND Surgery